=== PATIENT | male | born 1960 ===

== ENCOUNTER 2024-05-20 07:35 | Outpatient (AMB) | payer MEDICARE, OTHER, SELFPAY ==
--- OUTSIDE RECORDS SUMMARY | 2024-05-20 07:38 | XMS_ITS ---
Author Organization [facility] Address [address] [address] Care Team Providers Care Plane Tender Name Role Phone Félix Cooper Primary Care Provider Unav ailJulita Shah Unavailable [phone] ALLERGIES Allergen (clinical drug ingredient) Drug/Non Drug Allergy documented on EMR Reaction Allergy Type Onset Date Status liraglutide Victoza Unknown Drug Allergy Activ e canagliflozin Canagliflozin Unknown Drug Allergy Active lisinopril Lisinopril Unknown Drug Allergy Activ e REASON FOR VISIT Pcp- 11/08, Toe Irritation MEDICATIONS Medication SIG (Take, Route, Frequency, Duration) Notes Start Date End Date Status Tadalafil 20 MG 1 tablet Orally for 30 day(s) Not-Taking Extra Depth Orthopedic Shoes (1 Pair) with Customized Heat Molded Multidensity Innersoles (3 Pair) as directed Dx: NIDDM (E11.9), Hammertoe Foot Deformity (M20.41,M20.42), Preulcerative Skin Lesion(s) (L85.1) Not-Taking Vitamin D3 50 MCG (1999 UT) 1 capsule Orally Once a day for 30 day(s) Active amLODIPine Besylate 10 MG 1 tablet Orally Once a day Active buPROPion HCl ER (Smoking Det) 150 MG 1 tablet in the morning Orally Once a day for 30 day(s) Active Sildenafil Citrate 100 MG 1 tablet as needed Orally Once a day for 30 day(s) Active FLUoxetine HCl 40 MG 1 capsule Orally On ce a day for 30 day(s) Active Januvia 100 MG 1 tablet Orally Once a day for 30 day(s) Active metFORMIN HCl ER 500 MG 1 tablet with ev ening meal Orally Once a day for 30 day(s) Active Tamsulosin HCl 0.4 MG 1 capsule Orally O nce a day for 30 day(s) Active Nystatin-Triamcinolone 185374-7.1 UNIT/GM 1 application Externally Twice a day Active Pen Xenia 10/03 Ac tive Insulin Glargine 100 UNIT/ML as directed Subcutaneous Act randee Diclofenac Sodium 75 MG 1 tablet as need ed Orally Twice a day Not-Taking Insulin Aspart 100 UNIT/ML as directed Subcutaneous Not -Taking SITagliptin Phosphate 100 MG 1 tablet Orally Once a day for 30 day(s) Not-Taking SOCIAL HISTORY Tobacco Use: Social History Observation Description Date Details (start date - stop date) Never Smoker NA - NA Sex Assigned At : Social History Observation Description Sex Assigned At Unknown Tobacco Use/Smoking Question Answer Notes Are you a: nonsmoker Additional Findings: Tobacco Non-User Current no n-smoker Alcohol Screen Question Answer Notes Did you have a drink contain ing alcohol in the past year? Yes How often did you have a dri nk containing alcohol in the past year? 2 to 4 times a month (2 points) How many drinks did you have on a typical day when you were drinking in the past year? 5 or 6 drinks (2 points) Points 4 Interpretation Positive Tobacco use other than smoking: Question Answer Notes Are you an other tobacco user? No PROBLEMS Problem Type ICD Code Onset Dates Problem Status W/U Status Risk SNOMED Code Notes Problem Other hammer toe(s) (acquired), right foot (M20.41) Active confirmed Acquired hammer toe of right foot (1361749539602 105) Problem Other hammer toe(s) (acquired), left foot (M20.42) Active confirmed Acquired hammer toe of left foot (2172760267142 103) VITAL SIGNS Height 5 ft 10 in in 11/11/2023 Weight 200 lbs 11/11/2023 BMI 28.69 kg/m2 11/11/2023 Encounters Encounter Location Date Provider Diagnosis [facility] [address] [place] [address] 11/11/2023 Julita Marcial Other hammer toe(s) (acquired), right foot M20.41 ; Other hammer toe(s) (acquired), left foot M20.42 and Type 2 diabetes mellitus without complications E11.9 ASSESSMENTS Encounter Date Diagnosis Assessment Notes Treatment Notes Treatment Clinical Notes 11/11/2023 Other hammer toe(s) (acquired), right foot (ICD-10 - M20.41) Patient Educated with: DIABETIC FOOT CARE INSTRUCTIONS.pdf (DIABETIC FOOT CARE INSTRUCTIONS.pdf ) 11/11/2023 Other hammer toe(s) (acquired), left foot (ICD-10 - M20.42) 11/11/2023 Type 2 diabetes mellitus without complications (ICD-10 - E11.9) PLAN OF TREATMENT Treatment Notes Assessment Notes Other hammer toe(s) (acquired), right fo ot Patient Educated with: DIABETIC FOOT CARE INSTRUCTIONS.pdf (DIABETIC FOOT CARE INSTRUCTIONS.pdf) Next Appt Details Follow Up: 1 Year, Reason: Provider Name:Julita fajardo, 12/03/2024 09:00:00 AM, [address] [place] [address], [id number], Progress Notes * Examination Category Sub-Category Detail Notes Neurological SENSORY: Neurological exa m reveals intact sensorium, pain sensation normal, vibration sensation intact, pinprick sensation is normal in the lower extremities, Pt denies, anesthesia, burning, paresthesia, tingling, B/L DEEP TENDON REFLEXES: Achilles, 2/4, B/L Dermatologic SKIN FINDINGS: Skin exam reveal s normal texture, elasticity, and turgor. There are no masses. The interspaces are clear Orthopedic FOOTWEAR: worn, non-suppor tive, shoe gear properties exacerbate patient's foot/toe deformity DIGITAL DEFORMITIES: Digital contracture , PIPJ, 2-5 B/L, incompl-reducible to push-up test, no over, nor underlapping, with evidence of shoe producing skin irritation MUSCLE STRENGTH: 5/5 all groups in a symmetrical fashion , B/L General Examination GENERAL APPEARANCE: Reveals a pleasant, alert, well- nourished, well-developed, well hydrated individual, who demonstrates proper attention to hygiene/body habitus, and is in no acute distress, Pt serves as own historian for office visit today FOOT EXAM: Lower Extremity Neurological Exa m performed:: Yes ORIENTED: person, place, and t deven Footwear Evaluation Footwear Evaluation performe d:: Yes Ophthalmology Referral DIABETES EYE EXAM Diabetic Reti nopathy Screening:: Yes Findings of Diabetic Eye Exam:: no retin opathy Vascular DP PULSES(B): 3/4, B/L PT PULSES(B): 3/4, B/L CAPILLARY FILL TIME: immediate, all digi ts, B/L TEMPERTURE GRADIENT(C): warm to cool, pr oximal to distal, B/L TROPHIC CONDITION-TEXTURE/ELASTICITY/TURGOR/HAIR GROWTH(B): normal, B/L EDEMA(C): absent, B/L PIGMENTATION: normal, B/L History and Physical Notes * HPI (History of Present Illness) Category Sub-Category Detail Notes Toe pain Location: B/L feet Duration: several years Course: worse Aggravated by: shoes, any pressure Treatments: change in shoes
--- OUTSIDE RECORDS SUMMARY | 2024-05-20 07:38 | XMS_ITS | Patient Health Record ---
Author Organization [facility] Address [address] [place] [address] Care Team Providers Care Product Development Engineer Name Role Phone Félix Cooper Primary Care Provider Unav ailable Julita Marcial Unavailable [phone] ALLERGIES Allergen (clinical drug ingredient) Drug/Non Drug Allergy documented on EMR Reaction Allergy Type Onset Date Status liraglutide Victoza Unknown Drug Allergy Activ e canagliflozin Canagliflozin Unknown Drug Allergy Active lisinopril Lisinopril Unknown Drug Allergy Activ e REASON FOR REFERRAL No Information MEDICATIONS Medication SIG (Take, Route, Frequency, Duration) Notes Start Date End Date Status Nystatin-Triamcinolone 001334-0.1 UNIT/GM 1 application Externally Twice a day Active Tadalafil 20 MG 1 tablet Orally for 30 day(s) Not-Taking Pen Marion /16 Ac tive Extra Depth Orthopedic Shoes (1 Pair) with Customized Heat Molded Multidensity Innersoles (3 Pair) as directed Dx: NIDDM (E11.9), Hammertoe Foot Deformity (M20.41,M20.42), Preulcerative Skin Lesion(s) (L85.1) Not-Taking Sildenafil Citrate 100 MG 1 tablet as needed Orally Once a day for 30 day(s) Active Insulin Glargine 100 UNIT/ML as directed Subcutaneous Act randee SITagliptin Phosphate 100 MG 1 tablet Orally Once a day for 30 day(s) Not-Taking Vitamin D3 50 MCG (2000 UT) 1 capsule Orally Once a day for 30 day(s) Active FLUoxetine HCl 40 MG 1 capsule Orally On ce a day for 30 day(s) Active amLODIPine Besylate 10 MG 1 tablet Orally Once a day Active buPROPion HCl ER (Smoking Det) 150 MG 1 tablet in the morning Orally Once a day for 30 day(s) Active Januvia 100 MG 1 tablet Orally Once a day for 30 day(s) Active Diclofenac Sodium 75 MG 1 tablet as need ed Orally Twice a day Not-Taking Insulin Aspart 100 UNIT/ML as directed Subcutaneous Not -Taking metFORMIN HCl ER 500 MG 1 tablet with ev ening meal Orally Once a day for 30 day(s) Active Tamsulosin HCl 0.4 MG 1 capsule Orally O nce a day for 30 day(s) Active IMMUNIZATIONS Vaccine Route Administration Date Status Comme nts Influenza Unknown 06/20/2023 Administered SOCIAL HISTORY Tobacco Use: Social History Observation [...] confirmed Acquired hammer toe of right foot ([id number] 9105) Problem Other hammer toe(s) (acquired), left foot (M20.42) Active confirmed Acquired hammer toe of left foot (582483336365 9103) Problem Type 2 diabetes mellitus without complications (E11.9) Active confirmed [id number] Problem Hammer toe of left foot (M20.42) Active confirmed [id number] VITAL SIGNS Height 5 ft 10 in in 11/11/2023 Weight 200 lbs 11/11/2023 BMI 28.69 kg/m2 11/11/2023 Encounters Encounter Location Date Provider Diagnosis [facility] [address] [place] [address] 10/29/2023 Julita Marcial [facility] [address] [place] [address] 11/11/2023 Julita Aggie Other hammer toe(s) (acquired), right foot M20.41 [...] complications (ICD-10 - E11.9) PLAN OF TREATMENT Next Appt Details Provider Name:Julita Fajardo Evie fajardo, 12/03/2024 09:00:00 AM, [address] [place] [address], [phone], Insurance Providers Payer Name Payer Address Payer Phone Subscriber Number Group Number Insured Name Patient Relationship to Insured Coverage Start Date Coverage End Date Medicare National [employer] [address] [place] [address] [id number] Bharath Almeida Self - patient is the insured MEDICAL (GENERAL) HISTORY Medical History History ICD Code type II diabetes Herniated disc Hypertension Reflux ( GERD) Hepatitis C Arthritis Hepatitis B Alzheimers disease Anxiety Back,Hip,and Knee pain Broken bones Cataracts Depression Hepatitis High blood pressure Neuropathy Poor circulation Warts Sleep apnea Surgical History Surgery Date(Month/Year) back surgery cataract surgery rhinoplasty excision of mass
--- OUTSIDE RECORDS SUMMARY | 2024-05-20 07:38 | XMS_ITS ---
Author Organization [facility] [place] Address [address] [place] [address] Care Team Providers Care Strip Roller Name Role Phone Félix Cooper Primary Care Provider Unav ailable Julita Marcial Unavailable [phone] Galeano Encounters Encounter Location Date Provider Diagnosis [facility] [address] [place] [address] 10/29/2023 Julita Marcial PLAN OF TREATMENT Next Appt Details Provider Name:Julita fajardo, 12/03/2024 09:00:00 AM, [address] [facility] [place], [address],
--- NOTE | 2024-05-20 07:42 | MHC.OFFVIS ---
Vital Signs 05/20/24 07:50 Height 5 ft 10 in Weight 185 lb BMI 26.5 BP 138/74 Blood Pressure Location Lt brachial Position Sitting Pulse 85 Intake Visit Reasons: Follow up after /Ely pearl pt Intake Note: Patient follow up for alcohol abuse and US results. Ely current pt. Patient cc: Right middle quadrant pain with bloating on and off. Denies any other GI issues. Light Technician Required: No Accompanied by: Self / Same As Patient Allergies lisinopril Allergy (Severe, Verified 09/28/25 16:35) Angioedema canagliflozin (Invokana) Allergy (Unknown, Verified 09/28/25 16:35) polyuria liraglutide (Victoza) Adverse Reaction (Unknown, Verified 09/28/25 16:35) nausea, constipation HPI HPI Follow up after /Ely current pt: Details: GI clinic visit for this 63 YM with type 2 diabetes mellitus with neuropathy, obstructive sleep apnea, mediastinal lymphadenopathy here for follow-up of fatty liver and alcohol related liver disease. Patient is followed by JESUS Madrigal TODAY'S VISIT: Patient cc: Right middle quadrant pain with bloating on and off. Patient denies symptoms of heartburn, dysphagia, nausea, vomiting, Admits to a decrease in appetite due to Monjoro. Denies recent change in bowel habits, constipation, diarrhea, black stools or rectal bleeding. Patient has a hx of MARIAH and denies major cardiac or pulmonary problems. Denies problems with anesthesia in the past. Denies being on chronic anticoagulation. Takes Ibuprofen. Continues to drink 6-7 drinks of hard liquor (rum) on the weekends and sometimes during the week Did [employer] work - now retired and works on the side Patient denies known family history of colon polyps, colon cancer or other GI malignancies. LABS IN [employer] : Reviewed. Hepatitis-C antibody was positive with negative viral load. Hepatitis-B surface antibody in the galarza zone and hepatitis-B core antibody was positive IMAGING STUDIES: 02/2024 ABD US SHOWED: Right renal interpolar cystic foci measuring up to 1.0 cm, simple-appearing, not requiring follow-up. ENDOSCOPIC STUDIES: 01/2020 COLONOSCOPY SHOWED: Colonoscopy Findings: One diminutive polyp removed Moderate diverticulosis seen in the left colon Moderate hemorrhoids on retroflexed exam. Plan: Patient would like to discuss having an EGD due to UGI symptoms during his next appointment. Repeat Colonoscopy interval based on path results ? in 5 years if polyps are adenomatous and 10 years if polyps are hyperplastic. Above findings were reviewed with the patient and colon polyps and diverticulosis handouts were given in the discharge area BIOPSIES SHOWED: Colon, sigmoid, polypectomy: Tubular adenoma; no high grade dysplasia or carcinoma seen. PAST GI HISTORY BY REVIEW OF MEDICAL RECORDS: 10/17/2022 patient was last seen by JESUS Madrigal A 61 y/o male etoh use follows up -he says he slowed down alot-but unsure- by how much- 1 beer this week a couple last week. Diabetes not well controlled, he likes to eat- Knees and back hurts-from time to time that is been ongoing for years HX HCV- says he was treated many years ago-recently retested due to rash on his face that has not resolved results pending His appetite is very good, bowels are normal No nausea, vomiting, hematemesis, hematochezia, fever chill PFSH Medical History (Updated 09/28/25 @ 16:42 by Opal Mcclendon CNP) Depression Diabetes HTN (hypertension) NAFLD (nonalcoholic fatty liver disease) BPH (benign prostatic hyperplasia) Ascending aortic aneurysm Lung nodule MARIAH (obstructive sleep apnea) Schmidt's palsy Alcoholic dementia Periodic limb movement Diabetic neuropathy Hepatitis C Hepatitis B Arthritis Carpal tunnel syndrome Surgical History History of rhinoplasty History of colonoscopy History of lumbar surgery History of cataract surgery History of excision of mass Family History Father Myocardial infarct Colon cancer Mother Diabetes Social History Household Members: Spouse Household Members Other:: Housing: House Alcohol intake: current Alcohol intake frequency: a few times a month Alcohol type: beer and hard liquor Patient Tobacco Use Status: Never used Tobacco Tobacco use type: Cigarette e-Cigarette/Vaping Use: Never Used Second Hand Smoke Exposure: No Substance Use Type: Crack/Cocaine Advance Directives Date on File: 07/20/24 service: Yes Current occupational status: disabled Current occupational exposures/hazards: No Cognitive needs: No Hearing needs: No Vision needs: No Review of Systems Const All systems reviewed & are unremarkable except as noted in HPI and below Reports fatigue, Denies fever(s), Denies headache(s) and Reports weight loss Eyes Denies eye discharge and Denies irritation ENT Reports Normal hearing present, Denies dysphagia, Denies dizziness and Denies headache(s) Card Denies chest pain, Denies leg edema and Reports dyspnea on exertion Resp Reports cough, Reports dyspnea on exertion and Reports wheezing GI Reports abdominal pain, Denies change in bowel habits, Denies dysphagia, Denies heartburn and Reports other (Loss of appetite) Denies dysuria, Reports nocturia and Reports urinary frequency Musc Denies back pain and Denies arthralgias Skin/Breast Denies pruritus, Denies rash and Denies jaundice Neuro Reports Normal hearing present, Denies Abnormal speech present, Denies dizziness, Denies headache(s) and Denies seizure-like activity Psych Denies anxiety, Denies depression and Denies panic attacks Endo Denies cold intolerance, Reports fatigue, Denies flushing and Denies heat intolerance Demetrius/Lymph Denies easy bleeding and Denies easy bruising Aller/Immun Reports wheezing Physical Exam Vital Signs: Last Vital Signs Pulse 85 05/20/24 07:50 BP 138/74 05/20/24 07:50 BMI result Body Mass Index 26.5 Const General: healthy appearing and no acute distress Nutritional Appearance: overweight Orientation/consciousness: patient oriented x3 Limitations: no limitations HEENT Head: Yes normal to inspection Ears: hearing grossly normal bilaterally Mouth: Normal oral and palatal mucosa present Eyes Sclerae: sclerae normal Pupils: Equal, round and reactive pupils present Neck Neck: Yes normal visual inspection Chest Chest palpation & inspection: normal inspection of the chest Resp Effort & Inspection: normal respiratory effort Auscultation: clear to auscultation bilaterally Cardio Palpation: normal PMI Rate: regular rate Rhythm: regular rhythm Heart sounds: S1 normal heart sound present, S2 normal heart sound present and no murmurs GI Palpation (GI): Soft to palpation, nontender and No hepatosplenomegaly present Auscultation: normal bowel sounds Rectal Exam - Male: Yes deferred Skin General skin exam: no rashes or lesions noted Neuro General: patient oriented x3, gait normal and moves all extremities Cranial nerves: Yes Equal, round and reactive pupils present and Yes Normal hearing present Speech: No Abnormal speech present Psych Appearance: grossly normal Mental Status: mental status grossly normal Assessment & Plan Assessment & Plan (1) NAFLD (nonalcoholic fatty liver disease): Comment: Reviewed ultrasound, Repeat labs 6 months He has no GI symptoms-no abdominal pain Colonoscopy 01/2020 adenoma repeat 5 years 2024 Code(s): K76.0 - Fatty (change of) liver, not elsewhere classified Category: Medical (2) Tubular adenoma of colon: Onset Date: ~2019 Comment: (TA on 2019 scope - repeat 2024) Code(s): D12.6 - Benign neoplasm of colon, unspecified Category: Medical Plan 63 YM with type 2 diabetes mellitus with neuropathy, obstructive sleep apnea, mediastinal lymphadenopathy here for follow-up of fatty liver and alcohol related liver disease. 01/2020 Pt had a small tubular adenoma removed during colonoscopy and FU colonoscopy is due in January, Pt has a hx of past HCV - cleared with treatment Pt has normal LFTs Abd US showed The liver is normal in size. The liver contour is normal. Parenchymal echogenicity is normal. No focal hepatic lesion. There is no intrahepatic biliary duct dilatation seen. 05/20/24 Lost 18 lbs since he started taking Monjoro Complains of 5-6/10 pain in right groin - noted pain for more than a week. Increased when he lied down in bed and moved from side to side. Denies association with food intake. Urinates all the time - has to get up to use the bathroom 8 - 10 times at night. Patient denies symptoms of heartburn, dysphagia, nausea, vomiting, Admits to a decrease in appetite due to Monjoro. Pt advised to check a UA to rule out UTI FU in 4 months Orders: Orders UA CC w/rflx Micro + Cult 05/20/24 R35.0 - Frequency of micturition Coding Level of Care Code Est Pt Level 4 (80924) Diagnoses NAFLD (nonalcoholic fatty liver disease) K76.0 Tubular adenoma of colon D12.6 Time Spent (min) 21
[2024-05-20 07:50] VITALS: BP 138/74; PULSE 85; BMI 26.5
== END 2024-05-20 08:24 | disposition home or self-care (01) ==
LOC: HO.HGI 07:35
PROVIDERS: PCP Physician Assistant Medical; Visit Provider Internal Medicine Gastroenterology
DX: K76.0 Fatty (change of) liver, not elsewhere classified (principal); D12.6 Benign neoplasm of colon, unspecified
CPT/HCPCS: 99499

== ENCOUNTER → 2024-05-20 07:35 | Outpatient (BNVA) | payer MEDICARE, SELFPAY | PROVIDERS: PCP Physician Assistant Medical; Visit Provider Internal Medicine Gastroenterology ==

== ENCOUNTER 2024-07-29 15:02 | Outpatient (REF) | payer MEDICARE, SELFPAY ==
[2024-07-29 16:22] LABS: Vitamin D 25-OH Total 41.1 ng/mL (>30)
[2024-07-29 16:35] LABS: Folate 9.6 ng/mL (> or = 4.0); Vitamin B12 270 pg/mL (200-900)
== END 2024-07-29 15:03 | disposition home or self-care (01) ==
LOC: HO.LAB 15:02
PROVIDERS: PCP Internal Medicine; Visit Provider Psychiatry & Neurology Neurology
DX: F10.27 Alcohol dependence with alcohol-induced persisting dementia (principal)
CPT/HCPCS: 36415; 82306; 82607; 82746

== ENCOUNTER → 2024-09-28 08:22 | Outpatient (BNVA) | payer MEDICARE, SELFPAY | PROVIDERS: PCP Internal Medicine; Visit Provider Internal Medicine Gastroenterology | DX: F10.10 Alcohol abuse, uncomplicated (principal); K76.0 Fatty (change of) liver, not elsewhere classified; D12.6 Benign neoplasm of colon, unspecified | CPT/HCPCS: 99212 ==

== ENCOUNTER → 2024-10-07 09:26 | Outpatient (BNVA) | payer MEDICARE, OTHER, SELFPAY | PROVIDERS: PCP Physician Assistant Medical; Visit Provider Registered Nurse Diabetes Educator | DX: E11.40 Type 2 diabetes mellitus with diabetic neuropathy, unspecified (principal); Z79.4 Long term (current) use of insulin | CPT/HCPCS: 99211 ==

== ENCOUNTER 2024-10-21 09:32 | Outpatient (REF) | payer MEDICARE, SELFPAY ==
--- NOTE | ~2024-10-21 | XR_ITS ---
EXAMINATION: XR FINGERS RIGHT HISTORY: S69.91XA - Unspecified injury of right wrist, hand and finger(s), initial... COMPARISON: There are no prior studies available for comparison. FINDINGS: Three views of the right thumb are submitted. Osseous mineralization is normal. There is a soft tissue injury involving the distal tuft of the thumb. There is no acute fracture or dislocation. There is an old healed fracture of the 5th metacarpal. There is mild narrowing of the interphalangeal joint. There is vascular calcification. XR/XR finger RT min 2V IMPRESSION: Soft tissue injury of the distal tuft of the thumb. No evidence of fracture. Electronically signed by: Lee Avelar MD 10/21/2024 10:47 AM EDT
--- OUTSIDE RECORDS SUMMARY | 2024-10-21 11:16 | XMS_ITS | Clinical Summary ---
Author Organization [address] [place] [address] Address [address] [place] [address] Phone Care Team Providers Care Chainstitch Seat Joiner Name Role Phone Hector Epps MD Primary Care Provider Allergies Active Allergy Reactions Criticality Noted Date [...] Care Team Description 09/02/2024 Telephone Adult Medicine [facility] [address] [place] [address] Christiano Guerrero MD call back 08/25/2024 3:00 PM EST Ancillary Procedure [facility] - [address] [place] [address] Aneurysm of ascending aorta without [...] HISTORICAL CATARACT REMOVAL NASAL SEPTUM SURGERY PROCEDURE: [place] REPAIR NASAL SEPTAL PERFORATIONS COLONOSCOPY 01/2020 PROCEDURE: [...] 54 mL CV PACS Left Atrium Minor [place] 5.9 cm CV PACS Left Atrium Major [place] 5.6 cm CV PACS LA Area Sys [...] Proximal 1.9 cm CV PACS MV Deceleration Patrick 2.7 m/s2 CV PACS E Wave Deceleration [...] Albumin Creatinine Ratio (02/17/2024) Pathologist [facility] Urine Albumin Creatinine Ratio Abstracted Historical Provider HEALTH MAINTENANCE Final Result * Annual BMP Blood Test (02/17/2024) Pathologist [facility] Annual BMP Blood Test Abstracted Result [facility] Provider HEALTH MAINTENANCE Final Result * Falls Risk Assessment (02/17/2024) [facility] Falls Risk Assessment Abstracted Result [facility] Provider HEALTH MAINTENANCE Final Result * Depression Screening (02/17/2024) [facility] Depression Screening Abstracted Result [facility] HEALTH MAINTENANCE Final Result * (ABNORMAL) Hemoglobin A1c (02/17/2024) [facility] Hemoglobin A1C 7.4(A) <=6.5 % Blood Venous blood specimen / Unknown Result [facility] Provider LAB BLOOD ORDERABLES Zunilda l Result * Lipid panel (02/17/2024) [facility] LDL/HDL Ratio 3 0 - 4 Triglycerides 93 0 - 150 mg/dL Cholesterol 125 0 - 200 mg/dL HDL 48 >=40 mg/dL LDL Cholesterol 59 0 - 100 mg/dL Blood Venous blood specimen / Unknown Result [facility] Provider LAB BLOOD ORDERABLES Zunilda l Result * Diabetes Eye Exam (10/30/2023) [facility] Diabetes: Annual Retina Eye Exam Abstracted Result [facility] Provider HEALTH MAINTENANCE Final Result * Colonoscopy (01/28/2020) [facility] Colonoscopy No interpretation , Abstracted Anatomical Region Laterality Modality Other Result [facility] Provider HEALTH MAINTENANCE Final Result * Hepatitis C Screening (04/01/2016) [facility] Hepatitis C Screening Abstracted Result [facility] Provider HEALTH MAINTENANCE Final Result from Last 3 Months or Most Recently Relevant to Health Maintenance Insurance A[employer]NA MEDICARE ADVANTAGE MEDICARE [facility] MEDICAID - [place] Care Teams Chainstitch Seat Joiner Relationship Specialty Start Date End Date Hector Epps MD [address] [place] [address] [address] [place] PCP - General Internal Medicine 09/03/24
== END 2024-10-21 09:33 | disposition home or self-care (01) ==
LOC: HO.HMGCX 09:32
PROVIDERS: PCP Internal Medicine; Visit Provider Nurse Practitioner Family
DX: S61.011A Laceration without foreign body of right thumb without damage to nail, initial encounter (principal)
CPT/HCPCS: 73140; 99212

== ENCOUNTER 2024-10-21 09:32 | Outpatient (AMB) | payer MEDICARE, SELFPAY ==
--- NOTE | 2024-10-21 09:39 | AM.OFFWIN_ITS ---
Intake Vital Signs 3 10/21/24 09:41 Weight 172 lb BP 122/80 Blood Pressure Location Lt brachial Position Sitting Pulse 68 Pulse Source Pulse Oximeter Pulse Oximetry (%) 99 Oxygen Delivery Method Room Air Intake Visit Reasons: EP cut on RT thumb Intake Note: Patient here for cut on right thumb that happened about 2 weeks ago with a saw. Patient Tobacco Use Status: Never used Tobacco Allergies lisinopril Allergy (Severe, Verified 10/21/24 09:42) Angioedema canagliflozin [Invokana] Allergy (Unknown, Verified 10/21/24 09:42) polyuria liraglutide [Victoza] Adverse Reaction (Unknown, Verified 10/21/24 09:42) nausea, constipation Do you need a note to return to daycare/school/sports/work: No HPI HPI Comments 2 History of Present Illness0 Details 63 y/o male patient who presents to the walk in clinic with c/o Small cut right thumb. Reports that he cut his thumb with a saw x 2 weeks ago. He never came to be seen and never had stitches. Reports today to the clinic to make sure the area is not infected. Reports numbness/tingling and pain to the finger. He is Diabetic. [facility] Medical History (Updated 10/21/24 @ 10:21 by Melanie Alvarez NP) Injury of right thumb Lumbar degenerative disc disease Vitamin D deficiency Hypersomnia Snoring Cognitive disorder Tubular adenoma of colon (~2019) BPH loc w urin obs/LUTS Frequency of urination Erectile dysfunction NAFLD (nonalcoholic fatty liver disease) Hepatitis C Hepatitis B Arthritis Alcohol abuse Depression Carpal tunnel syndrome Type 2 diabetes mellitus with diabetic neuropathy, unspecified (~2003) Essential hypertension Overweight (BMI 25.0-29.9) Surgical History (Updated 10/13/24 @ 12:01 by Cynthia Ramirez) History of rhinoplasty History of colonoscopy History of lumbar surgery History of cataract surgery History of excision of mass Family History (System 10/13/24 @ 12:01 by Cynthia Ramirez) Father Myocardial infarct Colon cancer Mother Diabetes Social History (System 10/13/24 @ 12:01 by Cynthia Ramirez) Household Members: Spouse Household Members Other:: Housing: House Alcohol intake: current Alcohol intake frequency: a few times a month Alcohol type: beer and hard liquor Patient Tobacco Use Status: Never used Tobacco e-Cigarette/Vaping Use: Never Used Substance Use Type: Crack/Cocaine Advance Directives Date on File: 07/20/24 service: Yes Current occupational status: disabled Current occupational exposures/hazards: No Cognitive needs: No Hearing needs: No Vision needs: No Review of Systems Const All systems reviewed & are unremarkable except as noted in HPI and below Physical Exam Vital Signs: Last Vital Signs Pulse 68 10/21/24 09:41 BP 122/80 10/21/24 09:41 Pulse Ox 99 10/21/24 09:41 Oxygen Delivery Method Room Air 10/21/24 09:41 Const General: no acute distress Orientation/consciousness: patient oriented x3 Neuro General: patient oriented x3 Extrem Other: Right upper extremity: Extremity exam: right hand Details: normal capillary refill, tenderness Location: of the thumb (Tip of the Thumb finger missing), normal ROM of fingers and no swelling Assessment & Plan Assessment & Plan (1) Injury of right thumb: Code(s): S69.91XA - Unspecified injury of right wrist, hand and finger(s), initial encounter Qualifiers: Encounter type: initial encounter Qualified Code(s): S69.91XA - Unspecified injury of right wrist, hand and finger(s), initial encounter Plan: Ordered Xray of the thumb No signs of infection. Advised poss damage to the Nerves and muscle from the Cut. Orders: Orders 2 XR finger RT min 2V Today S69.91XA - Unspecified injury of right wrist, hand and finger(s), initial encounter Coding Level of Care Code Est Pt Level 4 (41861) Diagnoses Injury of right thumb, initial encounter S69.91XA Encounter type: initial encounter Time Spent (min) 20
[2024-10-21 09:41] VITALS: BP 122/80; PULSE 68; O2SAT 99
--- OUTSIDE RECORDS SUMMARY | 2024-10-21 09:58 | XMS_ITS ---
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 Name Role Phone Félix Cooper Primary Care Provider Unav ailJulita Shah Unavailable [phone] Allergies Allergen (clinical drug ingredient) Drug/Non Drug Allergy documented on EMR Reaction Allergy Type Onset Date Status liraglutide Victoza Unknown Drug Allergy Activ e canagliflozin Canagliflozin Unknown Drug Allergy Active lisinopril Lisinopril Unknown Drug Allergy Activ e REASON FOR VISIT Pcp- 11/08, Toe Irritation Medications Medication SIG (Take, Route, Frequency, Duration) Notes [...] a day for 30 day(s) Active Nystatin-Triamcinolone 924566-5.1 UNIT/GM 1 application Externally Twice a day Active Pen [place] 10/03 Ac tive Insulin Glargine 100 UNIT/ML as directed Subcutaneous Act randee Diclofenac Sodium 75 MG 1 tablet as need ed Orally Twice a day Not-Taking Insulin Aspart 100 UNIT/ML as directed Subcutaneous Not -Taking SITagliptin Phosphate 100 MG 1 tablet Orally Once a day for 30 day(s) Not-Taking Social History Tobacco Use: Social History Observation Description Date Details (start date - stop date) Never Smoker NA - NA Tobacco Use/Smoking Question Answer Notes Are you [...] Are you an other tobacco user? No Problems Problem Type SNOMED Code ICD Code Onset Dates Problem Status W/U Status Risk Notes Problem Acquired hammer toe of right foot (7784552888580 105) Other hammer toe(s) (acquired), right foot (M20.41) Active confirmed Problem Acquired hammer toe of left foot (6565011098554 103) Other hammer toe(s) (acquired), left foot (M20.42) Active confirmed Vital Signs Height 5 ft 10 in in 11/11/2023 Weight 200 lbs 11/11/2023 BMI 28.69 kg/m2 11/11/2023 Encounters Encounter Location Date Provider Diagnosis [facility] [place] [address] [place] [address] 11/11/2023 Julita Marcial Other hammer toe(s) (acquired), right foot M20.41 ; Other hammer toe(s) (acquired), left foot M20.42 and Type 2 diabetes mellitus without complications E11.9 Assessments Encounter Date Diagnosis (ICD Code) Assessment Notes Treatment Notes Treatment Clinical Notes Section Notes 11/11/2023 Other hammer toe(s) (acquired), right foot (ICD-10 - M20.41) Patient Educated with: DIABETIC FOOT CARE INSTRUCTIONS.p df (DIABETIC FOOT CARE INSTRUCTIONS.p df) 11/11/2023 Other hammer toe(s) (acquired), left foot (ICD-10 - M20.42) 11/11/2023 Type 2 diabetes mellitus without complications (ICD-10 - E11.9) Plan Of Treatment Treatment Notes Assessment Notes Other hammer toe(s) (acquired), right fo ot Patient Educated with: DIABETIC FOOT CARE INSTRUCTIONS.pdf (DIABETIC FOOT CARE INSTRUCTIONS.pdf) Next Appt Details Follow Up: 1 Year, Reason: Provider Name:Julita fajardo, 12/03/2024 09:00:00 AM, [address] [place] [address], [phone], Progress Notes * Kaila RHODESOB:[birth year] (63 yo M)Acc No.[id number]:11/11/2023 Progress Note Patient:?Thong Rhodes Provider:?Julita Marcial DPM :1960???Age:63 Y???Sex:Male Nahun e:11/11/2023 Address:[address] [place] [address] [id number] Pcp:JESUS Jerry Subjective: * Chief Complaints: * ???Pcp- 11/08 Toe Irritation * HPI: ???Toe pain:?Location:?B/L feet.?Duration:?several years.?Course:?worse.?Aggrevated by:?shoes, any pressure.?Treatments:?change in shoes.? * ROS:?General/Constitutional:?Nausea?denies.?Vomiting?denies.?Hunger Thirst?denies.?Loss appetite?denies.?Chills?denies.?Fatigue?denies.?Fever?denies.?Night Sweats?denies.?Unexplained weight loss?denies.?Unexplained weight gain?denies.?HEENTM:?Dentures?denies.?Dizziness?denies.?Glasses/contacts?denies.?Retinopathy?de nies.?Blurred/double vision?denies.?TMJ?denies.?Discharge/drainage?denies.?Implants?denies.?Sore throat?denies.?Dental implants?denies.?Hard of hearing ?denies.?Difficulty chewing/swallowing/speaking?denies.?Nose bleeds?denies.?Sore mouth?denies.?Respiratory:?On Oxygen?denies.?Pneumonia/pleurisy?denies.?Bronchitis?denies.?Emphysema?denies.?C oughing?denies.?Cough blood?denies.?Shortness of breath?denies.?Wheezing?denies.?Cardiovascular:?Pacemaker?denies.?MVP?denies.?WPW?denies.?CHF?denies.?Heart attack?denies.?Septal defect?denies.?Rapid beat?denies.?Chest pain ?denies.?Atrial Fib.?denies.?Murmur/Palpitations?denies.?Gastrointestinal:?Hemorrhoids?denies.?Stomach/Abdominal pain?denies.?Dark blood stool?denies.?Irritable bowel ?denies.?Constipation?denies.?Diarrhea?denies.?Hematology:?Swelling?denies.?Clots?denies.?Varicose Veins?denies.?Bruising?denies.?Bleeding problem?denies.?Genitourinary:?Blood urine?denies.?Frequent/Painfu/urination/bladder control?denies.?Kidney stones?denies.?Infection (UTI)?denies.?Nephropathy?denies.?sex trans dis (STD)?denies.?Prostate?denies.?Musculoskeletal:?Hammertoes?denies.?Bunions?denies.?Back Pain?admits.?Muscle Cramps/ Resting?denies.?Muscle cramps / walking?denies.?Generalized aches and pains?admits.?Weakness?denies.?Integ.:?Daniels?denies.?Scars?denies.?Corns/calluses?denies.?Ingrown nails?denies.?Painful nails?denies.?Open Sores?denies.?Rashes?denies.?Neurologic:?Difficulty sleeping?denies.?Brain disorder?denies.?Numbness?denies.?Balance trouble?denies.?Confusion?denies.?Fainting/blackouts?denies.?Tingling?denies.?Tr emors?denies.? * Medical History:? * Surgical History:?back surge ry cataract surgery rhinoplasty excision of mass * Hospitalization/Major Diagno stic Procedure:?Denies Past Hospitalization * Family History:?Mother: ren lee, diagnosed with Diabetic - NIDDM.?Father: , diagnosed with Other malignant neoplasm of unspecified site.? * Social History:?Tobacco Use:?Tobacco Use/Smoking?Are you a:?nonsmoker ?Additional Findings: Tobacco Non-User?Current non-smoker ?Tobacco use other than smoking?Are you an other tobacco user??No ???Drugs/Alcohol:?Drugs?Have you used drugs other than those for medical reasons in the past 12 months??No ?Alcohol Screen?Did you have a drink containing alcohol in the past year??Yes ?How often did you have a drink containing alcohol in the past year??2 to 4 times a month (2 points) ?How many drinks did you have on a typical day when you were drinking in the past year??5 or 6 drinks (2 points) ?Points?4 ?Interpretation?Positive ???Miscellaneous:?Caffeine: yes, frequency:, 1-2 cups per day. ?Children: yes, 3. ?Exercise: yes, gardening/yard work. ?Marital status: . ?Occupation: Disabled. * Medications:?TakingPen [place]l es 10/03 Nystatin-Triamcinolone 053931-0.1 UNIT/GM Cream 1 application Externally Twice a dayInsulin Glargine 100 UNIT/ML Solution as directed Subcutaneous Sildenafil Citrate 100 MG Tablet 1 tablet as needed Orally Once a dayJanuvia 100 MG Tablet 1 tablet Orally Once a dayTamsulosin HCl 0.4 MG Capsule 1 capsule Orally Once a daymetFORMIN HCl ER 500 MG Tablet Extended Release 24 Hour 1 tablet with evening meal Orally Once a dayFLUoxetine HCl 40 MG Capsule 1 capsule Orally Once a dayVitamin D3 50 MCG (2000 UT) Capsule 1 capsule Orally Once a daybuPROPion HCl ER (Smoking Det) 150 MG Tablet Extended Release 12 Hour 1 tablet in the morning Orally Once a dayamLODIPine Besylate 10 MG Tablet 1 tablet Orally Once a dayTaking Pen [place] 10/03 Taking Nystatin-Triamcinolone 512736-1.1 UNIT/GM Cream 1 application Externally Twice a dayTaking Insulin Glargine 100 UNIT/ML Solution as directed Subcutaneous Taking Sildenafil Citrate 100 MG Tablet 1 tablet as needed Orally Once a dayTaking Januvia 100 MG Tablet 1 tablet Orally Once a dayTaking Tamsulosin HCl 0.4 MG Capsule 1 capsule Orally Once a dayTaking metFORMIN HCl ER 500 MG Tablet Extended Release 24 Hour 1 tablet with evening meal Orally Once a dayTaking FLUoxetine HCl 40 MG Capsule 1 capsule Orally Once a dayTaking Vitamin D3 50 MCG (2000 UT) Capsule 1 capsule Orally Once a dayTaking buPROPion HCl ER (Smoking Det) 150 MG Tablet Extended Release 12 Hour 1 tablet in the morning Orally Once a dayTaking amLODIPine Besylate 10 MG Tablet 1 tablet Orally Once a dayNot-Taking/PRNExtra Depth Orthopedic Shoes (1 Pair) with Customized Heat Molded Multidensity Innersoles (3 Pair) as directed Dx: NIDDM (E11.9), Hammertoe Foot Deformity (M20.41,M20.42), Preulcerative Skin Lesion(s) (L85.1)Tadalafil 20 MG Tablet 1 tablet Orally SITagliptin Phosphate 100 MG Tablet 1 tablet Orally Once a dayInsulin Aspart 100 UNIT/ML Solution as directed Subcutaneous Diclofenac Sodium 75 MG Tablet Delayed Release 1 tablet as needed Orally Twice a dayMedication List reviewed and reconciled with the patientNot-Taking/PRN Extra Depth Orthopedic Shoes (1 Pair) with Customized Heat Molded Multidensity Innersoles (3 Pair) as directed Dx: NIDDM (E11.9), Hammertoe Foot Deformity (M20.41,M20.42), Preulcerative Skin Lesion(s) (L85.1)Not-Taking/PRN Tadalafil 20 MG Tablet 1 tablet Orally Not-Taking/PRN SITagliptin Phosphate 100 MG Tablet 1 tablet Orally Once a dayNot-Taking/PRN Insulin Aspart 100 UNIT/ML Solution as directed Subcutaneous Not-Taking/PRN Diclofenac Sodium 75 MG Tablet Delayed Release 1 tablet as needed Orally Twice a dayMedication List reviewed and reconciled with the patient * Allergies:?LisinoprilPeter King[Allergies Verified] Objective: * Vitals:?Ht: 5 ft 10 in, Wt:2 00, BMI:28.69, Shoe size:11, BS:249. * Examination: ???Ophthalmology Referral: ?DIABETES EYE EXAM?Diabetic Retinopathy Screening:?Yes ?Findings of Diabetic Eye Exam:?no retinopathy?General Examination: ?GENERAL APPEARANCE:?Reveals a pleasant, alert, well-nourished, well- developed, well hydrated individual, who demonstrates proper attention to hygiene/body habitus, and is in no acute distress, Pt serves as own?historian for office visit today.?ORIENTED:?person, place, and time.?FOOT EXAM:?Lower Extremity Neurological Exam performed:?Yes ?Footwear Evaluation?Footwear Evaluation performed:?Yes?Neurological: ?SENSORY:?Neurological exam reveals intact sensorium, pain sensation normal, vibration sensation intact, pinprick sensation is normal in the lower extremities, Pt denies, anesthesia, burning, paresthesia, tingling, B/L.?DEEP TENDON REFLEXES:?Achilles, 2/4, B/L.?Vascular: ?DP PULSES:?3/4, B/L.?PT PULSES:?3/4, B/L.?CAPILLARY FILL TIME:?immediate, all digits, B/L.?SKIN TEMPERTURE GRADIENT OF THE LOWER EXTERMITIES:?warm to cool, proximal to distal, B/L.?HAIR GROWTH/TEXTURE/ELASTICITY/TURGOR:?normal, B/L.?PIGMENTATION:?normal, B/L.?EDEMA:?absent, B/L.?Dermatologic: ?SKIN FINDINGS:?Skin exam reveals normal texture, elasticity, and turgor. There are no masses. The interspaces are clear.?Orthopedic: ?MUSCLE STRENGTH:?5/5 all groups in a symmetrical fashion , B/L.?DIGITAL DEFORMITIES:?Digital contracture, PIPJ, 2-5 B/L, incompl-reducible to push-up test, no over, nor underlapping, with evidence of shoe producing skin irritation.?FOOTWEAR:?worn, non-supportive, shoe gear properties exacerbate patient's foot/toe deformity.? Assessment: * Assessment: 1.?Other hammer toe(s) (acqu ired), right foot - M20.41 (Primary), Chronic problem, Worse (4),Rx Management (4)?2.?Other hammer toe(s) (acquired), left foot - M20.42, Chronic problem, Worse (4),Rx Management (4)?3.?Type 2 diabetes mellitus without complications - E11.9? Plan: * Treatment: * Procedure Codes:? * Preventive Medicine:? ??Counseling:?Discussion:?-13: Office or other outpatient visit for the evaluation and management of an established patient, which required a medically appropriate history and/or examination and LOW level of DECISION MAKING for: 1 STABLE ACUTE UNCOMPLICATED PROBLEM, 2 OR MORE MINOR PROBLEMS, OR 1 STABLE CHRONIC PROBLEM, THAT POSE(S) A LOW RISK FOR MORBIDITY/MORTALITY. The visit on the day of the encounter encompassed interpreting the data and educating the patient as to the nature of their condition, treatment options available according to their individual PMH, meds, allergies, and overall health/living conditions, as well as any potential risks or complications that may occur from a failure to adhere to, and participate in, the recommended course of therapy. The discussion included a complete verbal, and/or written explanation of the examination results, any x-rays taken, the proposed diagnosis, and outline of the treatment plan. A schedule for future care needs was also explained. The patient verbalized an understanding of the instructions at this time and agreed to be an active participant in their treatment. If the patient should think of any questions or concerns after the visit, I have encouraged the patient to call the office.?Digital Surgery:?Digital surgery was discussed with the patient, We elected to try conservative treatment at the present time, due to the patients medical history and increased asssociated post-operative risks.?Digital Treatment:?HT- I explained to the patient the possible etiologies of Hammertoes, including genetics/foot type/shoegear/activity level/exercise routine and the risks/benefits of all the different treatment options for their pain including: No treatment at all, Rest, Ice, New/supportive/wider/deeper Shoegear, Digital Padding/Strapping/Taping/Bracing/Gel protective sleeves, Foot/Ankle AFO Bracing, Stretching exercises, Deep Tissue Massage, Arch support/shoe inserts with splay metatarsal padding, and Custom orthoses. I insisted that any digital devices be removed daily and not worn overnight for safety. The patient is to carefully examine the toes daily for any skin irritation while using any splinting or padding device. The advantages and disadvantages of each option were discussed and the patients questions re: shoegear, padding, custom vs prefabricated inserts, activity level, and consistency in home treatment regimens for optimal success were answered to their verbally confirmed satisfaction.?Shoe Gear Counseling:?SHOE Rx - The patient was counseled in great detail on their muscoloskeletal foot and toe deformities which coincided with the dermatological presentations visualized on exam. We discussed how their deformities put the integrity of their feet at risk for potential pedal complications which makes the accomidative diabetic shoes and cutomizable inserts medically necessary. We discussed the different shoe and insert treatment types and options, as well as the important advantages for adhering to regularly wearing these accomidative devices daily. The patient was made aware of the fact that a failure to abide by these recommedations may be deleterious to their foot health as they are able to prevent many pedal complications such as skin irritation, skin ulceration, infection, and even loss of toe/foot/leg/or life. Time was also spent with the patient dispensing and discussing proper diabetic footcare techniques including daily skin moisturization, daily foot inspection for any interruption in skin integrity including open lesions, or sign of infection such as redness/malodor/drainage/swelling. Also discussed and recommended were procedures regarding daily shoe inspection for the presence of internal foreign bodies as well as any visualized irregular shoe or insert wear. Patient questions re: shoes, inserts, and self foot inspections were answered to their satisfaction as the patient verbally confirmed a full understanding of the above information. Patient defers recommended Rx for Extra Depth Orthopedic Shoes with 3 pair of custom heat- molded inserts.?Ulcer:?.? * Follow Up:?1 Year * Images: * Sign off status: Completed true * Provider:?Julita Marcial DPM Date:? Generated for Eyal orta/Teri/Alejandro on:?10/21/2024 09:58 AM EDT History and Physical Notes * HPI (History of Present Illness) Category Sub-Category Detail Notes Category Not es Toe pain Location: B/L feet Duration: several years Course: worse Aggravated by: shoes, any pressure Treatments: change in shoes Examination Category Sub-Category Detail Notes Category Not es Neurological SENSORY: Neurological exa m reveals intact sensorium, pain sensation normal, vibration sensation intact, pinprick sensation is normal in the lower extremities, Pt denies, anesthesia, burning, paresthesia, tingling, B/L DEEP TENDON REFLEXES: Achilles, 2/4, B/L Dermatologic SKIN FINDINGS: Skin exam reveal s normal texture, elasticity, and turgor. There are no masses. The interspaces are clear Orthopedic FOOTWEAR EVALUATION: worn, non-s upportive, shoe gear properties exacerbate patient's foot/toe deformity [...] Yes Ophthalmology Referral DIABETES EYE EXAM Diabetic Retinopa thy Screening:: Yes Findings of Diabetic Eye Exam:: no retin opathy Vascular DP PULSES (B): 3/4, B/L PT PULSES (B): 3/4, B/L CAPILLARY FILL TIME: immediate, all digi ts, B/L TEMPERTURE GRADIENT (C): warm to cool, p roximal to distal, B/L TROPHIC CONDITION-TEXTURE/ELASTICITY/TURGOR/HAIR GROWTH (B): normal, B/L EDEMA (C): absent, B/L PIGMENTATION: normal, B/L
--- OUTSIDE RECORDS SUMMARY | 2024-10-21 09:58 | XMS_ITS | Patient Health Record ---
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 Name Role Phone Félix Cooper Primary Care Provider Unav ailable Julita Marcial Unavailable [phone] Allergies Allergen (clinical drug ingredient) Drug/Non Drug Allergy documented on EMR Reaction Allergy Type Onset Date Status liraglutide Victoza Unknown Drug Allergy Activ e canagliflozin Canagliflozin Unknown Drug Allergy Active lisinopril Lisinopril Unknown Drug Allergy Activ e Reason For Referral No Information Medications Medication SIG (Take, Route, Frequency, Duration) Notes Start Date End Date Status Nystatin-Triamcinolone 448004-1.1 UNIT/GM 1 application Externally Twice a day Active Tadalafil 20 MG 1 tablet Orally for 30 day(s) Not-Taking Pen [place] 16 Ac tive Extra Depth Orthopedic Shoes (1 [...] nce a day for 30 day(s) Active Immunizations Vaccine Route Administration Date Status Comme nts Influenza Unknown 06/20/2023 Administered Social History Tobacco Use: Social History Observation [...] Problem Acquired hammer toe of right foot (9632114916178 105) Other hammer toe(s) (acquired), right foot (M20.41) Active confirmed Problem Acquired hammer toe of left foot (5593650811322 103) Other hammer toe(s) (acquired), left foot (M20.42) Active confirmed Problem [id number] Type 2 diabetes mellitus without complications (E11.9) Active confirmed Problem [id number] Hammer toe of left foot (M20.42) Active confirmed Vital Signs Height 5 ft 10 in in 11/11/2023 Weight 200 lbs 11/11/2023 BMI 28.69 kg/m2 11/11/2023 Encounters Encounter Location Date Provider Diagnosis [facility] [place] [address] [place] [address] 11/11/2023 Julita Marcial Other hammer toe(s) (acquired), [...] complications (ICD-10 - E11.9) Plan Of Treatment Next Appt Details Provider Name:Julita fajardo, 12/03/2024 09:00:00 AM, [address] [place] [address], [phone], Insurance Providers Payer Name Payer Address Payer Phone Subscriber Number Group Number Insured Name Patient Relationship to Insured Coverage Start Date Coverage End Date Medicare [employer] [address] [place] [address] [id number] Bharath Almeida Self - patient is the insured Medical (General) History Medical History History ICD Code type II diabetes Herniated disc Hypertension Reflux ( GERD) Hepatitis C Arthritis Hepatitis B Alzheimers disease Anxiety Back,Hip,and Knee pain Broken bones Cataracts Depression Hepatitis High blood pressure Neuropathy Poor circulation Warts Sleep apnea Surgical History Surgery Date(Month/Year) back surgery cataract surgery rhinoplasty excision of mass
--- OUTSIDE RECORDS SUMMARY | 2024-10-21 09:59 | XMS_ITS ---
Author Organization [facility] Address [address] [place] [address] Care Team Providers Care Hop Weigher Name Role Phone Félix Cooper Primary Care Provider Unav ailable Julita Marcial [phone] Galeano Encounters Encounter Location Date Provider Diagnosis [facility] [address] [place] [address] 10/29/2023 Julita Marcial Plan Of Treatment Next Appt Details Provider Name:Julita fajardo, 12/03/2024 09:00:00 AM, [address] [place], [address], Progress Notes * Kaila RHODESOB:[birth year] (63 yo M)Acc No.[id number]:10/29/2023 Progress Note Patient:?Thong RHODES Provider:?Julita Marcial DPM :1960???Age:62 Y???Sex:Male Nahun e:10/29/2023 Address[address] [id number] Pcp:JESUS Jerry Subjective: * Chief Complaints: * ???1. Dr Galeano. * Medical History:? Objective: * Vitals:? Assessment: Plan: * Treatment: * Images: * The named appointment provid er may or may not be the originator of this progress note, and it is not deemed complete until electronically signed by the appointment provider. Sign off status: Pending * Provider:?Julita Marcial DPM Date:?04/2024 Generated for Eyal orta/Teri/Alejandro on:?10/21/2024 09:58 AM EDT
--- OUTSIDE RECORDS SUMMARY | 2024-10-21 09:59 | XMS_ITS | Clinical Summary ---
Author Organization [address] [place] [address] Address [address] [place] [address] Phone Care Team Providers Care Transportation [employer] Internship Name Role Phone Hector Epps MD Primary Care Provider [phone] Allergies Active Allergy Reactions Criticality Noted Date Comments Lisinopril Swelling 11/22/2020 Medications lidocaine (LIDODERM) 5 % patch Place 1 Patch onto the skin every 24 hours for 28 days. Apply for no more than 12 hours in any 24 hour period. 4 Active buPROPion XL (WELLBUTRIN XL) 150 mg 24 hr tablet Take 1 Tablet by mouth every morning. 4 Active FLUoxetine (PROzac) 40 mg capsule TAKE 1 CAPSULE BY MOUTH ONCE DAILY 4 Active metoprolol succinate (TOPROL-XL) 25 mg 24 hr tablet Take 1 Tablet by mouth daily. 4 Active tamsulosin (FLOMAX) 0.4 mg 24 hr capsule Take 1 Capsule by mouth daily. Take 30 mins after same meal every day. 4 Active tirzepatide (Mounjaro) 2.5 mg/0.5 mL pen injector Inject 2.5 mg into the skin once a week. 4 Active diclofenac (VOLTAREN) 1 % topical gel Apply topically. Active hydrocortisone 2.5 % cream Apply 1 Film topically 2 times daily for 14 days. 3 Active sub-q insulin device, 20 unit (V-GO 20) device USE DAILY DIRECTED 2 Active clotrimazole-be tamethasone (LOTRISONE) 1-0.05 % cream Apply twice a day. 2 Active cholecalciferol (VITAMIN D-3) 50 mcg (2,000 unit) capsule Take 2,000 Units by mouth daily. 9 Active insulin glargine (LANTUS) 100 unit/mL injection Inject 30 Units into the skin at bedtime. Active pen needle, diabetic (Pen Needle) 31 gauge x 3/16 needle by Does not apply route. Active amLODIPine (NORVASC) 10 mg tablet TAKE 1 TABLET BY MOUTH EVERY DAY 90 tablet 5 Active Active Problems Problem Noted Date Diagnosed Date Cough 06/07/2022 Overview (04/15/2024): Last Assessment & Plan: He does have complaints of a dry cough as well as some midepigastric discomfort. We did discuss a trial of a PPI to see if that would help to improve his symptoms. He will try this and see if this helps. Ascending aortic aneurysm 05/06/2022 Overview (04/15/2024): 4.5cm Last Assessment & Plan: We did discuss his a sending aorta. On his most recent CAT scan this showed it to be 4.5 cm. He will be getting a repeat CAT scan for surveillance of his lung nodule. We will follow-up on this. We will also check an echocardiogram so that we can continue to monitor his thoracic arch dilation. We did discuss that we would not do anything about it at this point. We will continue to monitor and if he gets worse we will consider repair. We will continue with low blood pressure Aneurysmal dilatation 04/25/2022 Overview (04/15/2024): Ascending aorta, 4.5 cm Last Assessment & Plan: I also discussed the ascending aortic dilation up to 4.5 cm which is the measurement at which point cardiology and sometimes even cardiac surgery evaluation is warranted. We will refer him to cardiology for further management at this point. Mediastinal lymphadenopathy 04/25/2022 Overview (04/15/2024): Last Assessment & Plan: 61-year-old male who presented initially with chest pain and now has a cough who on CT scan has enlarged mediastinal lymph nodes. I had a long discussion with him about the CAT scan and all of its findings. We specifically discussed the mediastinal lymphadenopathy as a possible inflammatory or infectious reaction versus sarcoid versus lymphoma versus lung cancer. The latter 3 are much less likely at this point. We will plan on getting 3-month follow-up CT scan and visit with me after that. If they have not decreased in size by that time we will likely need to do a mediastinoscopy. All questions were answered and he understood. Nodule of right lung 04/25/2022 Overview (04/15/2024): Last Assessment & Plan: Also discussed calcified nodule in the right lower lobe which is a benign granuloma. No further management or work-up for this is required. Diabetic retinopathy 06/06/2021 Diabetes mellitus with kidney complication 12/21 Microalbuminuria 12/21/2020 Erectile dysfunction 10/12/2018 Essential hypertension 06/20/2016 Overview (04/15/2024): Last Assessment & Plan: Blood pressure is mildly elevated. Again would like to get this under better control with his dilated aorta. He does have a prescription to to start on Toprol which have encouraged him to do so. Bilateral low back pain without sciatica 016 ETOH abuse 03/06/2016 Cervical radiculopathy 11/05/2015 Overview (04/15/2024): recurrent Chronic hepatitis C 11/05/2015 Overview (04/15/2024): Genotype 1a Tx with antivirals, SVR achieved CTS (carpal tunnel syndrome) 11/05/2015 Overview (04/15/2024): Right, NCV 11/ Depression 11/05/2015 Diabetes mellitus type 2 with neurological manif estations 11/05/2015 DJD (degenerative joint disease) of knee 016 GERD (gastroesophageal reflux disease) 6 Overview (04/15/2024): Last Assessment & Plan: I also discussed the thickening of the esophagus with the patient and his and we will plan on referring him to gastroenterology for further work-up and evaluation. History of substance abuse 09/28/2015 Overview (04/15/2024): Cocaine, marijuana, some heroin Type 2 diabetes mellitus with cataract 6 Encounters Date Type Department Care Team Description 09/02/2024 Telephone Adult Medicine [facility] [address] [place] [address] Christiano Guerrero MD call back 08/25/2024 3:00 PM EST Ancillary Procedure [facility] [address] [place] [address] Aneurysm of ascending aorta without rupture (CMS/HCC) from Last 3 Months Immunizations Name Administration Dates Next Due Influenza Quadravalent, MDCK , 0.5ml, preservative free (Flucelvax) 6mo and older 05/09/2023,04/18/2022 Influenza trivalent, with pr eservative (Fluzone; Afluria) 6mo and older 06/20/2016 Influenza, Unspecified 06/11/2019 Pneumococcal conjugate 20 va lent (Prevnar 20, PCV 20) 2mo and older 11/21/2023 Pneumococcal polysaccharide 23 valent (Pneumovax 23) 2yo and older 12/11/2015 Tdap Tetanus diptheria acell ular pertussis (Boostrix; Adacel) 7yo and older 12/11/2015 Surgical History Surgery Date Site/Laterality Comments OTHER SURGICAL HISTORY 2006 PROCEDURE: HISTORY OTHER; COMMENT: Lumbar spine surgery L4-5 fusion x 2 OTHER SURGICAL HISTORY PROCEDURE: HISTORY OTHER; COMMENT: Right knee surgery CATARACT EXTRACTION Bilateral PROCEDURE: HISTORICAL CATARACT REMOVAL NASAL SEPTUM SURGERY PROCEDURE: PA REPAIR NASAL SEPTAL PERFORATIONS COLONOSCOPY 01/2020 PROCEDURE: HISTORICAL COLONOSCOPY; COMMENT: repeat 5 years polyp OTHER SURGICAL HISTORY 09/16/2022 PROCEDURE: UPPER GI ENDOSCOPY, REMOVE LESION; COMMENT: bowman -biopsies taken OTHER SURGICAL HISTORY PROCEDURE: PULMONOLOGY BRONCHOSCOPY; COMMENT: dr. kilgore -bronchoscopy and mediastinoscopy with mediastinal lymph node biopsies Medical History Medical History Date Comments History of substance abuse 09/28/2015 DX:Hi story of substance abuse (HCC); COMMENT: Cocaine, marijuana, some heroin Chronic hepatitis C (CMS/HCC) 11/05/2015 DX :Chronic hepatitis C (HCC); COMMENT: Genotype 1a Depression 11/05/2015 DX:Depression Cervical radiculopathy 11/05/2015 DX:Cervic al radiculopathy; COMMENT: recurrent CTS (carpal tunnel syndrome) 11/05/2015 DX: CTS (carpal tunnel syndrome); COMMENT: Right, NCV 06/03 Diabetes mellitus type 2 wit h neurological manifestations (CMS/HCC) 11/05/2015 DX:Diabetes camilo itus type 2 with neurological manifestations (HCC) GERD (gastroesophageal reflu x disease) 11/05/2015 DX:GERD (gastroesophageal re flux disease) DJD (degenerative joint dise ase) of knee 11/05/2015 DX:DJD (degenerative joint d isease) of knee Type 2 diabetes mellitus wit h cataract 09/28/2015 DX:Type 2 diabetes mellitus with cataract (HCC) Bilateral low back pain with out sciatica 03/06/2016 DX:Bilateral low back pain w ithout sciatica ETOH abuse 03/06/2016 DX:ETOH abuse Essential hypertension 06/20/2016 DX:Essent ial hypertension Erectile dysfunction 10/12/[address] DX:E[address]ile dysfunction Abnormal CT of the chest DX:Abno rmal CT of the chest Esophageal thickening DX:Esophag eal thickening Gastritis DX:Gastritis Epigastric pain DX:Epigastric pa in Family History Medical History Relation Name Comments Colon cancer Father Relation Name Status Comments Father Prostate cancer 64 Mother Alive No full sibling s Social History Tobacco Use Types Packs/Day Years Used Date Smoking Tobacco: Never Smokeless Tobacco: Never Alcohol Use Standard Drinks/Week Comments Yes 0 (1 standard drink = 0.6 oz pur e alcohol) Sex and Gender Information Value Date Recorded Sex Assigned at Not on file Legal Sex Male 1:54 PM EST Gender Identity Not on file Sexual Orientation Not on file Obstetrics History Last Filed Vital Signs Vital Sign Reading Time Taken Comments Blood Pressure 135/89 08/25/2024 2:52 PM EST Pulse 71 02/17/2024 9:49 AM EDT Temperature - - Respiratory Rate - - Oxygen Saturation - - Inhaled Oxygen Concentration - - Weight 81.2 kg (179 lb) 08/25/2024 2:52 PM EST Height 177.8 cm (5' 10 ) 08/25/2024 2:52 PM EST Body Mass Index 25.68 08/25/2024 2:52 PM EST Plan of Treatment Health Maintenance Due Date Last Done Comments Diabetes: Annual Foot Exam 1968 Hepatitis A Vaccines (1 of 2 - Risk 2-dose series) 1977 Zoster Vaccines (1 of 2) 2008 Hepatitis B Vaccines (1 of 3 - Risk 3-dose series) 2018 RSV Immunization Adult Patients (1 - Risk 60-74 years 1-dose series) 2018 Medicare Annual Wellness Visit 06/29/2022 Social Influencers of Health Screening 06/29/2022 COVID-19 Vaccine ( season) 2024 Diabetes: Blood Sugar Control Test (HGBA1C) 08/19/2024 02/17/2024, 02/17/2024 Diabetes: Annual Retina Eye Exam 10/29/2024 10/30/2023 Colorectal Cancer Screening: Colonoscopy 01/27/2025 01/28/2020 Depression Screening 02/16/2025 02/17/2024 Diabetes: Annual Urine Albumin-Creatinine Ratio (uACR) 02/16/2025 02/17/2024 Diabetes: Annual GFR (Glomerular Filtration Rate) 02/16/2025 02/17/2024, 02/17/2024 Falls Risk Assessment 02/16/2025 02/17/2024 Hypertension/CHF/CAD Annual BMP Blood Test 02/16/2025 02/17/2024, 02/17/2024 Influenza Vaccine (Season Ended) 2025 05/09/2023, 04/18/2022, 04/19/2020, Additional history exists DTaP,Tdap,and Td Vaccines (2 - Td or Tdap) 12/10/2025 12/11/2015 Cholesterol Screening (Lipid Panel) 02/16/2029 02/17/2024, 02/17/2024 Hepatitis C Screening Completed 04/01/2016 Pneumococcal Vaccine: 50+ Years Completed 11/21/2023, 12/11/2015 Pneumococcal Vaccine: Pediatrics (0 to 5 Years) and At-Risk Patients (6 to 64 Years) Completed 11/21/2023, 12/11/2015 HIB Vaccines Aged Out No longer eligi ble based on patient's age to complete this topic HPV Vaccines Aged Out No longer eligi ble based on patient's age to complete this topic IPV Vaccines Aged Out No longer eligi ble based on patient's age to complete this topic MMR Vaccines Aged Out No longer eligi ble based on patient's age to complete this topic Meningococcal ACWY Vaccine Aged Out N o longer eligible based on patient's age to complete this topic Meningococcal B Vacine Aged Out No lo nger eligible based on patient's age to complete this topic RSV Immunization Patients Under 20 months Aged Out No longer eligible based on patient's age to complete this topic Varicella Vaccines Aged Out No longer eligible based on patient's age to complete this topic Procedures Procedure Name Priority Date/Time Associated Diagnosis Comments TRANSTHORACIC ECHOCARDIOGRAM (TTE) COMPLETE Routine 08/25/2024 2:52 PM EST Aneurysm of ascending aorta without rupture (CMS/HCC) DEPRESSION SCREENING Routine 02/17/2024 FALLS RISK ASSESSMENT Routine 02/17/2024 URINE ALBUMIN CREATININE RATIO Routine 02/17/2024 ANNUAL BMP BLOOD TEST Routine 02/17/2024 HEMOGLOBIN A1C Routine 02/17/2024 LIPID PANEL Routine 02/17/2024 DIABETES EYE EXAM Routine 10/30/2023 COLONOSCOPY Routine 01/28/2020 HEPATITIS C SCREENING Routine 04/01/2016 from Last 3 Months or Most Recently Relevant to Health Maintenance Results * (ABNORMAL) TRANSTHORACIC ECHOCARDIOGRAM (TTE) COMPLETE (08/25/2024 2:52 PM EST) LV EDV (A2C) 59 mL CV PACS LV EDV (A4C) 79 mL CV PACS LV Diastolic Volume (BP) 70 62 - 150 mL CV PACS LV ESV (A2C) 32 mL CV PACS LV ESV (A4C) 43 mL CV PACS LV Systolic Volume (BP) 39 21 - 61 mL CV PACS IVSD 1.3(A) 0.6 - 1.0 cm CV PACS LVIDD 4.5 4.2 - 5.8 cm CV PACS LVIDS 3.6 2.5 - 4.0 cm CV PACS LVOT Diameter 2.1 cm CV PACS LVOT Mean Adalberto 0.5 m/s CV PACS LVOT Mean Grad 1 mmHg CV PACS LVOT Mean Grad 1 mmHg CV PACS LVOT Peak VTI 15.7 cm CV PACS LVOT Peak Adalberto 0.9 m/s CV PACS LVOT Peak Adalberto 0.9 m/s CV PACS LVOT Peak Gradient 3 mmHg CV PACS LVPWD 1.3(A) 0.6 - 1.0 cm CV PACS MV E' Tissue Velocity Lateral 5 cm/s CV PACS MV E' Tissue Velocity Septal 4 cm/s CV PACS Ejection Fraction (A2C) 45 % CV PACS Ejection Fraction (A4C) 46 % CV PACS Ejection Fraction (BP) 45 % CV PACS LVOT Area 3.5 cm2 CV PACS LVOT Stroke Volume 54 mL CV PACS Left Atrium Minor [place] 5.9 cm CV PACS Left Atrium Major [place] 5.6 cm CV PACS LA Area Sys (A2C) 22 cm2 CV PACS LA Area Sys (A4C) 19 cm2 CV PACS LA Volume (BP) 59 mL CV PACS LA Size 4.8 cm CV PACS RA Area 13.5 cm2 CV PACS RA 2D Volume 29 mL CV PACS AV Mean Gradient 5 mmHg CV PACS Ao VTI 27.0 cm CV PACS AV Peak Adalberto 1.6 m/s CV PACS AV Peak Gradient 10 mmHg CV PACS AV Area Continuity Equation 2.0 cm2 CV PACS AV Area Peak Velocity 1.9 cm2 CV PACS Aortic Arch 3.0 cm CV PACS Ascending Aorta 4.1 cm CV PACS Aortic Sinus Valsalva 4.1 cm CV PACS IVC Proximal 1.9 cm CV PACS MV Deceleration [place] 2.7 m/s2 CV PACS E Wave Deceleration Time 224 119 - 242 ms CV PACS MV PHT 66 ms CV PACS MV Peak A Adalberto 0.79 m/s CV PACS MV Peak E Adalberto 0.60 m/s CV PACS MV Mean Gradient 1 mmHg CV PACS MV Mean Gradient 1 mmHg CV PACS MV Mean Gradient 1 mmHg CV PACS MV Mean Gradient 1 mmHg CV PACS MV VTI 20.8 cm CV PACS Mitral Valve Max Velocity 0.9 m/s CV PACS Mitral Valve Max Velocity 0.9 m/s CV PACS MV Peak Gradient 3 mmHg CV PACS MV Area PHT 3.3 cm2 CV PACS MV Area Continuity Equation 2.6 cm2 CV PACS PV Acceleration Time 102 ms CV PACS PV Mean Gradient 1 mmHg CV PACS PV VTI 15.1 cm CV PACS PV Peak Velocity 0.8 m/s CV PACS PV Peak Gradient 2 mmHg CV PACS RV Diastolic Basal Dimension 2.8 2.5 - 4.1 cm CV PACS RV S' 12 cm/s CV PACS TAPSE 24 mm CV PACS E/E' Ratio Septal 15 CV PACS E/E' Ratio Averaged 14 CV PACS Relative Wall Thickness ratio 0.58 CV PACS LVOT:AV VTI Index 0.58 CV PACS FS 20 % CV PACS LV Mass 2D 223 g CV PACS MV VTI:LVOT VTI ratio 1.3 CV PACS LVOT flow 173 mL/s CV PACS E/A Ratio 0.8 CV PACS E/E' Ratio Lateral 12 CV PACS BSA 2 m2 CV PACS LV Diastolic Volume Index (BP) 35 34 - 74 mL/m2 CV PACS LV Systolic Volume Index (BP) 20 11 - 31 mL/m2 CV PACS LV EDV Index (A4C) 40 mL/m2 CV PACS LV ESV Index (A4C) 22 mL/m2 CV PACS LV EDV Index (A2C) 30 mL/m2 CV PACS LV ESV Index (A2C) 16 mL/m2 CV PACS LA Volume Index (BP) 30 mL/m2 CV PACS LVIDD Index 2.26 cm/m2 CV PACS LVIDS Index 1.81 cm/m2 CV PACS LV Mass Index 2D 112(A) 50 - 102 g/m2 CV PACS LVOT Stroke Index 27 mL/m2 CV PACS LA Dimension Index 2D 2.4 cm/m2 CV PACS RA 2D Volume Index 15(A) 18 - 32 mL/m2 CV PACS LIZZETTE Index (VTI) 1.01 cm2/m2 CV PACS LIZZETTE Index (Pk Adalberto) 0.95 cm2/m2 CV PACS Ascending Aorta Index 2.06 cm/m2 CV PACS Anatomical Region Laterality Modality Ultrasound Narrative 09/01/2024 5:57 PM EST Left ventricle cavity size is normal. There is mild concentric hypertrophy. Systolic function is mildly decreased with an ejection fraction of 40-45%. Mild global LV hypokinesis is present. No hemodynamically significant valvular dysfunction Dilatation of the Sinus of Valsalva (4.1 cm) and ascending aorta (4.1 cm). Compared to the prior study from 2021, the left ventricular systolic function previously reported as normal is now mildly reduced; aortic dimensions are similar Left Ventricle Left ventricle cavity size is normal. There is mild concentric hypertrophy. Systolic function is mildly decreased with an ejection fraction of 40-45%. Mild global LV hypokinesis is present. Right Ventricle Right ventricle cavity appears normal. Left Atrium Left atrium cavity size is normal. Right Atrium Right atrium cavity is normal. IVC/SVC Inferior vena cava structure is normal. RA pressures is estimated to be 3 mmHg (IVC diameter <21 mm and decreases >50% during inspiration). Mitral Valve The leaflets are mildly thickened. There is mild annular calcification. There is trace regurgitation. There is no evidence of mitral valve stenosis. Tricuspid Valve Tricuspid valve structure is normal. There is no significant regurgitation. Cannot assess RVSP. Aortic Valve The aortic valve is trileaflet. The leaflets are mildly thickened. There is no significant regurgitation. There is no evidence of aortic valve stenosis. Pulmonic Valve There is no pulmonic valve regurgitation. Ascending Aorta The Sinus of Valsalva is(4.1 cm). The ascending aorta is(4.1 cm). Pericardium Pericardium appears normal. There is no pericardial effusion. Study Details Overall the study quality was adequate. Christiano Guerrero MD CV ECHO PROCEDURES Fin al Result * Urine Albumin Creatinine Ratio (02/17/2024) Pathologist [facility] Urine Albumin Creatinine Ratio Abstracted Historical Provider HEALTH MAINTENANCE Final Result * Annual BMP Blood Test (02/17/2024) Pathologist [facility] Annual BMP Blood Test Abstracted Result [facility] Provider HEALTH MAINTENANCE Final Result * Falls Risk Assessment (02/17/2024) [facility] Falls Risk Assessment Abstracted Result [facility] Provider HEALTH MAINTENANCE Final Result * Depression Screening (02/17/2024) [facility] Depression Screening Abstracted Result [facility] HEALTH MAINTENANCE Final Result * (ABNORMAL) Hemoglobin A1c (02/17/2024) [facility] Hemoglobin A1C 7.4(A) <=6.5 % Blood Venous blood specimen / Unknown Result [facility] Provider LAB BLOOD ORDERABLES Zunilda l Result * Lipid panel (02/17/2024) [facility] LDL/HDL Ratio 3 0 - 4 Triglycerides 93 0 - 150 mg/dL Cholesterol 125 0 - 200 mg/dL HDL 48 >=40 mg/dL LDL Cholesterol 59 0 - 100 mg/dL Blood Venous blood specimen / Unknown Result [facility] Provider LAB BLOOD ORDERABLES Zunilda l Result * Diabetes Eye Exam (10/30/2023) [facility] Diabetes: Annual Retina Eye Exam Abstracted Result [facility] Provider HEALTH MAINTENANCE Final Result * Colonoscopy (01/28/2020) [facility] Colonoscopy No interpretation , Abstracted Anatomical Region Laterality Modality Other Result [facility] Provider HEALTH MAINTENANCE Final Result * Hepatitis C Screening (04/01/2016) [facility] Hepatitis C Screening Abstracted Result [facility] Provider HEALTH MAINTENANCE Final Result from Last 3 Months or Most Recently Relevant to Health Maintenance Insurance [employer] MEDICARE ADVANTAGE MEDICARE [facility] MEDICAID - [place] Care Teams Transportation Logistics Internship Relationship Specialty Start Date End Date Hector Epps MD [address] [place] [address] [address] [place] PCP - General Internal Medicine 09/03/24
== END 2024-10-21 10:44 | disposition home or self-care (01) ==
PROVIDERS: PCP Internal Medicine; Visit Provider Nurse Practitioner Family
DX: S69.91XA Unspecified injury of right wrist, hand and finger(s), initial encounter (principal)

== ENCOUNTER → 2024-10-21 10:24 | Outpatient (BNV) | payer MEDICARE, SELFPAY | PROVIDERS: PCP Internal Medicine; Visit Provider Radiology Diagnostic Radiology | DX: S60.931A Unspecified superficial injury of right thumb, initial encounter (principal) | CPT/HCPCS: 73140 ==

== ENCOUNTER 2024-10-26 09:12 | Outpatient (REF) | payer MEDICARE, SELFPAY ==
[2024-10-26 09:32] LABS: MANUAL DIFF FLAG NO
--- OUTSIDE RECORDS SUMMARY | 2024-10-26 10:12 | XMS_ITS | Encounter Summary ---
Author Organization [facility] Address [address] [place] [address] Care Team Providers Care Hearing Aid Technician Name Role Phone Vincenzo Green MD Primary Care Provider [phone] Félix Garvey PA-C Primary Care Provider + [phone] Rod Machuca MD Primary Care Provider [phone] Aron Son MD Unavailable Unavailable Félix Garvey PA-C Primary Care Provider [phone] Encounter Details Date Type Department Care Team Description 03/11/2016 Outer Diameter Technician Report Medical Records [address] [place] [address] Zack Powers Social History Tobacco Use Types Packs/Day Years Used Date Smoking Tobacco: Never Smokeless Tobacco: Never Alcohol Use Standard Drinks/Week Comments Yes 0 (1 standard drink = 0.6 oz pure alcohol) etoh abuse - 12 pack 3 days a week Sex Assigned at Date Recorded Not on file Job Start Date Occupation Industry Not on file Not on file Not on file documented as of this encounter Plan of Treatment Not on file documented as of this encounter Visit Diagnoses Not on filedocumented in this encounter Care Teams Hearing Aid Technician Relationship Specialty Start Date End Date Vincenzo Green MD [address] [place] [address] [id number] PCP - General Internal Medicine 08/03/15 09/26/20 Félix Garvey PA-C [address] [place] [address] [id number] PCP - General Internal Medicine 09/27/20 05/09/22 Rod Machuca MD [address] [place] [address] PCP - General Lung Cancer Assistant Manager Airside Operations 05/10/22 06/05/22 Félix Garvey PA-C [address] [place] [address] PCP - General Internal Medicine 06/06/22 Aron Son MD [address] [place] [address] Specialist Cardiovascular Disease 06/06/22 documented as of this encounter
--- OUTSIDE RECORDS SUMMARY | 2024-10-26 10:12 | XMS_ITS | Encounter Summary ---
Author Organization [facility] Address [address] [place] [address] Care Team Providers Care Justowriter Operator Name Role Phone Aron Son MD Unavailable Unavailable Félix Garvey PA-C Primary Care Provider [phone] Encounter Details Date Type Department Care Team Description 05/10/2023 Telephone Gastroenterology - [place] [address] [place] [id number] Mario Block PA-C [address] [address] Social History Tobacco Use Types Packs/Day Years Used Date Smoking Tobacco: Never Smokeless Tobacco: Never Alcohol Use Standard Drinks/Week Comments Yes 0 (1 standard drink = 0.6 oz pure alcohol) 10 drinks / week, previously heavy Sex Assigned at Date Recorded Not on file Job Start Date Occupation Industry Not on file Not on file Not on file COVID-19 Exposure Response Date Recorded In the last 10 days, have yo u been in contact with someone who was confirmed or suspected to have Coronavirus/COVID-19? No / Unsure 05/08/2023 1:07 PM EDT documented as of this encounter Miscellaneous Notes * Telephone Encounter - Jesenia Shaikh M.A. - 05/12/2023 11:45 AM EDT Spoke with patient and she understands her results and let now also she stated that hedose need the rx for the iron and vit c pills. * Telephone Encounter - Mario Block PA-C - 05/10/2023 4:17 PM EDT Patient is noted to have slightly low hand h. He nees to continue taking iron and vitamin c and if he needs rx, then let me know documented in this encounter Plan of Treatment Not on file documented as of this encounter Visit Diagnoses Not on filedocumented in this encounter Care Teams Justowriter Operator Relationship Specialty Start Date End Date Félix Garvey PA-C [address] [place] [address] PCP - General Internal Medicine 06/06/22 Aron Son MD Specialist Cardiovascular Disease 06/06/22 documented as of this encounter
--- OUTSIDE RECORDS SUMMARY | 2024-10-26 10:12 | XMS_ITS | Encounter Summary ---
Author Organization [facility] Address [address] [place] [address] Care Team Providers Care Line Maintenance Name Role Phone Aron Son MD Unavailable Unavailable Félix Garvey PA-C Primary Care Provider [phone] Encounter Details Date Type Department Care Team Description 04/09/2023 Hospital Medical Records [address] [place] [address] Rod Machuca MD [address] [place] [address] Social History Tobacco Use Types Packs/Day Years [...] was confirmed or suspected to have Coronavirus/COVID-19? Unable to assess 04/09/2023 9:02 AM EDT documented as of this encounter Plan of Treatment Not on file documented as of this encounter Visit Diagnoses Not on filedocumented in this encounter Care Teams Line Maintenance Relationship Specialty Start Date End Date Félix Garvey PA-C [address] [place] [address] PCP - General Internal Medicine 06/06/22 Aron Son MD Specialist Cardiovascular Disease 06/06/22 documented as of this encounter
--- OUTSIDE RECORDS SUMMARY | 2024-10-26 10:12 | XMS_ITS | Encounter Summary ---
Author Organization [facility] Address [address] [place] [address] Care Team Providers Care Wax Molder Name Role Phone Félix Garvye PA-C Primary Care Provider [phone] Rod Machuca MD Primary Care Provider [phone] Aron Son MD Unavailable Unavailable Félix Garvey PA-C Primary Care Provider +[phone] Encounter Details Date Type Department Care Team Description 10/03/2020 Old Medical Records Medical Records [address] [place] [address] Abstract, Provider Social History Tobacco Use Types Packs/Day Years [...] Exposure Response Date Recorded In the last month, have you been in contact with someone who was confirmed or suspected to have Coronavirus / COVID-19? No / Unsure 09/27/2020 12:45 PM EST documented as of this encounter Plan of Treatment Not on file documented as of this encounter Visit Diagnoses Not on filedocumented in this encounter Care Teams Wax Molder Relationship Specialty Start Date End Date Félix Garvey PA-C [address] [place] [address] [id number] PCP - General Internal Medicine 09/27/20 05/09/22 Rod Machuca MD [address] [place] [address] PCP - General Lung Cancer Uniform Designer 05/10/22 06/05/22 Félix Garvey PA-C [address] [place] [address] PCP - General Internal Medicine 06/06/22 Aron Son MD [address] [place] [address] Specialist Cardiovascular Disease 06/06/22 documented as of this encounter
--- OUTSIDE RECORDS SUMMARY | 2024-10-26 10:13 | XMS_ITS | Encounter Summary ---
Author Organization [facility] Address [address] [place] [address] Care Team Providers Care Cuff Runner Name Role Phone Félix Garvey PA-C Primary Care Provider [phone] Rod Machuca MD Primary Care Provider [phone] Aron Son MD Unavailable Unavailable Félix Garvey PA-C Primary Care Provider [phone] Encounter Details Date Type Department Care Team Description 04/12/2021 Floor Tiling Professional Report Medical Records [address] [place] [address] Ely Kirby Social History Tobacco Use Types Packs/Day Years [...] on filedocumented in this encounter Care Teams Cuff Runner Relationship Specialty Start Date End Date Félix Garvey PA-C [address] [place], [place] [phone] PCP - General Internal Medicine 09/27/20 05/09/22 Rod Machuca MD [address] [place], [place] [phone] PCP - General Lung Cancer Pv Design And Installation Technician 05/10/22 06/05/22 Félix Garvey PA-C [address] [place] [address] PCP - General Internal Medicine 06/06/22 Aron Son MD [address] [place] [address] Specialist Cardiovascular Disease 06/06/22 documented as of this encounter
--- OUTSIDE RECORDS SUMMARY | 2024-10-26 10:13 | XMS_ITS | Encounter Summary ---
Author Organization [facility] Address [address] [place] [address] Care Team Providers Care Upholstery Technician Name Role Phone Vincenzo Green MD Primary Care Provider [phone] Félix Garvey PA-C Primary Care Provider [phone] Rod Machuca MD Primary Care Provider [phone] Aron Son MD Unavailable Unavailable Félix Garvey PA-C Primary Care Provider [phone] Encounter Details Date Type Department Care Team Description 04/13/2019 Head Librarian Report Medical Records [address] [place] [address] Crystal Raines Social History Tobacco Use Types Packs/Day Years [...] on filedocumented in this encounter Care Teams Upholstery Technician Relationship Specialty Start Date End Date Vincenzo Green MD [address] [place] [address] [phone] PCP - General Internal Medicine 08/03/15 09/26/20 Félix Garvey PA-C [address] [place] [address] [id number] PCP - General Internal Medicine 09/27/20 05/09/22 Rod Machuca MD [address] [place] [address] PCP - General Lung Cancer Clinical Statistical Programmer 05/10/22 06/05/22 Félix Garvey PA-C [address] [place] [address] PCP - General Internal Medicine 06/06/22 Aron Son MD [address] [place] [address] Specialist Cardiovascular Disease 06/06/22 documented as of this encounter
--- OUTSIDE RECORDS SUMMARY | 2024-10-26 10:13 | XMS_ITS | Encounter Summary ---
Author Organization [facility] Address [address] [place] [address] Care Team Providers Care Oil Extractor Name Role Phone Aron Son MD Unavailable Unavailable Félix Garvey PA-C Primary Care Provider [phone] Encounter Details Date Type Department Care Team Description 09/29/2023 Well Blower Report Medical Records [address] [place] [address] Jacklyn Chow NP Social History Tobacco Use Types Packs/Day Years [...] on filedocumented in this encounter Care Teams Oil Extractor Relationship Specialty Start Date End Date Félix Garvey PA-C [address] [place] [address] [phone] PCP - General Internal Medicine 06/06/22 Aron Son MD Specialist Cardiovascular Disease 06/06/22 documented as of this encounter
--- OUTSIDE RECORDS SUMMARY | 2024-10-26 10:13 | XMS_ITS | Encounter Summary ---
Author Organization [facility] Address [address] [place] [address] Care Team Providers Care Respiratory Therapy Aide Name Role Phone Vincenzo Green MD Primary Care Provider [phone] Félix Garvey PA-C Primary Care Provider + [phone] Rod Machuca MD Primary Care Provider [phone] Aron Son MD Unavailable Unavailable Félxi Garvey PA-C Primary Care Provider + [phone] Encounter Details Date Type Department Care Team Description 09/14/2020 Farmworker Cranberry Report Medical Records [address] [place] [address] Ely Kirby Social History Tobacco Use Types [...] have Coronavirus / COVID-19? No / Unsure 09/13/2020 9:41 AM EST documented as of this encounter Plan of Treatment Not on file documented as of this encounter Visit Diagnoses Not on filedocumented in this encounter Care Teams Respiratory Therapy Aide Relationship Specialty Start Date End Date Vincenzo Green MD [address] [place] [address] [id number] PCP - General Internal Medicine 08/03/15 09/26/20 Félix Garvey PA-C [address] [place] [address] PCP - General Internal Medicine 09/27/20 05/09/22 Rod Machuca MD [address] [place] [address] PCP - General Lung Cancer Analysis Or Research Safety Inspector 05/10/22 06/05/22 Félix Garvey PA-C [address] [place] [address] PCP - General Internal Medicine 06/06/22 Aron Son MD [address] [place] [address] Specialist Cardiovascular Disease 06/06/22 documented as of this encounter
--- OUTSIDE RECORDS SUMMARY | 2024-10-26 10:13 | XMS_ITS | Encounter Summary ---
Author Organization [facility] Address [address] [place] [address] Care Team Providers Care Plastic And Reconstructive Surgeon Name Role Phone Aron Son MD Unavailable Unavailable Félix Garvey PA-C Primary Care Provider [phone] Encounter Details Date Type Department Care Team Description 09/16/2022 Hospital Medical Records [address] [place] [address] Juan Interaino MD [address] [place] [address] [address] [place] [address] Social History Tobacco Use Types Packs/Day Years [...] suspected to have Coronavirus/COVID-19? No / Unsure 09/09/2022 10:18 AM EST documented as of this encounter Plan of Treatment Not on file documented as of this encounter Visit Diagnoses Not on filedocumented in this encounter Care Teams Plastic And Reconstructive Surgeon Relationship Specialty Start Date End Date Félix Garvey PA-C [address] [place] [address] PCP - General Internal Medicine 06/06/22 Aron Son MD Specialist Cardiovascular Disease 06/06/22 documented as of this encounter
--- OUTSIDE RECORDS SUMMARY | 2024-10-26 10:13 | XMS_ITS | Encounter Summary ---
Author Organization [facility] Address [address] [place] [address] Care Team Providers Care Claims Support Specialist Name Role Phone Aron Son MD Unavailable Unavailable Félix Garvey PA-C Primary Care Provider [phone] Encounter Details Date Type Department Care Team Description 06/26/2023 Gameplay Engineer Report Medical Records [address] [place] [address] Nevin Avendano MD Social History Tobacco Use Types Packs/Day Years [...] on filedocumented in this encounter Care Teams Claims Support Specialist Relationship Specialty Start Date End Date Félix Garvey PA-C [address] [place] [address] [id number] PCP - General Internal Medicine 06/06/22 Aron Son MD Specialist Cardiovascular Disease 06/06/22 documented as of this encounter
--- OUTSIDE RECORDS SUMMARY | 2024-10-26 10:13 | XMS_ITS | Encounter Summary ---
Author Organization [facility] Address [address] [place] [address] Care Team Providers Care Laboratory Technical Specialist Name Role Phone Aron Son MD Unavailable Unavailable Félix Garvey PA-C Primary Care Provider [phone] Encounter Details Date Type Department Care Team Description 08/20/2023 Orthotist Or Prosthetist Report Medical Records [address] [place] [address] Lee Burgess Social History Tobacco Use Types Packs/Day Years [...] on filedocumented in this encounter Care Teams Laboratory Technical Specialist Relationship Specialty Start Date End Date Félix Garvey PA-C [address] [place] [address] [phone] PCP - General Internal Medicine 06/06/22 Aron Son MD Specialist Cardiovascular Disease 06/06/22 documented as of this encounter
--- OUTSIDE RECORDS SUMMARY | 2024-10-26 10:13 | XMS_ITS | Clinical Summary ---
Author Organization [address] [place] [address] Address [address] [place] [address] Phone Care Team Providers Care Client Service Coordinator Name Role Phone Hector Epps MD Primary [...] Care Team Description 09/02/2024 Telephone Adult Medicine [facility] [address] [place] [address] Christiano Guerrero MD call back 08/25/2024 3:00 PM EST Ancillary Procedure [facility] [address] [place] [address] Aneurysm of ascending aorta without [...] HISTORICAL CATARACT REMOVAL NASAL SEPTUM SURGERY PROCEDURE: GA REPAIR NASAL SEPTAL PERFORATIONS COLONOSCOPY 01/2020 PROCEDURE: [...] age to complete this topic Meningococcal B Vaccine Aged Out No l onger eligible based on patient's age to complete [...] 54 mL CV PACS Left [facility] Minor [place] 5.9 cm CV PACS Left At[facility] Major [place] 5.6 cm CV PACS [place] Area Sys [...] Proximal 1.9 cm CV PACS MV Deceleration [place] 2.7 m/s2 CV PACS E Wave Deceleration [...] * Urine Albumin Creatinine Ratio (02/17/2024) Pathologist [facility] Urine Albumin Creatinine Ratio Abstracted Historical Provider HEALTH MAINTENANCE Final Result * Annual BMP Blood Test (02/17/2024) Pathologist [facility] Annual BMP Blood Test Abstracted Result [facility] Provider HEALTH MAINTENANCE Final Result * Falls Risk Assessment (02/17/2024) [facility] Falls Risk Assessment Abstracted Result [facility] Provider HEALTH MAINTENANCE Final Result * Depression Screening (02/17/2024) [facility] Depression Screening Abstracted Result [facility] HEALTH MAINTENANCE Final Result * (ABNORMAL) Hemoglobin A1c (02/17/2024) [facility] Hemoglobin A1C 7.4(A) <=6.5 % Blood Venous blood specimen / Unknown Result [facility] Provider LAB BLOOD ORDERABLES Zunilda l Result * Lipid panel (02/17/2024) [facility] LDL/HDL Ratio 3 0 - 4 Triglycerides 93 0 - 150 mg/dL Cholesterol 125 0 - 200 mg/dL HDL 48 >=40 mg/dL LDL Cholesterol 59 0 - 100 mg/dL Blood Venous blood specimen / Unknown Result [facility] Provider LAB BLOOD ORDERABLES Zunilda l Result * Diabetes Eye Exam (10/30/2023) [facility] Diabetes: Annual Retina Eye Exam Abstracted Result [facility] Provider HEALTH MAINTENANCE Final Result * Colonoscopy (01/28/2020) [facility] Colonoscopy No interpretation , Abstracted Anatomical Region Laterality Modality Other Result [facility] Provider HEALTH MAINTENANCE Final Result * Hepatitis C Screening (04/01/2016) [facility] Hepatitis C Screening Abstracted Result [facility] Provider HEALTH MAINTENANCE Final Result from Last 3 Months or Most Recently Relevant to Health Maintenance Insurance [employer] MEDICARE ADVANTAGE MEDICARE [facility] MEDICAID - [place] Care Teams Client Service Coordinator Relationship Specialty Start Date End Date Hector Epps MD [address] [place] [address] Macey Odom [place] PCP - General Internal Medicine 09/03/24
--- OUTSIDE RECORDS SUMMARY | 2024-10-26 10:13 | XMS_ITS | Encounter Summary ---
Author Organization [facility] Address [address] [place] [address] Care Team Providers Care Town Justice Name Role Phone Vincenzo Green MD Primary Care Provider [phone] Félix Garvey PA-C Primary Care Provider + [phone] Rod Machuca MD Primary Care Provider [phone] Aron Son MD Unavailable Unavailable Félix Garvey PA-C Primary Care Provider [phone] Encounter Details Date Type Department Care Team Description 08/10/2020 Accounting Machine Mechanic Report Medical Records [address] [place] [address] Ely Kirby Social History Tobacco Use Types [...] on filedocumented in this encounter Care Teams Town Justice Relationship Specialty Start Date End Date Vincenoz Green MD [address] [place] [address] [id number] PCP - General Internal Medicine 08/03/15 09/26/20 Félix Garvey PA-C [address] [place] [address] [phone] PCP - General Internal Medicine 09/27/20 05/09/22 Rod Machuca MD [address] [place] [address] PCP - General Lung Cancer Product Marketing Coordinator 05/10/22 06/05/22 Félix Garvey PA-C [address] [place] [address] PCP - General Internal Medicine 06/06/22 Aron Son MD [address] [place] [address] Specialist Cardiovascular Disease 06/06/22 documented as of this encounter
--- OUTSIDE RECORDS SUMMARY | 2024-10-26 10:13 | XMS_ITS | Encounter Summary ---
Author Organization [facility] Address [address] [place] [address] Care Team Providers Care Radio Time Sales Supervisor Name Role Phone Aron Son MD Unavailable Unavailable Félix Garvey PA-C Primary Care Provider [phone] Encounter Details Date Type Department Care Team Description 12/30/2022 Director Of Enterprise Applications Report Medical Records [address] [place] [address] Tracy Banerjee [address] [place] [address] Social History Tobacco Use Types Packs/Day Years [...] suspected to have Coronavirus/COVID-19? No / Unsure 12/25/2022 12:24 PM EDT documented as of this encounter Plan of Treatment Not on file documented as of this encounter Visit Diagnoses Not on filedocumented in this encounter Care Teams Radio Time Sales Supervisor Relationship Specialty Start Date End Date Félix Garvey PA-C [address] [place] [address] PCP - General Internal Medicine 06/06/22 Aron Son MD Specialist Cardiovascular Disease 06/06/22 documented as of this encounter
--- OUTSIDE RECORDS SUMMARY | 2024-10-26 10:13 | XMS_ITS | Encounter Summary ---
Author Organization [facility] Address [address] [place] [address] Care Team Providers Care Hydraulic Assembler Name Role Phone Aron Son MD Unavailable Unavailable Félix Garvey PA-C Primary Care Provider [phone] Reason for Visit * Reason Onset Date Comments Faxed Order 12/27/2022 Apprise diagnost ic Encounter Details Date Type Department Care Team Description 12/27/2022 Telephone Adult Medicine [address] [phone] Félix Garvey PA-C [address] [place] [address] [phone] Faxed Order (Apprise diagnostic) Social History Tobacco Use Types Packs/Day Years [...] on filedocumented in this encounter Care Teams Hydraulic Assembler Relationship Specialty Start Date End Date Félix Garvey PA-C [address] [place] [address] [id number] PCP - General Internal Medicine 06/06/22 Aron Son MD Specialist Cardiovascular Disease 06/06/22 documented as of this encounter
--- OUTSIDE RECORDS SUMMARY | 2024-10-26 10:13 | XMS_ITS | Encounter Summary ---
Author Organization [facility] Address [address] [place] [address] Care Team Providers Care Diversified Crops Farmer Name Role Phone Vincenzo Green MD Primary Care Provider [phone] Félix Garvey PA-C Primary Care Provider [phone] Rod Machuca MD Primary Care Provider [phone] Aron Son MD Unavailable Unavailable Félix Garvey PA-C Primary Care Provider [phone] Encounter Details Date Type Department Care Team Description 06/08/2019 Printing Machine Operator Tape Rules Report Medical Records [address] [place] [address] [facility] Social History Tobacco Use Types Packs/Day Years [...] on filedocumented in this encounter Care Teams Diversified Crops Farmer Relationship Specialty Start Date End Date Vincenzo Green MD [address] [place] [address] [phone] PCP - General Internal Medicine 08/03/15 09/26/20 Félix Garvey PA-C [address] [place] [address] [phone] PCP - General Internal Medicine 09/27/20 05/09/22 Rod Machuca MD [address] [place] [address] PCP - General Lung Cancer Wilton Weaver 05/10/22 06/05/22 Félix Garvey PA-C [address] [place] [address] PCP - General Internal Medicine 06/06/22 Aron Son MD [address] [place] [address] Specialist Cardiovascular Disease 06/06/22 documented as of this encounter
--- OUTSIDE RECORDS SUMMARY | 2024-10-26 10:13 | XMS_ITS | Encounter Summary ---
Author Organization [facility] Address [address] [place] [address] Care Team Providers Care Solar Water Heater Installer Name Role Phone Vincenzo Green MD Primary Care Provider [phone] Félix Garvey PA-C Primary Care Provider [phone] Rod Machuca MD Primary Care Provider Aron Son MD Unavailable Unavailable Félix Garvey PA-C Primary Care Provider [phone] Encounter Details Date Type Department Care Team Description 03/08/2020 Smoked Meat Preparer Report Medical Records [address] [place] [address] Crystal Raines Social History Tobacco Use Types [...] on filedocumented in this encounter Care Teams Solar Water Heater Installer Relationship Specialty Start Date End Date Vincenzo Green MD [address] [place] [address] [phone] PCP - General Internal Medicine 08/03/15 09/26/20 Félix Garvey PA-C [address] [place] [address] [phone] PCP - General Internal Medicine 09/27/20 05/09/22 Rod Machuca MD [address] [place] [address] PCP - General Lung Cancer Secondary School Teacher Librarian 05/10/22 06/05/22 Félix Garvey PA-C [address] [place] [address] PCP - General Internal Medicine 06/06/22 Aron Son MD [address] [place] [address] Specialist Cardiovascular Disease 06/06/22 documented as of this encounter
--- OUTSIDE RECORDS SUMMARY | 2024-10-26 10:13 | XMS_ITS | Encounter Summary ---
Author Organization [facility] Address [address] [place] [address] Care Team Providers Care Java Golden Gate Developer Name Role Phone Aron Son MD Unavailable Unavailable Félix Garvey PA-C Primary Care Provider [phone] Encounter Details Date Type Department Care Team Description 10/08/2023 Controller Coal Or Ore Report Medical Records [address] [place] [address] Jake Prakash PA-C Social History Tobacco Use Types Packs/Day Years [...] on filedocumented in this encounter Care Teams Java Golden Gate Developer Relationship Specialty Start Date End Date Félix Garvey PA-C [address] [place] [address] [phone] PCP - General Internal Medicine 06/06/22 Aron Son MD Specialist Cardiovascular Disease 06/06/22 documented as of this encounter
--- OUTSIDE RECORDS SUMMARY | 2024-10-26 10:13 | XMS_ITS | Encounter Summary ---
Author Organization [facility] Address [address] [place] [address] Care Team Providers Care Court Of Appeals Judge Name Role Phone Aron Son MD Unavailable Unavailable Félix Garvey PA-C Primary Care Provider +[phone] -[phone] Encounter Details Date Type Department Care Team Description 07/10/2023 Editor Map Report Medical Records [address] [place] [address] Tracy Banerjee [address] [place] [address] Social History Tobacco Use Types Packs/Day Years [...] on filedocumented in this encounter Care Teams Court Of Appeals Judge Relationship Specialty Start Date End Date Félix Garvey PA-C [address] [place] [address] PCP - General Internal Medicine 06/06/22 Aron Son MD Specialist Cardiovascular Disease 06/06/22 documented as of this encounter
--- OUTSIDE RECORDS SUMMARY | 2024-10-26 10:13 | XMS_ITS | Encounter Summary ---
Author Organization [employer] [facility] Address [address] [place] [address] Care Team Providers Care Branding Machine Operator Name Role Phone Aron Son MD Unavailable Unavailable Félix Garvey PA-C Primary Care Provider +[phone] -[phone] Encounter Details Date Type Department Care Team Description 12/19/2022 Merchandising Team Lead Report Medical Records [address] [place] [address] Abstract, Provider Social History Tobacco Use Types [...] suspected to have Coronavirus/COVID-19? No / Unsure 12/20/2022 9:44 AM EDT documented as of this encounter Plan of Treatment Not on file documented as of this encounter Visit Diagnoses Not on filedocumented in this encounter Care Teams Branding Machine Operator Relationship Specialty Start Date End Date Félix Garvey PA-C [address] [place], [place] [phone] PCP - General Internal Medicine 06/06/22 Aron Son MD Specialist Cardiovascular Disease 06/06/22 documented as of this encounter
--- OUTSIDE RECORDS SUMMARY | 2024-10-26 10:13 | XMS_ITS | Encounter Summary ---
Author Organization [employer] [facility] Address [address] [place] [address] Care Team Providers Care Personal Injury Attorney Name Role Phone Aron Son MD Unavailable Unavailable Félix Garvey PA-C Primary Care Provider +[phone] Encounter Details Date Type Department Care Team Description 11/13/2023 Optical Goods Drilling Machine Operator Report Medical Records [address] [place], [place] [address] [place] [address] Social History Tobacco Use Types Packs/Day Years [...] on filedocumented in this encounter Care Teams Personal Injury Attorney Relationship Specialty Start Date End Date Félix Garvey PA-C [address] [place], [place] [phone] PCP - General Internal Medicine 06/06/22 Aron Son MD Specialist Cardiovascular Disease 06/06/22 documented as of this encounter
--- OUTSIDE RECORDS SUMMARY | 2024-10-26 10:13 | XMS_ITS | Encounter Summary ---
Author Organization [employer] [facility] Address [address] [place] [address] Care Team Providers Care Grinder Set Up Operator Surface Name Role Phone Aron Son MD Unavailable Unavailable Félix Garvey PA-C Primary Care Provider +[phone] -[phone] Encounter Details Date Type Department Care Team Description 05/14/2023 Transfer Records Medical Records [address] [place] [address] Catracho Wall Social History Tobacco Use Types Packs/Day Years [...] on filedocumented in this encounter Care Teams Grinder Set Up Operator Surface Relationship Specialty Start Date End Date Félix Garvey PA-C [address] [place], [place] [phone] PCP - General Internal Medicine 06/06/22 Aron Son MD Specialist Cardiovascular Disease 06/06/22 documented as of this encounter
--- OUTSIDE RECORDS SUMMARY | 2024-10-26 10:13 | XMS_ITS | Encounter Summary ---
Author Organization [employer] [facility] Address [address] [place] [address] Care Team Providers Care Thoroughbred Horse Farm Manager Name Role Phone Aron Son MD Unavailable Unavailable Félix Garvey PA-C Primary Care Provider +[phone] -[phone] Encounter Details Date Type Department Care Team Description 08/16/2022 Physics Professor Report Medical Records [address] [place] [address] Rod Machuac MD [address] [place] [address] Social History Tobacco Use Types Packs/Day Years [...] suspected to have Coronavirus/COVID-19? No / Unsure 08/05/2022 11:11 AM EST documented as of this encounter Plan of Treatment Not on file documented as of this encounter Visit Diagnoses Not on filedocumented in this encounter Care Teams Thoroughbred Horse Farm Manager Relationship Specialty Start Date End Date Félix Garvey PA-C [address] [place] [address] PCP - General Internal Medicine 06/06/22 Aron Son MD Specialist Cardiovascular Disease 06/06/22 documented as of this encounter
--- OUTSIDE RECORDS SUMMARY | 2024-10-26 10:13 | XMS_ITS | Encounter Summary ---
Author Organization [facility] Address [address] [place] [address] Care Team Providers Care Sports Marketing Internship Name Role Phone Aron Son MD Unavailable Unavailable Félix Garvey PA-C Primary Care Provider +[phone] Encounter Details Date Type Department Care Team Description 04/01/2023 Demographic Analyst Report [facility] Thoracic Surgery [place] [address] [facility] [address] [place] [id number] Rod Machuca MD [address] [address] Social History Tobacco Use Types Packs/Day Years [...] on filedocumented in this encounter Care Teams Sports Marketing Internship Relationship Specialty Start Date End Date Félix Garvey PA-C [address] [place] [address] PCP - General Internal Medicine 06/06/22 Aron Son MD Specialist Cardiovascular Disease 06/06/22 documented as of this encounter
--- OUTSIDE RECORDS SUMMARY | 2024-10-26 10:13 | XMS_ITS | Encounter Summary ---
Author Organization [facility] Address [address] [place] [address] Care Team Providers Care Lead Data Architect Name Role Phone Félix Garvey PA-C Primary Care Provider [phone] Rod Machuca MD Primary Care Provider [phone] Aron Son MD Unavailable Unavailable Félix Garvey PA-C Primary Care Provider [phone] Encounter Details Date Type Department Care Team Description 01/08/2021 Reports Analysis Manager Report Medical Records [address] [place] [address] Crystal Raines Social History Tobacco Use Types [...] have Coronavirus / COVID-19? No / Unsure 12/20/2020 8:16 AM EDT documented as of this encounter Plan of Treatment Not on file documented as of this encounter Visit Diagnoses Not on filedocumented in this encounter Care Teams Lead Data Architect Relationship Specialty Start Date End Date Félix Garvey PA-C [address] [place] [address] [phone] PCP - General Internal Medicine 09/27/20 05/09/22 Rod Machuca MD [address] [place] [address] PCP - General Lung Cancer Freight Checker 05/10/22 06/05/22 Félix Garvey PA-C 4 [place] [address] PCP - General Internal Medicine 06/06/22 Aron Son MD [address] [place] [address] Specialist Cardiovascular Disease 06/06/22 documented as of this encounter
--- OUTSIDE RECORDS SUMMARY | 2024-10-26 10:13 | XMS_ITS | Encounter Summary ---
Author Organization [facility] Address [address] [place] [address] Care Team Providers Care Certified Physical Therapist Assistant Name Role Phone Vincenzo Green MD Primary Care Provider [phone] Félix Garvey PA-C Primary Care Provider + [phone] Rod Machuca MD Primary Care Provider [phone] Aron Son MD Unavailable Unavailable Félix Garvey PA-C Primary Care Provider [phone] Encounter Details Date Type Department Care Team Description 07/11/2016 Apprentice Carpenter Report Medical Records [address] [place] [address] Zack Powers Social History Tobacco Use Types [...] on filedocumented in this encounter Care Teams Certified Physical Therapist Assistant Relationship Specialty Start Date End Date Vincenzo Green MD [address] [place] [address] [phone] PCP - General Internal Medicine 08/03/15 09/26/20 Félix Garvey PA-C [address] [place] [address] [phone] PCP - General Internal Medicine 09/27/20 05/09/22 Rod Machuca MD [address] [place] [address] PCP - General Lung Cancer Pattern Data Operator 05/10/22 06/05/22 Félix Garvey PA-C [address] [place] [address] PCP - General Internal Medicine 06/06/22 Aron Son MD [address] [place] [address] Specialist Cardiovascular Disease 06/06/22 documented as of this encounter
--- OUTSIDE RECORDS SUMMARY | 2024-10-26 10:13 | XMS_ITS | Encounter Summary ---
Author Organization [employer] [facility] Address [address] [place] [address] Care Team Providers Care Title I Assistant Name Role Phone Aron Son MD Unavailable Unavailable Félix Garvey PA-C Primary Care Provider [phone] Encounter Details Date Type Department Care Team Description 03/13/2023 Trading Manager Report Medical Records [address] [place] [address] Jake Prakash PA-C Social History Tobacco Use [...] on filedocumented in this encounter Care Teams Title I Assistant Relationship Specialty Start Date End Date Félix Garvey PA-C [address] [place] [address] [id number] PCP - General Internal Medicine 06/06/22 Aron Son MD Specialist Cardiovascular Disease 06/06/22 documented as of this encounter
--- OUTSIDE RECORDS SUMMARY | 2024-10-26 10:13 | XMS_ITS | Encounter Summary ---
Author Organization [facility] Address [address] [place] [address] Care Team Providers Care Access Liaison Name Role Phone Vincenzo Green MD Primary Care Provider [phone] Félix Garvey PA-C Primary Care Provider [phone] Rod Machuca MD Primary Care Provider [phone] Aron Son MD Unavailable Unavailable Félix Garvey PA-C Primary Care Provider [phone] Reason for Visit * Reason Comments E-prescribe Rx Request Encounter Details Date Type Department Care Team Description 12/13/2016 Refill Adult Medicine [address] [id number] Vincenzo Green MD [address] [place] [address] [phone] E-prescribe Rx Request Social History Tobacco Use Types Packs/Day Years [...] on file documented as of this encounter Miscellaneous Notes * Telephone Encounter - Adriana Marino M.A. - 12/13/2016 2:33 PM EDT Lab Results Component Value Date HGBA1C 8.7 09/17/2016 MALBUR 7.4 09/17/2016 MALBCR 2.4 09/17/2016 CHOL 151 09/17/2016 LDL 84 09/17/2016 HDL 52 09/17/2016 TRIG 75 09/17/2016 GLU 212 09/17/2016 CREAT 0.9 09/17/2016 * Telephone Encounter - Syed Kwanuirre - 12/13/2016 9:19 AM EDT Patient would like script to be: E-PRESCRIBED/FAXED TO PHARMACY WHEN WAS THE PATIENT'S LAST APPOINTMENT IN ADULT MEDICINE? 10/02/16 WHEN WAS THE LAST TIME THE PATIENT SAW THEIR PCP? 09/28/15 Does patient have an upcoming appointment? No-unable to reach left [facility] to call for appointment due to refill request. Appt due (THE MEDICATION REQUESTED IS ON THE MED LIST ABOVE) All of the medications requested were on the CURRENT MEDS list Did you check the Pharmacy information above?: YES Patient wants: 30 -day supply Is this a mail order prescription request ? NO Patients current insurance carrier is: [place] / [place] / Product Type: MEDICARE [id number] documented in this encounter Plan of Treatment Not on file documented as of this encounter Visit Diagnoses Not on filedocumented in this encounter Care Teams Access Liaison Relationship Specialty Start Date End Date Vincenzo Green MD [address] [place] [address] PCP - General Internal Medicine 08/03/15 09/26/20 Félix Garvey PA-C [address] [place] [address] PCP - General Internal Medicine 09/27/20 05/09/22 Rod Machuca MD [address] [place] [address] PCP - General Lung Cancer District Court Reporter 05/10/22 06/05/22 Félix Garvey PA-C [address] [place] [address] PCP - General Internal Medicine 06/06/22 Aron Son MD [address] [place] [address] Specialist Cardiovascular Disease 06/06/22 documented as of this encounter
--- OUTSIDE RECORDS SUMMARY | 2024-10-26 10:13 | XMS_ITS | Encounter Summary ---
Author Organization [facility] Address [address] [place] [address] Care Team Providers Care Manager Operational Name Role Phone Vincenzo Green MD Primary Care Provider [phone] Félix Garvey PA-C Primary Care Provider [phone] Rod Machuca MD Primary Care Provider [phone] Aron Son MD Unavailable Unavailable Félix Garvey PA-C Primary Care Provider [phone] Encounter Details Date Type Department Care Team Description 09/19/2020 Old Medical Records Medical Records [address] [place] [address] Abstract, Provider Social History Tobacco Use Types [...] on filedocumented in this encounter Care Teams Manager Operational Relationship Specialty Start Date End Date Vincenzo Green MD [address] [place] [address] [phone] PCP - General Internal Medicine 08/03/15 09/26/20 Félix Garvey PA-C [address] [place] [address] PCP - General Internal Medicine 09/27/20 05/09/22 Rod Machuca MD [address] [place] [address] PCP - General Lung Cancer Product Engineer 05/10/22 06/05/22 Félix Garvey PA-C [address] [place] [address] PCP - General Internal Medicine 06/06/22 Aron Son MD [address] [place] [address] Specialist Cardiovascular Disease 06/06/22 documented as of this encounter
--- OUTSIDE RECORDS SUMMARY | 2024-10-26 10:13 | XMS_ITS | Encounter Summary ---
Author Organization [employer] [facility] Address [address] [place] [address] Care Team Providers Care Plastic Shaper Name Role Phone Aron Son MD Unavailable Unavailable Félix Garvey PA-C Primary Care Provider [phone] Encounter Details Date Type Department Care Team Description 03/25/2023 Clinical Laboratory Director Report Medical Records [address] [place] [address] Mario Alberto Carter MD Social History Tobacco Use Types Packs/Day [...] filedocumented in this encounter Care Teams Plastic Shaper Relationship Specialty Start Date End Date Félix Garvey PA-C [address] [place] [address] [id number] PCP - General Internal Medicine 06/06/22 Aron Son MD Specialist Cardiovascular Disease 06/06/22 documented as of this encounter
--- OUTSIDE RECORDS SUMMARY | 2024-10-26 10:13 | XMS_ITS | Encounter Summary ---
Author Organization [facility] Address [address] [place] [address] Care Team Providers Care Director Immunology Name Role Phone Aron Son MD Unavailable Unavailable Félix Garvey PA-C Primary Care Provider [phone] Reason for Visit * Reason Onset Date Comments REFERRAL 12/09/2022 Encounter Details Date Type Department Care Team Description 12/09/2022 Telephone Adult Medicine [facility] [address] [place], [place] [phone] Félix Garvey PA-C [address] [place], [place] [phone] REFERRAL Social History Tobacco Use Types Packs/Day Years [...] encounter Miscellaneous Notes * Telephone Encounter - Cynthia Alicea - 01/07/2023 3:14 PM EDT Patient must change his PCP with his insurance- still listed with Dr Green * Telephone Encounter - Clemente Heard - 12/09/2022 10:01 AM EDT See Referral request from 06/06/22 for Nuerology at [facility]. Never received referral request please resend to fx [phone] documented in this encounter Plan of Treatment Not on file documented as of this encounter Visit Diagnoses Not on filedocumented in this encounter Care Teams Director Immunology Relationship Specialty Start Date End Date Félix Garvey PA-C [address] [place] [address] PCP - General Internal Medicine 06/06/22 Aron Son MD Specialist Cardiovascular Disease 06/06/22 documented as of this encounter
--- OUTSIDE RECORDS SUMMARY | 2024-10-26 10:13 | XMS_ITS | Encounter Summary ---
Author Organization [facility] Address [address] [place] [address] Care Team Providers Care Corn Husker Name Role Phone Félix Garvey PA-C Primary Care Provider [phone] Rod Machuca MD Primary Care Provider [phone] Aron Son MD Unavailable Unavailable Félix Garvey PA-C Primary Care Provider +[phone] Encounter Details Date Type Department Care Team Description 04/11/2021 Hand Cigar Making Supervisor Report Medical Records [address] [place] [address] Abstract, Provider Social History Tobacco Use Types [...] on filedocumented in this encounter Care Teams Corn Husker Relationship Specialty Start Date End Date Félix Garvey PA-C [address] [place] [address] PCP - General Internal Medicine 09/27/20 05/09/22 Rod Machuca MD [address] [place] [address] [phone] PCP - General Lung Cancer Concrete Finishing Machine Operator 05/10/22 06/05/22 Félix Garvey PA-C [address] [place] [address] PCP - General Internal Medicine 06/06/22 Aron Son MD [address] [place] [address] Specialist Cardiovascular Disease 06/06/22 documented as of this encounter
--- OUTSIDE RECORDS SUMMARY | 2024-10-26 10:13 | XMS_ITS | Encounter Summary ---
Author Organization [employer] [facility] Address [address] [place] [address] Care Team Providers Care Caregivers Homecare Name Role Phone Aron Son MD Unavailable Unavailable Félix Garvey PA-C Primary Care Provider +[phone] Encounter Details Date Type Department Care Team Description 11/20/2023 [facility] Report Medical Records [address] [place] [address] Jake Prakash PA-C Social History Tobacco Use [...] on filedocumented in this encounter Care Teams Caregivers Homecare Relationship Specialty Start Date End Date Félix Garvey PA-C [address] [place] [address] [phone] PCP - General Internal Medicine 06/06/22 Aron Son MD Specialist Cardiovascular Disease 06/06/22 documented as of this encounter
--- OUTSIDE RECORDS SUMMARY | 2024-10-26 10:13 | XMS_ITS | Encounter Summary ---
Author Organization [employer] [facility] Address [address] [place] [address] Care Team Providers Care Apparel Trimmings Sales Representative Name Role Phone Aron Son MD Unavailable Unavailable Félix Garvey PA-C Primary Care Provider +[phone] Encounter Details Date Type Department Care Team Description 03/20/2023 Director Of Content Marketing Report Medical Records [address] [place], [place] [phone] [place] [address] Social History Tobacco Use Types Packs/Day Years [...] on filedocumented in this encounter Care Teams Apparel Trimmings Sales Representative Relationship Specialty Start Date End Date Félix Garvey PA-C [address] [place], [place] [phone] PCP - General Internal Medicine 06/06/22 Aron Son MD Specialist Cardiovascular Disease 06/06/22 documented as of this encounter
--- OUTSIDE RECORDS SUMMARY | 2024-10-26 10:14 | XMS_ITS | Encounter Summary ---
Author Organization [facility] Address [address] [place] [address] Care Team Providers Care Value Stream Leader Name Role Phone Vincenzo Green MD Primary Care Provider [phone] Félix Garvey PA-C Primary Care Provider [phone] Rod Machuca MD Primary Care Provider [phone] Aron Son MD Unavailable Unavailable Félix Garvey PA-C Primary Care Provider [phone] Encounter Details Date Type Department Care Team Description 09/03/2019 Wind Turbine Blade Repair Technician Report Medical Records [address] [place] [address] Erick Diane Social History Tobacco Use Types Packs/Day Years [...] on filedocumented in this encounter Care Teams Value Stream Leader Relationship Specialty Start Date End Date Vincenzo Green MD [address] [place] [address] [phone] PCP - General Internal Medicine 08/03/15 09/26/20 Félix Garvey PA-C [address] [place] [address] [phone] PCP - General Internal Medicine 09/27/20 05/09/22 Rod Machuca MD [address] [place] [address] PCP - General Lung Cancer Drier Transfer Car Operator 05/10/22 06/05/22 Félix Garvey PA-C [address] [place] [address] PCP - General Internal Medicine 06/06/22 Aron Son MD [address] [place] [address] Specialist Cardiovascular Disease 06/06/22 documented as of this encounter
--- OUTSIDE RECORDS SUMMARY | 2024-10-26 10:14 | XMS_ITS | Encounter Summary ---
Author Organization [facility] Address [address] [place] [address] Care Team Providers Care Reinsurance Clerk Name Role Phone Vincenzo Green MD Primary Care Provider [phone] Félix Garvey PA-C Primary Care Provider [phone] Rod Machuca MD Primary Care Provider [phone] Aron Son MD Unavailable Unavailable Félix Garvey PA-C Primary Care Provider [phone] Encounter Details Date Type Department Care Team Description 10/02/2015 Release of Information Medical Records [address] [place] [address] Abstract, Provider Social History Tobacco Use Types Packs/Day Years Used Date Smoking Tobacco: Never Alcohol Use Standard Drinks/Week Comments Not Asked 0 (1 standard drink = 0.6 oz pur e alcohol) Sex Assigned at Date Recorded Not on file Job Start Date Occupation Industry Not on file Not on file Not on file documented as of this encounter Plan of Treatment Not on file documented as of this encounter Visit Diagnoses Not on filedocumented in this encounter Care Teams Reinsurance Clerk Relationship Specialty Start Date End Date Vincenzo Green MD [address] [place] [address] [phone] PCP - General Internal Medicine 08/03/15 09/26/20 Félix Garvey PA-C [address] [place] [address] [phone] PCP - General Internal Medicine 09/27/20 05/09/22 Rod Machuca MD [address] [place] [address] PCP - General Lung Cancer Healthcare Facility Administrator 05/10/22 06/05/22 Félix Garvey PA-C [address] [place] [address] PCP - General Internal Medicine 06/06/22 Aron Son MD [address] [place] [address] Specialist Cardiovascular Disease 06/06/22 documented as of this encounter
--- OUTSIDE RECORDS SUMMARY | 2024-10-26 10:14 | XMS_ITS ---
Author Organization [facility] Address [address] [place] [address] Care Team Providers Care Composing Room Supervisor Name Role Phone Félix Cooper Primary Care Provider Unav ailable Julita Marcial [phone] Galeano Encounters Encounter Location Date Provider Diagnosis [facility] [address] [place] [address] 10/29/2023 Julita Marcial Plan Of Treatment Next Appt Details Provider Name:Julita fajardo, 12/03/2024 09:00:00 AM, [address] [place], [address], Progress Notes * Kaila RHODESOB:[birth year] (63 yo M)Acc No.[id number]:10/29/2023 Progress Note Patient:?Thong RHODES Provider:?Julita Marcial DPM :1960???Age:62 Y???Sex:Male Nahun e:10/29/2023 Address:[address] [id number] Pcp:JESUS Jerry Subjective: * Chief Complaints: * [...] Marcial DPM Date:?04/2024 Generated for Eyal orta/Teri/Alejandro on:?10/26/2024 10:14 AM EDT
--- OUTSIDE RECORDS SUMMARY | 2024-10-26 10:14 | XMS_ITS | Encounter Summary ---
Author Organization [employer] [facility] Address [address] [place] [address] Care Team Providers Care Slip Box Changer Name Role Phone Aron Son MD Unavailable Unavailable Félix Garvey PA-C Primary Care Provider +1 [phone] Encounter Details Date Type Department Care Team Description 06/07/2022 Release of Information Medical Records [address] [place], [place] [phone] [place] [address] Social History Tobacco Use Types Packs/Day Years [...] suspected to have Coronavirus/COVID-19? No / Unsure 06/06/2022 3:24 PM EST documented as of this encounter Plan of Treatment Not on file documented as of this encounter Visit Diagnoses Not on filedocumented in this encounter Care Teams Slip Box Changer Relationship Specialty Start Date End Date Félix Garvey PA-C [address] [place], [place] [phone] PCP - General Internal Medicine 06/06/22 Aron Son MD Specialist Cardiovascular Disease 06/06/22 documented as of this encounter
--- OUTSIDE RECORDS SUMMARY | 2024-10-26 10:14 | XMS_ITS | Encounter Summary ---
Author Organization [facility] Address [address] [place] [address] Care Team Providers Care Crushing Machine Operator Name Role Phone Vincenzo Green MD Primary Care Provider [phone] Félix Garvey PA-C Primary Care Provider +[phone] Rod Machuca MD Primary Care Provider [phone] Aron Son MD Unavailable Unavailable Félix Garvey PA-C Primary Care Provider +[phone] Encounter Details Date Type Department Care Team Description 07/05/2019 Old Medical Records Medical Records [address] [place] [address] Abstract, Provider Social History Tobacco Use Types [...] on filedocumented in this encounter Care Teams Crushing Machine Operator Relationship Specialty Start Date End Date Vincenzo Green MD [address] [place] [address] [phone] PCP - General Internal Medicine 08/03/15 09/26/20 Félix Garvey PA-C [address] [place] [address] [phone] PCP - General Internal Medicine 09/27/20 05/09/22 Rod Machuca MD [address] [place] [address] PCP - General Lung Cancer Contracts Manager 05/10/22 06/05/22 Félix Garvey PA-C [address] [place] [address] PCP - General Internal Medicine 06/06/22 Aron Son MD [address] [place] [address] Specialist Cardiovascular Disease 06/06/22 documented as of this encounter
--- OUTSIDE RECORDS SUMMARY | 2024-10-26 10:14 | XMS_ITS | Encounter Summary ---
Author Organization [facility] Address [address] [place] [address] Care Team Providers Care Special Education Kindergarten Teacher Name Role Phone Félix Garvey PA-C Primary Care Provider +[phone] Rod Machuca MD Primary Care Provider [phone] Aron Son MD Unavailable Unavailable Félix Garvey PA-C Primary Care Provider +[phone] Encounter Details Date Type Department Care Team Description 09/20/2021 Dissolver Operator Report Medical Records [address] [place] [address] Milton Barrera MD Social History Tobacco Use Types Packs/Day [...] on filedocumented in this encounter Care Teams Special Education Kindergarten Teacher Relationship Specialty Start Date End Date Félix Garvey PA-C [address] [place], [place] [phone] PCP - General Internal Medicine 09/27/20 05/09/22 Rod Machuca MD [address] [place], [place] [phone] PCP - General Lung Cancer Missile Tracking Technician 05/10/22 06/05/22 Félix Garvey PA-C [address] [place] [address] PCP - General Internal Medicine 06/06/22 Aron Son MD [address] [place] [address] Specialist Cardiovascular Disease 06/06/22 documented as of this encounter
--- OUTSIDE RECORDS SUMMARY | 2024-10-26 10:14 | XMS_ITS | Encounter Summary ---
Author Organization [facility] Address [address] [place] [address] Care Team Providers Care Livestock Buyer Name Role Phone Vincenzo Green MD Primary Care Provider + [phone] Félix Garvey PA-C Primary Care Provider + [phone] Rod Machuca MD Primary Care Provider [phone] Aron Son MD Unavailable Unavailable Félix Garvey PA-C Primary Care Provider +[phone] Reason for Visit * Reason Comments E-prescribe Rx Request Encounter Details Date Type Department Care Team Description 12/01/2017 Refill Physiatry - [address] [address] Ed Holley DO E-prescribe Rx Request Social History Tobacco Use [...] encounter Miscellaneous Notes * Telephone Encounter - Roxana Moore L.P.N. 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) Type II or unspecified type diabetes mellitus with neurological manifestations, not stated as uncontrolled Cervical radiculopathy Brachial neuritis or radiculitis nos documented in this encounter Care Teams Livestock Buyer Relationship Specialty Start Date End Date Vincenzo Green MD [address] [place] [address] PCP - General Internal Medicine 08/03/15 09/26/20 Félix Garvey PA-C [address] [place] [address] PCP - General Internal Medicine 09/27/20 05/09/22 Rod Machuca MD [address] [place] [address] PCP - General Lung Cancer Applications Engineer 05/10/22 06/05/22 Félix Garvey PA-C [address] [place] [address] PCP - General Internal Medicine 06/06/22 Aron Son MD [address] [place] [address] Specialist Cardiovascular Disease 06/06/22 documented as of this encounter
--- OUTSIDE RECORDS SUMMARY | 2024-10-26 10:14 | XMS_ITS | Encounter Summary ---
Author Organization [facility] Address [address] [place] [address] Care Team Providers Care Printing Equipment Mechanic Name Role Phone Aron Son MD Unavailable Unavailable Félix Garvey PA-C Primary Care Provider +[phone] Encounter Details Date Type Department Care Team Description 07/10/2024 Special Education Supervisor Report Medical Records [address] [place] [address] Tracy Banerjee [address] [place] [address] Social History Tobacco Use Types Packs/Day Years [...] on filedocumented in this encounter Care Teams Printing Equipment Mechanic Relationship Specialty Start Date End Date Félix Garvey PA-C [address] [place] [address] PCP - General Internal Medicine 06/06/22 Aron Son MD Specialist Cardiovascular Disease 06/06/22 documented as of this encounter
--- OUTSIDE RECORDS SUMMARY | 2024-10-26 10:14 | XMS_ITS | Encounter Summary ---
Author Organization [facility] Address [address] [place] [address] Care Team Providers Care Automatic Packer Operator Name Role Phone Vincenzo Green MD Primary Care Provider [phone] Félix Garvey PA-C Primary Care Provider +[phone] Rod Machuca MD Primary Care Provider [phone] Aron Son MD Unavailable Unavailable Félix Garvey PA-C Primary Care Provider [phone] Encounter Details Date Type Department Care Team Description 10/13/2018 Artistic Associate Report Medical Records [address] [place] [address] Abstract, Provider Social History Tobacco Use Types [...] on filedocumented in this encounter Care Teams Automatic Packer Operator Relationship Specialty Start Date End Date Vincenzo Green MD [address] [place] [address] [phone] PCP - General Internal Medicine 08/03/15 09/26/20 Félix Garvey PA-C [address] [place] [address] [phone] PCP - General Internal Medicine 09/27/20 05/09/22 Rod Machuca MD [address] [place] [address] PCP - General Lung Cancer Shrink Pit Operator 05/10/22 06/05/22 Félix Garvey PA-C [address] [place] [address] PCP - General Internal Medicine 06/06/22 Aron Son MD [address] [place] [address] Specialist Cardiovascular Disease 06/06/22 documented as of this encounter
--- OUTSIDE RECORDS SUMMARY | 2024-10-26 10:14 | XMS_ITS | Encounter Summary ---
Author Organization [facility] Address [address] [place] [address] Care Team Providers Care Facilities Supervisor Name Role Phone Vincenzo Green MD Primary Care Provider + [phone] Félix Garvey PA-C Primary Care Provider [phone] Rod Machuca MD Primary Care Provider [phone] Aron Son MD Unavailable Unavailable Félix Garvey PA-C Primary Care Provider [phone] Reason for Visit * Reason Onset Date Comments injection 09/29/2017 Encounter Details Date Type Department Care Team Description 09/29/2017 Telephone Physiatry - [address] [phone] Ed Holley DO injection Social History Tobacco Use Types Packs/Day Years [...] encounter Miscellaneous Notes * Telephone Encounter - Kerrie Acevedo M.A. - 09/29/2017 10:33 AM EDT Patient had question regarding his medication he is taking, and making sure that he takes it today before his injection. Gabapentin and melatonin. Patient is aware that it is okay to take. * Telephone Encounter - Polly Taylor 09/29/2017 9:05 AM EDT Patient is returning Kerrie's phone call. documented in this encounter Plan of Treatment Not on file documented as of this encounter Visit Diagnoses Not on filedocumented in this encounter Care Teams Facilities Supervisor Relationship Specialty Start Date End Date Vincenzo Green MD [address] [place] [address] PCP - General Internal Medicine 08/03/15 09/26/20 Félix Garvey PA-C [address] [place] [address] PCP - General Internal Medicine 09/27/20 05/09/22 Rod Machuca MD [address] [place] [address] PCP - General Lung Cancer Service Car Driver 05/10/22 06/05/22 Félix Garvey PA-C [address] [place] [address] PCP - General Internal Medicine 06/06/22 Aron Son MD [address] [place] [address] Specialist Cardiovascular Disease 06/06/22 documented as of this encounter
--- OUTSIDE RECORDS SUMMARY | 2024-10-26 10:14 | XMS_ITS ---
Author Organization [facility] Address [address] [facility] [place] [address] Care Team Providers Care Vp Of Digital Marketing Name Role Phone Félix Cooper Primary Care Provider Unav ailJulita Shah Unavailable [phone] Allergies Allergen (clinical drug ingredient) Drug/Non Drug [...] a day for 30 day(s) Active Nystatin-Triamcinolone 828846-9.1 UNIT/GM 1 application Externally Twice a day Active Pen Manteca 10/03 Ac tive Insulin Glargine 100 UNIT/ML [...] Problem Acquired hammer toe of right foot (7601984712903 105) Other hammer toe(s) (acquired), right foot (M20.41) Active confirmed Problem Acquired hammer toe of left foot (9004255911690 103) Other hammer toe(s) (acquired), left foot (M20.42) Active confirmed Vital Signs Height 5 ft 10 in in 11/11/2023 Weight 200 lbs 11/11/2023 BMI 28.69 kg/m2 11/11/2023 Encounters Encounter Location Date Provider Diagnosis [facility] [place] [address] [place] [address] 11/11/2023 Julita Marcial Other hammer toe(s) (acquired), [...] Reason: Provider Name:Julita fajardo, 12/03/2024 09:00:00 AM, [address] [place] [address], [phone], Progress Notes * Kaila RHODESOB:[birth year] (63 yo M)Acc No.[id number]:11/11/2023 Progress Note Patient:?Thong Rhodes Provider:?Julita Marcial DPM :1960???Age:63 Y???Sex:Male Nahun e:11/11/2023 Address:[address] [place] [address] [facility] Pcp:JESUS Jerry Subjective: * Chief Complaints: * [...] Disabled. * Medications:?TakingPen Needl es 10/03 Nystatin-Triamcinolone 724650-1.1 UNIT/GM Cream 1 application Externally Twice a [...] 1 tablet Orally Once a dayTaking Pen Manteca 10/03 Taking Nystatin-Triamcinolone 687075-0.1 UNIT/GM Cream 1 application Externally Twice a [...] Marcial DPM Date:? Generated for Eyal orta/Teri/Alejandro on:?10/26/2024 10:13 AM EDT History and Physical Notes * [...]
--- OUTSIDE RECORDS SUMMARY | 2024-10-26 10:14 | XMS_ITS | Encounter Summary ---
Author Organization [facility] Address [address] [place] [address] Care Team Providers Care Solid Die Cutter Name Role Phone Félix Garvey PA-C Primary Care Provider [phone] Rod Machuca MD Primary Care Provider Aron Son MD Unavailable Unavailable Félix Garvey PA-C Primary Care Provider [phone] Encounter Details Date Type Department Care Team Description 04/11/2022 [place] Report Medical Records [address] [place] [address] Ely Kirby Social History Tobacco Use Types [...] on filedocumented in this encounter Care Teams Solid Die Cutter Relationship Specialty Start Date End Date Félix Garvey PA-C [address] [place], [place] [phone] PCP - General Internal Medicine 09/27/20 05/09/22 Rod Machuca MD [address] [place], [place] [phone] PCP - General Lung Cancer Modeling Instructor 05/10/22 06/05/22 Félix Garvey PA-C [address] [place] [address] PCP - General Internal Medicine 06/06/22 Aron Son MD [address] [place] [address] Specialist Cardiovascular Disease 06/06/22 documented as of this encounter
--- OUTSIDE RECORDS SUMMARY | 2024-10-26 10:14 | XMS_ITS | Encounter Summary ---
Author Organization [facility] Address [address] [place] [address] Care Team Providers Care Teacher Cclc Name Role Phone Vincenzo Green MD Primary Care Provider [phone] Félix Garvey PA-C Primary Care Provider [phone] Rod Machuca MD Primary Care Provider [phone] Aron Son MD Unavailable Unavailable Félix Garvey PA-C Primary Care Provider [phone] Encounter Details Date Type Department Care Team Description 09/19/2017 Systems Architecture Analyst Report Medical Records [address] [place] [address] Crystal Raines Social History Tobacco Use Types [...] on filedocumented in this encounter Care Teams Teacher Cclc Relationship Specialty Start Date End Date Vincenzo Green MD [address] [place] [address] [phone] PCP - General Internal Medicine 08/03/15 09/26/20 Félix Garvey PA-C [address] [place] [address] [phone] PCP - General Internal Medicine 09/27/20 05/09/22 Rod Machuca MD [address] [place] [address] PCP - General Lung Cancer Geophysics Scientist 05/10/22 06/05/22 Félix Garvey PA-C [address] [place] [address] PCP - General Internal Medicine 06/06/22 Aron Son MD [address] [place] [address] Specialist Cardiovascular Disease 06/06/22 documented as of this encounter
--- OUTSIDE RECORDS SUMMARY | 2024-10-26 10:14 | XMS_ITS | Encounter Summary ---
Author Organization [facility] Address [address] [place] [address] Care Team Providers Care Family Practice Md Name Role Phone Aron Son MD Unavailable Unavailable Félix Garvey PA-C Primary Care Provider +[phone] Encounter Details Date Type Department Care Team Description 05/05/2024 Orthopaedic Doctor Report Medical Records [address] [place] [address] Sybil Corona MD Social History Tobacco Use Types Packs/Day [...] on filedocumented in this encounter Care Teams Family Practice Md Relationship Specialty Start Date End Date Félix Garvey PA-C [address] [place] [address] [phone] PCP - General Internal Medicine 06/06/22 Aron Son MD Specialist Cardiovascular Disease 06/06/22 documented as of this encounter
--- OUTSIDE RECORDS SUMMARY | 2024-10-26 10:14 | XMS_ITS | Encounter Summary ---
Author Organization [facility] Address [address] [place] [address] Care Team Providers Care Senior Counsel Name Role Phone Vincenzo Green MD Primary Care Provider [phone] Félix Garvey PA-C Primary Care Provider + [phone] Rod Machuca MD Primary Care Provider [phone] Aron Son MD Unavailable Unavailable Félix Garvey PA-C Primary Care Provider +[phone] Encounter Details Date Type Department Care Team Description 10/14/2017 [facility] Medical Records [address] [place] [address] Abstract, Provider Social History Tobacco Use Types [...] on filedocumented in this encounter Care Teams Senior Counsel Relationship Specialty Start Date End Date Vincenzo Green MD [address] [place] [address] [phone] PCP - General Internal Medicine 08/03/15 09/26/20 Félix Garvey PA-C [address] [place] [address] [phone] PCP - General Internal Medicine 09/27/20 05/09/22 Rod Machuca MD [address] [place] [address] PCP - General Lung Cancer Vp Ad Products And Planning 05/10/22 06/05/22 Félix Garvey PA-C [address] [place] [address] PCP - General Internal Medicine 06/06/22 Aron Son MD [address] [place] [address] Specialist Cardiovascular Disease 06/06/22 documented as of this encounter
--- OUTSIDE RECORDS SUMMARY | 2024-10-26 10:14 | XMS_ITS | Encounter Summary ---
Author Organization [facility] Address [address] [place] [address] Care Team Providers Care Social Sciences Chair Name Role Phone Vincenzo Green MD Primary Care Provider [phone] Félix Garvey PA-C Primary Care Provider +[phone] Rod Machuca MD Primary Care Provider [phone] Aron Son MD Unavailable Unavailable Félix Garvey PA-C Primary Care Provider +[phone] Reason for Visit * Reason Onset Date Comments refill request 09/17/2017 Encounter Details Date Type Department Care Team Description 09/17/2017 Refill Adult Medicine [address] [phone] Vincenzo Green MD [address] [place] [address] [phone] refill request Social History Tobacco Use Types Packs/Day Years [...] encounter Miscellaneous Notes * Telephone Encounter - Nia Awan M.A. - 09/17/2017 2:26 PM EST Lab Results Component Value Date HGBA1C 8.9 06/16/2017 MALBUR 3.9 06/16/2017 MALBCR 2.2 06/16/2017 CHOL 143 06/16/2017 LDL 66 06/16/2017 HDL 47 06/16/2017 TRIG 153 06/16/2017 GLU 252 06/16/2017 CREAT 1.1 06/16/2017 * Telephone Encounter - Claudia GiordanooClaudiaMartell - 09/17/2017 2:08 PM EST Patient would like script to be: E-PRESCRIBED/FAXED TO PHARMACY WHEN WAS THE PATIENT'S LAST APPOINTMENT IN ADULT MEDICINE? 2.16.18 WHEN WAS THE LAST TIME THE PATIENT SAW THEIR PCP? Same as above Does patient have an upcoming appointment? Yes 3.8.18 (THE MEDICATION REQUESTED IS ON THE MED LIST ABOVE) All of the medications requested were on the CURRENT MEDS list Did you check the Pharmacy information above?: YES Patient wants: 30 -day supply Is this a mail order prescription request ? NO Patients current insurance carrier is: [place] / [place] / Product Type: MED[place]ARE [id number] documented in this encounter Plan of Treatment Not on file documented as of this encounter Visit Diagnoses Not on filedocumented in this encounter Care Teams Social Sciences Chair Relationship Specialty Start Date End Date Vincenzo Green MD [address] [place] [address] [phone] PCP - General Internal Medicine 08/03/15 09/26/20 Félix Garvey PA-C [address] [place] [address] PCP - General Internal Medicine 09/27/20 05/09/22 Rod Machuca MD [address] [place] [address] PCP - General Lung Cancer Pediatric Cns 05/10/22 06/05/22 Félix Garvey PA-C [address] [place] [address] PCP - General Internal Medicine 06/06/22 Aron Son MD [address] [place] [address] Specialist Cardiovascular Disease 06/06/22 documented as of this encounter
--- OUTSIDE RECORDS SUMMARY | 2024-10-26 10:14 | XMS_ITS | Encounter Summary ---
Author Organization [facility] Address [address] [place] [address] Care Team Providers Care Phthalic Acid Purifier Name Role Phone Vincenzo Green MD Primary Care Provider +[phone] Félix Garvey PA-C Primary Care Provider + [phone] Rod Machuca MD Primary Care Provider [phone] Aron Son MD Unavailable Unavailable Félix Garvey PA-C Primary Care Provider + [phone] Encounter Details Date Type Department Care Team Description 11/25/2017 Hospital Medical Records [address] [place] [address] Lee Arroyo MD Social History Tobacco Use Types Packs/Day [...] on filedocumented in this encounter Care Teams Phthalic Acid Purifier Relationship Specialty Start Date End Date Vincenzo Green MD [address] [place] [address] [phone] PCP - General Internal Medicine 08/03/15 09/26/20 Félix Garvey PA-C [address] [place] [address] [phone] PCP - General Internal Medicine 09/27/20 05/09/22 Rod Machuca MD [address] [place] [address] PCP - General Lung Cancer Expressive Therapist 05/10/22 06/05/22 Félix Garvey PA-C [address] [place] [address] PCP - General Internal Medicine 06/06/22 Aron Son MD [address] [place] [address] Specialist Cardiovascular Disease 06/06/22 documented as of this encounter
--- OUTSIDE RECORDS SUMMARY | 2024-10-26 10:14 | XMS_ITS | Clinical Summary ---
Author Organization [employer] Address [address] [facility] [address] [place] [address] Care Team Providers Care Light Bulb Replacer Name Role Phone Unavailable Primary Care Provider Unavailabl e Allergies Active Allergy Reactions Criticality Noted Date Comments Canagliflozin Unknown 08/17/2024 Liraglutide Unknown 08/17/2024 Lisinopril Swelling 11/22/2020 Other Reaction(s): Unknown Medications lisinopril 10 MG tablet Take 1 tablet by mouth at bed time. Active acetaminophen (Tylenol) 500 MG tablet take 1 tablet (500MG) by oral route every 6 hours as needed 2 Active amoxicillin (Amoxil) 500 MG capsule take 1 capsule (500MG) by oral route every 8 hours 2 Active ibuprofen 800 MG tablet Take 1 tablet by mouth every 8 (eight) hours. 2 Active Insulin Aspart, w/Niacinamide, (Fiasp) 100 UNIT/ML solution Inject under the skin. Active metFORMIN (Glucophage) 500 MG tablet Take 1 tablet by mouth every 12 (twelve) hours. Active tadalafil (Cialis) 20 MG tablet Take 1 tablet by mouth at bed time. Active buPROPion XL (Wellbutrin XL) 150 MG 24 hr tablet Take 150 mg by mouth in the morning. 4 Active cholecalciferol VITAMIN D (Vitamin D-3) 50 MCG (1999 UT) capsule Take by mouth Once per day. Active diclofenac (Voltaren) 75 MG EC tablet 1 tablet 2 times daily. Active FLUoxetine (PROzac) 40 MG capsule Take 1 capsule by mouth Once per day. 4 Active Insulin Aspart 100 UNIT/ML solution as directed Subcutaneous Active metoprolol succinate XL (Toprol-XL) 25 MG 24 hr tablet Take 25 mg by mouth Once per day. 4 Active tamsulosin (Flomax) 0.4 MG 24 hr capsule Take 0.4 mg by mouth Once per day. 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 We did discuss a trial of a PPI to see if that would help to improve his symptoms. He will try this and see if this helps. Ascending aortic aneurysm 05/06/2022 Overview (08/05/2024): 4.5cm Last Assessment & Plan: We did [...] low blood pressure Aneurysmal dilatation 04/25/2022 Overview (08/05/2024): Ascending aorta, 4.5 cm Last Assessment & Plan: I also discussed the ascending aortic dilation up to 4.5 cm which is the measurement at which point cardiology and sometimes even cardiac surgery evaluation is warranted. We will refer him to cardiology for further management at this point. Mediastinal lymphadenopathy 04/25/2022 Overview (08/05/2024): Last Assessment & Plan: 61-year-old male who [...] understood. Nodule of right lung 04/25/2022 Overview (08/05/2024): Last Assessment & Plan: Also discussed calcified nodule in the right lower lobe which is a benign granuloma. No further management or work-up for this is required. Diabetic retinopathy 06/06/2021 Diabetes mellitus with kidney complication 12/21 Microalbuminuria 12/21/2020 Erectile dysfunction 10/12/2018 Essential hypertension 06/20/2016 Overview (06/22/2024): Last Assessment & Plan: Blood pressure is mildly elevated. Again would like to get this under better control with his dilated aorta. He does have a prescription to to start on Toprol which have encouraged him to do so. Bilateral low back pain without sciatica 016 ETOH abuse 03/06/2016 Diabetes mellitus type 2 with neurological manif estations 11/05/2015 Cervical radiculopathy 11/05/2015 Overview (08/05/2024): recurrent CTS (carpal tunnel syndrome) 11/05/2015 Overview (08/05/2024): Right, NCV 06/03 Depression 11/05/2015 DJD (degenerative joint disease) of knee 016 GERD (gastroesophageal reflux disease) 6 Overview (08/05/2024): Last Assessment & Plan: I also discussed the thickening of the esophagus with the patient and his and we will plan on referring him to gastroenterology for further work-up and evaluation. Chronic hepatitis C 11/05/2015 Overview (08/05/2024): Genotype 1a Tx with antivirals, SVR achieved History of substance abuse 09/28/2015 Overview (08/05/2024): Cocaine, marijuana, some heroin Type 2 diabetes mellitus with cataract 6 Arthritis 09/14/2013 Diabetes mellitus 09/14/2013 Hepatitis C 09/14/2013 Encounters Date Type Department Care Team Description 10/19/2024 11:00 AM EDT Office Visit [facility] [address] [facility] [place] [address] John Paul Raoa, DDS 10/05/2024 11:00 AM EDT Office Visit [facility] [address] [facility] [place] [address] MairaJohn Paula, DDS 09/10/2024 11:30 AM EST Office Visit [facility] [address] [facility] [place] [address] Spencer Rao, NABIL 09/03/2024 Telephone [facility] [address] [facility] [place] [address] Spencer Rao DDS 08/17/2024 11:00 AM EST Office Visit [facility] [address] [facility] [place] [address] Spencer Rao, DDS 08/05/2024 10:45 AM EST Office Visit [facility] [address] [facility] [place] [address] Manuel Restrepo DDS Edentulous maxilla (Primary Dx); Dental abscess 07/30/2024 Telephone [facility] [address] [facility] [place] [address] Spencer Rao DDS from Last 3 Months Social History Tobacco Use Types Packs/Day Years Used Date Smoking Tobacco: Never Passive Smoke Exposure: Never Smokeless Tobacco: Never Tobacco Cessation:Counseling Given: Not Answered Alcohol Use Standard Drinks/Week Comments Not Currently 0 (1 standard drink = 0.6 oz pur e alcohol) Sex and Gender Information Value Date Recorded Sex Assigned at Male 05/20/2022 10:15 AM EDT Legal Sex Male 10:15 AM EDT Gender Identity Male 05/20/2022 10:15 AM EDT Sexual Orientation Straight 05/20/2022 10 :15 AM EDT Last Filed Vital Signs Vital Sign Reading Time Taken Comments Blood Pressure 120/80 10/19/2024 11:16 AM EDT Pulse 65 01/01/2024 10:09 AM EDT Temperature - - Respiratory Rate - - Oxygen Saturation - - Inhaled Oxygen Concentration - - Weight - - Height - - Body Mass Index - - Plan of Treatment Upcoming Encounters Date Type Department Care Team (Late st Contact Info) Description 10/29/2024 2:30 PM EDT Office Visit [facility] [address] [place], [place] [phone] Spencer Rao DDS [address] [place] [address] 03/16/2025 3:00 PM EDT Office Visit [facility] [address] [place], [place] [phone] Amalia Urrutia Health Maintenance Due Date Last Done Comments CT Colonography 1958 Colonoscopy 1958 Colorectal Cancer Screening 1958 Depression Screening 1958 Diabetes: Hemoglobin A1C 1958 FIT DNA/Cologuard 1958 FIT 1958 FOBT 1958 Lipid Panel 1958 SDOH Screening 1958 Sigmoidoscopy 1958 Diabetes: Foot Exam 1968 Eye Exam 1968 Alcohol/Substance Use Screening 1970 Hepatitis A Vaccines (1 of 2 - Risk 2-dose series) 1977 Zoster Vaccines (1 of 2) 2008 Hepatitis B Vaccines (1 of 3 - Risk 3-dose series) 2018 RSV Patients and Patients Aged 60 years or older (1 - Risk 60-74 years 1-dose series) 2018 COVID-19 Vaccine ( season) 2024 Influenza Vaccine (#1) 2024 3, 04/18/2022, 06/11/2019, Additional history exists Dental Oral Exam 07/03/2024 01/01/2024, , 09/27/2014, Additional history exists Dental Prophylaxis 07/03/2024 01/01/2024, 01/04/2014 Dental X-Ray: Bitewings 01/01/2025 01/01/20 24, 03/14/2020, 09/03/2019, Additional history exists Tobacco Screening 10/05/2025 10/05/2024 DTaP/Tdap/Td Vaccines (2 - Td or Tdap) 12/10/2025 12/11/2015 Dental X-Ray: Full Mouth 01/01/2027 024, 09/03/2019, 09/14/2013 Pneumococcal Vaccine: 50+ Years Completed 11/21/2023, 12/11/2015 HIB Vaccines Aged Out No longer eligi ble based on patient's age to complete this topic HPV Vaccines Aged Out No longer eligi ble based on patient's age to complete this topic IPV Vaccines Aged Out No longer eligi ble based on patient's age to complete this topic Meningococcal Vaccine Aged Out No imelda mayank eligible based on patient's age to complete this topic RSV under 20 months Aged Out No longe r eligible based on patient's age to complete this topic Rotavirus Vaccines Aged Out No longer eligible based on patient's age to complete this topic Procedures Procedure Name Priority Date/Time Associated Diagnosis Comments WAX TRY IN Routine 10/19/2024 11:00 AM EDT WAX TRY IN Routine 10/05/2024 11:00 AM EDT WAX TRY IN Routine 09/10/2024 11:30 AM EST BITE REGISTRATION Routine 08/17/2024 11: 00 AM EST DENTURE IMPRESSION Routine 08/17/2024 11 :00 AM EST DENTURE IMPRESSION Routine 08/05/2024 10 :45 AM EST LIMITED ORAL EVALUATION - PROBLEM FOCUSED Routine 08/05/2024 10:45 AM EST PROPHYLAXIS - ADULT Routine 01/01/2024 1 0:00 AM EDT INTRAORAL - COMPLETE SERIES OF RADIOGRAPHIC IMAGES Routine 01/01/2024 10:00 AM EDT PERIODIC ORAL EVALUATION - ESTABLISHED PATIENT Routine 01/01/2024 10:00 AM EDT from Last 3 Months or Most Recently Relevant to Health Maintenance Insurance [employer] MEDICARE REPLACEMENT [facility] ST[facility] ADULT DENTAL - AET[employer] DENTAL PPO
--- OUTSIDE RECORDS SUMMARY | 2024-10-26 10:14 | XMS_ITS | Encounter Summary ---
Author Organization [employer] Address [address] [facility] 7[address] [place] [address] Care Team Providers Care Foundry Melt Supervisor Name Role Phone Unavailable Primary Care Provider Unavailabl e Reason for Visit * Reason Onset Date Comments Appointment 03/13/2023 Encounter Details Date Type Department Care Team ([facility] st Contact Info) Description 03/13/2023 Telephone C ADULT DENTAL [address] [place], [place] [phone] Dinah Mckinley DDS [address], [place] [phone] Appointment Social History Tobacco Use Types Packs/Day Years Used Date Smoking Tobacco: Never Assessed Sex and Gender Information Value Date Recorded Sex Assigned at Male 05/20/2022 10:15 AM EDT Legal Sex Male 10:15 AM EDT Gender Identity Male 05/20/2022 10:15 AM EDT Sexual Orientation Straight 05/20/2022 10 :15 AM EDT documented as of this encounter Miscellaneous Notes * Telephone Encounter - Jazmín Rawls - 03/13/2023 10:17 AM EDT Patient called in questioning why he is waiting for an appt if the DrAddie Said they wanted to see him.I did explain that the appts are wait listed and the office knows he needs to come but there are noimmediate visits available and that he will get a call when it is his tuurn. I did offer the patient an appt in [place] with the understanding that he would become a [place] patient but he is unwilling to go to [facility]. He wants to know why hes being told that he needs to come in and then listed. Tried my best to explain. Would like his appt or phone call. documented in this encounter Plan of Treatment Upcoming Encounters Date Type Department Care Team (Late st Contact Info) Description 10/29/2024 2:30 PM EDT Office Visit [facility] [address] [place] [address] Spencer Rao DDS [address], [place] [phone] 03/16/2025 3:00 PM EDT Office Visit [facility] [address] [place] [address] Amalia Urrutia documented as of this encounter Visit Diagnoses Not on filedocumented in this encounter
--- OUTSIDE RECORDS SUMMARY | 2024-10-26 10:14 | XMS_ITS | Encounter Summary ---
Author Organization [facility] Address [address] [place] [address] Care Team Providers Care Instructional Technology Instructor Name Role Phone Vincenzo Green MD Primary Care Provider [phone] Félix Garvey PA-C Primary Care Provider [phone] Rod Machuca MD Primary Care Provider [phone] Aron Son MD Unavailable Unavailable Félix Garvey PA-C Primary Care Provider [phone] Encounter Details Date Type Department Care Team Description 07/29/2019 Video Tape Duplicator Report Medical Records [address] [place] [id number] Erick Diane Social History Tobacco Use Types [...] on filedocumented in this encounter Care Teams Instructional Technology Instructor Relationship Specialty Start Date End Date Vincenzo Green MD [address] [place] [address] [phone] PCP - General Internal Medicine 08/03/15 09/26/20 Félix Garvey PA-C [address] [place] [address] [phone] PCP - General Internal Medicine 09/27/20 05/09/22 Rod Machuca MD [address] [place] [address] PCP - General Lung Cancer Optical Dispenser 05/10/22 06/05/22 Félix Garvey PA-C [address] [place] [address] PCP - General Internal Medicine 06/06/22 Aron Son MD [address] [place] [address] Specialist Cardiovascular Disease 06/06/22 documented as of this encounter
--- OUTSIDE RECORDS SUMMARY | 2024-10-26 10:14 | XMS_ITS | Encounter Summary ---
Author Organization [facility] Address [address] [place] [address] Care Team Providers Care Esl Teacher Name Role Phone Vincenzo Green MD Primary Care Provider [phone] Félix Garvey PA-C Primary Care Provider [phone] Rod Machuca MD Primary Care Provider [phone] Aron Son MD Unavailable Unavailable Félix Garvey PA-C Primary Care Provider [phone] Encounter Details Date Type Department Care Team Description 06/15/2018 Respiratory Care Program Director Report Medical Records [address] [place] [id number] Crystal Raines Social History Tobacco Use Types [...] on filedocumented in this encounter Care Teams Esl Teacher Relationship Specialty Start Date End Date Vincenzo Green MD [address] [place] [address] [phone] PCP - General Internal Medicine 08/03/15 09/26/20 Félix Garvey PA-C [address] [place] [address] [phone] PCP - General Internal Medicine 09/27/20 05/09/22 Rod Machuca MD [address] [place] [address] PCP - General Lung Cancer Pcu Rn 05/10/22 06/05/22 Félix Garvey PA-C [address] [place] [address] PCP - General Internal Medicine 06/06/22 Aron Son MD [address] [place] [address] Specialist Cardiovascular Disease 06/06/22 documented as of this encounter
--- OUTSIDE RECORDS SUMMARY | 2024-10-26 10:14 | XMS_ITS | Clinical Summary ---
Author Organization [facility] Address [address] [place] [address] Care Team Providers Care Coding Compliance Specialist Name Role Phone Aron Son MD Unavailable Unavailable Félix Garvey PA-C Primary Care Provider [phone] Allergies Active Allergy Reactions Severity Noted Date Comments Lisinopril Swelling/Edema 11/22/2020 Medications Medication Sig Dispensed Refills Start Date End Date Status Insulin Pen Needle (PEN NEEDLES 10/03 ) 31G X 5 MM Misc by Does not apply route. 0 Active insulin glargine (LANTUS) 100 UNIT/ML injection Inject 30 Units into the skin at bedtime. 0 Active D3 SUPER STRENGTH 2000 units Cap Take 2,000 Units by mouth daily. 11 03/23/2019 Active clotrimazole-betame thasone (Lotrisone) cream Apply twice a day. 30 g 0 02/05/2022 Active Insulin Disposable Pump (V-Go 20) Kit USE DAILY DIRECTED 0 03/20/2022 Active Diclofenac Sodium 1 % Gel Apply topically. 0 Active hydrocortisone 2.5 % cream Apply 1 Film topically 2 times daily for 14 days. 30 g 0 09/09/2022 Active lidocaine (LIDODERM) 5 % Place 1 Patch onto the skin every 24 hours. Apply for no more than 12 hours in any 24 hour period. 30 Patch 3 02/17/2024 Active buPROPion (WELLBUTRIN XL) 150 MG 24 hr tablet Take 1 Tablet by mouth every morning. 90 Tablet 1 02/17/2024 Active fluoxetine (PROZAC) 40 MG capsule TAKE 1 CAPSULE BY MOUTH ONCE DAILY 90 Capsule 1 02/17/2024 Active metoprolol (TOPROL-XL) 25 MG 24 hr tablet Take 1 Tablet by mouth daily. 90 Tablet 1 02/17/2024 Active tamsulosin (FLOMAX) 0.4 MG 24 hr capsule Take 1 Capsule by mouth daily. Take 30 mins after same meal every day. 90 Capsule 1 02/17/2024 Active Tirzepatide (Mounjaro) 2.5 MG/0.5ML Solution Pen-injector Inject 2.5 mg into the skin once a week. 3 mL 0 02/17/2024 Active Active Problems Patient Care Coordination No te Formatting of this note is d ifferent from the original. Checking Your Blood Sugars Please check your blood sugars every day. Please check your sugars at the following times of day: before breakfast Your Blood Sugar Goals Pre Meal: 90-130 2 hours after meals: 110-160 Bedtime: 110-150 Use the Results ?? Bring your glucometer to every appointment ?? Write your fingerstick blood sugars down on a log sheet or record book. Bring them to your appointment ?? Look for patterns in the numbers. The results help you and your provider make decisions about your diabetes treatment plan. Your Results and your Goals Your Result / Date of Completion Your Goal / How Often to Assess No results found for this basename: hgba1c Less than 7% --- 2-4 times per year BP Readings from Last 1 Encounters: 12/11/15 130/80 Less than 140/90 --- once per year No results found for this basename: MALBCR Less than 30 --- once per year No results found for this basename: LDL Less than 100 --- once per year Wt Readings from Last 1 Encounters: 12/11/15 200 lb (90.719 kg) Your goal weight by next visit: 195 --- reassess 2-4 times a year Health Maintenance Due Topic Date Due ? ? Dtap/tdap/td (#1 - Tdap) 1969 ? ? Depression Screen 1970 ? ? Diabetes: Annual Foot Exam 1976 ? ? Diabetes: Annual Care Plan 1976 ? ? Pneumovax For High Risk Patients (1) 1976 ? ? Baseline Health Exam 40-64 1998 ? ? Colon Cancer Screening 2008 ? ? Diabetes: Annual Urine Protein Test (Microalbumin) 10/18/2015 ? ? Diabetes: Blood Sugar Control Test (Hgba1c) 11/06/2015 Your Action Plan Check blood glucose as directed and write down all results. Contact me if you experience any barriers to care such as inability to purchase your medication, difficulty getting to your appointments or difficulty understanding your care plan When to Call your Healthcare Provider If your blood sugar falls below 70 and you do not know why or you become unconscious If you are sick and unable to take liquids because or nausea or vomiting If you have a fever over 101 If your blood sugar is 300 or higher on greater than 3 separate occasions during the same week If you are just unsure what to do Educational Resources [place] Diabetes Association (www.diabetes.org) Centers for Disease Control and Prevention (www.cdc.gov/diabetes) This care plan was created in collaboration with Bharath HOLT on 12/11/2015 Problem Noted Date Cough 06/07/2022 Last Assessment & Plan: He does have complaints of a dry cough as well as some midepigastric discomfort. We did discuss a trial of a PPI to see if that would help to improve his symptoms. He will try this and see if this helps. Ascending aortic aneurysm 05/06/2022 Overview: 4.5cm Last Assessment & Plan: We did [...] We will continue with low blood pressure Nodule of right lung 04/25/2022 Last Assessment & Plan: Also discussed calcified nodule in the right lower lobe which is a benign granuloma. No further management or work-up for this is required. Mediastinal lymphadenopathy 04/25/2022 Last Assessment & Plan: 61-year-old male who [...] All questions were answered and he understood. Aneurysmal dilatation 04/25/2022 Overview: Ascending aorta, 4.5 cm Last Assessment & Plan: I also discussed the ascending aortic dilation up to 4.5 cm which is the measurement at which point cardiology and sometimes even cardiac surgery evaluation is warranted. We will refer him to cardiology for further management at this point. Diabetic retinopathy 06/06/2021 Microalbuminuria 12/21/2020 Diabetes mellitus with kidney complicati on 12/21/2020 History of angioedema 11/22/2020 Erectile dysfunction 10/12/2018 Essential hypertension 06/20/2016 Last Assessment & Plan: Blood pressure is mildly elevated. Again would like to get this under better control with his dilated aorta. He does have a prescription to to start on Toprol which have encouraged him to do so. Bilateral low back pain without sciatica 03/06/2016 ETOH abuse 03/06/2016 Chronic hepatitis C 11/05/2015 Overview: Genotype 1a Tx with antivirals, SVR achieved Depression 11/05/2015 Cervical radiculopathy 11/05/2015 Overview: recurrent CTS (carpal tunnel syndrome) 11/05/2015 Overview: Right, NCV 06/03 Diabetes mellitus type 2 with neurologic al manifestations 11/05/2015 GERD (gastroesophageal reflux disease) 0 11/05/2015 Last Assessment & Plan: I also discussed the thickening of the esophagus with the patient and his and we will plan on referring him to gastroenterology for further work-up and evaluation. DJD (degenerative joint disease) of knee 11/05/2015 History of substance abuse 09/28/2015 Overview: Cocaine, marijuana, some heroin Type 2 diabetes mellitus with cataract 0 09/28/2015 Immunizations Name Administration Dates Next Due Influenza (> 6 Months) 06/20/2016 Influenza Flu (PT Reported) 06/11/2019 Influenza Vaccine-preservati ve Free-quadrivalent 4 Years 05/09/2023,04/18/2022 PREVNAR 20 11/21/2023 Pneumoccoccal(Adult) Polysaccharide PPSV23 12/10 Tdap 12/11/2015 Family History Medical History Relation Name Comments CA Colon Father Relation Name Status Comments Father Prostate cancer 64 Mother Alive No full sibling s Social History Tobacco Use Types Packs/Day Years Used Date Smoking Tobacco: Never Smokeless Tobacco: Never Tobacco Cessation:Counseling Given: Not Answered Alcohol Use Standard Drinks/Week Comments Yes 0 (1 standard drink = 0.6 oz pure alcohol) 10 drinks / week, previously heavy Sex Assigned at Date Recorded Not on file Job Start Date Occupation Industry Not on file Not on file Not on file Last Filed Vital Signs Vital Sign Reading Time Taken Comments Blood Pressure 130/60 11/21/2023 3:18 PM EDT Pulse 72 11/21/2023 3:18 PM EDT Temperature 36.8 ??C (98.3 ??F) 11/21/2023 3:18 PM ED T Respiratory Rate 15 11/21/2023 3:18 PM EDT Oxygen Saturation 97% 08/05/2022 11:17 AM EST Inhaled Oxygen Concentration - - Weight 90.8 kg (200 lb 3.2 oz) 11/21/2023 3:18 P M EDT Height 177.8 cm (5' 10 ) 11/21/2023 3:18 PM EDT Body Mass Index 28.73 11/21/2023 3:18 PM EDT Plan of Treatment Health Maintenance Due Date Last Done Comments Covid-19 Vaccine (#1) 05/09/1961 SHINGLES VACCINE (1 of 2) 2008 DIABETES: ANNUAL FOOT EXAM 12/21/202312/20, 10/24/2021, 08/28/2020 (External Completion), Additional history exists DIABETES: BLOOD SUGAR CONTRO L TEST (HGBA1C) 05/19/2024 02/17/2024, 02/17/2024, 05/08/2023, Additional history exists BMI CHECK/ADVISE 07/21/2024 11/21/2023, 09/2023 (Completed), 05/08/2023, Additional history exists DIABETES: ANNUAL EYE EXAM 10/29/20242023, 10/30/2023 (External Completion), 11/26/2021 (External Completion), Additional history exists COLON CANCER SCREENING 01/27/2025 (Completed), 07/21/2008 (Completed) DEPRESSION SCREEN 02/16/2025 02/17/2024, (Completed) DIABETES/HEART DISEASE: FERNANDO AL CHOLESTEROL (LDL) 02/16/2025 02/17/2024, 12/25/2022, 01/09/2022, Additional history exists DIABETES: ANNUAL URINE PROTE IN TEST (MICROALBUMIN) 02/16/2025 02/17/2024, 02/17/2024, 12/25/2022, Additional history exists FALL RISK ASSESSMENT 02/16/2025 02/17/2024 INFLUENZA (Season Ended) 2025 023, 04/18/2022, 06/11/2019, Additional history exists DTAP/TDAP/TD (2 - Td or Tdap) 12/10/2025 12/11/2015 HEPATITIS C SCREENING Completed 02/28/2016 , 03/24/2015 (External Completion) PNEUMOCOCCAL VACCINE Completed 11/21/2023, 12/11/19 16 Care Teams Coding Compliance Specialist Relationship Specialty Start Date End Date Félix Garvey PA-C [address] [place] [address] PCP - General Internal Medicine 06/06/22 Aron Son MD Specialist Cardiovascular Disease 06/06/22
--- OUTSIDE RECORDS SUMMARY | 2024-10-26 10:14 | XMS_ITS | Encounter Summary ---
Author Organization [facility] Address [address] [place] [address] Care Team Providers Care Hand Icer Name Role Phone Vincenzo Green MD Primary Care Provider [phone] Félix Garvey PA-C Primary Care Provider [phone] Rod Machuca MD Primary Care Provider [phone] Aron Son MD Unavailable Unavailable Félix Garvey PA-C Primary Care Provider [phone] Encounter Details Date Type Department Care Team Description 11/05/2017 Orders Only Adult Medicine [address] [id number] Vincenzo Green MD [address] [place] [address] [phone] Preoperative examination; Screening for deficiency anemia; 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 effective 01/19/2016. 11/17/2017 2:06 PM EDT 11/17/2017 2:07 PM EDT Vincenzo Green MD LAB Performing Organization Address [facility] de Phone Number [address] * PROTHROMBIN TIME (11/17/2017 2:06 PM EDT) PT 13.1 11.6 - 15.6 SEC 11/17/2017 3:18 PM EDT [facility] Comment: Please note adjusted PT(sec)normal reference range ?? effective 03/21/15. INR 0.98 11/17/2017 3:18 PM EDT [facility] 11/17/2017 2:06 PM EDT 11/17/2017 2:07 PM EDT Vincenzo Green MD LAB Performing Organization Address [facility] Phone Number [address] * (ABNORMAL) CBC (AUTO DIFF PLATELET) (11/17/2017 2:06 PM EDT) WBC 6.0 4.8 - 10.8 x10-3 11/17/2017 2:45 PM EDT [facility] RBC 4.2(L) 4.5 - 5.5 x10-6 11/17/2017 2:45 PM EDT [facility] HGB 13.3(L) 13.5 - 17.5 g/dl 11/17/2017 2:45 PM EDT [facility] HCT 38.0(L) 42 - 54 % 11/17/2017 2:45 PM EDT [facility] MCV 89.6 79 - 98 fl 11/17/2017 2:45 PM EDT [facility] MCH 31.4 27 - 32 pg 11/17/2017 2:45 PM EDT [facility] MCHC 35.0 32 - 37 g/dl 11/17/2017 2:45 PM EDT [facility] RDW 12.3 11 - 15 % 11/17/2017 2:45 PM EDT [facility] PLT COUNT 193 130 - 400 x10-3 11/17/2017 2:45 PM EDT [facility] MEAN PLATELET VOLUME 10.3 7 - 11 fl 11/17/2017 2:45 PM EDT [facility] NEUT % 76.9 41 - 85 % 11/17/2017 2:45 PM EDT [facility] LYMPH % 16.4 15 - 48 % 11/17/2017 2:45 PM EDT [facility] MONO % 6.3 0 - 12 % 11/17/2017 2:45 PM EDT [facility] EOS % 0.2 0 - 5 % 11/17/2017 2:45 PM EDT [facility] BASO % 0.2 0 - 2 % 11/17/2017 2:45 PM EDT [facility] 11/17/2017 2:06 PM EDT 11/17/2017 2:07 PM EDT Vincenzo Grene MD LAB Performing Organization Address City/State/[facility] Co de Phone Number [facility] [address] documented in this encounter Visit Diagnoses Diagnosis Preoperative examination Preoperative examination, unspecified Screening for deficiency anemia Screening for other and unspecified deficiency anemia 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 documented in this encounter Care Teams Hand Icer Relationship Specialty Start Date End Date Vincenzo Green MD [address] [place] [id number] PCP - General Internal Medicine 08/03/15 09/26/20 Félix Garvey PA-C [address] [place] [address] PCP - General Internal Medicine 09/27/20 05/09/22 Rod Machuca MD [address] [place] [address] 99[address] PCP - General Lung Cancer Carding Machine Operator 05/10/22 06/05/22 Félix Garvey PA-C [address] [place] [address] PCP - General Internal Medicine 06/06/22 Aron Son MD [address] [place] [address] Specialist Cardiovascular Disease 06/06/22 documented as of this encounter
--- OUTSIDE RECORDS SUMMARY | 2024-10-26 10:14 | XMS_ITS | Encounter Summary ---
Author Organization [facility] Address [address] [facility] [address] [place] [address] Care Team Providers Care Project Structural Engineer Name Role Phone Unavailable Primary Care Provider Unavailabl e Encounter Details Date Type Department Care Team (Late st Contact Info) Description 07/30/2024 Telephone [facility] [address] [place] [address] Spencer Rao DDS [address] [place] [address] Social History Tobacco Use Types Packs/Day Years Used Date Smoking Tobacco: Never Passive Smoke Exposure: Never Smokeless Tobacco: Never Sex and Gender Information Value Date Recorded Sex Assigned at Male 05/20/2022 10:15 AM EDT Legal Sex Male 10:15 AM EDT Gender Identity Male 05/20/2022 10:15 AM EDT Sexual Orientation Straight 05/20/2022 10 :15 AM EDT documented as of this encounter Plan of Treatment Upcoming Encounters Date Type Department Care Team (Late st Contact Info) Description 10/29/2024 2:30 PM EDT Office Visit [facility] [address] [place] [address] Spencer Rao DDS [address] [place] [address] 03/16/2025 3:00 PM EDT Office Visit [facility] [address] [place] [address] Amalia Urrutia documented as of this encounter Visit Diagnoses Not on filedocumented in this encounter
--- OUTSIDE RECORDS SUMMARY | 2024-10-26 10:14 | XMS_ITS | Encounter Summary ---
Author Organization [facility] Address [address] [place] [address] Care Team Providers Care Smocking Machine Operator Name Role Phone Vincenzo Green MD Primary Care Provider [phone] Félix Garvey PA-C Primary Care Provider [phone] Rod Machuca MD Primary Care Provider [phone] Aron Son MD Unavailable Unavailable Félix Garvey PA-C Primary Care Provider [phone] Encounter Details Date Type Department Care Team Description 12/13/2015 Business Doc Medical Records [address] [place] [id number] Abstract, Provider Social History Tobacco Use Types Packs/Day Years Used Date Smoking Tobacco: Never Smokeless Tobacco: Never Alcohol Use Standard Drinks/Week Comments Yes 0 (1 standard drink = 0.6 oz pur e alcohol) etoh abuse Sex Assigned at Date Recorded Not on file Job Start Date Occupation Industry Not on file Not on file Not on file documented as of this encounter Plan of Treatment Not on file documented as of this encounter Visit Diagnoses Not on filedocumented in this encounter Care Teams Smocking Machine Operator Relationship Specialty Start Date End Date Vincenzo Green MD [address] [place] [address] [phone] PCP - General Internal Medicine 08/03/15 09/26/20 Félix Garvey PA-C [address] [place] [address] [phone] PCP - General Internal Medicine 09/27/20 05/09/22 Rod Machuca MD [address] [place] [address] PCP - General Lung Cancer Chucking Machine Operator 05/10/22 06/05/22 Félix Garvey PA-C [address] [place] [address] PCP - General Internal Medicine 06/06/22 Aron Son MD [address] [place] [address] Specialist Cardiovascular Disease 06/06/22 documented as of this encounter
--- OUTSIDE RECORDS SUMMARY | 2024-10-26 10:14 | XMS_ITS | Encounter Summary ---
Author Organization [employer] Address [address] [facility] 7[address] [place] [address] Care Team Providers Care Hvac Sheet Metal Installer Helper Name Role Phone Unavailable Primary Care Provider Unavailabl e Reason for Visit * Reason Onset Date Comments insurance appt 12/25/2023 Encounter Details Date Type Department Care Team (Late st Contact Info) Description 12/25/2023 Telephone [facility] ADULT D[facility]AL [address] [place], [place] [phone] David Grayson insurance appt Social History Tobacco Use Types Packs/Day Years Used Date Smoking Tobacco: Never Assessed Sex and Gender Information Value Date Recorded Sex Assigned at Male 05/20/2022 10:15 AM EDT Legal Sex Male 10:15 AM EDT Gender Identity Male 05/20/2022 10:15 AM EDT Sexual Orientation Straight 05/20/2022 10 :15 AM EDT documented as of this encounter Miscellaneous Notes * Telephone Encounter - Jazmín Rawls - 12/25/2023 2:56 PM EDT [facility]. He says he has [employer] inurance. Patient was asked who is the insurance company that carries the insurance and he said [employer]. Asked again which is the insurance company that carries the insurance and patient hung up. Unsure of insurance coverage DR Bill credit front office developer aware documented in this encounter Plan of Treatment Upcoming Encounters Date Type Department Care Team (Late st Contact Info) Description 10/29/2024 2:30 PM EDT Office Visit [facility] [address] [place], [place] [phone] Spencer Rao DDS [address] [place], [place] [phone] 03/16/2025 3:00 PM EDT Office Visit [facility] [address] [place] [address] Amalia Urrutia documented as of this encounter Visit Diagnoses Not on filedocumented in this encounter
--- OUTSIDE RECORDS SUMMARY | 2024-10-26 10:14 | XMS_ITS | Encounter Summary ---
Author Organization [employer] [facility] Address [address] [place] [address] Care Team Providers Care Editorial Manager Name Role Phone Aron Son MD Unavailable Unavailable Félix Garvey PA-C Primary Care Provider [phone] Encounter Details Date Type Department Care Team Description 07/05/2022 Telephone [facility] [address] [place] [address] [address] [place] [address] Aron Son MD Social History Tobacco Use Types Packs/Day [...] suspected to have Coronavirus/COVID-19? No / Unsure 07/05/2022 12:03 PM EST documented as of this encounter Plan of Treatment Not on file documented as of this encounter Visit Diagnoses Not on filedocumented in this encounter Care Teams Editorial Manager Relationship Specialty Start Date End Date Félix Garvey PA-C [address] [place] [address] [phone] PCP - General Internal Medicine 06/06/22 Aron Son MD Specialist Cardiovascular Disease 06/06/22 documented as of this encounter
[2024-10-26 10:35] LABS: Basophils Percent Auto 0.6 % (0-2); Eosinophils Absolute Auto 0.1 X10*3/uL (0.0-0.4); Eosinophils Percent Auto 1.5 % (0-4); Hemoglobin 12.3 g/dl (14.0-18.0); Imm Gran Abs Auto 0.01 X10*3/uL (0.00-0.03); Imm Gran Pct Auto 0.3 % (0.0-0.4); Lymphocytes Absolute Auto 1.1 X10*3/uL (1.2-4.9); Lymphocytes Percent Auto 31.5 % (20-40); Mean Corpuscular HGB Conc 35.1 g/dl (31.0-36.0); Mean Corpuscular Hemoglobin 31.1 pg (27.0-33.0); Mean Corpuscular Volume 88.4 fL (80.0-98.0); Mean Platelet Volume 9.3 fL (9.4-12.4); Monocytes Absolute Auto 0.3 X10*3/uL (0.1-1.2); Monocytes Percent Auto 9.9 % (2-11); Neutrophils Absolute Auto 1.9 x10*3/uL (2.0-8.3); Neutrophils Percent Auto 56.2 % (45-73); Platelet Count 196 X10*3/uL (160-400); Red Blood Count 3.96 X10*6/uL (4.60-5.80); White Blood Count 3.4 X10*3/uL (4.8-10.8)
[2024-10-26 10:50] LABS: Estimated Average Glucose 143 mg/dL; Hemoglobin A1C 159.2718 umol/L; Hemoglobin A1c % 6.6 % (<6.0)
[2024-10-26 11:23] LABS: Alanine Aminotransferase 12 U/L (0-40); Albumin Level 4.3 g/dL (3.5-5.0); Alkaline Phosphatase 81 U/L (39-117); Anion Gap 9 (12-20); Aspartate Amino Transferase 26 U/L (5-37); Bilirubin Total 0.5 mg/dL (0.0-1.0); Blood Urea Nitrogen 14 mg/dL (9-16); Calcium 9.6 mg/dL (8.4-10.2); Carbon Dioxide 28 mmol/L (22-29); Chloride 107 mmol/L (96-108); Cholesterol 144 mg/dL (<200); Estimated Glomerular Filt Rate > 60; Glucose Fasting 82 mg/dL (60-99); HDL Cholesterol 51 mg/dL (>40); LDL Cholesterol Calculated 86 mg/dL (<100); Potassium 4.4 mmol/L (3.3-5.1); Sodium 140 mmol/L (135-145); Triglycerides 39 mg/dL (<150)
[2024-10-26 11:26] LABS: HBS Num1 30.06 mIU/mL (0-7.99); ~Hepatitis B Surface Antibody REACTIVE (Nonreactive)
[2024-10-26 11:39] LABS: Appearance Urine Clear; Color Urine Dark Yellow; Glucose Urine UA Negative (Negative); Leukocyte Esterase Urine Negative (Negative); Nitrite Urine Negative (Negative); Specific Gravity - Urine 1.025 (1.005-1.025); Urine Blood Negative (Negative); Urine Ketones Trace mg/dL (Negative); Urine Protein Trace mg/dL (Neg-Trace)
[2024-10-26 11:41] LABS: TSH reflex Free T4 1.05 uIU/mL (0.32-4.0); Vitamin D 25-OH Total 43.1 ng/mL (>30)
[2024-10-26 12:10] LABS: Creatinine Urine 289.52 mg/dL; Microalbum/Creatinine Ratio Ur 7.5 ug/mg cr (<30)
[2024-10-27 04:39] LABS: Hepatitis A Antibody IgG REACTIVE (Nonreactive); ~Hepatitis A Antibody IgG 18.89 S/CO (0.00-0.99)
[2024-11-01 16:38] LABS: FIB-ALT 9 U/L (9-46); FIB-Alpha-2-Macroglobulin 324 mg/dL (106-279); FIB-Apolipoprotein A1 132 mg/dL (94-176); FIB-GGT 10 U/L (3-70); FIB-Haptoglobin 167 mg/dL (43-212); FIB-Total Bilirubin 0.5 mg/dL (0.2-1.2); Liver Fibrosis Score 0.42; Liver Fibrosis Stage F1-F2; Nec Inflam Act Grade A0; Nec Inflam Act Score 0.03; Reference ID 5433934
== END 2024-10-26 09:13 | disposition home or self-care (01) ==
LOC: HO.LAB 09:12
PROVIDERS: Absent Provider Internal Medicine Gastroenterology; PCP Internal Medicine; Visit Provider Internal Medicine
DX: D64.9 Anemia, unspecified (principal); E78.00 Pure hypercholesterolemia, unspecified; E55.9 Vitamin D deficiency, unspecified; E11.9 Type 2 diabetes mellitus without complications; K76.0 Fatty (change of) liver, not elsewhere classified; R30.0 Dysuria
CPT/HCPCS: 36415; 80053; 80061; 81003; 81596; 82043; 82306; 82570; 83036; 84443; 85025; 86706; 86708

== ENCOUNTER 2024-10-27 08:29 | Outpatient (AMB) | payer MEDICARE, SELFPAY ==
--- NOTE | 2024-10-27 08:30 | A.OFFVIS_ITS ---
Vital Signs 10/27/24 08:31 Height 5 ft 10 in Weight 174 lb 2.643 oz BMI 25.0 BP 116/70 Blood Pressure Location Rt brachial Position Sitting Pulse 64 Pulse Source Pulse Oximeter Pulse Oximetry (%) 96 Oxygen Delivery Method Room Air Intake Visit Reasons: DM Intake Note: Patient presents today for a follow-up on Type 2 Diabetes Mellitus: Last Diabetic eye exam was on: 04/2024 Last Podiatry exam was on: Does not see a Sample Maker Most recent HbA1c: 6.6%, 10/26/2024 Random Glucose- 160 mg/dL, Today Bobbin Dumper Required: No Accompanied by: Self / Same As Patient Allergies lisinopril Allergy (Severe, Verified 10/27/24 08:32) Angioedema canagliflozin [Invokana] Allergy (Unknown, Verified 10/27/24 08:32) polyuria liraglutide [Victoza] Adverse Reaction (Unknown, Verified 10/27/24 08:32) nausea, constipation Medication List - Last Reconciled 10/27/24 by Sybil Cabrera MD amlodipine 10 mg PO DAILY bisacodyl (Dulcolax (bisacodyl)) 20 mg (4 x 5 mg) PO ONCE 1 day blood sugar diagnostic (Accu-Chek Guide test strips) As directed tests 4 X/day blood-glucose meter (Accu-Chek Guide Glucose Meter) As directed tests 4 X/day blood-glucose sensor (Dexcom G7 Sensor device) As directed change every 10 days blood-glucose,airborne operations,cont (Dexcom G7 Herbicide Sprayer) As directed bupropion HCl XL 150 mg PO QAM cholecalciferol (vitamin D3) (Vitamin D3) 50 mcg PO DAILY clotrimazole-betamethasone 1-0.05 % 1 appl topical DAILY cyclobenzaprine 10 mg PO TID PRN diclofenac sodium 75 mg PO BID fluoxetine 60 mg PO DAILY insulin aspart (niacinamide) 100 unit/mL 2 clicks subcutaneous with meals. Up to 76 units via V Go subcut daily; 30 days lancets 4x daily lancets (Accu-Chek Softclix Lancets) As directed-tests 4X/day lancets (Accu-Chek Fastclix Lancet Drum) TEST FOUR TIMES A DAY DIRECTED lidocaine 5% 1 patch topical DAILY metformin ER 500 mg PO BEDTIME metoprolol succinate ER 25 mg PO DAILY mirtazapine 7.5 mg PO BEDTIME nystatin-triamcinolone 100,000-0.1 unit/g-% 1 appl topical DAILY polyethylene glycol 3350 (Miralax) 17 grams PO DAILY 1 day quetiapine 25 mg PO BEDTIME sub-q insulin device, 20 unit (V-GO 20 device) ONE DAILY tadalafil 20 mg PO DAILY PRN tamsulosin 0.4 mg PO DAILY 90 days thiamine mononitrate (vit B1) 100 mg PO DAILY tirzepatide 2.5 mg (0.5 mL) subcut QWEEK NS valacyclovir 1,000 mg PO Q8H 7 days HPI Comments Details: Patient is a 63 year old male with DM type 2 diagnosed in 2003 , who presents for management of diabetes. Past medical history: DM2, HTN, GERD, NAFLD, hepatitis C, lower back pain due to herniated disc L5 Micro and macrovascular complications: + proliferative retinopathy, +, neuropathy Diabetes medications: Fiasp via V-GO 20 with 2 clicks with small meals, 3 clicks with larger meals. Only 1 click for correction blood glucose over 300. Taking mounjaro 5 units weekly decreased from 7.5-appetite is still poor. stopped metformin-intolerant CGM-dexcom 7 reviewed. GMI 6.7%. A1C yesterday 6.6%. Reports infrequent lows in high 60s. Symptoms reported: denies numbness, tingling, cramping in lower extremities Hypoglycemia: none Exercise: walking over 30 minutes Sash Installer - CDE education: Sample Maker: denies Ophthalmology evaluation: UTD ROS CONSTITUTIONAL: Denies weight loss, fever and chills. HEENT: Denies changes in vision and hearing. RESPIRATORY: Denies SOB and cough. CV: Denies palpitations and CP GI: Denies abdominal pain, nausea, vomiting and diarrhea. : Denies dysuria and urinary frequency. MSK: Denies new myalgia and joint pain. SKIN: Denies rash and pruritus. NEUROLOGICAL: Denies headache PSYCHIATRIC: see HPI PHYSICAL EXAM: GENERAL: Alert and oriented x 3. NAD EYES: EOMI. Anicteric. HENT: Moist mucous membranes. No scleral icterus. No cervical lymphadenopathy. LUNGS: Clear to auscultation bilaterally. CARDIOVASCULAR: Regular rate and rhythm. soft systolic murmur. No JVD. ABDOMEN: Soft, non-tender +bs EXTREMITIES: No edema. Non-tender. SKIN: No rashes or lesions. Warm. NEUROLOGIC: No focal neurological deficits. CN II-XII grossly intact PSYCHIATRIC: Cooperative. Appropriate mood and affect [facility] Medical History Injury of right thumb Lumbar degenerative disc disease Vitamin D deficiency Hypersomnia Snoring Cognitive disorder Tubular adenoma of colon (~2019) BPH loc w urin obs/LUTS Frequency of urination Erectile dysfunction NAFLD (nonalcoholic fatty liver disease) Hepatitis C Hepatitis B Arthritis Alcohol abuse Depression Carpal tunnel syndrome Type 2 diabetes mellitus with diabetic neuropathy, unspecified (~2003) Essential hypertension Overweight (BMI 25.0-29.9) Surgical History History of rhinoplasty History of colonoscopy History of lumbar surgery History of cataract surgery History of excision of mass Family History Father Myocardial infarct Colon cancer Mother Diabetes Social History Household Members: Spouse Household Members Other:: Housing: House Alcohol intake: current Alcohol intake frequency: a few times a month Alcohol type: beer and hard liquor Patient Tobacco Use Status: Never used Tobacco e-Cigarette/Vaping Use: Never Used Substance Use Type: Crack/Cocaine Advance Directives Date on File: 07/20/24 service: Yes Current occupational status: disabled Current occupational exposures/hazards: No Cognitive needs: No Hearing needs: No Vision needs: No Physical Exam Vital Signs: Last Vital Signs Pulse 64 10/27/24 08:31 BP 116/70 10/27/24 08:31 Pulse Ox 96 10/27/24 08:31 Oxygen Delivery Method Room Air 10/27/24 08:31 BMI result Body Mass Index 25.0 Results Reviewed Results Reviewed: Laboratory Last Values Glucose (Clinic) 160 mg/dL (60-115) H 10/27/24 08:43 Assessment & Plan Assessment & Plan (1) Type 2 diabetes mellitus with diabetic neuropathy, unspecified: Onset Date: ~2003 Comment: MD/PROVIDER: RECOMMEND monitoring thiamine related to hx of neuropathy/ alcohol abuse and c/o memory loss Code(s): E11.40 - Type 2 diabetes mellitus with diabetic neuropathy, unspecified Category: Medical Qualifiers: Diabetes mellitus watermelon inspector insulin use: with intermediate use Qualified Code(s): E11.40 - Type 2 diabetes mellitus with diabetic neuropathy, unspecified; Z79.4 - residential (current) use of insulin Plan: Diabetes is well controlled Given poor appetite decrease mounjaro to 2.5 mg weekly, otherise continue current medications Neuropathy is likely multifactorial. b1, b12 and folate ordered Treat any hypoglycemia by rule of 15s Orders: Orders Hemoglobin A1c 3 Months E11.40 - Type 2 diabetes mellitus with diabetic neuropathy, unspecified, Z79.4 - residential (current) use of insulin Vitamin B1 Today E11.40 - Type 2 diabetes mellitus with diabetic neuropathy, unspecified, Z79.4 - residential (current) use of insulin Vitamin B12 and Folate Today E11.40 - Type 2 diabetes mellitus with diabetic neuropathy, unspecified, Z79.4 - long term care pharmacist (current) use of insulin Medications: New tirzepatide 2.5 mg (0.5 mL) subcut QWEEK 6 mL 3RF NS E11.40 - Type 2 diabetes mellitus with diabetic neuropathy, unspecified, Z79.4 - residential (current) use of insulin Discontinued tirzepatide (Mounjaro) Discontinued Reason: Doctor's Order 5 mg (0.5 mL) subcut QWEEK 2 mL 3RF Coding Level of Care Code Est Pt Level 4 (51251) Complex EM visit Add On G2211 Diagnoses Type 2 diabetes mellitus with diabetic neuropathy, with long-term current use of insulin E11.40; Z79.4 Diabetes mellitus watermelon inspector insulin use: with intermediate use
[2024-10-27 08:31] VITALS: BP 116/70; PULSE 64; O2SAT 96; BMI 25.0
--- OUTSIDE RECORDS SUMMARY | 2024-10-27 08:41 | XMS_ITS | Encounter Summary ---
Author Organization [facility] [employer] [facility] Address [address] [place] [address] Care Team Providers Care Showroom Sales Consultant Name Role Phone Aron Son MD Unavailable Unavailable Félix Garvey PA-C Primary Care Provider [phone] Encounter Details Date Type Department Care Team Description 04/09/2023 Hospital Medical Records [address] [place] [address] Rod Machuca MD [address] [place] [address] Social History Tobacco Use Types Packs/Day Years [...] on filedocumented in this encounter Care Teams Showroom Sales Consultant Relationship Specialty Start Date End Date Félix Garvey PA-C [address] [place] [address] PCP - General Internal Medicine 06/06/22 Aron Son MD Specialist Cardiovascular Disease 06/06/22 documented as of this encounter
--- OUTSIDE RECORDS SUMMARY | 2024-10-27 08:41 | XMS_ITS | Encounter Summary ---
Author Organization [facility] Address [address] [place] [address] Care Team Providers Care Processing Engineer Name Role Phone Vincenzo Green MD Primary Care Provider [phone] Félix Garvey PA-C Primary Care Provider [phone] Rod Machuca MD Primary Care Provider [phone] Aron Son MD Unavailable Unavailable Félix Garvey PA-C Primary Care Provider [phone] Encounter Details Date Type Department Care Team Description 10/13/2018 Weekend Caregiver Report Medical Records [address] [place] [id number] Abstract, Provider Social History Tobacco Use Types [...] on filedocumented in this encounter Care Teams Processing Engineer Relationship Specialty Start Date End Date Vincenzo Green MD [address] [place] [address] [phone] PCP - General Internal Medicine 08/03/15 09/26/20 Félix Garvey PA-C [address] [place] [address] [phone] PCP - General Internal Medicine 09/27/20 05/09/22 Rod Machuca MD [address] [place] [address] PCP - General Lung Cancer Internal Sales 05/10/22 06/05/22 Félix Garvey PA-C [address] [place] [address] PCP - General Internal Medicine 06/06/22 Aron Son MD [address] [place] [address] Specialist Cardiovascular Disease 06/06/22 documented as of this encounter
--- OUTSIDE RECORDS SUMMARY | 2024-10-27 08:41 | XMS_ITS | Encounter Summary ---
Author Organization [facility] Address [address] [place] [address] Care Team Providers Care Appliance Mechanic Name Role Phone Vincenzo Green MD Primary Care Provider [phone] Félix Garvey PA-C Primary Care Provider [phone] Rod Machuca MD Primary Care Provider [phone] Arno Son MD Unavailable Unavailable Félix Garvey PA-C Primary Care Provider [phone] Reason for Visit * Reason Comments E-prescribe Rx Request Encounter Details Date Type Department Care Team Description 07/04/2016 Refill Adult Medicine [address] [phone] Vincenzo Green MD [address] [place] [address] [phone] E-prescribe Rx Request Social History Tobacco Use [...] encounter Miscellaneous Notes * Telephone Encounter - Toyin Pina - 07/04/2016 8:41 AM EST Patient would like script to be: E-PRESCRIBED/FAXED TO PHARMACY WHEN WAS THE PATIENT'S LAST APPOINTMENT IN ADULT MEDICINE? 06/20/16 WHEN WAS THE LAST TIME THE PATIENT SAW THEIR PCP? 09/28/15 Does patient have an upcoming appointment? No-unable to [facility] due to refill [...] / Plan: [place] / Product Type: MEDICARE [id number] documented in this encounter Plan of Treatment Not on file documented as of this encounter Visit Diagnoses Not on filedocumented in this encounter Care Teams Appliance Mechanic Relationship Specialty Start Date End Date Vincenzo Green MD [address] [place] [address] PCP - General Internal Medicine 08/03/15 09/26/20 Félix Garvey PA-C [address] [place] [address] PCP - General Internal Medicine 09/27/20 05/09/22 Rod Machuca MD [address] [place] [address] PCP - General Lung Cancer Classified Ad Taker 05/10/22 06/05/22 Félix Garvey PA-C [address] [place] [address] PCP - General Internal Medicine 06/06/22 Aron Son MD [address] [place] [address] Specialist Cardiovascular Disease 06/06/22 documented as of this encounter
--- OUTSIDE RECORDS SUMMARY | 2024-10-27 08:41 | XMS_ITS | Encounter Summary ---
Author Organization [facility] [employer] [facility] Address [address] [place] [address] Care Team Providers Care Pst Manager Name Role Phone Aron Son MD Unavailable Unavailable Félix Garvey PA-C Primary Care Provider [phone] Encounter Details Date Type Department Care Team Description 08/16/2022 Completion Supervisor Report Medical Records [address] [place] [address] Rod Machuca MD [address] [place] [address] Social History Tobacco Use Types Packs/Day Years [...] on filedocumented in this encounter Care Teams Pst Manager Relationship Specialty Start Date End Date Félix Garvey PA-C [address] [place] [address] PCP - General Internal Medicine 06/06/22 Aron Son MD Specialist Cardiovascular Disease 06/06/22 documented as of this encounter
--- OUTSIDE RECORDS SUMMARY | 2024-10-27 08:41 | XMS_ITS | Encounter Summary ---
Author Organization [facility] [employer] [facility] Address [address] [place] [address] Care Team Providers Care Jackerman Name Role Phone Aron Son MD Unavailable Unavailable Félix Garvey PA-C Primary Care Provider [phone] Encounter Details Date Type Department Care Team Description 03/13/2023 Sales Service Assistant Report Medical Records [address] [place] [address] Jake Prakash PA-C Social History Tobacco Use [...] on filedocumented in this encounter Care Teams Jackerman Relationship Specialty Start Date End Date Félix Garvey PA-C [address] [place] [address] [phone] PCP - General Internal Medicine 06/06/22 Aron Son MD Specialist Cardiovascular Disease 06/06/22 documented as of this encounter
--- OUTSIDE RECORDS SUMMARY | 2024-10-27 08:41 | XMS_ITS | Encounter Summary ---
Author Organization [facility] Address [address] [place] [address] Care Team Providers Care Cutter Barrel Drum Name Role Phone Aron Son MD Unavailable Unavailable Félix Garvey PA-C Primary Care Provider +1 -[phone] Encounter Details Date Type Department Care Team Description 05/10/2023 Telephone Gastroenterology - [place] 175 [facility] [address] [place] [id number] Mario Block PA-C [address] [address] Social History Tobacco Use Types Packs/Day Years [...] on filedocumented in this encounter Care Teams Cutter Barrel Drum Relationship Specialty Start Date End Date Félix Garvey PA-C [address] [place] [address] PCP - General Internal Medicine 06/06/22 Aron Son MD Specialist Cardiovascular Disease 06/06/22 documented as of this encounter
--- OUTSIDE RECORDS SUMMARY | 2024-10-27 08:41 | XMS_ITS | Encounter Summary ---
Author Organization [facility] Address [address] [place] [address] Care Team Providers Care Boilermaker Mechanic Name Role Phone Aron Son MD Unavailable Unavailable Félix Garvey PA-C Primary Care Provider +1 -[phone] Encounter Details Date Type Department Care Team Description 01/09/2023 Adviser Sales Report Medical Records [address] [place] [address] Jake Prakash PA-C Social History Tobacco Use [...] on filedocumented in this encounter Care Teams Boilermaker Mechanic Relationship Specialty Start Date End Date Félix Garvey PA-C [address] [place], [place] [phone] PCP - General Internal Medicine 06/06/22 Aron Son MD Specialist Cardiovascular Disease 06/06/22 documented as of this encounter
--- OUTSIDE RECORDS SUMMARY | 2024-10-27 08:41 | XMS_ITS | Encounter Summary ---
Author Organization [facility] Address [address] [place] [address] Care Team Providers Care Coating Operator Name Role Phone Aron Son MD Unavailable Unavailable Félix Garvey PA-C Primary Care Provider +[phone] -[phone] Reason for Visit * Reason Onset Date Comments REFERRAL 12/09/2022 Encounter Details Date Type Department Care Team Description 12/09/2022 Telephone Adult Medicine [facility] [address] [place], [place] [phone] Félix Garvey PA-C [address] [place], [place] [phone] REFERRAL Social History Tobacco Use Types Packs/Day [...] Telephone Encounter - Cynthia Alicea - 01/07/2023 3:17 PM EDT Patient must update his PCP with insurance-still listed with Dr Green * Telephone Encounter - Clemente Heard - 12/09/2022 9:53 AM EDT What insurance does the patient have today? Payor: [employer] / Plan: [place] FAMILY POS $22/$33 [place] [id number] / Product Type: POS [id number] Effective 04/20/09: [employer] will not retro referral requests over 90 days. If request is for this please instruct patient to call the 800# on their insurance card to appeal. Do not submit a request. Referrals cannot be processed if the insurance is not accurate. If the insurance listed above in red is NO BILLING INFORMATION FOUND FOR THIS ENCOUTNER The patients correct insurance must be obtained and registered in [facility] or their referral can not be processed. Is this a retro request? YES. If yes for what date of service do you need the retro referral? 12/05/22 Who is calling to request this referral? Patient If the caller is not the patient, what is their name? N/A Ask the patient WHO referred them to this specialty: Not an initial visit; it is for follow up/continuation of care. Patients PCP is Félix Garvey FIRST and LAST NAME of SPECIALIST PATIENT is seeing: Dr. Kim Osman What specialty is this? Dermotology DIAGNOSIS Patient is being seen for (Not a body part or a procedure): Rash Have you seen this SPECIALIST for this PROBLEM/DX before?YES If YES, when:12/05/22 Have you checked REVIEW or the APPT DESK to see if this referral has already been done or has visits left? YES Is this visit:Follow Up Address of Specialist:[address] [place] [address], [address] Phone # of Specialist: Fax #: (if applicable):[phone] Does patient have an appointment scheduled?: NO Date of appointment- (including a retro-request): 12/05/22 Is this appointment related to: Not MVA, WC or Surgery related documented in this encounter Plan of Treatment Not on file documented as of this encounter Visit Diagnoses Not on filedocumented in this encounter Care Teams Coating Operator Relationship Specialty Start Date End Date Félix Garvey PA-C [address] [place] [address] PCP - General Internal Medicine 06/06/22 Aron Son MD Specialist Cardiovascular Disease 06/06/22 documented as of this encounter
--- OUTSIDE RECORDS SUMMARY | 2024-10-27 08:41 | XMS_ITS | Encounter Summary ---
Author Organization [facility] Address [address] [place] [address] Care Team Providers Care Aquatic Habitat Biologist Name Role Phone Aron Son MD Unavailable Unavailable Félix Garvey PA-C Primary Care Provider +1 [phone] Encounter Details Date Type Department Care Team Description 09/09/2023 Chief Controller Tower Report Medical Records [address] [place] [address] Abstract, Provider Social History Tobacco Use Types [...] on filedocumented in this encounter Care Teams Aquatic Habitat Biologist Relationship Specialty Start Date End Date Félix Garvey PA-C [address] [place] [address] [phone] PCP - General Internal Medicine 06/06/22 Aron Son MD Specialist Cardiovascular Disease 06/06/22 documented as of this encounter
--- OUTSIDE RECORDS SUMMARY | 2024-10-27 08:41 | XMS_ITS | Encounter Summary ---
Author Organization [facility] [employer] [facility] Address [address] [place] [address] Care Team Providers Care Loom Repairer Name Role Phone Aron Son MD Unavailable Unavailable Félix Garvey PA-C Primary Care Provider +1 [phone] Encounter Details Date Type Department Care Team Description 08/20/2023 Splunk Dashboard Developer Report Medical Records [address] [place] [address] Lee Burgess Social History Tobacco Use Types [...] on filedocumented in this encounter Care Teams Loom Repairer Relationship Specialty Start Date End Date Félix Garvey PA-C [address] [place] [phone] PCP - General Internal Medicine 06/06/22 Aron Son MD Specialist Cardiovascular Disease 06/06/22 documented as of this encounter
--- OUTSIDE RECORDS SUMMARY | 2024-10-27 08:41 | XMS_ITS | Patient Health Record ---
Author Organization [facility] Address [address] [facility] [place] [address] Care Team Providers Care Medical Office Administrator Name Role Phone Félix Cooper Primary Care Provider Unav ailable Julita Marcial Unavailable [phone] Allergies Allergen (clinical drug ingredient) Drug/Non Drug Allergy documented on EMR Reaction Allergy Type Onset Date Status liraglutide Victoza Unknown Drug Allergy Activ e canagliflozin Canagliflozin Unknown Drug Allergy Active lisinopril Lisinopril Unknown Drug Allergy Activ e Reason For Referral No Information Medications Medication SIG (Take, Route, Frequency, Duration) Notes Start Date End Date Status Nystatin-Triamcinolone 045521-6.1 UNIT/GM 1 application Externally Twice a day Active Tadalafil 20 MG 1 tablet Orally for 30 day(s) Not-Taking Pen [place] /16 Ac tive Extra Depth Orthopedic Shoes [...] Problem Acquired hammer toe of right foot (7458402356214 105) Other hammer toe(s) (acquired), right foot (M20.41) Active confirmed Problem Acquired hammer toe of left foot (0698522787963 103) Other hammer toe(s) (acquired), left foot (M20.42) Active confirmed Problem 576781664 Type 2 diabetes mellitus without complications (E11.9) Active confirmed Problem 801999586 Hammer toe of left foot (M20.42) Active confirmed Vital Signs Height 5 ft 10 in in 11/11/2023 Weight 200 lbs 11/11/2023 BMI 28.69 kg/m2 11/11/2023 Encounters Encounter Location Date Provider Diagnosis [facility] [address] [place] [address] 11/11/2023 Julita Marcial Other hammer toe(s) (acquired), [...] Details Provider Name:Julita fajardo, 12/03/2024 09:00:00 AM, [address] [place] [address], [phone], Insurance Providers Payer Name Payer Address Payer Phone Subscriber Number Group Number Insured Name Patient Relationship to Insured Coverage Start Date Coverage End Date Medicare National [employer] [address] [place] [address] [id number] Bharath Almeida Self - patient is the [...]
--- OUTSIDE RECORDS SUMMARY | 2024-10-27 08:41 | XMS_ITS | Encounter Summary ---
Author Organization [facility] Address [address] [place] [address] Care Team Providers Care Granite Cutter Name Role Phone Aron Son MD Unavailable Unavailable Félix Garvey PA-C Primary Care Provider [phone] [phone] Encounter Details Date Type Department Care Team Description 04/01/2023 Structural Fitter Report [facility] Thoracic Surgery [place] 299 [facility] [address] [place] [phone] Rod Machuca MD [address] [address] Social History Tobacco Use Types Packs/Day Years [...] on filedocumented in this encounter Care Teams Granite Cutter Relationship Specialty Start Date End Date Félix Garvey PA-C [address] [place] [address] PCP - General Internal Medicine 06/06/22 Aron Son MD Specialist Cardiovascular Disease 06/06/22 documented as of this encounter
--- OUTSIDE RECORDS SUMMARY | 2024-10-27 08:41 | XMS_ITS | Encounter Summary ---
Author Organization [facility] Address [address] [place] [address] Care Team Providers Care Music Theory Teacher Name Role Phone Vincenzo Green MD Primary Care Provider [phone] Félix Garvey PA-C Primary Care Provider [phone] Rod Machuca MD Primary Care Provider [phone] Aron Son MD Unavailable Unavailable Félix Garvey PA-C Primary Care Provider [phone] Encounter Details Date Type Department Care Team Description 03/17/2019 Assembly Machine Offbearer Report Medical Records [address] [place] [id number] [place] [address] Social History Tobacco Use Types Packs/Day Years [...] on filedocumented in this encounter Care Teams Music Theory Teacher Relationship Specialty Start Date End Date Vincenzo Green MD [address] [place] [phone] PCP - General Internal Medicine 08/03/15 09/26/20 Félix Garvey PA-C [address] [place] [address] [phone] PCP - General Internal Medicine 09/27/20 05/09/22 Rod Macuhca MD [address] [place] [address] PCP - General Lung Cancer Outcomes Manager 05/10/22 06/05/22 Félix Garvey PA-C [address] [place] [address] PCP - General Internal Medicine 06/06/22 Aron Son MD [address] [place] [address] Specialist Cardiovascular Disease 06/06/22 documented as of this encounter
--- OUTSIDE RECORDS SUMMARY | 2024-10-27 08:41 | XMS_ITS | Encounter Summary ---
Author Organization [facility] [employer] [facility] Address [address] [place] [address] Care Team Providers Care Technical Sales Representatives Name Role Phone Aron Son MD Unavailable Unavailable Félix Garvey PA-C Primary Care Provider [phone] [phone] Encounter Details Date Type Department Care Team Description 03/12/2023 Supervisor Mending Report Medical Records [address] [place], [place] [phone] [place] [address] Social History Tobacco Use Types Packs/Day Years [...] on filedocumented in this encounter Care Teams Technical Sales Representatives Relationship Specialty Start Date End Date Félix Garvey PA-C [address] [place], [place] [phone] PCP - General Internal Medicine 06/06/22 Aron Son MD Specialist Cardiovascular Disease 06/06/22 documented as of this encounter
--- OUTSIDE RECORDS SUMMARY | 2024-10-27 08:41 | XMS_ITS | Encounter Summary ---
Author Organization [facility] [employer] [facility] Address [address] [place] [address] Care Team Providers Care Industrial Hygienist Name Role Phone rAon Son MD Unavailable Unavailable Félix Garvey PA-C Primary Care Provider [phone] [phone] Encounter Details Date Type Department Care Team Description 10/17/2022 Telegraph Editor Report Medical Records [address] [place] [address] Ely Kirby Social History Tobacco Use Types [...] suspected to have Coronavirus/COVID-19? Unable to assess 10/16/2022 7:44 AM EDT documented as of this encounter Plan of Treatment Not on file documented as of this encounter Visit Diagnoses Not on filedocumented in this encounter Care Teams Industrial Hygienist Relationship Specialty Start Date End Date Félix Garvey PA-C [address] [place], [place] [phone] PCP - General Internal Medicine 06/06/22 Aron Son MD Specialist Cardiovascular Disease 06/06/22 documented as of this encounter
--- OUTSIDE RECORDS SUMMARY | 2024-10-27 08:41 | XMS_ITS | Encounter Summary ---
Author Organization [facility] Address [address] [place] [address] Care Team Providers Care Insurance Claim Representative Name Role Phone Vincenzo Green MD Primary Care Provider [phone] Félix Garvey PA-C Primary Care Provider [phone] Rod Machuca MD Primary Care Provider [phone] Aron Son MD Unavailable Unavailable Félix Garvey PA-C Primary Care Provider [phone] Encounter Details Date Type Department Care Team Description 03/11/2016 Painter Helper Report Medical Records [address] [place] [address] Zack Powers Social History Tobacco Use Types [...] on filedocumented in this encounter Care Teams Insurance Claim Representative Relationship Specialty Start Date End Date Vincenzo Green MD [address] [place] [phone] PCP - General Internal Medicine 08/03/15 09/26/20 Félix Garvey PA-C [address] [place] [address] [phone] PCP - General Internal Medicine 09/27/20 05/09/22 Rod Machuca MD [address] [place] [address] PCP - General Lung Cancer Shuttle Buggy Operator 05/10/22 06/05/22 Félix Garvey PA-C [address] [place] [address] PCP - General Internal Medicine 06/06/22 Aron Son MD [address] [place] [address] Specialist Cardiovascular Disease 06/06/22 documented as of this encounter
--- OUTSIDE RECORDS SUMMARY | 2024-10-27 08:41 | XMS_ITS | Encounter Summary ---
Author Organization [facility] Address [address] [place] [address] Care Team Providers Care Executive Director Of Marketing Name Role Phone Aron Son MD Unavailable Unavailable Félix Garvey PA-C Primary Care Provider [phone] Encounter Details Date Type Department Care Team Description 11/04/2023 Recreational Assistant Report Medical Records [address] [place] [address] Abstract, Provider Social History Tobacco Use Types [...] on filedocumented in this encounter Care Teams Executive Director Of Marketing Relationship Specialty Start Date End Date Félix Garvey PA-C [address] [place] [address] [phone] PCP - General Internal Medicine 06/06/22 Aron Son MD Specialist Cardiovascular Disease 06/06/22 documented as of this encounter
--- OUTSIDE RECORDS SUMMARY | 2024-10-27 08:41 | XMS_ITS | Encounter Summary ---
Author Organization [facility] [employer] [facility] Address [address] [place] [address] Care Team Providers Care Packaging Sales Consultant Name Role Phone Aron Son MD Unavailable Unavailable Félix Garvey PA-C Primary Care Provider [phone] Encounter Details Date Type Department Care Team Description 11/13/2023 Outpatient Admitting Clerk Report Medical Records [address] [place], [place] [phone] [place] [address] Social History Tobacco Use Types Packs/Day Years [...] on filedocumented in this encounter Care Teams Packaging Sales Consultant Relationship Specialty Start Date End Date Félix Garvey PA-C [address] [place], [place] [phone] PCP - General Internal Medicine 06/06/22 Aron Son MD Specialist Cardiovascular Disease 06/06/22 documented as of this encounter
--- OUTSIDE RECORDS SUMMARY | 2024-10-27 08:41 | XMS_ITS | Encounter Summary ---
Author Organization [facility] Address [address] [place] [address] Care Team Providers Care Release Specialist Name Role Phone Félix Garvey PA-C Primary Care Provider [phone] Rod Machuca MD Primary Care Provider [phone] Aron Son MD Unavailable Unavailable Félix Garvey PA-C Primary Care Provider +[phone] Encounter Details Date Type Department Care Team Description 04/11/2021 Solid State Tester Report Medical Records [address] [place] [address] Abstract, Provider Social History Tobacco Use Types [...] on filedocumented in this encounter Care Teams Release Specialist Relationship Specialty Start Date End Date Félix Garvey PA-C [address] [place] [address] PCP - General Internal Medicine 09/27/20 05/09/22 Rod Machuca MD [address] [place] [address] [phone] PCP - General Lung Cancer Cytogeneticist 05/10/22 06/05/22 Félix Garvey PA-C [address] [place] [address] PCP - General Internal Medicine 06/06/22 Aron Son MD [address] [place] [address] Specialist Cardiovascular Disease 06/06/22 documented as of this encounter
--- OUTSIDE RECORDS SUMMARY | 2024-10-27 08:41 | XMS_ITS | Encounter Summary ---
Author Organization [facility] [employer] [facility] Address [address] [place] [address] Care Team Providers Care Forest Economics Professor Name Role Phone Aron Son MD Unavailable Unavailable Félix Garvey PA-C Primary Care Provider +1 [phone] Encounter Details Date Type Department Care Team Description 06/26/2023 Special Education Preschool Teacher Report Medical Records [address] [place] [address] Nevin Avendano MD Social History Tobacco Use [...] on filedocumented in this encounter Care Teams Forest Economics Professor Relationship Specialty Start Date End Date Félix Garvey PA-C [address] [place] [address] [phone] PCP - General Internal Medicine 06/06/22 Aron Son MD Specialist Cardiovascular Disease 06/06/22 documented as of this encounter
--- OUTSIDE RECORDS SUMMARY | 2024-10-27 08:41 | XMS_ITS | Encounter Summary ---
Author Organization [facility] [employer] [facility] Address [address] [place] [address] Care Team Providers Care Ice Scraper Name Role Phone Aron Son MD Unavailable Unavailable Félix Garvey PA-C Primary Care Provider +1 -[phone] Encounter Details Date Type Department Care Team Description 03/20/2023 Route Sales Person Report Medical Records [address] [place], [place] [address] [place] [address] Social History Tobacco Use Types Packs/Day Years [...] on filedocumented in this encounter Care Teams Ice Scraper Relationship Specialty Start Date End Date Félix Garvey PA-C [address] [place], [place] [phone] PCP - General Internal Medicine 06/06/22 Aron Son MD Specialist Cardiovascular Disease 06/06/22 documented as of this encounter
--- OUTSIDE RECORDS SUMMARY | 2024-10-27 08:41 | XMS_ITS | Encounter Summary ---
Author Organization [facility] [employer] [facility] Address [address] [place] [address] Care Team Providers Care Data Collection Technician Name Role Phone Aron Son MD Unavailable Unavailable Félix Garvey PA-C Primary Care Provider [phone] Encounter Details Date Type Department Care Team Description 08/16/2022 Shactor Report Medical Records [address] [place] [address] Rod Machuca MD [address] [place] [address] Social History Tobacco Use Types Packs/Day Years [...] on filedocumented in this encounter Care Teams Data Collection Technician Relationship Specialty Start Date End Date Félix Garvey PA-C [address] [place] [address] PCP - General Internal Medicine 06/06/22 Aron Son MD Specialist Cardiovascular Disease 06/06/22 documented as of this encounter
--- OUTSIDE RECORDS SUMMARY | 2024-10-27 08:41 | XMS_ITS | Encounter Summary ---
Author Organization [facility] Address [address] [place] [address] Care Team Providers Care Brush Loader And Handle Attacher Name Role Phone Aron Son MD Unavailable Unavailable Félix Garvey PA-C Primary Care Provider [phone] Reason for Visit * Reason Onset Date Comments REFERRAL 12/09/2022 Encounter Details Date Type Department Care Team Description 12/09/2022 Telephone Adult Medicine [facility] [address] [place], [place] [phone] Félix Garvey PA-C [address] [place], [place] [phone] REFERRAL Social History Tobacco Use Types Packs/Day [...] Referral request from 06/06/22 for Nuerology at [facility]. Never received referral request please resend to fx [phone] documented in this encounter Plan of Treatment Not on file documented as of this encounter Visit Diagnoses Not on filedocumented in this encounter Care Teams Brush Loader And Handle Attacher Relationship Specialty Start Date End Date Félix Garvey PA-C [address] [place] [address] PCP - General Internal Medicine 06/06/22 Aron Son MD Specialist Cardiovascular Disease 06/06/22 documented as of this encounter
--- OUTSIDE RECORDS SUMMARY | 2024-10-27 08:41 | XMS_ITS | Encounter Summary ---
Author Organization [facility] [employer] [facility] Address [address] [place] [address] Care Team Providers Care Gluer Name Role Phone Aron Son MD Unavailable Unavailable Félix Garvey PA-C Primary Care Provider [phone] Encounter Details Date Type Department Care Team Description 12/29/2023 Porcelain Enamel Installer Report Medical Records [address] [place] [address] Lee Burgess Social History Tobacco Use Types [...] on filedocumented in this encounter Care Teams Gluer Relationship Specialty Start Date End Date Félix Garvey PA-C [address] [place] [address] [phone] PCP - General Internal Medicine 06/06/22 Aron Son MD Specialist Cardiovascular Disease 06/06/22 documented as of this encounter
--- OUTSIDE RECORDS SUMMARY | 2024-10-27 08:41 | XMS_ITS | Clinical Summary ---
Author Organization [address] [place] [address] Address [address] [place] [address] Phone Care Team Providers Care Sheeter Helper Name Role Phone Hector Epps MD Primary [...] Care Team Description 09/02/[address] [facility] [address] [place] [address] Christiano Guerrero MD call back 08/25/2024 3:00 PM EST Ancillary Procedure [facility] [address] [place] [address] Aneurysm of ascending aorta without [...] HISTORICAL CATARACT REMOVAL NASAL SEPTUM SURGERY PROCEDURE: VT REPAIR NASAL SEPTAL PERFORATIONS COLONOSCOPY 01/2020 PROCEDURE: [...] 54 mL CV PACS Left Atrium Minor [place] 5.9 cm CV PACS Left Atrium Major [place] 5.6 cm CV PACS [place] Area Sys [...] Proximal 1.9 cm CV PACS MV Deceleration [place] 2.7 m/s2 CV PACS E Wave Deceleration [...] * Urine Albumin Creatinine Ratio (02/17/2024) Pathologist [facility] Urine Albumin Creatinine Ratio Abstracted Historical Provider HEALTH MAINTENANCE Final Result * Annual BMP Blood Test (02/17/2024) Pathologist [facility] Annual BMP Blood Test Abstracted Result [facility] Provider HEALTH MAINTENANCE Final Result * Falls Risk Assessment (02/17/2024) [facility] Falls Risk Assessment Abstracted Result [facility] Provider HEALTH MAINTENANCE Final Result * Depression Screening (02/17/2024) [facility] Depression Screening Abstracted Result [facility] HEALTH MAINTENANCE Final Result * (ABNORMAL) Hemoglobin A1c (02/17/2024) [facility] Hemoglobin A1C 7.4(A) <=6.5 % Blood Venous blood specimen / Unknown Result [facility] Provider LAB BLOOD ORDERABLES Zunilda l Result * Lipid panel (02/17/2024) [facility] LDL/HDL Ratio 3 0 - 4 Triglycerides 93 0 - 150 mg/dL Cholesterol 125 0 - 200 mg/dL HDL 48 >=40 mg/dL LDL Cholesterol 59 0 - 100 mg/dL Blood Venous blood specimen / Unknown Result [facility] Provider LAB BLOOD ORDERABLES Zunilda l Result * Diabetes Eye Exam (10/30/2023) [facility] Diabetes: Annual Retina Eye Exam Abstracted Result [facility] Provider HEALTH MAINTENANCE Final Result * Colonoscopy (01/28/2020) [facility] Colonoscopy No interpretation , Abstracted Anatomical Region Laterality Modality Other Result [facility] Provider HEALTH MAINTENANCE Final Result * Hepatitis C Screening (04/01/2016) [facility] Hepatitis C Screening Abstracted Result [facility] Provider HEALTH MAINTENANCE Final Result from Last 3 Months or Most Recently Relevant to Health Maintenance Insurance AETNA MEDICARE ADVANTAGE MEDICARE [facility] HEALTH PLAN MEDICAID - [place] Care Teams Sheeter Helper Relationship Specialty Start Date End Date Hector Epps MD [address] [place] [address] Macey Odom [place] PCP - General Internal Medicine 09/03/24
--- OUTSIDE RECORDS SUMMARY | 2024-10-27 08:41 | XMS_ITS | Encounter Summary ---
Author Organization [facility] Address [address] [place] [address] Care Team Providers Care Setup Operator Name Role Phone Vincenzo Green MD Primary Care Provider [phone] Félix Garvey PA-C Primary Care Provider + [phone] Rod Machuca MD Primary Care Provider [phone] Aron Son MD Unavailable Unavailable Fléix Garvey PA-C Primary Care Provider [phone] Encounter Details Date Type Department Care Team Description 08/10/2020 Desktop Support Manager Report Medical Records [address] [place] [address] Ely Kirby Social History Tobacco Use Types [...] on filedocumented in this encounter Care Teams Setup Operator Relationship Specialty Start Date End Date Vincenzo Green MD [address] [place] [address] [phone] PCP - General Internal Medicine 08/03/15 09/26/20 Félix Garvey PA-C [address] [place] [address] [phone] PCP - General Internal Medicine 09/27/20 05/09/22 Rod Machuca MD [address] [place] [address] PCP - General Lung Cancer Drop Wirer 05/10/22 06/05/22 Félix Garvey PA-C [address] [place] [address] PCP - General Internal Medicine 06/06/22 Aron Son MD [address] [place] [address] Specialist Cardiovascular Disease 06/06/22 documented as of this encounter
--- OUTSIDE RECORDS SUMMARY | 2024-10-27 08:41 | XMS_ITS | Encounter Summary ---
Author Organization [facility] Address [address] [place] [address] Care Team Providers Care Photographer News Name Role Phone Vincenzo Green MD Primary Care Provider [phone] Félix Garvey PA-C Primary Care Provider + [phone] Rod Machuca MD Primary Care Provider [phone] Aron Son MD Unavailable Unavailable Félix Garvey PA-C Primary Care Provider [phone] Encounter Details Date Type Department Care Team Description 07/11/2016 Cardiothoracic Anesthesia Technician Report Medical Records [address] [place] [address] Zack Powers Social History Tobacco Use Types [...] on filedocumented in this encounter Care Teams Photographer News Relationship Specialty Start Date End Date Vincenzo Green MD [address] [place] [address] [phone] PCP - General Internal Medicine 08/03/15 09/26/20 Félix Garvey PA-C [address] [place] [address] [phone] PCP - General Internal Medicine 09/27/20 05/09/22 Rod Machuca MD [address] [place] [address] PCP - General Lung Cancer Diffuser Operator 05/10/22 06/05/22 Félix Garvey PA-C [address] [place] [address] PCP - General Internal Medicine 06/06/22 Aron Son MD [address] [place] [address] Specialist Cardiovascular Disease 06/06/22 documented as of this encounter
--- OUTSIDE RECORDS SUMMARY | 2024-10-27 08:41 | XMS_ITS | Encounter Summary ---
Author Organization [facility] Address [address] [place] [address] Care Team Providers Care City Editor Name Role Phone Vincenzo Green MD Primary Care Provider [phone] Félix Garvey PA-C Primary Care Provider [phone] Rod Machuca MD Primary Care Provider [phone] Aron Son MD Unavailable Unavailable Félix Garvey PA-C Primary Care Provider [phone] Encounter Details Date Type Department Care Team Description 03/08/2020 Cosmetics Counter Manager Report Medical Records [address] [place] [address] Crystal Raines Social History Tobacco Use Types [...] on filedocumented in this encounter Care Teams City Editor Relationship Specialty Start Date End Date Vincenzo Green MD [address] [place] [address] [phone] PCP - General Internal Medicine 08/03/15 09/26/20 Félix Garvey PA-C [address] [place] [address] [phone] PCP - General Internal Medicine 09/27/20 05/09/22 Rod Machuca MD [address] [place] [address] PCP - General Lung Cancer Cafeteria Or Lunchroom Checker 05/10/22 06/05/22 Félix Garvey PA-C [address] [place] [address] PCP - General Internal Medicine 06/06/22 Aron Son MD [address] [place] [address] Specialist Cardiovascular Disease 06/06/22 documented as of this encounter
--- OUTSIDE RECORDS SUMMARY | 2024-10-27 08:41 | XMS_ITS | Encounter Summary ---
Author Organization [facility] Address [address] [place] [address] Care Team Providers Care Obstetrics And Gynecology Professor Name Role Phone Vincenzo Green MD Primary Care Provider [phone] Félix Garvey PA-C Primary Care Provider [phone] Rod Machuca MD Primary Care Provider [phone] Aron Son MD Unavailable Unavailable Félix Garvey PA-C Primary Care Provider [phone] Encounter Details Date Type Department Care Team Description 06/08/2019 Director Organizational Report Medical Records [address] [place] [address] [facility] Social History Tobacco Use Types Packs/Day Years [...] on filedocumented in this encounter Care Teams Obstetrics And Gynecology Professor Relationship Specialty Start Date End Date Vincenzo Green MD [address] [place] [address] [phone] PCP - General Internal Medicine 08/03/15 09/26/20 Félix Garvey PA-C [address] [place] [address] [phone] PCP - General Internal Medicine 09/27/20 05/09/22 Rod Machuca MD [address] [place] [address] PCP - General Lung Cancer Electroless Plater 05/10/22 06/05/22 Félix Garvey PA-C [address] [place] [address] PCP - General Internal Medicine 06/06/22 Aron Son MD [address] [place] [address] Specialist Cardiovascular Disease 06/06/22 documented as of this encounter
--- OUTSIDE RECORDS SUMMARY | 2024-10-27 08:41 | XMS_ITS | Encounter Summary ---
Author Organization [facility] Address [address] [place] [address] Care Team Providers Care Chief Marketing Officer Name Role Phone Vincenzo Green MD Primary Care Provider [phone] Félix Garvey PA-C Primary Care Provider [phone] Rod Machuca MD Primary Care Provider [phone] Aron Son MD Unavailable Unavailable Félix Garvey PA-C Primary Care Provider [phone] Encounter Details Date Type Department Care Team Description 09/21/2018 Dye Room Helper Report Medical Records [address] [place] [address] Crystal Raines Social History Tobacco Use Types [...] on filedocumented in this encounter Care Teams Chief Marketing Officer Relationship Specialty Start Date End Date Vincenzo Green MD [address] [place] [address] [phone] PCP - General Internal Medicine 08/03/15 09/26/20 Félix Garvey PA-C [address] [place] [address] [phone] PCP - General Internal Medicine 09/27/20 05/09/22 Rod Machuca MD [address] [place] [address] PCP - General Lung Cancer Coater Smoking Pipe 05/10/22 06/05/22 Félix Garvey PA-C [address] [place] [address] PCP - General Internal Medicine 06/06/22 Aron Son MD [address] [place] [address] Specialist Cardiovascular Disease 06/06/22 documented as of this encounter
--- OUTSIDE RECORDS SUMMARY | 2024-10-27 08:41 | XMS_ITS | Encounter Summary ---
Author Organization [facility] Address [address] [place] [address] Care Team Providers Care Bi Tester Name Role Phone Vincenzo Green MD Primary Care Provider [phone] Félix Garvey PA-C Primary Care Provider +[phone] Rod Machuca MD Primary Care Provider Aron Son MD Unavailable Unavailable Félix Garvey PA-C Primary Care Provider [phone] Reason for Visit * Reason Comments E-prescribe Rx Request Encounter Details Date Type Department Care Team Description 12/13/2016 Refill Adult Medicine [address] [phone] Vincenzo Green MD [address] [place] [address] [phone] E-prescribe Rx Request Social History Tobacco Use [...] an upcoming appointment? No-unable to reach left [facility] to call for appointment due to [...] / Plan: [place] / Product Type: MEDICARE [id number] documented in this encounter Plan of Treatment Not on file documented as of this encounter Visit Diagnoses Not on filedocumented in this encounter Care Teams Bi Tester Relationship Specialty Start Date End Date Vincenzo Green MD [address] [place] [address] PCP - General Internal Medicine 08/03/15 09/26/20 Félix Garvey PA-C [address] [place] [address] PCP - General Internal Medicine 09/27/20 05/09/22 Rod Machuca MD [address] [place] [address] PCP - General Lung Cancer Pulp Mill Team Leader 05/10/22 06/05/22 Félix Garvey PA-C [address] [place] [address] PCP - General Internal Medicine 06/06/22 Aron Son MD [address] [place] [address] Specialist Cardiovascular Disease 06/06/22 documented as of this encounter
--- OUTSIDE RECORDS SUMMARY | 2024-10-27 08:41 | XMS_ITS | Encounter Summary ---
Author Organization [facility] Address [address] [place] [address] Care Team Providers Care Clinical Services Consultant Name Role Phone Aron Son MD Unavailable Unavailable Félix Garvey PA-C Primary Care Provider [phone] Encounter Details Date Type Department Care Team Description 09/16/2022 Hospital Medical Records [address] [place] [address] Juan Interiano MD [address] [place] [address] [address] [place] [address] Social History Tobacco Use Types Packs/Day Years [...] on filedocumented in this encounter Care Teams Clinical Services Consultant Relationship Specialty Start Date End Date Félix Garvey PA-C [address] [place] [address] PCP - General Internal Medicine 06/06/22 Aron Son MD Specialist Cardiovascular Disease 06/06/22 documented as of this encounter
--- OUTSIDE RECORDS SUMMARY | 2024-10-27 08:41 | XMS_ITS | Encounter Summary ---
Author Organization [facility] Address [address] [place] [address] Care Team Providers Care Tool Rental Technician Name Role Phone Vincenzo Green MD Primary Care Provider [phone] Félix Garvey PA-C Primary Care Provider [phone] Rod Machuca MD Primary Care Provider [phone] Aron Son MD Unavailable Unavailable Félix Garvey PA-C Primary Care Provider [phone] Encounter Details Date Type Department Care Team Description 06/16/2019 Access Services Librarian Report Medical Records [address] [place] [address] Erick Diane Social History Tobacco Use Types [...] on filedocumented in this encounter Care Teams Tool Rental Technician Relationship Specialty Start Date End Date Vincenzo Green MD [address] [place] [address] [phone] PCP - General Internal Medicine 08/03/15 09/26/20 Félix Garvey PA-C [address] [place] [address] [phone] PCP - General Internal Medicine 09/27/20 05/09/22 Rod Machuca MD [address] [place] [address] PCP - General Lung Cancer Hand Upper And Bottom Lacer 05/10/22 06/05/22 Félix Garvey PA-C [address] [place] [address] PCP - General Internal Medicine 06/06/22 Aron Son MD [address] [place] [address] Specialist Cardiovascular Disease 06/06/22 documented as of this encounter
--- OUTSIDE RECORDS SUMMARY | 2024-10-27 08:41 | XMS_ITS | Encounter Summary ---
Author Organization [facility] Address [address] [place] [address] Care Team Providers Care Commercial Director Name Role Phone Aron Son MD Unavailable Unavailable Félix Garvey PA-C Primary Care Provider [phone] Reason for Visit * Reason Onset Date Comments Faxed Order 12/27/2022 Apprise diagnost ic Encounter Details Date Type Department Care Team Description 12/27/2022 Telephone Adult Medicine [address] [phone] Félix Garvey PA-C [address] [place] [address] [phone] Faxed Order (Apprise diagnostic) Social History Tobacco [...] on filedocumented in this encounter Care Teams Commercial Director Relationship Specialty Start Date End Date Félix Garvey PA-C [address] [place] [address] [phone] PCP - General Internal Medicine 06/06/22 Aron Son MD Specialist Cardiovascular Disease 06/06/22 documented as of this encounter
--- OUTSIDE RECORDS SUMMARY | 2024-10-27 08:41 | XMS_ITS | Encounter Summary ---
Author Organization [facility] Address [address] [place] [address] Care Team Providers Care Airline Radio Operator Name Role Phone Vincenzo Green MD Primary Care Provider [phone] Félix Garvey PA-C Primary Care Provider [phone] Rod Machuca MD Primary Care Provider [phone] Aron Son MD Unavailable Unavailable Félix Garvey PA-C Primary Care Provider [phone] Encounter Details Date Type Department Care Team Description 08/30/2019 Customer Engagement Analyst Report Medical Records [address] [place] [address] Lloyd Hung Social History Tobacco Use Types Packs/Day Years [...] on filedocumented in this encounter Care Teams Airline Radio Operator Relationship Specialty Start Date End Date Vincenzo Green MD [address] [place] [address] [phone] PCP - General Internal Medicine 08/03/15 09/26/20 Félix Garvey PA-C [address] [place] [address] [phone] PCP - General Internal Medicine 09/27/20 05/09/22 Rod Machuca MD [address] [place] [address] PCP - General Lung Cancer Reporting Process Consultant 05/10/22 06/05/22 Félix Garvey PA-C [address] [place] [address] PCP - General Internal Medicine 06/06/22 Aron Son MD [address] [place] [address] Specialist Cardiovascular Disease 06/06/22 documented as of this encounter
--- OUTSIDE RECORDS SUMMARY | 2024-10-27 08:41 | XMS_ITS | Encounter Summary ---
Author Organization [facility] Address [address] [place] [address] Care Team Providers Care Surface Plate Inspector Name Role Phone Félix Garvey PA-C Primary Care Provider [phone] Rod Machuca MD Primary Care Provider [phone] Aron Son MD Unavailable Unavailable Félix Garvey PA-C Primary Care Provider [phone] Reason for Visit * Reason Comments E-prescribe Rx Request Encounter Details Date Type Department Care Team Description 01/06/2021 Refill Adult Medicine [address] [phone] Félix Garvey PA-C [address] [place] [address] [phone] E-prescribe Rx Request Social History Tobacco Use [...] encounter Miscellaneous Notes * Telephone Encounter - Josephine Gerardo - 01/08/2021 9:03 AM EDT Patient would like script to be: E-PRESCRIBED/FAXED TO PHARMACY WHEN WAS THE PATIENT'S LAST APPOINTMENT IN ADULT MEDICINE? 12/20/20 WHEN WAS THE LAST TIME THE PATIENT SAW THEIR PCP? 09/27/20 Does patient have an upcoming appointment? No-patient refused appointment, will call back to book appointment (THE MEDICATION REQUESTED IS ON THE MED LIST ABOVE) All of the medications requested were on the CURRENT MEDS list Did you check the Pharmacy information above?: YES Patient wants: 90 -day supply Is this a mail order prescription request ? NO If the refill is from a FAXED refill request what is the RX # listed on the fax? N/A Patients current insurance carrier is: Payor: MEDICARE-ReadyPulse / Plan: [place] / Product Type: MEDICARE [id number] documented in this encounter Plan of Treatment Not on file documented as of this encounter Visit Diagnoses Not on filedocumented in this encounter Care Teams Surface Plate Inspector Relationship Specialty Start Date End Date Félix Garvey PA-C [address] [place] [address] PCP - General Internal Medicine 09/27/20 05/09/22 Rod Machuca MD [address] [place] [address] PCP - General Lung Cancer Cotton Grader 05/10/22 06/05/22 Félix Garvey PA-C [address] [place] [address] PCP - General Internal Medicine 06/06/22 Aron Son MD [address] [place] [address] Specialist Cardiovascular Disease 06/06/22 documented as of this encounter
--- OUTSIDE RECORDS SUMMARY | 2024-10-27 08:41 | XMS_ITS | Encounter Summary ---
Author Organization [facility] Address [address] [place] [address] Care Team Providers Care Slot Manager Name Role Phone Félix Garvey PA-C Primary Care Provider [phone] Rod Machuca MD Primary Care Provider [phone] Aron Son MD Unavailable Unavailable Félix Garvey PA-C Primary Care Provider +[phone] Encounter Details Date Type Department Care Team Description 01/08/2021 Extract Operator Report Medical Records [address] [place] [address] Crystal Raines Social History Tobacco Use Types [...] on filedocumented in this encounter Care Teams Slot Manager Relationship Specialty Start Date End Date Félix Garvey PA-C [address] [place] [address] [phone] PCP - General Internal Medicine 09/27/20 05/09/22 Rod Machuca MD [address] [place] [address] PCP - General Lung Cancer Financial Sales Professional 05/10/22 06/05/22 Félix Garvey PA-C [address] [place] [address] PCP - General Internal Medicine 06/06/22 Aron Son MD [address] [place] [address] Specialist Cardiovascular Disease 06/06/22 documented as of this encounter
--- OUTSIDE RECORDS SUMMARY | 2024-10-27 08:41 | XMS_ITS | Encounter Summary ---
Author Organization [facility] Address [address] [place] [address] Care Team Providers Care Activity Therapy Specialist Name Role Phone Vincenzo Green MD Primary Care Provider [phone] Félix Garvey PA-C Primary Care Provider [phone] Rod Machuca MD Primary Care Provider [phone] Aron Son MD Unavailable Unavailable Fléix Garvey PA-C Primary Care Provider [phone] Encounter Details Date Type Department Care Team Description 07/08/2019 Old Medical Records Medical Records [address] [place] [address] Abstract, Provider Social History Tobacco Use Types [...] on filedocumented in this encounter Care Teams Activity Therapy Specialist Relationship Specialty Start Date End Date Vincenzo Green MD [address] [place] [address] [phone] PCP - General Internal Medicine 08/03/15 09/26/20 Félix Garvey PA-C [address] [place] [address] [phone] PCP - General Internal Medicine 09/27/20 05/09/22 Rod Machuca MD [address] [place] [address] PCP - General Lung Cancer General Milling Superintendent 05/10/22 06/05/22 Félix Garvey PA-C [address] [place] [address] PCP - General Internal Medicine 06/06/22 Aron Son MD [address] [place] [address] Specialist Cardiovascular Disease 06/06/22 documented as of this encounter
--- OUTSIDE RECORDS SUMMARY | 2024-10-27 08:42 | XMS_ITS | Encounter Summary ---
Author Organization [facility] Address [address] [place] [address] Care Team Providers Care Setter Machine Name Role Phone Aron Son MD Unavailable Unavailable Félix Garvey PA-C Primary Care Provider [phone] Encounter Details Date Type Department Care Team Description 07/10/2024 Geography Department Chair Report Medical Records [address] [place] [address] Tracy Banerjee [address] [place] [address] Social History Tobacco Use Types Packs/Day Years [...] on filedocumented in this encounter Care Teams Setter Machine Relationship Specialty Start Date End Date Félix Garvey PA-C [address] [place] [address] PCP - General Internal Medicine 06/06/22 Aron Son MD Specialist Cardiovascular Disease 06/06/22 documented as of this encounter
--- OUTSIDE RECORDS SUMMARY | 2024-10-27 08:42 | XMS_ITS | Encounter Summary ---
Author Organization [facility] Address [address] [place] [address] Care Team Providers Care Inside Solar Sales Consultant Name Role Phone Vincenzo Green MD Primary Care Provider [phone] Félix Garvey PA-C Primary Care Provider [phone] Rod Machuca MD Primary Care Provider [phone] Aron Son MD Unavailable Unavailable Félix Garvey PA-C Primary Care Provider +[phone] Reason for Visit * Reason Onset Date Comments injection 09/29/2017 Encounter Details Date Type Department Care Team Description 09/29/2017 Telephone Physiatry - [address] [phone] Ed Holley DO injection Social History Tobacco [...] on filedocumented in this encounter Care Teams Inside Solar Sales Consultant Relationship Specialty Start Date End Date Vincenzo Green MD [address] [place] [address] PCP - General Internal Medicine 08/03/15 09/26/20 Félix Garvey PA-C [address] [place] [address] PCP - General Internal Medicine 09/27/20 05/09/22 Rod Machuca MD [address] [place] [address] PCP - General Lung Cancer Production Expediter 05/10/22 06/05/22 Félix Garvey PA-C [address] [place] [address] PCP - General Internal Medicine 06/06/22 Aron Son MD [address] [place] [address] Specialist Cardiovascular Disease 06/06/22 documented as of this encounter
--- OUTSIDE RECORDS SUMMARY | 2024-10-27 08:42 | XMS_ITS | Encounter Summary ---
Author Organization [facility] Address [address] [place] [address] Care Team Providers Care Sole Stapler Welt Name Role Phone Vincenzo Green MD Primary Care Provider [phone] Félix Garvey PA-C Primary Care Provider +[phone] Rod Machuca MD Primary Care Provider [phone] Aron Son MD Unavailable Unavailable Félix Garvey PA-C Primary Care Provider +[phone] Encounter Details Date Type Department Care Team Description 11/05/2017 Orders Only Adult Medicine [address] [phone] Vincenzo Green MD [address] [place] [address] [phone] Preoperative examination; Screening for deficiency anemia; long term care phlebotomist current use of anticoagulant therapy Social History [...] - 33.6 SEC 11/17/2017 3:33 PM EDT [facility] Comment: Please note adjusted APTT (sec) reference range ?? effective 01/19/2016. 11/17/2017 2:06 PM EDT 11/17/2017 2:07 PM EDT Vincenzo Green MD LAB Performing Organization Address [facility] de Phone Number [address] * PROTHROMBIN TIME (11/17/2017 2:06 PM EDT) PT 13.1 11.6 - 15.6 SEC 11/17/2017 3:18 PM EDT [facility] Comment: Please note adjusted PT(sec)normal reference range ?? effective 03/21/15. INR 0.98 11/17/2017 3:18 PM EDT [facility] 11/17/2017 2:06 PM EDT 11/17/2017 2:07 PM EDT Vincenzo Green MD LAB Performing Organization Address [facility] Phone Number [address] * (ABNORMAL) CBC (AUTO DIFF PLATELET) (11/17/2017 2:06 PM EDT) WBC 6.0 4.8 - 10.8 x10-3 11/17/2017 2:45 PM EDT [facility] RBC 4.2(L) 4.5 - 5.5 x10-6 11/17/2017 2:45 PM EDT [facility] HGB 13.3(L) 13.5 - 17.5 g/dl 11/17/2017 2:45 PM EDT [facility] HCT 38.0(L) 42 - 54 % 11/17/2017 2:45 PM EDT [facility] MCV 89.6 79 - 98 fl 11/17/2017 2:45 PM EDT [facility] MCH 31.4 27 - 32 pg 11/17/2017 2:45 PM EDT [facility] MCHC 35.0 32 - 37 g/dl 11/17/2017 2:45 PM EDT [facility] RDW 12.3 11 - 15 % 11/17/2017 2:45 PM EDT [facility] PLT COUNT 193 130 - 400 x10-3 11/17/2017 2:45 PM EDT [facility] MEAN PLATELET VOLUME 10.3 7 - 11 fl 11/17/2017 2:45 PM EDT [facility] NEUT % 76.9 41 - 85 % 11/17/2017 2:45 PM EDT [facility] LYMPH % 16.4 15 - 48 % 11/17/2017 2:45 PM EDT [facility] MONO % 6.3 0 - 12 % 11/17/2017 2:45 PM EDT [facility] EOS % 0.2 0 - 5 % 11/17/2017 2:45 PM EDT [facility] BASO % 0.2 0 - 2 % 11/17/2017 2:45 PM EDT [facility] 11/17/2017 2:06 PM EDT 11/17/2017 2:07 PM EDT Vincenzo Green MD LAB Performing Organization Address City/State/[facility] Co de Phone Number [facility] [address] documented in this encounter Visit Diagnoses Diagnosis Preoperative examination Preoperative examination, unspecified Screening for deficiency anemia Screening for other and unspecified deficiency anemia long term care phlebotomist current use of anticoagulant therapy documented in this encounter Care Teams Sole Stapler Welt Relationship Specialty Start Date End Date Vincenzo Green MD [address] [place] [address] PCP - General Internal Medicine 08/03/15 09/26/20 Félix Garvey PA-C [address] [place] [address] PCP - General Internal Medicine 09/27/20 05/09/22 Rod Machuca MD [address] [place] [address] 98[address] PCP - General Lung Cancer Operations Program Manager 05/10/22 06/05/22 Félix Garvey PA-C [address] [place] [address] PCP - General Internal Medicine 06/06/22 Aron Son MD [address] [place] [address] Specialist Cardiovascular Disease 06/06/22 documented as of this encounter
--- OUTSIDE RECORDS SUMMARY | 2024-10-27 08:42 | XMS_ITS | Encounter Summary ---
Author Organization [facility] Address [address] [place] [address] Care Team Providers Care Incident Engineer Name Role Phone Vincenzo Green MD Primary Care Provider [phone] Félix Garvey PA-C Primary Care Provider [phone] Rod Machuca MD Primary Care Provider [phone] Aron Son MD Unavailable Unavailable Félix Garvey PA-C Primary Care Provider [phone] Reason for Visit * Reason Onset Date Comments refill request 09/17/2017 Encounter Details Date Type Department Care Team Description 09/17/2017 Refill Adult Medicine [address] [phone] Vincenzo Green MD [address] [place] [address] [phone] refill request Social History Tobacco Use Types [...] / Plan[place] / Product Type: MEDICARE [id number] documented in this encounter Plan of Treatment Not on file documented as of this encounter Visit Diagnoses Not on filedocumented in this encounter Care Teams Incident Engineer Relationship Specialty Start Date End Date Vincenzo Green MD [address] [place] [address] [phone] PCP - General Internal Medicine 08/03/15 09/26/20 Félix Garvey PA-C [address] [place] [address] PCP - General Internal Medicine 09/27/20 05/09/22 Rod Machuca MD [address] [place] [address] PCP - General Lung Cancer Merchandiser Retail Representative 05/10/22 06/05/22 Félix Garvey PA-C [address] [place] [address] PCP - General Internal Medicine 06/06/22 Aron Son MD [address] [place] [address] Specialist Cardiovascular Disease 06/06/22 documented as of this encounter
--- OUTSIDE RECORDS SUMMARY | 2024-10-27 08:42 | XMS_ITS | Encounter Summary ---
Author Organization [facility] Address [address] [place] [address] Care Team Providers Care Cage Operator Name Role Phone Vincenzo Green MD Primary Care Provider [phone] Félix Garvey PA-C Primary Care Provider [phone] Rod Machuca MD Primary Care Provider [phone] Aron Son MD Unavailable Unavailable Félix Gavrey PA-C Primary Care Provider [phone] Encounter Details Date Type Department Care Team Description 09/19/2017 Financial Reporting Specialist Report Medical Records [address] [place] [address] Crystal Raines Social History Tobacco Use Types [...] on filedocumented in this encounter Care Teams Cage Operator Relationship Specialty Start Date End Date Vincenzo Green MD [address] [place] [address] [phone] PCP - General Internal Medicine 08/03/15 09/26/20 Félix Garvey PA-C [address] [place] [address] [phone] PCP - General Internal Medicine 09/27/20 05/09/22 Rod Machuca MD [address] [place] [address] PCP - General Lung Cancer Landscape Specialist 05/10/22 06/05/22 Félix Garvey PA-C [address] [place] [address] PCP - General Internal Medicine 06/06/22 Aron Son MD [address] [place] [address] Specialist Cardiovascular Disease 06/06/22 documented as of this encounter
--- OUTSIDE RECORDS SUMMARY | 2024-10-27 08:42 | XMS_ITS | Encounter Summary ---
Author Organization [email or web address] Address [address] [facility] 7t [place] [address] Care Team Providers Care Compression Molding Machine Tender Name Role Phone Unavailable Primary Care Provider Unavailabl e Reason for Visit * Reason Onset Date Comments Appointment 03/13/2023 Encounter Details Date Type Department Care Team ([facility] st Contact Info) Description 03/13/2023 Telephone C ADULT DENTAL [address] [place], [place] [phone] Dinah Mckinley DDS [address] [place], [place] [phone] Appointment Social History Tobacco Use Types Packs/Day [...] did offer the patient an appt in [place] with the understanding that he would become a [place] patient but he is unwilling to go to [facility]. He wants to know why hes being told that he needs to come in and then listed. Tried my best to explain. Would like his appt or phone call. documented in this encounter Plan of Treatment Upcoming Encounters Date Type Department Care Team (Late st Contact Info) Description 10/29/2024 2:30 PM EDT Office Visit [facility] ADULT DENTAL [address] [place] [address] Spencer Rao DDS [address] [place], [place] [phone] 03/16/2025 3:00 PM EDT Office Visit [facility] ADULT DENTAL [address] [place] [address] Amalia Urrutia documented as of this encounter Visit Diagnoses Not on filedocumented in this encounter
--- OUTSIDE RECORDS SUMMARY | 2024-10-27 08:42 | XMS_ITS | Encounter Summary ---
Author Organization [facility] Address [address] [place] [address] Care Team Providers Care Financial Center Manager Name Role Phone Vincenzo Green MD Primary Care Provider [phone] Félix Garvey PA-C Primary Care Provider + [phone] Rod Machuca MD Primary Care Provider [phone] Aron Son MD Unavailable Unavailable Félix Garvey PA-C Primary Care Provider [phone] Encounter Details Date Type Department Care Team Description 10/14/2017 [facility] Medical Records [address] [place] [address] Abstract, Provider Social History Tobacco Use Types [...] on filedocumented in this encounter Care Teams Financial Center Manager Relationship Specialty Start Date End Date Vincenzo Green MD [address] [place] [address] [phone] PCP - General Internal Medicine 08/03/15 09/26/20 Félix Garvey PA-C [address] [place] [address] [phone] PCP - General Internal Medicine 09/27/20 05/09/22 Rod Machuca MD [address] [place] [address] PCP - General Lung Cancer Hose Stripper 05/10/22 06/05/22 Félix Garvey PA-C [address] [place] [address] PCP - General Internal Medicine 06/06/22 Aron Son MD [address] [place] [address] Specialist Cardiovascular Disease 06/06/22 documented as of this encounter
--- OUTSIDE RECORDS SUMMARY | 2024-10-27 08:42 | XMS_ITS | Encounter Summary ---
Author Organization [facility] Address [address] [place] [address] Care Team Providers Care Centrifugal Casting Machine Operator Name Role Phone Vincenzo Green MD Primary Care Provider + [phone] Félix Garvey PA-C Primary Care Provider [phone] Rod Machuca MD Primary Care Provider [phone] Aron Son MD Unavailable Unavailable Félix Garvey PA-C Primary Care Provider [phone] Encounter Details Date Type Department Care Team Description 09/12/2017 Orders Only Adult Medicine [address] [address] Félix Garvey PA-C [address] [place] [address] [phone] Right lumbar radiculopathy Social History Tobacco Use Types Packs/Day Years [...] on file documented as of this encounter Procedures Procedure Name Priority Date/Time Associated Diagnosis Comments MRI OF LUMBAR SPINE NO CONTRAST Routine 09/04/2017 Right lumbar radiculopathy documented in this encounter Results * MRI OF LUMBAR SPINE NO CONTRAST (09/04/2017) Félix Garvey PA-C MRI documented in this encounter Visit Diagnoses Diagnosis Right lumbar radiculopathy Thoracic or lumbosacral neuritis or radiculitis, unspecified documented in this encounter Care Teams Centrifugal Casting Machine Operator Relationship Specialty Start Date End Date Vincenzo Green MD [address] [place] [address] PCP - General Internal Medicine 08/03/15 09/26/20 Félix Garvey PA-C [address] [place] [address] PCP - General Internal Medicine 09/27/20 05/09/22 Rod Machuca MD [address] [place] [address] PCP - General Lung Cancer Apartment Rental Clerk 05/10/22 06/05/22 Félix Garvey PA-C [address] [place] [address] PCP - General Internal Medicine 06/06/22 Aron Son MD [address] [place] [address] Specialist Cardiovascular Disease 06/06/22 documented as of this encounter
--- OUTSIDE RECORDS SUMMARY | 2024-10-27 08:42 | XMS_ITS | Encounter Summary ---
Author Organization [facility] Address [address] [place] [address] Care Team Providers Care Jacquard Card Cutter Name Role Phone Vincenzo Green MD Primary Care Provider [phone] Félix Garvey PA-C Primary Care Provider [phone] Rod Machuca MD Primary Care Provider [phone] Aron Son MD Unavailable Unavailable Félix Garvey PA-C Primary Care Provider [phone] Encounter Details Date Type Department Care Team Description 01/11/2019 Cloth Printer Report Medical Records [address] [place] [address] Crystal Raines Social History Tobacco Use Types [...] on filedocumented in this encounter Care Teams Jacquard Card Cutter Relationship Specialty Start Date End Date Vincenzo Green MD [address] [place] [address] [phone] PCP - General Internal Medicine 08/03/15 09/26/20 Félix Garvey PA-C [address] [place] [address] [phone] PCP - General Internal Medicine 09/27/20 05/09/22 Rod Machuca MD [address] [place] [address] PCP - General Lung Cancer [employer] Dean 05/10/22 06/05/22 Félix Garvey PA-C [address] [place] [address] PCP - General Internal Medicine 06/06/22 Aron Son MD [address] [place] [address] Specialist Cardiovascular Disease 06/06/22 documented as of this encounter
--- OUTSIDE RECORDS SUMMARY | 2024-10-27 08:42 | XMS_ITS | Encounter Summary ---
Author Organization [employer] [facility] Address [address] [facility] 7t [place] [address] Care Team Providers Care Decorating Supervisor Name Role Phone Unavailable Primary Care Provider Unavailabl e Encounter Details Date Type Department Care Team (Late st Contact Info) Description 07/30/2024 Telephone [facility] ADULT DENTAL [address] [place] [address] Spencer Rao DDS [address] [place] [address] Social History Tobacco Use Types Packs/Day Years [...] Description 10/29/2024 2:30 PM EDT Office Visit [facility] ADULT DENTAL [address] [place] [address] Spencer Rao DDS [address] [place] [address] 03/16/2025 3:00 PM EDT Office Visit [facility] ADULT DENTAL [address] [place] [address] Amalia Urrutia documented as of this encounter Visit Diagnoses Not on filedocumented in this encounter
--- OUTSIDE RECORDS SUMMARY | 2024-10-27 08:42 | XMS_ITS | Clinical Summary ---
Author Organization [employer] Address [address] [facility] 7t [place] [address] Care Team Providers Care Loading Inspector Name Role Phone Unavailable Primary Care Provider [...] Description 10/19/2024 11:00 AM EDT Office [facility] [place] [address] John Paul Raoa, DDS 10/05/2024 11:00 AM EDT Office Visit [facility] ADULT DENTAL [address] [place] [address] MairaJohn Paula, DDS 09/10/2024 11:30 AM EST Office Visit [facility] ADULT DENTAL [address] [place] [address] Spencer Rao, NABIL 09/03/[address] [facility] ADULT DENTAL [address] [place] [address] Spencer Rao DDS 08/17/2024 11:00 AM EST Office Visit [facility] ADULT DENTAL [address] [place] [address] Spencer Rao, DDS 08/05/2024 10:45 AM EST Office Visit [facility] ADULT DENTAL [address] [place] [address] Manuel Restrepo DDS Edentulous maxilla (Primary Dx); Dental abscess 07/30/[address] [facility] ADULT DENTAL [address] [place] [address] Spencer Rao DDS from Last 3 Months [...] Description 10/29/2024 2:30 PM EDT Office Visit [facility] ADULT DENTAL [address] [place], [place] [phone] Spencer Rao DDS [address] [place] [address] 03/16/2025 3:00 PM EDT Office Visit [facility] ADULT DENTAL [address] [place], [place] [phone] Amalia Urrutia Health Maintenance Due Date Last [...] to Health Maintenance Insurance [employer] MEDICARE REPLACEMENT DENTAL-[facility] MEDICAID STAND ADULT DENTAL - AETNA DENTAL PPO
--- OUTSIDE RECORDS SUMMARY | 2024-10-27 08:42 | XMS_ITS | Encounter Summary ---
Author Organization [facility] Address [address] [place] [address] Care Team Providers Care Stitchdowns Toe Former Name Role Phone Vincenzo Green MD Primary Care Provider [phone] Félix Garvey PA-C Primary Care Provider +[phone] Rod Machuca MD Primary Care Provider [phone] Aron Son MD Unavailable Unavailable Félix Garvey PA-C Primary Care Provider + [phone] Encounter Details Date Type Department Care Team Description 11/25/2017 Hospital Medical Records [address] [place] [address] Lee Arroyo MD Social History Tobacco Use [...] on filedocumented in this encounter Care Teams Stitchdowns Toe Former Relationship Specialty Start Date End Date Vincenzo Green MD [address] [place] [address] [phone] PCP - General Internal Medicine 08/03/15 09/26/20 Félix Garvey PA-C [address] [place] [address] [phone] PCP - General Internal Medicine 09/27/20 05/09/22 Rod Machuca MD [address] [place] [address] PCP - General Lung Cancer Office Manager Executive Assistant 05/10/22 06/05/22 Félix Garvey PA-C [address] [place] [address] PCP - General Internal Medicine 06/06/22 Aron Son MD [address] [place] [address] Specialist Cardiovascular Disease 06/06/22 documented as of this encounter
--- OUTSIDE RECORDS SUMMARY | 2024-10-27 08:42 | XMS_ITS | Encounter Summary ---
Author Organization [facility] Address [address] [place] [address] Care Team Providers Care Sr. Manager Corporate Communications Name Role Phone Vincenzo Green MD Primary Care Provider [phone] Félix Garvey PA-C Primary Care Provider +[phone] Rod Machuca MD Primary Care Provider [phone] Aron Son MD Unavailable Unavailable Félix Garvey PA-C Primary Care Provider +[phone] Encounter Details Date Type Department Care Team Description 09/03/2019 Director Of Exhibits Report Medical Records [address] [place] [address] Erick Diane Social History Tobacco Use Types [...] on filedocumented in this encounter Care Teams Sr. Manager Corporate Communications Relationship Specialty Start Date End Date Vincenzo Green MD [address] [place] [address] [phone] PCP - General Internal Medicine 08/03/15 09/26/20 Félix Garvey PA-C [address] [place] [address] [phone] PCP - General Internal Medicine 09/27/20 05/09/22 Rod Machuca MD [address] [place] [address] PCP - General Lung Cancer Leather Finisher 05/10/22 06/05/22 Félix Garvey PA-C [address] [place] [address] PCP - General Internal Medicine 06/06/22 Aron Son MD [address] [place] [address] Specialist Cardiovascular Disease 06/06/22 documented as of this encounter
--- OUTSIDE RECORDS SUMMARY | 2024-10-27 08:42 | XMS_ITS | Encounter Summary ---
Author Organization [employer] Address [address] [facility] 7t [place] [address] Care Team Providers Care Pharmacovigilance Scientist Name Role Phone Unavailable Primary Care Provider Unavailabl e Reason for Visit * Reason Onset Date Comments insurance appt 12/25/2023 Encounter Details Date Type Department Care Team (Late st Contact Info) Description 12/25/2023 Telephone [facility] ADULT DENTAL [address] [place], [place] [phone] David Grayson insurance appt Social History Tobacco [...] Rawls - 12/25/2023 2:56 PM EDT [facility]. He says he has [employer] inurance. Patient was asked who is the insurance company that carries the insurance and he said [employer]. Asked again which is the insurance company that carries the insurance and patient hung up. Unsure of insurance coverage DR Bill manager front office aware documented in this encounter Plan of Treatment Upcoming Encounters Date Type Department Care Team (Late st Contact Info) Description 10/29/2024 2:30 PM EDT Office Visit [facility] ADULT DENTAL [address] [place], [place] [phone] Spencer Rao DDS [address] [place], [place] [phone] 03/16/2025 3:00 PM EDT Office Visit [facility] ADULT DENTAL [address] [place] [address] Amalia Urrutia documented as of this encounter Visit Diagnoses Not on filedocumented in this encounter
--- OUTSIDE RECORDS SUMMARY | 2024-10-27 08:42 | XMS_ITS | Encounter Summary ---
Author Organization [facility] Address [address] [place] [address] Care Team Providers Care Shuttle Driver Name Role Phone Vincenzo Green MD Primary Care Provider [phone] Félix Garvey PA-C Primary Care Provider [phone] Rod Machuca MD Primary Care Provider [phone] Aron Son MD Unavailable Unavailable Félix Garvey PA-C Primary Care Provider +[phone] Encounter Details Date Type Department Care Team Description 10/02/2015 Release of Information Medical Records [address] [place] [address] Abstract, Provider Social History Tobacco Use Types [...] on filedocumented in this encounter Care Teams Shuttle Driver Relationship Specialty Start Date End Date Vincenzo Green MD [address] [place] [address] [phone] PCP - General Internal Medicine 08/03/15 09/26/20 Félix Garvey PA-C [address] [place] [address] [phone] PCP - General Internal Medicine 09/27/20 05/09/22 Rod Machuca MD [address] [place] [address] PCP - General Lung Cancer Cloth Finishing Range Operator 05/10/22 06/05/22 Félix Garvey PA-C [address] [place] [address] PCP - General Internal Medicine 06/06/22 Aron Son MD [address] [place] [address] Specialist Cardiovascular Disease 06/06/22 documented as of this encounter
--- OUTSIDE RECORDS SUMMARY | 2024-10-27 08:42 | XMS_ITS ---
Author Organization [facility] Address [address] [place] [address] Care Team Providers Care Prop Cutter Name Role Phone Félix Cooper Primary Care Provider Unav ailable Julita Marcial [phone] Galeano Encounters Encounter Location Date Provider Diagnosis [facility] [address] [place] [address] 10/29/2023 Julita Marcial Plan Of Treatment Next Appt Details Provider Name:Julita fajardo, 12/03/2024 09:00:00 AM, [address] [place], [address], Progress Notes * Kaila RHODESOB:[birth year] (63 yo M)Acc No.[id number]:10/29/2023 Progress Note Patient:?Thong RHODES Provider:?Julita Marcial DPM :1960???Age:62 Y???Sex:Male Nahun e:10/29/2023 Address:[address] [id number] Pcp:JESUS Jerry Subjective: * Chief Complaints: * [...] Marcial DPM Date:?04/2024 Generated for Eyal orta/Teri/Alejandro on:?10/27/2024 08:42 AM EDT
--- OUTSIDE RECORDS SUMMARY | 2024-10-27 08:42 | XMS_ITS | Encounter Summary ---
Author Organization [facility] Address [address] [place] [address] Care Team Providers Care Trim Operator Name Role Phone Aron Son MD Unavailable Unavailable Félix Garvey PA-C Primary Care Provider +[phone] Encounter Details Date Type Department Care Team Description 06/07/2022 SCAN Medical Records [address] [place] [address] [facility] Social History Tobacco Use Types Packs/Day Years [...] on filedocumented in this encounter Care Teams Trim Operator Relationship Specialty Start Date End Date Félix Garvey PA-C [address] [place], [place] [phone] PCP - General Internal Medicine 06/06/22 Aron Son MD Specialist Cardiovascular Disease 06/06/22 documented as of this encounter
--- OUTSIDE RECORDS SUMMARY | 2024-10-27 08:42 | XMS_ITS | Encounter Summary ---
Author Organization [facility] Address [address] [place] [address] Care Team Providers Care Household Coordinator Name Role Phone Félix Garvey PA-C Primary Care Provider [phone] Rod Machuca MD Primary Care Provider Aron Son MD Unavailable Unavailable Félix Garvey PA-C Primary Care Provider +[phone] Encounter Details Date Type Department Care Team Description 09/20/2021 Die Sinker Apprentice Report Medical Records [address] [place] [address] Milton Barrera MD Social History Tobacco Use [...] on filedocumented in this encounter Care Teams Household Coordinator Relationship Specialty Start Date End Date Félix aGrvey PA-C [address] [place], [place] [phone] PCP - General Internal Medicine 09/27/20 05/09/22 Rod Machuca MD [address] [place], [place] [phone] PCP - General Lung Cancer Automation Control Technician 05/10/22 06/05/22 Félix Garvey PA-C [address] [place] [address] PCP - General Internal Medicine 06/06/22 Aron Son MD [address] [place] [address] Specialist Cardiovascular Disease 06/06/22 documented as of this encounter
--- OUTSIDE RECORDS SUMMARY | 2024-10-27 08:42 | XMS_ITS ---
Author Organization [facility] Address [address] [facility] [place] [address] Care Team Providers Care Conveyor Loader Name Role Phone Félix Cooper Primary Care Provider Unav ailJulita Shah Unavailable [phone] Allergies Allergen (clinical drug ingredient) Drug/Non Drug [...] a day for 30 day(s) Active Nystatin-Triamcinolone 440609-6.1 UNIT/GM 1 application Externally Twice a day Active Pen [place] 10/03 Ac tive Insulin Glargine 100 UNIT/ML [...] Problem Acquired hammer toe of right foot (1670746681453 105) Other hammer toe(s) (acquired), right foot (M20.41) Active confirmed Problem Acquired hammer toe of left foot (2310050204526 103) Other hammer toe(s) (acquired), left foot (M20.42) Active confirmed Vital Signs Height 5 ft 10 in in 11/11/2023 Weight 200 lbs 11/11/2023 BMI 28.69 kg/m2 11/11/2023 Encounters Encounter Location Date Provider Diagnosis [facility] [place] [address] [place] [address] 11/11/2023 Julita Marcial Other hammer toe(s) (acquired), [...] Reason: Provider Name:Julita fajardo, 12/03/2024 09:00:00 AM, [address] [place] [address], [phone], Progress Notes * Kaila RHODESOB:[birth year] (63 yo M)Acc No.[id number]:11/11/2023 Progress Note Patient:?Thong Rhodes Provider:?Julita Marcial DPM :1960???Age:63 Y???Sex:Male Nahun e:11/11/2023 Address:[address] [place] [address] [facility] Pcp:JESUS Jerry Subjective: * Chief Complaints: * [...] Disabled. * Medications:?TakingPen Needl es 10/03 Nystatin-Triamcinolone 240510-2.1 UNIT/GM Cream 1 application Externally Twice a [...] 1 tablet Orally Once a dayTaking Pen [place] 10/03 Taking Nystatin-Triamcinolone 920001-2.1 UNIT/GM Cream 1 application Externally Twice a [...] Marcial DPM Date:? Generated for Eyal orta/Teri/Alejandro on:?10/27/2024 08:41 AM EDT History and Physical Notes * [...]
[2024-10-27 08:49] LABS: Glucose, Whole Blood 160 mg/dL (60-115)
== END 2024-10-27 08:59 | disposition home or self-care (01) ==
LOC: HO.ENCR 08:29
PROVIDERS: PCP Physician Assistant; Visit Provider Internal Medicine
DX: E11.40 Type 2 diabetes mellitus with diabetic neuropathy, unspecified (principal); Z79.4 Long term (current) use of insulin

== ENCOUNTER → 2024-10-27 08:29 | Outpatient (BNVA) | payer MEDICARE, SELFPAY | PROVIDERS: PCP Physician Assistant; Visit Provider Internal Medicine | DX: E11.319 Type 2 diabetes mellitus with unspecified diabetic retinopathy without macular edema (principal); E11.40 Type 2 diabetes mellitus with diabetic neuropathy, unspecified; Z79.4 Long term (current) use of insulin | CPT/HCPCS: 82947; 99212 ==

== ENCOUNTER 2024-10-28 10:19 | Outpatient (AMB) | payer MEDICARE, SELFPAY ==
[2024-10-28 10:35] VITALS: BMI 24.8
--- NOTE | 2024-10-28 10:35 | MHC.OFFVIS ---
Vital Signs 10/28/24 10:35 Height 5 ft 10 in Weight 173 lb BMI 24.8 Intake Visit Reasons: 4 mo f/u Intake Note: Patient presents for follow up MARIAH non compliant Allergies lisinopril Allergy (Severe, Verified 10/28/24 10:37) Angioedema canagliflozin [Invokana] Allergy (Unknown, Verified 10/28/24 10:37) polyuria liraglutide [Victoza] Adverse Reaction (Unknown, Verified 10/28/24 10:37) nausea, constipation Medication List - Last Reconciled 10/28/24 by DAVID David amlodipine 10 mg PO DAILY bisacodyl (Dulcolax (bisacodyl)) 20 mg (4 x 5 mg) PO ONCE 1 day blood sugar diagnostic (Accu-Chek Guide test strips) As directed tests 4 X/day blood-glucose meter (Accu-Chek Guide Glucose Meter) As directed tests 4 X/day blood-glucose sensor (Dexcom G7 Sensor device) As directed change every 10 days blood-glucose,solution specialist,cont (Dexcom G7 Indirect Fire Infantryman) As directed bupropion HCl XL 150 mg PO QAM cholecalciferol (vitamin D3) (Vitamin D3) 50 mcg PO DAILY clotrimazole-betamethasone 1-0.05 % 1 appl topical DAILY cyclobenzaprine 10 mg PO TID PRN diclofenac sodium 75 mg PO BID fluoxetine 60 mg PO DAILY insulin aspart (niacinamide) 100 unit/mL 2 clicks subcutaneous with meals. Up to 76 units via V Go subcut daily; 30 days lancets 4x daily lancets (Accu-Chek Softclix Lancets) As directed-tests 4X/day lancets (Accu-Chek Fastclix Lancet Drum) TEST FOUR TIMES A DAY DIRECTED lidocaine 5% 1 patch topical DAILY metformin ER 500 mg PO BEDTIME metoprolol succinate ER 25 mg PO DAILY mirtazapine 7.5 mg PO BEDTIME nystatin-triamcinolone 100,000-0.1 unit/g-% 1 appl topical DAILY polyethylene glycol 3350 (Miralax) 17 grams PO DAILY 1 day quetiapine 25 mg PO BEDTIME sub-q insulin device, 20 unit (V-GO 20 device) ONE DAILY tadalafil 20 mg PO DAILY PRN tamsulosin 0.4 mg PO DAILY 90 days thiamine mononitrate (vit B1) 100 mg PO DAILY tirzepatide 2.5 mg (0.5 mL) subcut QWEEK NS HPI Comments Details: 63-y/o male patient presents for follow up of obstructive sleep apnea. He is accompanied by his . 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 He was evaluated in the ER- head imaging did not reveal any acute or subacute intracranial changes. He states the weakness and speech issues are better, however at times still occur. 07/20/2024, CT/CT angio head neck IMPRESSION:: Unremarkable noncontrast CT head exam. Mild chronic inflammatory process of the sinuses. Unremarkable CTA brain and neck exam. 08/12/2023 home sleep study result was significant for a moderate degree of sleep apnea. The AHI was 18/hr and oxygen franck was 76%, The duration of O2 sat below 88% for 21 min. Pt continues to endorse difficulty initiating sleep and staying sleep, wakes up several times at night, daytime sleepiness. Patient also reports he is prone to forgetfulness. He goes to bed between 18:00 and 21:00. He usually wakes up around 06:00. He uses melatonin right before he goes to bed. He takes 1 cup of coffee daily in the morning, however thereafter his primary drink of choice is diet Pepsi. May occasionally drink a Gatorade. He does not like water or Fraser. He has not been very physically active in the colder weather, but notes he will be more active as the weather warms up. [facility] Medical History Injury of right thumb Lumbar degenerative disc disease Vitamin D deficiency Hypersomnia Snoring Cognitive disorder Tubular adenoma of colon (~2019) BPH loc w urin obs/LUTS Frequency of urination Erectile dysfunction NAFLD (nonalcoholic fatty liver disease) Hepatitis C Hepatitis B Arthritis Alcohol abuse Depression Carpal tunnel syndrome Type 2 diabetes mellitus with diabetic neuropathy, unspecified (~2003) Essential hypertension Overweight (BMI 25.0-29.9) Surgical History History of rhinoplasty History of colonoscopy History of lumbar surgery History of cataract surgery History of excision of mass Family History Father Myocardial infarct Colon cancer Mother Diabetes Social History Household Members: Spouse Household Members Other:: Housing: House Alcohol intake: current Alcohol intake frequency: a few times a month Alcohol type: beer and hard liquor Patient Tobacco Use Status: Never used Tobacco e-Cigarette/Vaping Use: Never Used Substance Use Type: Crack/Cocaine Advance Directives Date on File: 07/20/24 service: Yes Current occupational status: disabled Current occupational exposures/hazards: No Cognitive needs: No Hearing needs: No Vision needs: No Physical Exam Vital Signs: BMI result Body Mass Index 24.8 Const General: no acute distress Orientation/consciousness: patient oriented x3 Resp Effort & Inspection: normal respiratory effort and able to speak in complete sentences Neuro Other: Right eye brow rests higher than left Right lower facial weakness General: patient oriented x3 Psych Mental Status: mental status grossly normal Speech and movement: Clear speech present Attitude: cooperative Assessment & Plan Assessment & Plan (1) MARIAH (obstructive sleep apnea): Comment: A moderate degree of sleep apnea. The AHI was 18/hr and oxygen franck was 76%. Code(s): G47.33 - Obstructive sleep apnea (adult) (pediatric) Category: Medical Plan For MARIAH and sleep difficulties: Discussed that untreated obstructive sleep apnea is often associated with daytime sleepiness, sleep maintenance difficulties, and cognitive difficulties. Patient has not tolerated PAP therapy. We will request ENT consult to assess if patient is a candidate for alternate MARIAH treatment modalities. Advise to take melatonin Q evening around 18:00-to optimize effectiveness. Discussed strategies to optimize sleep hygiene, including avoiding all caffeine 6-8 hours prior to bedtime, not going to bed until approximately 22:00 as he traditionally wakes up around 06:00, and increasing physical activity to 30-45 minutes daily. For right-sided Schmidt's palsy: Patient encouraged to do facial exercises to optimize facial weakness recovery. Reviewed red flag stroke symptoms, which would warrant immediate medical attention. Will follow-up upon review of above and patient to follow-up in clinic in 6 months or sooner prn. Orders: Referrals Ear/Nose/Throat Referral G47.33 - Obstructive sleep apnea (adult) (pediatric) Medications: Discontinued valacyclovir Discontinued Reason: Patient Completed Course 1,000 mg PO Q8H 7 days 21 tabs 0RF B02.9 - Zoster without complications Coding Level of Care Code Est Pt Level 4 (53618) Diagnoses MARIAH (obstructive sleep apnea) G47.33
--- OUTSIDE RECORDS SUMMARY | 2024-10-28 12:11 | XMS_ITS | Encounter Summary ---
Author Organization [facility] Address [address] [place] [address] Care Team Providers Care Creative Lead Name Role Phone Aron Son MD Unavailable Unavailable Félix Garvey PA-C Primary Care Provider [phone] Encounter Details Date Type Department Care Team Description 05/10/2023 Telephone Gastroenterology - [place] [address] [facility] [address] [place] [address] Mario Block PA-C [address] [address] Social History Tobacco Use Types Packs/Day Years [...] on filedocumented in this encounter Care Teams Creative Lead Relationship Specialty Start Date End Date Félix Garvey PA-C [address] [place] [address] PCP - General Internal Medicine 06/06/22 Aron Son MD Specialist Cardiovascular Disease 06/06/22 documented as of this encounter
--- OUTSIDE RECORDS SUMMARY | 2024-10-28 12:11 | XMS_ITS | Encounter Summary ---
Author Organization [facility] Address [address] [place] [address] Care Team Providers Care Utility Person Name Role Phone Vincenzo Green MD Primary Care Provider [phone] Félix Garvey PA-C Primary Care Provider [phone] Rod Machuca MD Primary Care Provider Aron Son MD Unavailable Unavailable Félix Garvey PA-C Primary Care Provider [phone] Encounter Details Date Type Department Care Team Description 09/19/2020 Old Medical Records Medical Records [address] [place] [address] Abstract, Provider Social History Tobacco Use Types [...] on filedocumented in this encounter Care Teams Utility Person Relationship Specialty Start Date End Date Vincenzo Green MD [address] [place] [id number] PCP - General Internal Medicine 08/03/15 09/26/20 Félix Garvey PA-C [address] [place] [address] PCP - General Internal Medicine 09/27/20 05/09/22 Rod Machuca MD [address] [place] [address] PCP - General Lung Cancer Craft Demonstrator 05/10/22 06/05/22 Félix Garvey PA-C [address] [place] [address] PCP - General Internal Medicine 06/06/22 Aron Son MD [address] [place] [address] Specialist Cardiovascular Disease 06/06/22 documented as of this encounter
--- OUTSIDE RECORDS SUMMARY | 2024-10-28 12:11 | XMS_ITS | Clinical Summary ---
Author Organization [address] [place] [address] Address [address] [place] [address] Phone Care Team Providers Care Potato Picker Name Role Phone Hector Epps MD Primary [...] see if this helps. Ascending aortic aneurysm ([facility] V24) 05/06/20 Overview (04/15/2024): 4.5cm Last Assessment & Plan: [...] continue with low blood pressure Aneurysmal dilatation (CMS/HCC V24) 04/25/2022 Overview (04/15/2024): Ascending aorta, 4.5 cm [...] work-up for this is required. Diabetic retinopathy (CMS/HCC V24, [facility]/HCC V28) 06/06/2021 Diabetes mellitus with kidne y complication (CMS/HCC V24, [facility]/HCC V28) 12/21/2020 Microalbuminuria 12/21/2020 Erectile dysfunction 10/12/2018 Essential hypertension [...] 11/05/2015 Overview (04/15/2024): recurrent Chronic hepatitis C (CMS/HCC V24, CMS/HCC V28) 0 11/05/2015 Overview (04/15/2024): Genotype 1a Tx with antivirals, SVR achieved CTS (carpal tunnel syndrome) 11/05/2015 Overview (04/15/2024): Right, NCV 06/03 Depression 11/05/2015 Diabetes mellitus type 2 wit h neurological manifestations (CMS/HCC V24, CMS/HCC V28) 11/05/2015 DJD (degenerative joint disease) of knee 016 GERD (gastroesophageal reflux disease) 6 Overview (04/15/2024): Last Assessment & Plan: I also discussed the thickening of the esophagus with the patient and his and we will plan on referring him to gastroenterology for further work-up and evaluation. History of substance abuse ([facility] V24, [facility] V28) 09/28/2015 Overview (04/15/2024): Cocaine, marijuana, some heroin Type 2 diabetes mellitus wit h cataract ([facility] V24, [facility] V28) 09/28/2015 Encounters Date Type Department Care Team Description 09/02/2024 Telephone Adult Medicine [address] [address] Christiano Guerrero MD call back 08/25/2024 3:00 PM EST Ancillary Procedure [facility] [address] [place] [address] Aneurysm of ascending aorta without rupture ([facility] V24) from Last 3 Months Immunizations Name Administration [...] HISTORICAL CATARACT REMOVAL NASAL SEPTUM SURGERY PROCEDURE: VA REPAIR NASAL SEPTAL PERFORATIONS COLONOSCOPY 01/2020 PROCEDURE: HISTORICAL COLONOSCOPY; COMMENT: repeat 5 years polyp OTHER SURGICAL HISTORY 09/16/2022 PROCEDURE: UPPER GI ENDOSCOPY, REMOVE LESION; COMMENT: bowman -biopsies taken OTHER SURGICAL HISTORY PROCEDURE: PULMONOLOGY BRONCHOSCOPY; COMMENT: dr. kilgore -bronchoscopy and mediastinoscopy with mediastinal lymph node biopsies Medical History Medical History Date Comments History of substance abuse ( [facility] V24, [facility] V28) 09/28/2015 DX:History of substance abus e (HCC); COMMENT: Cocaine, marijuana, some heroin Chronic hepatitis C ([facility] V24, [facility] V28) 11/05/2015 DX:Chronic hepatitis C (HCC) ; COMMENT: Genotype 1a Depression 11/05/2015 DX:Depression Cervical radiculopathy 11/05/2015 DX:Cervic al radiculopathy; COMMENT: recurrent CTS (carpal tunnel syndrome) 11/05/2015 DX: CTS (carpal tunnel syndrome); COMMENT: Right, NCV 06/03 Diabetes mellitus type 2 wit h neurological manifestations ([facility] V24, [facility] V28) 11/05/2015 DX:Diabetes mellitus type 2 with neurological manifestations ([facility]) GERD (gastroesophageal reflu x disease) 11/05/2015 DX:GERD (gastroesophageal re flux disease) DJD (degenerative joint dise ase) of knee 11/05/2015 DX:DJD (degenerative joint d isease) of knee Type 2 diabetes mellitus wit h cataract ([facility] V[facility], [facility] V28) 09/28/2015 DX:Type 2 diabetes mellitus with cataract ([facility]) Bilateral low back pain with out sciatica [...] EST Aneurysm of ascending aorta without rupture ([facility] V24) DEPRESSION SCREENING Routine 02/17/2024 FALLS RISK ASSESSMENT [...] 54 mL CV PACS Left [facility] [place] 5.9 cm CV PACS Left [facility] Major [place] 5.6 cm CV PACS LA Area Sys [...] Proximal 1.9 cm CV PACS MV Deceleration [place] 2.7 m/s2 CV PACS E Wave Deceleration [...] Details Overall the study quality was adequate. Result [facility] Christiano Guerrero MD CV ECHO PROCEDURES Fin al Result * Urine Albumin Creatinine Ratio (02/17/2024) [facility] Urine Albumin Creatinine Ratio Abstracted Result [facility] HEALTH MAINTENANCE Final Result * Annual BMP Blood Test (02/17/2024) [facility] Annual BMP Blood Test Abstracted Result [facility] HEALTH MAINTENANCE Final Result * Falls Risk Assessment (02/17/2024) [facility] Falls Risk Assessment Abstracted Result [facility] HEALTH MAINTENANCE Final Result * Depression Screening (02/17/2024) [facility] Depression Screening Abstracted Result [facility] HEALTH MAINTENANCE Final Result * (ABNORMAL) Hemoglobin A1c (02/17/2024) [facility] Hemoglobin A1C 7.4(A) <=6.5 % Blood Venous blood specimen / Unknown Result [facility] LAB BLOOD ORDERABLES Zunilda l Result * Lipid panel (02/17/2024) [facility] LDL/HDL Ratio 3 0 - 4 Triglycerides 93 0 - 150 mg/dL Cholesterol 125 0 - 200 mg/dL HDL 48 >=40 mg/dL LDL Cholesterol 59 0 - 100 mg/dL Blood Venous blood specimen / Unknown Result [facility] LAB BLOOD ORDERABLES Zunilda l Result * Diabetes Eye Exam (10/30/2023) [facility] Diabetes: Annual Retina Eye Exam Abstracted Result [facility] HEALTH MAINTENANCE Final Result * Colonoscopy (01/28/2020) [facility] Colonoscopy No interpretation , Abstracted Anatomical Region Laterality Modality Other Historical Provider HEALTH MAINTENANCE Final Result * Hepatitis C Screening (04/01/2016) Pathologist [facility] Hepatitis C Screening Abstracted Historical Provider HEALTH MAINTENANCE Final Result from Last 3 Months or Most Recently Relevant to Health Maintenance Insurance [employer] MEDICARE ADVANTAGE MEDICARE FAMILY HEALTH PLAN MEDICAID - [place] Care Teams Potato Picker Relationship Specialty Start Date End Date Hector Epps MD [address] [place] [address] [address] [place], [place] PCP - General Internal Medicine 09/03/24
--- OUTSIDE RECORDS SUMMARY | 2024-10-28 12:11 | XMS_ITS | Encounter Summary ---
Author Organization [facility] Address [address] [place] [address] Care Team Providers Care Chief Safety Officer Name Role Phone Félix Garvey PA-C Primary Care Provider [phone] Rod Machuca MD Primary Care Provider [phone] Aron Son MD Unavailable Unavailable Félix Garvey PA-C Primary Care Provider [phone] Encounter Details Date Type Department Care Team Description 10/03/2020 Old Medical Records Medical Records [address] [place] [address] Abstract, Provider Social History Tobacco Use Types [...] filedocumented in this encounter Care Teams Chief Safety Officer Relationship Specialty Start Date End Date Félix Garvey PA-C [address] [place] [address] [id number] PCP - General Internal Medicine 09/27/20 05/09/22 Rod Machuca MD [address] [place] [address] PCP - General Lung Cancer Business Analyst Consultant 05/10/22 06/05/22 Félix Garvey PA-C [address] [place] [address] PCP - General Internal Medicine 06/06/22 Aron Son MD [address] [place] [address] Specialist Cardiovascular Disease 06/06/22 documented as of this encounter
--- OUTSIDE RECORDS SUMMARY | 2024-10-28 12:11 | XMS_ITS | Encounter Summary ---
Author Organization [facility] Address [address] [place] [address] Care Team Providers Care Communications Marketing Intern Name Role Phone Aron Son MD Unavailable Unavailable Félix Garvey PA-C Primary Care Provider [phone] Encounter Details Date Type Department Care Team Description 07/10/2023 Acoustical Installer Report Medical Records [address] [place] [address] Tracy Banerjee [address] [place] [address] Social History Tobacco Use Types Packs/Day Years [...] on filedocumented in this encounter Care Teams Communications Marketing Intern Relationship Specialty Start Date End Date Félix Garvey PA-C [address] [place] [address] PCP - General Internal Medicine 06/06/22 Aron Son MD Specialist Cardiovascular Disease 06/06/22 documented as of this encounter
--- OUTSIDE RECORDS SUMMARY | 2024-10-28 12:11 | XMS_ITS | Encounter Summary ---
Author Organization [facility] Address [address] [place] [address] Care Team Providers Care Hat Finishing Materials Preparer Name Role Phone Félix Garvey PA-C Primary Care Provider [phone] Rod Machuca MD Primary Care Provider [phone] Aron Son MD Unavailable Unavailable Félix Garvey PA-C Primary Care Provider [phone] Encounter Details Date Type Department Care Team Description 04/11/2021 Treer Report Medical Records [address] [place] [address] Abstract, Provider Social History Tobacco Use Types [...] on filedocumented in this encounter Care Teams Hat Finishing Materials Preparer Relationship Specialty Start Date End Date Félix Garvey PA-C [address] [place] [address] PCP - General Internal Medicine 09/27/20 05/09/22 Rod Machuca MD [address] [place] [address] [phone] PCP - General Lung Cancer Technical Spec 05/10/22 06/05/22 Félix Garvey PA-C [address] [place] [address] PCP - General Internal Medicine 06/06/22 Aron Son MD [address] [place] [address] Specialist Cardiovascular Disease 06/06/22 documented as of this encounter
--- OUTSIDE RECORDS SUMMARY | 2024-10-28 12:11 | XMS_ITS | Encounter Summary ---
Author Organization [facility] Address [address] [place] [address] Care Team Providers Care Wrapper Counter Name Role Phone Vincenzo Green MD Primary Care Provider [phone] Félix Garvey PA-C Primary Care Provider [phone] Rod Machuca MD Primary Care Provider [phone] Aron Son MD Unavailable Unavailable Félix Garvey PA-C Primary Care Provider [phone] Encounter Details Date Type Department Care Team Description 10/15/2016 Installment Agent Report Medical Records [address] [place] [address] Zack Powers Social History Tobacco Use Types [...] on filedocumented in this encounter Care Teams Wrapper Counter Relationship Specialty Start Date End Date Vincenzo Green MD [address] [place] [address] [phone] PCP - General Internal Medicine 08/03/15 09/26/20 Félix Garvey PA-C [address] [place] [address] [phone] PCP - General Internal Medicine 09/27/20 05/09/22 Rod Machuca MD [address] [place] [address] PCP - General Lung Cancer Program Manager Slp 05/10/22 06/05/22 Félix Garvey PA-C [address] [place] [address] PCP - General Internal Medicine 06/06/22 Aron Son MD [address] [place] [address] Specialist Cardiovascular Disease 06/06/22 documented as of this encounter
--- OUTSIDE RECORDS SUMMARY | 2024-10-28 12:11 | XMS_ITS | Encounter Summary ---
Author Organization [facility] Address [address] [place] [address] Care Team Providers Care School Administrator Name Role Phone Félix Garvey PA-C Primary Care Provider [phone] Rod Machuca MD Primary Care Provider [phone] Aron Son MD Unavailable Unavailable Félix Garvey PA-C Primary Care Provider [phone] Encounter Details Date Type Department Care Team Description 04/12/2021 Homeland Security Program Specialist Report Medical Records [address] [place] [address] Ely Kirby Social History Tobacco Use Types [...] on filedocumented in this encounter Care Teams School Administrator Relationship Specialty Start Date End Date Félix Garvey PA-C [address] [place], [place] [phone] PCP - General Internal Medicine 09/27/20 05/09/22 Rod Machuca MD [address] [place], [place] [phone] PCP - General Lung Cancer Pluck Separator 05/10/22 06/05/22 Félix Garvey PA-C [address] [place] [address] PCP - General Internal Medicine 06/06/22 Aron Son MD [address] [place] [address] Specialist Cardiovascular Disease 06/06/22 documented as of this encounter
--- OUTSIDE RECORDS SUMMARY | 2024-10-28 12:11 | XMS_ITS | Encounter Summary ---
Author Organization [facility] [employer] [facility] Address [address] [place] [address] Care Team Providers Care Director Erp Name Role Phone Aron Son MD Unavailable Unavailable Félix Garvey PA-C Primary Care Provider [phone] Encounter Details Date Type Department Care Team Description 03/20/2023 Oracle Erp Developer Report Medical Records [address] [place], [place] [id number] [place] [address] Social History Tobacco Use Types Packs/Day Years [...] filedocumented in this encounter Care Teams Director Erp Relationship Specialty Start Date End Date Félix Garvey PA-C [address] [place], [place] [phone] PCP - General Internal Medicine 06/06/22 Aron Son MD Specialist Cardiovascular Disease 06/06/22 documented as of this encounter
--- OUTSIDE RECORDS SUMMARY | 2024-10-28 12:11 | XMS_ITS | Encounter Summary ---
Author Organization [facility] Address [address] [place] [address] Care Team Providers Care Junior Programmer Name Role Phone Aron Son MD Unavailable Unavailable Félix Garvey PA-C Primary Care Provider [phone] Reason for Visit * Reason Onset Date Comments Provider Call Back 02/03/2023 Encounter Details Date Type Department Care Team Description 02/03/2023 Telephone Gastroenterology - [place] [address] [phone] Mario Block PA-C [address] [address] Provider Call Back Social History Tobacco Use Types Packs/Day Years [...] encounter Miscellaneous Notes * Telephone Encounter - Kavitha Patton - 02/11/2023 4:09 PM EDT Left a vm for the patient to call our office back. * Telephone Encounter - Mario Block PA-C - 02/07/2023 2:39 PM EDT Patient is having bright red blood with stooling and we we will order labs. Patient should also be scheduled for colonoscopy and asked him if he is okay with having that done. * Telephone Encounter - Kavitha Patton - 02/07/2023 10:00 AM EDT Patient states he went to the lab but no labs were there. Please order, thanks. * Telephone Encounter - Mario Block PA-C - 02/04/2023 5:17 PM EDT Patient is calling the office reporting issues of bright red blood with stools. It does not appear that he has had a colonoscopy. We need to do labs to see how his anemia is and he should also shouldbe scheduled for a colonoscopy as well * Telephone Encounter - Peg Amezquita - 02/03/2023 4:39 PM EDT Patient calling, having bright red blood with stools, requesting call back. Please advise. documented in this encounter Plan of Treatment Not on file documented as of this encounter Results * IRON/TIBC (05/08/2023 2:16 PM EDT) IRON (FE) 95 50 - 160 ug/dL 05/08/2023 4:54 PM EDT [facility] [employer] TOTAL IRON BINDING CAPACITY 273 250 - 450 ug/dL 05/08/2023 5:01 PM EDT [facility] [employer] % FE SATURATION 35 20 - 50 % 5:01 PM EDT [facility] [employer] 05/08/2023 2:16 PM EDT 05/08/2023 2:16 PM EDT Narrative [facility] - 05/08/2023 5:01 PM EDT Release to patient->Immediate Mario Davidgerard LEE-C LAB [facility] * CHG ASSAY OF FERRITIN (05/08/2023 2:16 PM EDT) FERRITIN 197 26 - 388 ng/mL 05/08/2023 5:01 PM EDT [facility] 05/08/2023 2:16 PM EDT 05/08/2023 2:16 PM EDT Narrative [facility] - 05/08/2023 5:01 PM EDT Release to patient->Immediate Mario Davidgerard LEE-C LAB Performing Organization Address [facility]/ZIP Co de Phone Number [facility] * (ABNORMAL) CHG COMPREHENSIVE METABOLIC PANEL (05/08/2023 2:16 PM EDT) GLUCOSE 69(L) 70 - 100 mg/dL 05/08/2023 4:54 PM EDT [facility] Comment:Reference range appl icable to fasting specimens only Blood Urea Nitrogen 24 5 - 25 mg/dL 05/08/2023 4:54 PM EDT [facility] [employer] CREAT 1.07 0.7 - 1.3 mg/dL 05/08/2023 4:54 PM EDT [facility] GLOMERULAR FILTRATION RATE 77 >60 05/08/2023 4:54 PM EDT [facility] [employer] Comment: This eGFR result was calculated using the CKD-EPI 2020 Creatinine Equation NA 141 135 - 145 mEq/L 05/08/2023 4:54 PM EDT [facility] K 4.3 3.5 - 5.5 mmol/L 05/08/2023 4:54 PM EDT [facility] CL 108 96 - 110 mmol/L 05/08/2023 4:54 PM EDT [facility] CARBON DIOXIDE (CO2) 28 21 - 32 mmol/L 05/08/2023 4:54 PM EDT [facility] ANION GAP 5 3 - 11 05/08/2023 4:54 PM EDT [facility] CALCIUM 9.6 8.5 - 10.5 mg/dL 05/08/2023 4:54 PM EDT [facility] TOTAL PROTEIN (TP) 7.3 6.0 - 8.0 G/dL 05/08/2023 4:54 PM EDT [facility] Albumin 4.2 3.2 - 5.0 G/dL 05/08/2023 4:54 PM EDT [facility] SGOT 29 10 - 42 U/L 05/08/2023 4:54 PM EDT [facility] SGPT 23 10 - 60 U/L 05/08/2023 4:54 PM EDT [facility] BILIRUBIN TOTAL 0.6 0.0 - 1.4 mg/dL 05/08/2023 5:01 PM EDT [facility] ALK PHOS 74 42 - 121 U/L 05/08/2023 5:01 PM EDT [facility] 05/08/2023 2:1 6 PM EDT 05/08/2023 2:16 PM EDT Narrative [facility] - 05/08/2023 5:01 PM EDT Release to patient->Immediate Mario Block PA-C LAB [facility] * (ABNORMAL) CHG BLOOD COUNT COMPLETE AUTO&AUTO DIFRNTL WBC (05/08/2023 2:16 PM EDT) WHITE BLOOD COUNT 7.8 4.8 - 10.8 x10-3/uL 05/08/2023 4:40 PM EDT [facility] RED BLOOD COUNT 4.2(L) 4.5 - 5.5 x10-6/uL 05/08/2023 4:40 PM EDT [facility] Hemoglobin 13.0(L) 13.5 - 17.5 g/dL 05/08/2023 4:40 PM EDT [facility] Hematocrit 38.4(L) 42 - 54 % 05/08/2023 4:40 PM EDT [facility] MEAN CORPUSCULAR VOLUME 91.2 79 - 98 fL 05/08/2023 4:40 PM EDT [facility] [employer]PUS[employer]ULAR HEMOGLOBIN 30.9 27 - 32 pg 05/08/2023 4:40 PM EDT [facility] MEAN CORPUSCULAR HGB CONC 33.9 32 - 37 g/dL 05/08/2023 4:40 PM EDT [facility] RED CELL DISTRIBUTION WIDTH 13.0 11 - 15 % 05/08/2023 4:40 PM EDT [facility] [employer] PLT COUNT 182 130 - 400 x10-3/uL 05/08/2023 4:40 PM EDT [facility] MEAN PLATELET VOLUME 9.9 7 - 11 fL 05/08/2023 4:40 PM EDT [facility] NRBC % AUTO 0.0 <1 % 05/08/2023 4:40 PM EDT [facility] NEUTROPHILS % 79.9 % 05/08/2023 4:40 PM EDT [facility] LYMPH % 12.6 % 05/08/2023 4:40 PM EDT [facility] MONO % 6.3 % 05/08/2023 4:40 PM EDT [facility] EOS % 0.8 % 05/08/2023 4:40 PM EDT [facility] [employer] BASO % 0.1 % 05/08/2023 4:40 PM EDT [facility] IMMATURE GRANULOCYTES % 0.3 % 05/08/2023 4:40 PM EDT [facility] NRBC # AUTO 0.00 <0.1 x10-3/uL 05/08/2023 4:40 PM EDT [facility] NEUT # 6.19 1.5 - 7.0 x10-3/uL 05/08/2023 4:40 PM EDT [facility] LYMPH # 0.98(L) 1 - 5.0 x10-3/uL 05/08/2023 4:40 PM EDT [facility] [employer] MONO # 0.49 0.2 - 1.0 x10-3/uL 05/08/2023 4:40 PM EDT [facility] [employer] EOS # 0.06 0 - 0.5 x10-3/uL 05/08/2023 4:40 PM EDT [facility] BASO # 0.01 0 - 0.2 x10-3/uL 05/08/2023 4:40 PM EDT [facility] IMMATURE GRANULOCYTES # 0.02 0 - 0.03 x10-3/uL 05/08/2023 4:40 PM EDT [facility] 05/08/2023 2:16 PM EDT 05/08/2023 2:16 PM EDT Narrative [facility] - 05/08/2023 4:40 PM EDT Release to patient->Immediate Mario Block PA-C LAB [facility] documented in this encounter Visit Diagnoses Diagnosis Rectal bleeding- Primary Hemorrhage of rectum and anus Rectal bleeding Hemorrhage of rectum and anus Diabetes mellitus type 2 with neurological manifestations (HCC) Type II or unspecified type diabetes mellitus with neurological manifestations, not stated as uncontrolled documented in this encounter Care Teams Junior Programmer Relationship Specialty Start Date End Date Félix Garvey PA-C [address] [place] [address] PCP - General Internal Medicine 06/06/22 Aron Son MD Specialist Cardiovascular Disease 06/06/22 documented as of this encounter
--- OUTSIDE RECORDS SUMMARY | 2024-10-28 12:11 | XMS_ITS | Encounter Summary ---
Author Organization [facility] Address [address] [place] [address] Care Team Providers Care Scrap Wheeler Name Role Phone Aron Son MD Unavailable Unavailable Félix Garvey PA-C Primary Care Provider [phone] Encounter Details Date Type Department Care Team Description 04/01/2023 Construction Rep Report [facility] Thoracic Surgery [place] [address] [facility] [address] [place] [phone] Rod Machuca MD [address] [address] Social History Tobacco Use Types Packs/Day Years [...] on filedocumented in this encounter Care Teams Scrap Wheeler Relationship Specialty Start Date End Date Félix Garvey PA-C [address] [place] [address] PCP - General Internal Medicine 06/06/22 Aron Son MD Specialist Cardiovascular Disease 06/06/22 documented as of this encounter
--- OUTSIDE RECORDS SUMMARY | 2024-10-28 12:11 | XMS_ITS | Encounter Summary ---
Author Organization [facility] [employer] [facility] Address [address] [place] [address] Care Team Providers Care Ore Tester Name Role Phone Aron Son MD Unavailable Unavailable Félix Garvey PA-C Primary Care Provider [phone] Encounter Details Date Type Department Care Team Description 03/12/2023 Educational Psychology Teacher Report Medical Records [address] [place], [place] [phone] [place] [address] Social History Tobacco Use Types Packs/Day Years [...] on filedocumented in this encounter Care Teams Ore Tester Relationship Specialty Start Date End Date Félix Garvey PA-C [address] [place], [place] [phone] PCP - General Internal Medicine 06/06/22 Aron Son MD Specialist Cardiovascular Disease 06/06/22 documented as of this encounter
--- OUTSIDE RECORDS SUMMARY | 2024-10-28 12:11 | XMS_ITS | Encounter Summary ---
Author Organization [facility] [employer] [facility] Address [address] [place] [address] Care Team Providers Care Package Dyeing Machine Operator Name Role Phone Aron Son MD Unavailable Unavailable Félix Garvey PA-C Primary Care Provider [phone] Encounter Details Date Type Department Care Team Description 05/14/2023 Transfer Records Medical Records [address] [place] [address] [place] Social History Tobacco Use Types [...] on filedocumented in this encounter Care Teams Package Dyeing Machine Operator Relationship Specialty Start Date End Date Félix Garvey PA-C [address] [place], [place] [phone] PCP - General Internal Medicine 06/06/22 Aron Son MD Specialist Cardiovascular Disease 06/06/22 documented as of this encounter
--- OUTSIDE RECORDS SUMMARY | 2024-10-28 12:11 | XMS_ITS | Encounter Summary ---
Author Organization [facility] Address [address] [place] [address] Care Team Providers Care Gum Scoring Machine Operator Name Role Phone Vincenzo Green MD Primary Care Provider [phone] Félix Garvey PA-C Primary Care Provider + [phone] Rod Machuca MD Primary Care Provider [phone] Aron Son MD Unavailable Unavailable Félix Garvey PA-C Primary Care Provider [phone] Encounter Details Date Type Department Care Team Description 08/10/2020 Land Leasing Examiner Report Medical Records [address] [place] [address] Ely Kirby Social History Tobacco Use Types [...] on filedocumented in this encounter Care Teams Gum Scoring Machine Operator Relationship Specialty Start Date End Date Vincenzo Green MD [address] [place] [address] [phone] PCP - General Internal Medicine 08/03/15 09/26/20 Félix Garvey PA-C [address] [place] [address] [phone] PCP - General Internal Medicine 09/27/20 05/09/22 Rod Machuca MD [address] [place] [address] PCP - General Lung Cancer Tear Down Matcher 05/10/22 06/05/22 Félix Garvey PA-C [address] [place] [address] PCP - General Internal Medicine 06/06/22 Aron Son MD [address] [place] [address] Specialist Cardiovascular Disease 06/06/22 documented as of this encounter
--- OUTSIDE RECORDS SUMMARY | 2024-10-28 12:11 | XMS_ITS | Encounter Summary ---
Author Organization [facility] Address [address] [place] [address] Care Team Providers Care Coil Spring Assembler Name Role Phone Vincenzo Green MD Primary Care Provider [phone] Félix Garvey PA-C Primary Care Provider + [phone] Rod Machuca MD Primary Care Provider [phone] Aron Son MD Unavailable Unavailable Félix Garvey PA-C Primary Care Provider + [phone] Reason for Visit * Reason Comments E-prescribe Rx Request Encounter Details Date Type Department Care Team Description 07/04/2016 Refill Adult Medicine [address] [phone] Vincenzo Green MD [address] [place] [address] [phone] E-prescribe Rx Request Social History Tobacco Use [...] an upcoming appointment? No-unable to reach left [facility] to call for appointment due to [...] / Plan: [place] / Product Type: MEDICARE [id number] documented in this encounter Plan of Treatment Not on file documented as of this encounter Visit Diagnoses Not on filedocumented in this encounter Care Teams Coil Spring Assembler Relationship Specialty Start Date End Date Vincenzo Green MD [address] [place] [address] PCP - General Internal Medicine 08/03/15 09/26/20 Félix Garvey PA-C [address] [place] [address] PCP - General Internal Medicine 09/27/20 05/09/22 Rod Machuca MD [address] [place] [address] PCP - General Lung Cancer College Intern 05/10/22 06/05/22 Félix Garvey PA-C [address] [place] [address] PCP - General Internal Medicine 06/06/22 Aron Son MD [address] [place] [address] Specialist Cardiovascular Disease 06/06/22 documented as of this encounter
--- OUTSIDE RECORDS SUMMARY | 2024-10-28 12:11 | XMS_ITS | Encounter Summary ---
Author Organization [facility] [employer] [facility] Address [address] [place] [address] Care Team Providers Care Music Internship Name Role Phone Aron Son MD Unavailable Unavailable Félix Garvey PA-C Primary Care Provider [phone] Encounter Details Date Type Department Care Team Description 03/25/2023 General Agent Report Medical Records [address] [place] [address] Mario Alberto Carter MD Social History Tobacco [...] filedocumented in this encounter Care Teams Music Internship Relationship Specialty Start Date End Date Félix Garvey PA-C [address] [place] [address] [phone] PCP - General Internal Medicine 06/06/22 Aron Son MD Specialist Cardiovascular Disease 06/06/22 documented as of this encounter
--- OUTSIDE RECORDS SUMMARY | 2024-10-28 12:11 | XMS_ITS | Encounter Summary ---
Author Organization [facility] Address [address] [place] [address] Care Team Providers Care Dental Technician Metal Name Role Phone Aron Son MD Unavailable Unavailable Félix Garvey PA-C Primary Care Provider [phone] Encounter Details Date Type Department Care Team Description 01/09/2023 Director Of Emergency Nursing Report Medical Records [address] [place] [address] Jake Prakash PA-C Social History Tobacco Use [...] on filedocumented in this encounter Care Teams Dental Technician Metal Relationship Specialty Start Date End Date Félix Garvey PA-C [address] [place], [place] [phone] PCP - General Internal Medicine 06/06/22 Aron Son MD Specialist Cardiovascular Disease 06/06/22 documented as of this encounter
--- OUTSIDE RECORDS SUMMARY | 2024-10-28 12:12 | XMS_ITS | Encounter Summary ---
Author Organization [facility] [employer] [facility] Address [address] [place] [address] Care Team Providers Care Quality Assurance Monitor Final Name Role Phone Aron Son MD Unavailable Unavailable Félix Garvey PA-C Primary Care Provider [phone] Encounter Details Date Type Department Care Team Description 09/16/2022 Hospital Medical Records [address] [place] [address] Juan Interiano MD [address] [place] [address] [address] [place] [address] Social History Tobacco Use Types Packs/Day Years [...] on filedocumented in this encounter Care Teams Quality Assurance Monitor Final Relationship Specialty Start Date End Date Félix Garvey PA-C [address] [place] [address] PCP - General Internal Medicine 06/06/22 Aron Son MD Specialist Cardiovascular Disease 06/06/22 documented as of this encounter
--- OUTSIDE RECORDS SUMMARY | 2024-10-28 12:12 | XMS_ITS | Encounter Summary ---
Author Organization [facility] Address [address] [place] [address] Care Team Providers Care Pharmacy Technician Program Director Name Role Phone Vincenzo Green MD Primary Care Provider [phone] Félix Garvey PA-C Primary Care Provider [phone] Rod Machuca MD Primary Care Provider [phone] Aron Son MD Unavailable Unavailable Félix Garvey PA-C Primary Care Provider [phone] Encounter Details Date Type Department Care Team Description 06/16/2019 Fishing Rod Mechanic Report Medical Records [address] [place] [address] Erick Diane Social History Tobacco Use Types [...] on filedocumented in this encounter Care Teams Pharmacy Technician Program Director Relationship Specialty Start Date End Date Vincenzo Green MD [address] [place] [address] [phone] PCP - General Internal Medicine 08/03/15 09/26/20 Félix Garvey PA-C [address] [place] [address] [phone] PCP - General Internal Medicine 09/27/20 05/09/22 Rod Machuca MD [address] [place] [address] PCP - General Lung Cancer Maternal Child Nurse 05/10/22 06/05/22 Félix Garvey PA-C [address] [place] [address] PCP - General Internal Medicine 06/06/22 Aron Son MD [address] [place] [address] Specialist Cardiovascular Disease 06/06/22 documented as of this encounter
--- OUTSIDE RECORDS SUMMARY | 2024-10-28 12:12 | XMS_ITS | Encounter Summary ---
Author Organization [employer] Address [address] [facility] 7t [place] [address] Care Team Providers Care Fire Control Officer Name Role Phone Unavailable Primary Care Provider Unavailabl e Reason for Visit * Reason Onset Date Comments Appointment 03/13/2023 Encounter Details Date Type Department Care Team ([facility] st Contact Info) Description 03/13/2023 Telephone C ADULT DENTAL [address] [place], [place] [phone] Dinah Mckinley DDS [address] [place], [place] [phone] Appointment Social History Tobacco Use Types Packs/Day [...] did offer the patient an appt in [place] with the understanding that he would become a [place] patient but he is unwilling to go to [facility]. He wants to know why hes being told that he needs to come in and then listed. Tried my best to explain. Would like his appt or phone call. documented in this encounter Plan of Treatment Upcoming Encounters Date Type Department Care Team (Late st Contact Info) Description 10/29/2024 2:30 PM EDT Office Visit [facility] ADULT DENTAL [address] [place] [address] Spencer Rao DDS [address] [place], [place] [phone] 03/16/2025 3:00 PM EDT Office Visit [facility] ADULT DENTAL [address] [place] [address] Amalia Urrutia documented as of this encounter Visit Diagnoses Not on filedocumented in this encounter
--- OUTSIDE RECORDS SUMMARY | 2024-10-28 12:12 | XMS_ITS | Encounter Summary ---
Author Organization [employer] [facility] Address [address] [facility] 7t [place] [address] Care Team Providers Care Histology Technician Name Role Phone Unavailable Primary Care Provider Unavailabl e Encounter Details Date Type Department Care Team (Late st Contact Info) Description 07/30/2024 Telephone [facility] ADULT DENTAL [address] [place] [address] Spencer Rao DDS [address] [place] [address] Social History Tobacco Use Types Packs/Day Years [...] Description 10/29/2024 2:30 PM EDT Office Visit [facility] ADULT DENTAL [address] [place] [address] Spencer Rao DDS [address] [place] [address] 03/16/2025 3:00 PM EDT Office Visit [facility] ADULT DENTAL [address] [place] [address] Amalia Urrutia documented as of this encounter Visit Diagnoses Not on filedocumented in this encounter
--- OUTSIDE RECORDS SUMMARY | 2024-10-28 12:12 | XMS_ITS | Clinical Summary ---
Author Organization [facility] Address [address] [place] [address] Care Team Providers Care Outdoor Recreation Specialist Name Role Phone Aron Son MD Unavailable Unavailable Félix Garvey PA-C Primary Care Provider [phone] Allergies Active Allergy Reactions Severity Noted Date [...] just unsure what to do Educational Resources [employer] (www.diabetes.org) Centers for Disease Control [...] VACCINE Completed 11/21/2023, 12/11/19 16 Care Teams Outdoor Recreation Specialist Relationship Specialty Start Date End Date Félix Garvey PA-C [address] [place] [address] PCP - General Internal Medicine 06/06/22 Aron Son MD Specialist Cardiovascular Disease 06/06/22
--- OUTSIDE RECORDS SUMMARY | 2024-10-28 12:12 | XMS_ITS | Encounter Summary ---
Author Organization [facility] Address [address] [place] [address] Care Team Providers Care Alumni Secretary Name Role Phone Vincenzo Green MD Primary Care Provider [phone] Félix Garvey PA-C Primary Care Provider [phone] Rod Machuca MD Primary Care Provider [phone] Aron Son MD Unavailable Unavailable Félix Garvey PA-C Primary Care Provider [phone] Encounter Details Date Type Department Care Team Description 07/08/2019 Old Medical Records Medical Records [address] [place] [address] Abstract, Provider Social History Tobacco Use Types [...] on filedocumented in this encounter Care Teams Alumni Secretary Relationship Specialty Start Date End Date Vincenzo Green MD [address] [place] [address] [phone] PCP - General Internal Medicine 08/03/15 09/26/20 Félix Garvey PA-C [address] [place] [address] [phone] PCP - General Internal Medicine 09/27/20 05/09/22 Rod Machuca MD [address] [place] [address] PCP - General Lung Cancer Supervisor Lace Tearing 05/10/22 06/05/22 Félix Garvey PA-C [address] [place] [address] PCP - General Internal Medicine 06/06/22 Aron Son MD [address] [place] [address] Specialist Cardiovascular Disease 06/06/22 documented as of this encounter
--- OUTSIDE RECORDS SUMMARY | 2024-10-28 12:12 | XMS_ITS | Encounter Summary ---
Author Organization [facility] Address [address] [place] [address] Care Team Providers Care Refrigeration Mechanic Helper Name Role Phone Vincenzo Green MD Primary Care Provider [phone] Félix Garvey PA-C Primary Care Provider [phone] Rod Machuca MD Primary Care Provider [phone] Aron Son MD Unavailable Unavailable Félix Garvey PA-C Primary Care Provider +[phone] Encounter Details Date Type Department Care Team Description 06/08/2019 Side Laster Report Medical Records [address] [place] [address] [facility] Social History Tobacco Use Types Packs/Day [...] on filedocumented in this encounter Care Teams Refrigeration Mechanic Helper Relationship Specialty Start Date End Date Vincenzo Green MD [address] [place] [address] [phone] PCP - General Internal Medicine 08/03/15 09/26/20 Félix Garvey PA-C [address] [place] [address] [phone] PCP - General Internal Medicine 09/27/20 05/09/22 Rod Machuca MD [address] [place] [address] PCP - General Lung Cancer Community Health Specialist 05/10/22 06/05/22 Félix Garvey PA-C [address] [place] [address] PCP - General Internal Medicine 06/06/22 Aron Son MD [address] [place] [address] Specialist Cardiovascular Disease 06/06/22 documented as of this encounter
--- OUTSIDE RECORDS SUMMARY | 2024-10-28 12:12 | XMS_ITS | Encounter Summary ---
Author Organization [facility] [employer] [facility] Address [address] [place] [address] Care Team Providers Care Registration Specialist Name Role Phone Aron Son MD Unavailable Unavailable Félix Garvey PA-C Primary Care Provider +[phone] Encounter Details Date Type Department Care Team Description 12/19/2022 Magazine Supervisor Report Medical Records [address] [place] [address] Abstract, Provider Social History Tobacco Use Types [...] on filedocumented in this encounter Care Teams Registration Specialist Relationship Specialty Start Date End Date Félix Garvey PA-C [address] [place], [place] [phone] PCP - General Internal Medicine 06/06/22 Aron Son MD Specialist Cardiovascular Disease 06/06/22 documented as of this encounter
--- OUTSIDE RECORDS SUMMARY | 2024-10-28 12:12 | XMS_ITS | Encounter Summary ---
Author Organization [facility] Address [address] [place] [address] Care Team Providers Care Pc Installation Engineer Name Role Phone Félix Garvey PA-C Primary Care Provider [phone] Rod Machuca MD Primary Care Provider [phone] Aron Son MD Unavailable Unavailable Félix Garvey PA-C Primary Care Provider +[phone] Encounter Details Date Type Department Care Team Description 10/24/2021 Cable Installation Technician Report Medical Records [address] [place] [address] Julita Marcial DPM Social History Tobacco Use Types Packs/Day Years [...] on filedocumented in this encounter Care Teams Pc Installation Engineer Relationship Specialty Start Date End Date Félix Garvey PA-C [address] [place], [place] [phone] PCP - General Internal Medicine 09/27/20 05/09/22 Rod Machuca MD [address] [place], [place] [phone] PCP - General Lung Cancer Armature Winder Helper Repair 05/10/22 06/05/22 Félix Garvey PA-C [address] [place] [address] PCP - General Internal Medicine 06/06/22 Aron Son MD [address] [place] [address] Specialist Cardiovascular Disease 06/06/22 documented as of this encounter
--- OUTSIDE RECORDS SUMMARY | 2024-10-28 12:12 | XMS_ITS | Encounter Summary ---
Author Organization [facility] Address [address] [place] [address] Care Team Providers Care Truant Officer Name Role Phone Vincenzo Green MD Primary Care Provider [phone] Félix Garvey PA-C Primary Care Provider [phone] Rod Machuca MD Primary Care Provider [phone] Aron Son MD Unavailable Unavailable Félix Garvey PA-C Primary Care Provider [phone] Encounter Details Date Type Department Care Team Description 09/19/2017 Counterintelligence Agent Report Medical Records [address] [place] [address] Crystal Raines Social History Tobacco Use Types [...] on filedocumented in this encounter Care Teams Truant Officer Relationship Specialty Start Date End Date Vincenzo Green MD [address] [place] [address] [phone] PCP - General Internal Medicine 08/03/15 09/26/20 Félix Garvey PA-C [address] [place] [address] [phone] PCP - General Internal Medicine 09/27/20 05/09/22 Rod Machuca MD [address] [place] [address] PCP - General Lung Cancer Semiconductor Packages Platemaker 05/10/22 06/05/22 Félix Garvey PA-C [address] [place] [address] PCP - General Internal Medicine 06/06/22 Aron Son MD [address] [place] [address] Specialist Cardiovascular Disease 06/06/22 documented as of this encounter
--- OUTSIDE RECORDS SUMMARY | 2024-10-28 12:12 | XMS_ITS | Encounter Summary ---
Author Organization [facility] Address [address] [place] [address] Care Team Providers Care Fieldwork Coordinator Name Role Phone Félix Garvey PA-C Primary Care Provider [phone] Rod Machuca MD Primary Care Provider Aron Son MD Unavailable Unavailable Félix Garvey PA-C Primary Care Provider +[phone] Encounter Details Date Type Department Care Team Description 01/08/2021 Industrial Specialist Report Medical Records [address] [place] [address] Crystal Raines Social History Tobacco Use Types [...] on filedocumented in this encounter Care Teams Fieldwork Coordinator Relationship Specialty Start Date End Date Félix Garvey PA-C [address] [place] [address] [phone] PCP - General Internal Medicine 09/27/20 05/09/22 Rod Machuca MD [address] [place] [address] PCP - General Lung Cancer Manager Drilling 05/10/22 06/05/22 Félix Garvey PA-C [address] [place] [address] PCP - General Internal Medicine 06/06/22 Aron Son MD [address] [place] [address] Specialist Cardiovascular Disease 06/06/22 documented as of this encounter
--- OUTSIDE RECORDS SUMMARY | 2024-10-28 12:12 | XMS_ITS | Encounter Summary ---
Author Organization [facility] [employer] [facility] Address [address] [place] [address] Care Team Providers Care Pump And Still Operator Name Role Phone Aron Son MD Unavailable Unavailable Félix Garvey PA-C Primary Care Provider +[phone] Encounter Details Date Type Department Care Team Description 09/29/2023 Water Treatment Plant Mechanic Report Medical Records [address] [place] [address] Jacklyn Chow NP Social History Tobacco Use [...] on filedocumented in this encounter Care Teams Pump And Still Operator Relationship Specialty Start Date End Date Félix Garvey PA-C [address] [place] [address] [phone] PCP - General Internal Medicine 06/06/22 Aron Son MD Specialist Cardiovascular Disease 06/06/22 documented as of this encounter
--- OUTSIDE RECORDS SUMMARY | 2024-10-28 12:12 | XMS_ITS | Encounter Summary ---
Author Organization [facility] Address [address] [place] [address] Care Team Providers Care Gas Worker Name Role Phone Vincenzo Green MD Primary Care Provider [phone] Félix Garvey PA-C Primary Care Provider + [phone] Rod Machuca MD Primary Care Provider [phone] Aron Son MD Unavailable Unavailable Félix Garvey PA-C Primary Care Provider [phone] Encounter Details Date Type Department Care Team Description 10/26/2017 Canary Raiser Report Medical Records [address] [place] [address] Abstract, Provider Social History Tobacco Use Types [...] on filedocumented in this encounter Care Teams Gas Worker Relationship Specialty Start Date End Date Vincenzo Green MD [address] [place] [address] [phone] PCP - General Internal Medicine 08/03/15 09/26/20 Félix Garvey PA-C [address] [place] [address] [phone] PCP - General Internal Medicine 09/27/20 05/09/22 Rod Machuca MD [address] [place] [address] PCP - General Lung Cancer Owner Consulting Engineer 05/10/22 06/05/22 Félix Garvey PA-C [address] [place] [address] PCP - General Internal Medicine 06/06/22 Aron Son MD [address] [place] [address] Specialist Cardiovascular Disease 06/06/22 documented as of this encounter
--- OUTSIDE RECORDS SUMMARY | 2024-10-28 12:12 | XMS_ITS | Encounter Summary ---
Author Organization [facility] Address [address] [place] [address] Care Team Providers Care Motor Scooter Repairer Name Role Phone Vincenzo Green MD Primary Care Provider [phone] Félix Garvey PA-C Primary Care Provider [phone] Rod Machuca MD Primary Care Provider [phone] Aron Son MD Unavailable Unavailable Félix Garvey PA-C Primary Care Provider [phone] Encounter Details Date Type Department Care Team Description 12/13/2015 Business Doc Medical Records [address] [place] [address] Abstract, Provider Social History Tobacco Use Types [...] on filedocumented in this encounter Care Teams Motor Scooter Repairer Relationship Specialty Start Date End Date Vincenzo Green MD [address] [place] [address] [phone] PCP - General Internal Medicine 08/03/15 09/26/20 Félix Garvey PA-C [address] [place] [address] [phone] PCP - General Internal Medicine 09/27/20 05/09/22 Rod Machuca MD [address] [place] [address] PCP - General Lung Cancer Fur Matcher 05/10/22 06/05/22 Félix Garvey PA-C [address] [place] [address] PCP - General Internal Medicine 06/06/22 Aron Son MD [address] [place] [address] Specialist Cardiovascular Disease 06/06/22 documented as of this encounter
--- OUTSIDE RECORDS SUMMARY | 2024-10-28 12:12 | XMS_ITS | Encounter Summary ---
Author Organization [employer] [facility] Address [address] [place] [address] Care Team Providers Care Chief Quality Officer Name Role Phone Aron Son MD Unavailable Unavailable Félix Garvey PA-C Primary Care Provider +[phone] Encounter Details Date Type Department Care Team Description 10/03/2022 Care Team Assistant Report Medical Records [address] [place] [address] Mario Alberto Carter MD Social History Tobacco [...] filedocumented in this encounter Care Teams Chief Quality Officer Relationship Specialty Start Date End Date Félix Garvey PA-C [address] [place], [place] [phone] PCP - General Internal Medicine 06/06/22 Aron Son MD Specialist Cardiovascular Disease 06/06/22 documented as of this encounter
--- OUTSIDE RECORDS SUMMARY | 2024-10-28 12:12 | XMS_ITS | Encounter Summary ---
Author Organization [facility] Address [address] [place] [address] Care Team Providers Care Administration Internship Name Role Phone Vincenzo Green MD Primary Care Provider [phone] Félix Garvey PA-C Primary Care Provider +[phone] Rod Machuca MD Primary Care Provider [phone] Aron Son MD Unavailable Unavailable Félix Garvey PA-C Primary Care Provider [phone] Encounter Details Date Type Department Care Team Description 11/06/2015 Release of Information Medical Records [address] [place] [address] Abstract, Provider Social History Tobacco Use Types [...] on filedocumented in this encounter Care Teams Administration Internship Relationship Specialty Start Date End Date Vincenzo Green MD [address] [place] [address] [phone] PCP - General Internal Medicine 08/03/15 09/26/20 Félix Garvey PA-C [address] [place] [address] [phone] PCP - General Internal Medicine 09/27/20 05/09/22 Rod Machuca MD [address] [place] [address] PCP - General Lung Cancer Forming Roll Operator 05/10/22 06/05/22 Félix Garvey PA-C [address] [place] [address] PCP - General Internal Medicine 06/06/22 Aron Son MD [address] [place] [address] Specialist Cardiovascular Disease 06/06/22 documented as of this encounter
--- OUTSIDE RECORDS SUMMARY | 2024-10-28 12:12 | XMS_ITS | Encounter Summary ---
Author Organization [facility] Address [address] [place] [address] Care Team Providers Care Coach Name Role Phone Vincenzo Green MD Primary Care Provider [phone] Félix Garvey PA-C Primary Care Provider [phone] Rod Machuca MD Primary Care Provider [phone] Aron Son MD Unavailable Unavailable Félix Garvey PA-C Primary Care Provider [phone] Encounter Details Date Type Department Care Team Description 01/11/2019 Rural Service Engineer Report Medical Records [address] [place] [address] Crystal Raines Social History Tobacco Use Types [...] on filedocumented in this encounter Care Teams Coach Relationship Specialty Start Date End Date Vincenzo Green MD [address] [place] [address] [phone] PCP - General Internal Medicine 08/03/15 09/26/20 Félix Garvey PA-C [address] [place] [address] [phone] PCP - General Internal Medicine 09/27/20 05/09/22 Rod Machuca MD [address] [place] [address] PCP - General Lung Cancer Zone Supervisor Firearms 05/10/22 06/05/22 Félix Garvey PA-C [address] [place] [address] PCP - General Internal Medicine 06/06/22 Aron Son MD [address] [place] [address] Specialist Cardiovascular Disease 06/06/22 documented as of this encounter
--- OUTSIDE RECORDS SUMMARY | 2024-10-28 12:12 | XMS_ITS | Encounter Summary ---
Author Organization [facility] [employer] [facility] Address [address] [place] [address] Care Team Providers Care Foundation Stage Teacher Name Role Phone Aron Son MD Unavailable Unavailable Félix Garvey PA-C Primary Care Provider +[phone] Encounter Details Date Type Department Care Team Description 11/13/2023 Scheduling Representative Report Medical Records [address] [place], [place] [id number] [place] [address] Social History Tobacco Use Types Packs/Day Years [...] on filedocumented in this encounter Care Teams Foundation Stage Teacher Relationship Specialty Start Date End Date Félix Garvey PA-C [address] [place], [place] [phone] PCP - General Internal Medicine 06/06/22 Aron Son MD Specialist Cardiovascular Disease 06/06/22 documented as of this encounter
--- OUTSIDE RECORDS SUMMARY | 2024-10-28 12:12 | XMS_ITS | Encounter Summary ---
Author Organization [facility] [employer] [facility] Address [address] [place] [address] Care Team Providers Care Medical Claims Assistant Name Role Phone Aron Son MD Unavailable Unavailable Félix Garvey PA-C Primary Care Provider +[phone] Encounter Details Date Type Department Care Team Description 08/16/2022 Hand Twister Report Medical Records [address] [place] [address] Rod Machuca MD [address] [place] [address] Social History Tobacco Use Types Packs/Day Years [...] on filedocumented in this encounter Care Teams Medical Claims Assistant Relationship Specialty Start Date End Date Félix Garvey PA-C [address] [place] [address] PCP - General Internal Medicine 06/06/22 Aron Son MD Specialist Cardiovascular Disease 06/06/22 documented as of this encounter
--- OUTSIDE RECORDS SUMMARY | 2024-10-28 12:12 | XMS_ITS | Encounter Summary ---
Author Organization [employer] Address [address] [facility] 7t [place] [address] Care Team Providers Care Calender Inspector Name Role Phone Unavailable Primary Care Provider Unavailabl e Reason for Visit * Reason Onset Date Comments insurance appt 12/25/2023 Encounter Details Date Type Department Care Team (Late st Contact Info) Description 12/25/2023 Telephone [facility] ADULT [facility] [address] [place], [place] [phone] David Grayson insurance appt Social History Tobacco [...] Rawls - 12/25/2023 2:56 PM EDT [facility]. He says he has Retention Education inurance. Patient was asked who is the insurance company that carries the insurance and he said [employer]. Asked again which is the insurance company that carries the insurance and patient hung up. Unsure of insurance coverage DR Bill front end web designer aware documented in this encounter Plan of Treatment Upcoming Encounters Date Type Department Care Team (Late st Contact Info) Description 10/29/2024 2:30 PM EDT Office [facility] ADULT [facility] [address] [place], [place] [phone] Spencer Rao DDS [address] [place], [place] [phone] 03/16/2025 3:00 PM EDT Office Visit [facility] [address] [place] [address] Amalia Urrutia documented as of this encounter Visit Diagnoses Not on filedocumented in this encounter
--- OUTSIDE RECORDS SUMMARY | 2024-10-28 12:12 | XMS_ITS | Encounter Summary ---
Author Organization [facility] Address [address] [place] [address] Care Team Providers Care Heat Treatment Technician Name Role Phone Vincenzo Green MD Primary Care Provider [phone] Félix Garvey PA-C Primary Care Provider [phone] Rod Machuca MD Primary Care Provider [phone] Aron Son MD Unavailable Unavailable Félix Garvey PA-C Primary Care Provider [phone] Encounter Details Date Type Department Care Team Description 09/03/2019 University Librarian Report Medical Records [address] [place] [address] Erick Diane Social History Tobacco Use Types [...] on filedocumented in this encounter Care Teams Heat Treatment Technician Relationship Specialty Start Date End Date Vincenzo Green MD [address] [place] [address] [phone] PCP - General Internal Medicine 08/03/15 09/26/20 Félix Garvey PA-C [address] [place] [address] [phone] PCP - General Internal Medicine 09/27/20 05/09/22 Rod Machuca MD [address] [place] [address] PCP - General Lung Cancer Finish Carpenter 05/10/22 06/05/22 Félix Garvey PA-C [address] [place] [address] PCP - General Internal Medicine 06/06/22 Aron Son MD [address] [place] [address] Specialist Cardiovascular Disease 06/06/22 documented as of this encounter
--- OUTSIDE RECORDS SUMMARY | 2024-10-28 12:12 | XMS_ITS | Clinical Summary ---
Author Organization [employer] Address [address] [facility] 7t [place] [address] Care Team Providers Care Tray Service Worker Name Role Phone Unavailable Primary Care Provider [...] Description 10/19/2024 11:00 AM EDT Office Visit [facility] [address] [facility] [place] [address] John Paul Raoa, DDS 10/05/2024 11:00 AM EDT Office Visit [facility] [address] [place] [address] MairaJohn Paula, DDS 09/10/2024 11:30 AM EST Office Visit [facility] [address] [place] [address] Spencer Rao, NABIL 09/03/2024 Telephone [facility] [address] [place] [address] Spencer Rao DDS 08/17/2024 11:00 AM EST Office Visit [facility] [address] [place] [address] Spencer Rao, DDS 08/05/2024 10:45 AM EST Office Visit [facility] [address] [place] [address] Manuel Restrepo DDS Edentulous maxilla (Primary Dx); Dental abscess 07/30/2024 Telephone [facility] [address] [place] [address] Spencer Rao DDS from Last 3 Months [...] Description 10/29/2024 2:30 PM EDT Office Visit [facility] [address] [place], [place] [phone] Spencer Rao DDS [address] [place] [address] 03/16/2025 3:00 PM EDT Office Visit [facility] [address] [place], [place] [phone] Amalia Urrutia Health Maintenance Due Date Last [...] to Health Maintenance Insurance [employer] MEDICARE [facility] ST[facility] ADULT DENTAL - [employer]ET[employer] DENTAL PPO
--- OUTSIDE RECORDS SUMMARY | 2024-10-28 12:12 | XMS_ITS | Encounter Summary ---
Author Organization [facility] [employer] [facility] Address [address] [place] [address] Care Team Providers Care Program Counselor Name Role Phone Vincenzo Green MD Primary Care Provider [phone] Félix Garvey PA-C Primary Care Provider [phone] Rod Machuca MD Primary Care Provider [phone] Aron Son MD Unavailable Unavailable Félix Garvey PA-C Primary Care Provider [phone] Encounter Details Date Type Department Care Team Description 09/12/2017 Orders Only Adult Medicine [address] [address] Félix Garvey PA-C [address] [place] [address] [phone] Right lumbar radiculopathy Social History Tobacco Use [...] unspecified documented in this encounter Care Teams Program Counselor Relationship Specialty Start Date End Date Vincenzo Green MD [address] [place] [address] PCP - General Internal Medicine 08/03/15 09/26/20 Félix Garvey PA-C [address] [place] [address] PCP - General Internal Medicine 09/27/20 05/09/22 Rod Machuca MD [address] [place] [address] PCP - General Lung Cancer Security System Analyst 05/10/22 06/05/22 Félix Garvey PA-C [address] [place] [address] PCP - General Internal Medicine 06/06/22 Aron Son MD [address] [place] [address] Specialist Cardiovascular Disease 06/06/22 documented as of this encounter
--- OUTSIDE RECORDS SUMMARY | 2024-10-28 12:12 | XMS_ITS | Encounter Summary ---
Author Organization [facility] Address [address] [place] [address] Care Team Providers Care Cloth Inspector Name Role Phone Vincenzo Green MD Primary Care Provider [phone] Félix Garvey PA-C Primary Care Provider +[phone] Rod Machuca MD Primary Care Provider [phone] Aorn Son MD Unavailable Unavailable Félix Garvey PA-C Primary Care Provider +[phone] Encounter Details Date Type Department Care Team Description 09/21/2018 Field Artillery Operations Man Report Medical Records [address] [place] [address] Crystal Raines Social History Tobacco Use Types [...] on filedocumented in this encounter Care Teams Cloth Inspector Relationship Specialty Start Date End Date Vincenzo Green MD [address] [place] [address] [phone] PCP - General Internal Medicine 08/03/15 09/26/20 Félix Garvey PA-C [address] [place] [address] [phone] PCP - General Internal Medicine 09/27/20 05/09/22 Rod Machuca MD [address] [place] [address] PCP - General Lung Cancer Telegraph Office Route Aide 05/10/22 06/05/22 Félix Garvey PA-C [address] [place] [address] PCP - General Internal Medicine 06/06/22 Aron Son MD [address] [place] [address] Specialist Cardiovascular Disease 06/06/22 documented as of this encounter
--- OUTSIDE RECORDS SUMMARY | 2024-10-28 12:12 | XMS_ITS | Encounter Summary ---
Author Organization [facility] Address [address] [place] [address] Care Team Providers Care Knuckle Bender Name Role Phone Aron Son MD Unavailable Unavailable Félix Garvey PA-C Primary Care Provider +[phone] Reason for Visit * Reason Onset Date Comments Faxed Order 12/27/2022 Apprise diagnost ic Encounter Details Date Type Department Care Team Description 12/27/2022 Telephone Adult Medicine [address] [phone] Félix Garvey PA-C [address] [place] [address] [phone] Faxed Order (Apprise diagnostic) Social History Tobacco [...] on filedocumented in this encounter Care Teams Knuckle Bender Relationship Specialty Start Date End Date Félix Garvey PA-C [address] [place] [address] [phone] PCP - General Internal Medicine 06/06/22 Aron Son MD Specialist Cardiovascular Disease 06/06/22 documented as of this encounter
--- OUTSIDE RECORDS SUMMARY | 2024-10-28 12:12 | XMS_ITS | Encounter Summary ---
Author Organization [facility] Address [address] [place] [address] Care Team Providers Care Salt Lifter Name Role Phone Félix Garvey PA-C Primary Care Provider +[phone] Rod Machuca MD Primary Care Provider [phone] Aron Son MD Unavailable Unavailable Félix Garvey PA-C Primary Care Provider +[phone] Encounter Details Date Type Department Care Team Description 09/20/2021 Cashier Wrapper Report Medical Records [address] [place] [address] Milton Barrera MD Social History Tobacco Use [...] on filedocumented in this encounter Care Teams Salt Lifter Relationship Specialty Start Date End Date Félix Garvey PA-C [address] [place], [place] [phone] PCP - General Internal Medicine 09/27/20 05/09/22 Rod Machuca MD [address] [place], [place] [phone] PCP - General Lung Cancer Top Cutter 05/10/22 06/05/22 Félix Garvey PA-C [address] [place] [address] PCP - General Internal Medicine 06/06/22 Aron Son MD [address] [place] [address] Specialist Cardiovascular Disease 06/06/22 documented as of this encounter
--- OUTSIDE RECORDS SUMMARY | 2024-10-28 12:12 | XMS_ITS | Encounter Summary ---
Author Organization [facility] [facility] Address [address] [place] [address] Care Team Providers Care Client Success Specialist Name Role Phone Aron Son MD Unavailable Unavailable Félix Garvey PA-C Primary Care Provider [phone] Encounter Details Date Type Department Care Team Description 11/06/2023 Orders Only Medical Records [address] [place] [address] [place] [address] Social History Tobacco Use Types [...] Procedure Name Priority Date/Time Associated Diagnosis Comments OUTSIDE EYE EXAM Routine 10/30/2023 documented in this encounter Results * OUTSIDE EYE EXAM (10/30/2023) [place] Wall PROCEDURES documented in this encounter Visit Diagnoses Not on filedocumented in this encounter Care Teams Client Success Specialist Relationship Specialty Start Date End Date Félix Garvey PA-C [address] [place], [place] [phone] PCP - General Internal Medicine 06/06/22 Aron Son MD Specialist Cardiovascular Disease 06/06/22 documented as of this encounter
--- OUTSIDE RECORDS SUMMARY | 2024-10-28 12:12 | XMS_ITS | Encounter Summary ---
Author Organization [facility] Address [address] [place] [address] Care Team Providers Care Ambulatory Care Coordinator Name Role Phone Vincenzo Green MD Primary Care Provider [phone] Félix Garvey PA-C Primary Care Provider [phone] Rod Machuca MD Primary Care Provider [phone] Aron Son MD Unavailable Unavailable Félix Garvey PA-C Primary Care Provider [phone] Reason for Visit * Reason Comments E-prescribe Rx Request Encounter Details Date Type Department Care Team Description 12/01/2017 Refill Physiatry - [address] [address] Ed Holley DO E-prescribe Rx Request Social [...] nos documented in this encounter Care Teams Ambulatory Care Coordinator Relationship Specialty Start Date End Date Vincenzo Green MD [address] [place] [address] PCP - General Internal Medicine 08/03/15 09/26/20 Félix Garvey PA-C [address] [place] [address] PCP - General Internal Medicine 09/27/20 05/09/22 Rod Machuca MD [address] [place] [address] PCP - General Lung Cancer Binder Operator 05/10/22 06/05/22 Félix Garvey PA-C [address] [place] [address] PCP - General Internal Medicine 06/06/22 Aron Son MD [address] [place] [address] Specialist Cardiovascular Disease 06/06/22 documented as of this encounter
--- OUTSIDE RECORDS SUMMARY | 2024-10-28 12:12 | XMS_ITS | Encounter Summary ---
Author Organization [facility] Address [address] [place] [address] Care Team Providers Care Retail Sales Associate Name Role Phone Vincenzo Green MD Primary Care Provider [phone] Félix Garvey PA-C Primary Care Provider + [phone] Rod Machuca MD Primary Care Provider [phone] Aron Son MD Unavailable Unavailable Félix Garvey PA-C Primary Care Provider [phone] Encounter Details Date Type Department Care Team Description 08/30/2019 Master Cook Report Medical Records [address] [place] [address] Lloyd Hung Social History Tobacco Use Types [...] on filedocumented in this encounter Care Teams Retail Sales Associate Relationship Specialty Start Date End Date Vincenzo Green MD [address] [place] [address] [phone] PCP - General Internal Medicine 08/03/15 09/26/20 Félix Garvey PA-C [address] [place] [address] [phone] PCP - General Internal Medicine 09/27/20 05/09/22 Rod Machuca MD [address] [place] [address] PCP - General Lung Cancer Underwater Trapper 05/10/22 06/05/22 Félix Garvey PA-C [address] [place] [address] PCP - General Internal Medicine 06/06/22 Aron Son MD [address] [place] [address] Specialist Cardiovascular Disease 06/06/22 documented as of this encounter
--- OUTSIDE RECORDS SUMMARY | 2024-10-28 12:12 | XMS_ITS | Encounter Summary ---
Author Organization [facility] Address [address] [place] [address] Care Team Providers Care Straightening Press Operator Name Role Phone Aron Son MD Unavailable Unavailable Félix Garvey PA-C Primary Care Provider [phone] Reason for Visit * Reason Onset Date Comments Error 09/16/2022 Encounter Details Date Type Department Care Team Description 09/16/[address] [facility] [address] [place] [address] [phone] Félix Garvey PA-C [address] [place] [address] [phone] Error Social History Tobacco Use Types Packs/Day Years [...] AM EST documented as of this encounter Miscellaneous Notes * Telephone Encounter - Jacinto Newman - 09/16/2022 2:38 PM EST Error documented in this encounter Plan of Treatment Not on file documented as of this encounter Visit Diagnoses Not on filedocumented in this encounter Care Teams Straightening Press Operator Relationship Specialty Start Date End Date Félix Garvey PA-C [address] [place] [address] PCP - General Internal Medicine 06/06/22 Aron Son MD Specialist Cardiovascular Disease 06/06/22 documented as of this encounter
--- OUTSIDE RECORDS SUMMARY | 2024-10-28 12:12 | XMS_ITS | Encounter Summary ---
Author Organization [facility] Address [address] [place] [address] Care Team Providers Care Process Improvement Specialist Name Role Phone Félix Garvey PA-C Primary Care Provider [phone] Rod Machuca MD Primary Care Provider [phone] Aron Son MD Unavailable Unavailable Félix Garvey PA-C Primary Care Provider [phone] Encounter Details Date Type Department Care Team Description 04/11/2022 Internet Marketing Intern Report Medical Records [address] [place] [address] Ely Kirby Social History Tobacco Use Types [...] on filedocumented in this encounter Care Teams Process Improvement Specialist Relationship Specialty Start Date End Date Félix Garvey PA-C [address] [place], [place] [phone] PCP - General Internal Medicine 09/27/20 05/09/22 Rod Machuca MD [address] [place], [place] [phone] PCP - General Lung Cancer Gis Physical Scientist 05/10/22 06/05/22 Félix Garvey PA-C [address] [place] [address] PCP - General Internal Medicine 06/06/22 Aron Son MD [address] [place] [address] Specialist Cardiovascular Disease 06/06/22 documented as of this encounter
--- OUTSIDE RECORDS SUMMARY | 2024-10-28 12:12 | XMS_ITS | Encounter Summary ---
Author Organization [facility] [employer] [facility] Address [address] [place] [address] Care Team Providers Care Sap Business Objects Consultant Name Role Phone Aron Son MD Unavailable Unavailable Félix Garvey PA-C Primary Care Provider [phone] Encounter Details Date Type Department Care Team Description 05/05/2024 Signs Sales Representative Report Medical Records [address] [place] [address] Sybil Corona MD Social History Tobacco Use [...] on filedocumented in this encounter Care Teams Sap Business Objects Consultant Relationship Specialty Start Date End Date éFlix Garvey PA-C [address] [place] [address] [phone] PCP - General Internal Medicine 06/06/22 Aron Son MD Specialist Cardiovascular Disease 06/06/22 documented as of this encounter
--- OUTSIDE RECORDS SUMMARY | 2024-10-28 12:12 | XMS_ITS | Encounter Summary ---
Author Organization [facility] Address [address] [place] [address] Care Team Providers Care Picture Frame Maker Name Role Phone Aron Son MD Unavailable Unavailable Félix Garvey PA-C Primary Care Provider [phone] Encounter Details Date Type Department Care Team Description 09/09/2023 Director Business Integration Report Medical Records [address] [place] [address] Abstract, Provider Social History Tobacco Use Types [...] on filedocumented in this encounter Care Teams Picture Frame Maker Relationship Specialty Start Date End Date Félix Garvey PA-C [address] [place] [address] [phone] PCP - General Internal Medicine 06/06/22 Aron Son MD Specialist Cardiovascular Disease 06/06/22 documented as of this encounter
--- OUTSIDE RECORDS SUMMARY | 2024-10-28 12:12 | XMS_ITS | Encounter Summary ---
Author Organization [facility] Address [address] [place] [address] Care Team Providers Care Veterinary Surgery Technologist Name Role Phone Vincenzo Green MD Primary Care Provider [phone] Félix Garvey PA-C Primary Care Provider [phone] Rod Machuca MD Primary Care Provider [phone] Aron Son MD Unavailable Unavailable Félix Garvey PA-C Primary Care Provider [phone] Encounter Details Date Type Department Care Team Description 10/13/2018 Protective Signal Operations Supervisor Report Medical Records [address] [place] [address] Abstract, Provider Social History Tobacco Use Types [...] on filedocumented in this encounter Care Teams Veterinary Surgery Technologist Relationship Specialty Start Date End Date Vincenzo Green MD [address] [place] [address] [phone] PCP - General Internal Medicine 08/03/15 09/26/20 Félix Garvey PA-C [address] [place] [address] [phone] PCP - General Internal Medicine 09/27/20 05/09/22 Rod Machuca MD [address] [place] [address] PCP - General Lung Cancer Dairy Farmworker 05/10/22 06/05/22 Félix Garvey PA-C [address] [place] [address] PCP - General Internal Medicine 06/06/22 Aron Son MD [address] [place] [address] Specialist Cardiovascular Disease 06/06/22 documented as of this encounter
--- OUTSIDE RECORDS SUMMARY | 2024-10-28 12:12 | XMS_ITS | Encounter Summary ---
Author Organization [facility] Address [address] [place] [address] Care Team Providers Care Impact Hammer Operator Name Role Phone Aron Son MD Unavailable Unavailable Félix Garvey PA-C Primary Care Provider [phone] Encounter Details Date Type Department Care Team Description 08/20/2023 Metal Drawer Report Medical Records [address] [place] [address] Lee Burgess Social History Tobacco Use Types [...] on filedocumented in this encounter Care Teams Impact Hammer Operator Relationship Specialty Start Date End Date Félix Garvey PA-C [address] [place] [address] [phone] PCP - General Internal Medicine 06/06/22 Aron Son MD Specialist Cardiovascular Disease 06/06/22 documented as of this encounter
== END 2024-10-28 11:14 | disposition home or self-care (01) ==
LOC: HO.HSMS 10:20
PROVIDERS: PCP Physician Assistant Medical; Visit Provider Nurse Practitioner Family
DX: G47.33 Obstructive sleep apnea (adult) (pediatric) (principal)
CPT/HCPCS: 99214

== ENCOUNTER → 2024-10-28 10:19 | Outpatient (BNVA) | payer MEDICARE, SELFPAY | PROVIDERS: PCP Physician Assistant Medical; Visit Provider Nurse Practitioner Family | DX: G47.33 Obstructive sleep apnea (adult) (pediatric) (principal); B02.9 Zoster without complications; Z91.199 Patient's noncompliance with other medical treatment and regimen due to unspecified reason | CPT/HCPCS: 99212 ==

== ENCOUNTER 2024-11-01 11:04 | Outpatient (AMB) | payer MEDICARE, SELFPAY ==
--- NOTE | 2024-11-01 11:17 | AM.OFFWIN_ITS ---
Intake Vital Signs 3 11/01/24 11:20 Weight 174 lb BP 120/90 H Blood Pressure Location Rt brachial Position Sitting Pulse 89 Pulse Source Pulse Oximeter Pulse Oximetry (%) 99 Oxygen Delivery Method Room Air Intake Visit Reasons: EP neck pain, hard to move Intake Note: Patient her efor neck pain that has been present for a couple of days. Patient Tobacco Use Status: Never used Tobacco Allergies lisinopril Allergy (Severe, Verified 11/01/24 11:21) Angioedema canagliflozin [Invokana] Allergy (Unknown, Verified 11/01/24 11:21) polyuria liraglutide [Victoza] Adverse Reaction (Unknown, Verified 11/01/24 11:21) nausea, constipation Do you need a note to return to daycare/school/sports/work: No HPI HPI Comments 2 History of Present Illness0 Details 63 y/o Male patient who presents to the walk in clinic with c/o Neck pain for 2 days now. Denies injury or trauma. He believes he might have slept wrong and usually he turns and toss when sleeping. [facility] Medical History (Updated 11/01/24 @ 11:38 by Melanie Alvarez NP) Cervicalgia Injury of right thumb Lumbar degenerative disc disease Vitamin D deficiency Hypersomnia Snoring Cognitive disorder Tubular adenoma of colon (~2019) BPH loc w urin obs/LUTS Frequency of urination Erectile dysfunction NAFLD (nonalcoholic fatty liver disease) Hepatitis C Hepatitis B Arthritis Alcohol abuse Depression Carpal tunnel syndrome Type 2 diabetes mellitus with diabetic neuropathy, unspecified (~2003) Essential hypertension Overweight (BMI 25.0-29.9) Surgical History History of rhinoplasty History of colonoscopy History of lumbar surgery History of cataract surgery History of excision of mass Family History Father Myocardial infarct Colon cancer Mother Diabetes Social History Household Members: Spouse Household Members Other:: Housing: House Alcohol intake: current Alcohol intake frequency: a few times a month Alcohol type: beer and hard liquor Patient Tobacco Use Status: Never used Tobacco e-Cigarette/Vaping Use: Never Used Substance Use Type: Crack/Cocaine Advance Directives Date on File: 07/20/24 service: Yes Current occupational status: disabled Current occupational exposures/hazards: No Cognitive needs: No Hearing needs: No Vision needs: No Review of Systems Const All systems reviewed & are unremarkable except as noted in HPI and below Physical Exam Vital Signs: Last Vital Signs Pulse 89 11/01/24 11:20 BP 120/90 H 11/01/24 11:20 Pulse Ox 99 11/01/24 11:20 Oxygen Delivery Method Room Air 11/01/24 11:20 Const General: no acute distress; No comfortable Orientation/consciousness: patient oriented x3 Neck Neck: Yes no lymphadenopathy, Yes trachea midline and Yes no JVD Neck images: 2 1. TTP, Limited ROM due to pain Skin General skin exam: no rashes or lesions noted Neuro General: patient oriented x3, gait normal and moves all extremities Psych Speech and movement: Normal speech and movement present Assessment & Plan Assessment & Plan (1) Cervicalgia: Code(s): M54.2 - Cervicalgia Plan: NSAIDs or Acetaminophen. Ice/Hot Ordered Muscle relaxants Medications: New 2 ibuprofen 800 mg PO Q8H 30 tabs 0RF M54.2 - Cervicalgia Changed 2 From cyclobenzaprine 10 mg PO TID PRN 10 tabs 0RF muscle spasm M54.2 - Cervicalgia To cyclobenzaprine 10 mg PO BEDTIME PRN 20 tabs 0RF muscle spasm M54.2 - Cervicalgia Refilled 2 lidocaine 5% leave on most painful area for up to 12 hrs 1 patch topical DAILY 30 ea 0RF M54.2 - Cervicalgia Coding Level of Care Code Est Pt Level 4 (98163) Diagnoses Cervicalgia M54.2 Time Spent (min) 20
[2024-11-01 11:20] VITALS: BP 120/90; PULSE 89; O2SAT 99
--- OUTSIDE RECORDS SUMMARY | 2024-11-01 13:07 | XMS_ITS | Encounter Summary ---
Author Organization [employer] [facility] Address [address] [facility] 7t [place] [address] Care Team Providers Care Payroll Secretary Name Role Phone Unavailable Primary Care Provider Unavailabl e Encounter Details Date Type Department Care Team (Late st Contact Info) Description 10/29/2024 Telephone [facility] ADULT DENTAL [address] [place] [address] Spencer Rao DDS [address] [place] [address] Social History Tobacco Use Types Packs/Day Years Used Date Smoking Tobacco: Never Passive Smoke Exposure: Never Smokeless Tobacco: Never Alcohol Use Standard Drinks/Week Comments Not Currently [...] encounter Miscellaneous Notes * Telephone Encounter - Morgan Gaona - 10/29/2024 8:25 AM EDT Provider not in office, lvm to rs appt. documented in this encounter Plan of Treatment Upcoming Encounters Date Type Department Care Team (Late st Contact Info) Description 11/30/2024 10:00 AM EDT Office Visit [facility] ADULT D[facility] [address] [place] [address] Spencer Rao DDS [address] [place] [address] 03/16/2025 3:00 PM EDT Office Visit [facility] ADULT D[facility] [address] [place] [address] Amalia Urrutia documented as of this encounter Visit Diagnoses Not on filedocumented in this encounter
--- OUTSIDE RECORDS SUMMARY | 2024-11-01 13:07 | XMS_ITS | Clinical Summary ---
Author Organization [address] [place] [address] Address [address] [place] [address] Phone Care Team Providers Care Queen Producer Name Role Phone Hector Epps MD Primary [...] see if this helps. Ascending aortic aneurysm ([facility] V24) 05/06/20 Overview (04/15/2024): 4.5cm Last Assessment [...] this is required. Diabetic retinopathy (CMS/HCC V24, [facility]/HCC V28) 06/06/2021 Diabetes mellitus with kidne y complication (CMS/HCC V24, [facility]/HCC V28) 12/21/2020 Microalbuminuria 12/21/2020 Erectile dysfunction 10/12/2018 [...] work-up and evaluation. History of substance abuse ([facility] V24, [facility] V28) 09/28/2015 Overview (04/15/2024): Cocaine, marijuana, some heroin Type 2 diabetes mellitus wit h cataract ([facility] V24, [facility] V28) 09/28/2015 Encounters Date Type Department Care Team Description 09/02/2024 Telephone Adult Medicine [address] [address] Christiano Guerrero MD call back 08/25/2024 3:00 PM EST Ancillary Procedure [facility] [address] [place] [address] Aneurysm of ascending aorta without rupture ([facility] V24) from Last 3 Months Immunizations Name [...] HISTORICAL CATARACT REMOVAL NASAL SEPTUM SURGERY PROCEDURE: [place] REPAIR NASAL SEPTAL PERFORATIONS COLONOSCOPY 01/2020 PROCEDURE: HISTORICAL COLONOSCOPY; COMMENT: repeat 5 years polyp OTHER SURGICAL HISTORY 09/16/2022 PROCEDURE: UPPER GI ENDOSCOPY, REMOVE LESION; COMMENT: bowman -biopsies taken OTHER SURGICAL HISTORY PROCEDURE: PULMONOLOGY BRONCHOSCOPY; COMMENT: dr. kilgore -bronchoscopy and mediastinoscopy with mediastinal lymph node biopsies Medical History Medical History Date Comments History of substance abuse ( [facility] V24, [facility] V28) 09/28/2015 DX:History of substance abus e (HCC); COMMENT: Cocaine, marijuana, some heroin Chronic hepatitis C ([facility] V24, [facility] V28) 11/05/2015 DX:Chronic hepatitis C (HCC) ; COMMENT: Genotype 1a Depression 11/05/2015 DX:Depression Cervical radiculopathy 11/05/2015 DX:Cervic al radiculopathy; COMMENT: recurrent CTS (carpal tunnel syndrome) 11/05/2015 DX: CTS (carpal tunnel syndrome); COMMENT: Right, NCV 06/03 Diabetes mellitus type 2 wit h neurological manifestations ([facility] V24, [facility] V28) 11/05/2015 DX:Diabetes mellitus type 2 with neurological manifestations ([facility]) GERD (gastroesophageal reflu x disease) 11/05/2015 DX:GERD (gastroesophageal re flux disease) DJD (degenerative joint dise ase) of knee 11/05/2015 DX:DJD (degenerative joint d isease) of knee Type 2 diabetes mellitus wit h cataract ([facility] V24, [facility] V28) 09/28/2015 DX:Type 2 diabetes mellitus with cataract ([facility]) Bilateral low back pain with out sciatica [...] EST Aneurysm of ascending aorta without rupture ([facility] V24) DEPRESSION SCREENING Routine 02/17/2024 FALLS RISK [...] 54 mL CV PACS Left [facility] [place] 5.9 cm CV PACS Left [facility] Major [place] 5.6 cm CV PACS LA Area Sys [...] Proximal 1.9 cm CV PACS MV Deceleration [place] 2.7 m/s2 CV PACS E Wave Deceleration [...] Overall the study quality was adequate. Result [facility] Christiano Guerrero MD CV ECHO PROCEDURES Fin al Result * Urine Albumin Creatinine Ratio (02/17/2024) [facility] Urine Albumin Creatinine Ratio Abstracted Result [facility] HEALTH MAINTENANCE Final Result * Annual BMP Blood Test (02/17/2024) [facility] Annual BMP Blood Test Abstracted Result [facility] HEALTH MAINTENANCE Final Result * Falls Risk Assessment (02/17/2024) [facility] Falls Risk Assessment Abstracted Result [facility] HEALTH MAINTENANCE Final Result * Depression Screening (02/17/2024) [facility] Depression Screening Abstracted Result [facility] HEALTH MAINTENANCE Final Result * (ABNORMAL) Hemoglobin A1c (02/17/2024) [facility] Hemoglobin A1C 7.4(A) <=6.5 % Blood Venous blood specimen / Unknown Result [facility] LAB BLOOD ORDERABLES Zunilda l Result * Lipid panel (02/17/2024) [facility] LDL/HDL Ratio 3 0 - 4 Triglycerides 93 0 - 150 mg/dL Cholesterol 125 0 - 200 mg/dL HDL 48 >=40 mg/dL LDL Cholesterol 59 0 - 100 mg/dL Blood Venous blood specimen / Unknown Result [facility] LAB BLOOD ORDERABLES Zunilda l Result * Diabetes Eye Exam (10/30/2023) [facility] Diabetes: Annual Retina Eye Exam Abstracted Result [facility] HEALTH MAINTENANCE Final Result * Colonoscopy (01/28/2020) [facility] Colonoscopy No interpretation , Abstracted Anatomical Region Laterality Modality Other Historical Provider HEALTH MAINTENANCE Final Result * Hepatitis C Screening (04/01/2016) Pathologist [facility] Hepatitis C Screening Abstracted Historical Provider HEALTH MAINTENANCE Final Result from Last 3 Months or Most Recently Relevant to Health Maintenance Insurance [employer] MEDICARE ADVANTAGE MEDICARE FAMILY HEALTH PLAN MEDICAID - [place] Care Teams Queen Producer Relationship Specialty Start Date End Date Hector Epps MD [address] [place] [address] [address] [place], [place] PCP - General Internal Medicine 09/03/24
--- OUTSIDE RECORDS SUMMARY | 2024-11-01 13:07 | XMS_ITS | Encounter Summary ---
Author Organization [employer] [facility] Address [address] [facility] [address] [place] [address] Care Team Providers Care Automatic Cigar Wrapper Tender Name Role Phone Unavailable Primary Care Provider Unavailabl e Encounter Details Date Type Department Care Team (Late st Contact Info) Description 07/30/2024 Telephone [facility] ADULT DENTAL [address] [place] [address] Spencer Rao DDS [address] [place] [address] Social History Tobacco Use Types Packs/Day Years [...] Description 11/30/2024 10:00 AM EDT Office Visit [facility] ADULT DENTAL [address] [place] [address] Spencer Rao DDS [address] [place] [address] 03/16/2025 3:00 PM EDT Office Visit [facility] ADULT D[facility] [address] [place] [address] Amalia Urrutia documented as of this encounter Visit Diagnoses Not on filedocumented in this encounter
--- OUTSIDE RECORDS SUMMARY | 2024-11-01 13:07 | XMS_ITS | Clinical Summary ---
Author Organization [employer] Address [address] [facility] 7t [place] [address] Care Team Providers Care Sheet Rock Finisher Name Role Phone Unavailable Primary Care Provider [...] Encounters Date Type Department Care Team Description 10/29/2024 Telephone [facility] [address] [facility] [place] [address] Spencer Rao, DDS 10/19/2024 11:00 AM EDT Office Visit [facility]ULT [facility] [address] [facility] [place] [address] Spencer Rao, DDS 10/05/2024 11:00 AM EDT Office Visit [facility]ULT [facility] [address] [facility] [place] [address] Spencer Rao, DDS 09/10/2024 11:30 AM EST Office Visit [facility]ULT [facility] [address] [facility] [place] [address] Spencer Rao, DDS 09/03/2024 Telephone [facility] [address] [facility] [place] [address] Spencer Rao, DDS 08/17/2024 11:00 AM EST Office Visit [facility] [address] [facility] [place] [address] Spencer Rao, DDS 08/05/2024 10:45 AM EST Office Visit [facility] [address] [facility] [place] [address] Manuel Restrepo, DDS Edentulous maxilla (Primary Dx); Dental abscess from Last 3 Months Social History Tobacco [...] Description 11/30/2024 10:00 AM EDT Office Visit [facility] ADULT D[facility]AL [address] [place], [place] [phone] Spencer Rao DDS [address] [place] [address] 03/16/2025 3:00 PM EDT Office Visit [facility] ADULT DENTAL [address] [place], [place] [phone] Amalia Urrutia Health Maintenance Due Date Last [...] to Health Maintenance Insurance [employer] MEDICARE REPLACEMENT [facility] ST[facility] AD[facility] DENTAL - [employer] DENTAL PPO
--- OUTSIDE RECORDS SUMMARY | 2024-11-01 13:07 | XMS_ITS | Encounter Summary ---
Author Organization [employer] Address [address] [place] [address] Care Team Providers Care Locks Tender Name Role Phone Unavailable Primary Care Provider Unavailabl e Reason for Visit * Reason Onset Date Comments insurance appt 12/25/2023 Encounter Details Date Type Department Care Team (Late st Contact Info) Description 12/25/2023 Telephone [facility] ADULT DENTAL [address] [place], [place] [phone] David Grayson insurance appt Social History Tobacco [...] Rawls - 12/25/2023 2:56 PM EDT [facility]. He says he has [employer] inurance. Patient was asked who is the insurance company that carries the insurance and he said [employer]. Asked again which is the insurance company that carries the insurance and patient hung up. Unsure of insurance coverage DR Bill helpdesk technician aware documented in this encounter Plan of Treatment Upcoming Encounters Date Type Department Care Team (Late st Contact Info) Description 11/30/2024 10:00 AM EDT Office Visit [facility] ADULT DENTAL [address] [place], [place] [phone] Spencer Rao DDS [address], [place] [phone] 03/16/2025 3:00 PM EDT Office Visit [facility] ADULT DENTAL [address] [place] [address] Amalia Urrutia documented as of this encounter Visit Diagnoses Not on filedocumented in this encounter
--- OUTSIDE RECORDS SUMMARY | 2024-11-01 13:07 | XMS_ITS | Encounter Summary ---
Author Organization [employer] Address [address] [facility] [address] [place] [address] Care Team Providers Care Living Manager Name Role Phone Unavailable Primary Care Provider Unavailabl e Reason for Visit * Reason Onset Date Comments Appointment 03/13/2023 Encounter Details Date Type Department Care Team ([facility] st Contact Info) Description 03/13/2023 Telephone C ADULT DENTAL [address] [place] [place], [place] [phone] Dinah Mckinley DDS [address] [place] [place], [place] [phone] Appointment Social History Tobacco Use Types Packs/Day [...] did offer the patient an appt in [place] with the understanding that he would become a [place] patient but he is unwilling to go to [facility]. He wants to know why hes being told that he needs to come in and then listed. Tried my best to explain. Would like his appt or phone call. documented in this encounter Plan of Treatment Upcoming Encounters Date Type Department Care Team (Late st Contact Info) Description 11/30/2024 10:00 AM EDT Office Visit [facility] ADULT DENTAL [address] [place] [address] Spencer Rao DDS [address] [place] [address] 03/16/2025 3:00 PM EDT Office Visit [facility] ADULT DENTAL [address] [place] [address] Amalia Urrutia documented as of this encounter Visit Diagnoses Not on filedocumented in this encounter
== END 2024-11-01 11:54 | disposition home or self-care (01) ==
LOC: HO.HMCWIC 11:04
PROVIDERS: PCP Physician Assistant Medical; Visit Provider Nurse Practitioner Family
DX: M54.2 Cervicalgia (principal)

== ENCOUNTER → 2024-11-01 11:04 | Outpatient (BNVA) | payer MEDICARE, SELFPAY | PROVIDERS: PCP Physician Assistant Medical; Visit Provider Nurse Practitioner Family | DX: M54.2 Cervicalgia (principal) | CPT/HCPCS: 99212 ==

== ENCOUNTER 2024-11-05 10:06 | Outpatient (AMB) | payer MEDICARE, SELFPAY ==
[2024-11-05 10:12] VITALS: BP 120/80; PULSE 89; O2SAT 98; BMI 24.8
--- NOTE | 2024-11-05 10:12 | A.OFFPC_ITS ---
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 Required: No Accompanied by: Self / Same As Patient Allergies lisinopril Allergy (Severe, Verified 11/05/24 10:58) Angioedema canagliflozin [Invokana] Allergy (Unknown, Verified 11/05/24 10:58) polyuria quetiapine Adverse Reaction (Intermediate, Verified 11/05/24 12:06) sedation, fatigue liraglutide [Victoza] Adverse Reaction (Unknown, Verified 11/05/24 10:58) nausea, constipation Medication List - Last Reconciled 11/05/24 by Hector Epps MD amlodipine 10 mg PO DAILY bisacodyl (Dulcolax (bisacodyl)) 20 mg (4 x 5 mg) PO ONCE 1 day blood sugar diagnostic (Accu-Chek Guide test strips) As directed tests 4 X/day blood-glucose meter (Accu-Chek Guide Glucose Meter) As directed tests 4 X/day blood-glucose sensor (Dexcom G7 Sensor device) As directed change every 10 days blood-glucose,content publisher,cont (Dexcom G7 Back Tender Fourdrinier) As directed bupropion HCl XL 150 mg PO QAM cholecalciferol (vitamin D3) (Vitamin D3) 50 mcg PO DAILY clotrimazole-betamethasone 1-0.05 % 1 appl topical DAILY cyclobenzaprine 10 mg PO BEDTIME PRN fluoxetine 60 mg PO DAILY ibuprofen 800 mg PO Q8H insulin aspart (niacinamide) 100 unit/mL 2 clicks subcutaneous with meals. Up to 76 units via V Go subcut daily; 30 days lancets 4x daily lancets (Accu-Chek Softclix Lancets) As directed-tests 4X/day lancets (Accu-Chek Fastclix Lancet Drum) TEST FOUR TIMES A DAY DIRECTED lidocaine 5% 1 patch topical DAILY metformin ER 500 mg PO BEDTIME metoprolol succinate ER 25 mg PO DAILY mirtazapine 7.5 mg PO BEDTIME nystatin-triamcinolone 100,000-0.1 unit/g-% 1 appl topical DAILY polyethylene glycol 3350 (Miralax) 17 grams PO DAILY 1 day sub-q insulin device, 20 unit (V-GO 20 device) ONE DAILY tadalafil 20 mg PO DAILY PRN tamsulosin 0.4 mg PO DAILY 90 days thiamine mononitrate (vit B1) 100 mg PO DAILY tirzepatide 2.5 mg (0.5 mL) subcut QWEEK NS Tobacco use date assessed: 11/05/24 Fall risk assessment: No Falls in past year Last assessed Fall Risk: 11/05/24 Dental Screening Dental Screen Date: 11/05/24 Did you have a dental visit in the last 12 months?: Yes Did you have a dental problem in the last 6 months where you did not have access to dental care?: No Was dental information given to patient?: Patient has dentist HPI 3mth f/u HPI Details Patient comes in today for his follow up visit States that he feels okay He denies any headaches or dizziness Denies any chest pains, no increased SOB No nausea/vomiting, no abdominal pain No change in bowel habits noted He continues to experience recurrent bilateral shoulder pain, especially at night and would like to get a refill on his Ibuprofen He had his follow up labs done last week - to discuss his results [facility] Medical History Cervicalgia Injury of right thumb Lumbar degenerative disc disease Vitamin D deficiency Hypersomnia Snoring Cognitive disorder Tubular adenoma of colon (~2019) BPH loc w urin obs/LUTS Frequency of urination Erectile dysfunction NAFLD (nonalcoholic fatty liver disease) Hepatitis C Hepatitis B Arthritis Alcohol abuse Depression Carpal tunnel syndrome Type 2 diabetes mellitus with diabetic neuropathy, unspecified (~2003) Essential hypertension Overweight (BMI 25.0-29.9) Surgical History History of rhinoplasty History of colonoscopy History of lumbar surgery History of cataract surgery History of excision of mass Family History Father Myocardial infarct Colon cancer Mother Diabetes Social History Household Members: Spouse Household Members Other:: Housing: House Alcohol intake: current Alcohol intake frequency: a few times a month Alcohol type: beer and hard liquor Patient Tobacco Use Status: Never used Tobacco e-Cigarette/Vaping Use: Never Used Substance Use Type: Crack/Cocaine Advance Directives Date on File: 07/20/24 service: Yes Current occupational status: disabled Current occupational exposures/hazards: No Cognitive needs: No Hearing needs: No Vision needs: No Questionnaire PHQ-9 Over the last 2 weeks, how often have you been bothered by any of the following problems? 1. Little interest or pleasure in doing things: nearly every day 2. Feeling down, depressed, or hopeless: nearly every day 3. Trouble falling or staying asleep, or sleeping too much: nearly every day 4. Feeling tired or having little energy: nearly every day 5. Poor appetite or overeating: nearly every day 6. Feeling bad about yourself - or that you are a failure or have let yourself or your family down: nearly every day 7. Trouble concentrating on things, such as reading the newspaper or watching television: nearly every day 8. Moving or speaking so slowly that other people could have noticed. Or the op posite - being so fidgety or restless that you have been moving around a lot more than usual: nearly every day 9. Thoughts that you would be better off or of hurting yourself in some way: nearly every day Total score: 27 Depression Screening Interpretation: Positive Depression Screening Follow-up: Existing condition and In treatment Depression Screening Done: Yes Source: Developed by Drs. Lee Gould, Shaina Amato, Darryn Landaverde and colleagues, with an educational lashawn from [employer]. Thrive Questionnaire Date Thrive assessed: 11/05/24 I am a: Patient What is your living situation today?: I have a steady place to live Within the past 12 months, did the food you bought not last and you didn't have the money to get more?: Never true Within the past 12 months, did you worry whether your food would run out before you got money to buy more?: Sometimes True Do you have trouble paying for medicines?: No Do you have trouble getting transportation to medical appointments?: Yes Do you have trouble paying your heating and electricity bill?: No Do you have trouble taking care of your child, family member or friend?: No Do you have trouble with day-to-day activities such as bathing, preparing meals, shopping, managing finances, etc.?: Yes Are you currently unemployed and looking for a job?: No Are you interested in more education?: No Please select the resources that you would like help with: Transportation, Care for elder or disabled and Daily support Currently or been in a relationship where the following occur: No concerns reported THRIVE Score: 2 AUDIT C Alcohol Use Questionnaire (AUDIT-C) 1. How often do you have a drink containing alcohol?: 2-3 times a week 2. How many drinks containing alcohol do you have on a typical day when you are drinking?: 3 or 4 3. How often do you have six or more drinks on one occasion?: Less than monthly Total Score: 5 Score Reviewed/Action Taken: Yes ANGEL LUIS-7 AMB Questionnaire ANGEL LUIS-7 Date ANGEL LUIS - 7 assessed: 11/05/24 Feeling nervous, anxious, or on edge: 3 = Nearly every day Not being able to stop or control worryin = Nearly every day Worrying too much about different things: 3 = Nearly every day Trouble relaxin = Nearly every day Being so restless that it is hard to sit still: 3 = Nearly every day Becoming easily annoyed or irritable: 3 = Nearly every day Feeling afraid as if something awful might happen: 3 = Nearly every day Total ANGEL LUIS-7 score (0-4 normal; 5-9 mild; 10-14 moderate; 15-21 severe): 21 Source: Developed by Drs. Lee Gould, Shaina Amato, Darryn Landaverde and colleagues, with an educational lashawn from [employer]. Review of Systems Const Denies chills, Denies fatigue, Denies fever(s) and Denies headache(s) ENT Denies dysphagia, Denies dizziness, Denies otalgia, Denies headache(s), Denies neck pain, Denies odynophagia and Denies sore throat Card Denies chest pain, Denies palpitations and Denies dyspnea Resp Denies chest congestion, Denies cough and Denies dyspnea GI Denies abdominal pain, Denies constipation, Denies dysphagia, Denies heartburn, Denies diarrhea, Denies nausea, Denies odynophagia and Denies vomiting Denies difficulty urinating, Denies dysuria, Denies nocturia and Denies urinary frequency Musc Details: (+) recurrent bilateral shoulder pain/soreness, especially at night Denies back pain and Denies neck pain Skin/Breast Denies rash Neuro Denies dizziness and Denies headache(s) Endo Denies fatigue and Denies palpitations Physical exam (Primary Care) Vital Signs: Last Vital Signs Pulse 89 11/05/24 10:12 BP 120/80 11/05/24 10:12 Pulse Ox 98 11/05/24 10:12 Oxygen Delivery Method Room Air 11/05/24 10:12 BMI result Body Mass Index 24.8 Tobacco/Smoking Status: Tobacco use Status Tobacco use date assessed 11/05/24 11/05/24 10:14 Patient Tobacco Use Status Never used Tobacco 11/05/24 10:14 e-Cigarette/Vaping Use Never Used 11/05/24 10:14 PHQ-9: PHQ-9 Score PHQ-9: Total score 27 11/05/24 10:14 Depression Screening Interpretation: Positive Depression Screening Follow-up: Existing condition and In treatment Thrive Assessment: Date of Thrive Assessment Date Thrive assessed 11/05/24 11/05/24 10:14 Currently or been in a relationship where the following occur: No concerns reported Const General: no acute distress and alert HENMT Ears: TM's normal bilaterally and EAC's normal Teeth and gingiva: edentulous Throat: Yes posterior oropharynx normal and Yes tonsils normal (no TP congestion) Neck Neck: Yes supple and No lymphadenopathy Thyroid: Thyroid normal Resp Auscultation: clear to auscultation bilaterally, no rales and no wheezes Cardio Rate: regular rate Rhythm: regular rhythm Heart sounds: no murmurs GI Palpation (GI): Soft to palpation and nontender Auscultation: normal bowel sounds General: Yes no CVA tenderness Back/Spine/Pelvis Other: (+) mild soreness/tenderness on palpation over the trapezius muscles around the shoulders/suprascapular areas bilaterally Back: no CVA tenderness Thoracic/Lumbar Spine: No lumbar spinal tenderness Skin Rashes: no rashes Extrem General: Yes no clubbing, cyanosis or edema Results Reviewed Results Reviewed: Laboratory Tests 10/26/24 10/26/24 09:31 11:00 WBC 3.4 L Hgb 12.3 L Hct 35.0 L Plt Count 196 Sodium 140 Potassium 4.4 Creatinine 0.92 Estimated GFR > 60 Fasting Glucose 82 Hemoglobin A1c % 6.6 H Calcium 9.6 AST 26 ALT 12 Liver Fibrosis Score 0.42 Liver Fibrosis Stage F1-F2 Triglycerides 39 Cholesterol 144 LDL Cholesterol, Calc 86 HDL Cholesterol 51 25-OH Vitamin D Total 43.1 TSH 1.05 Urine pH 7.0 Ur Specific [place] 1.025 Urine Protein Trace Urine Glucose (UA) Negative Urine Blood Negative Urine Nitrite Negative Ur Leukocyte Esterase Negative Microalb/Creat Ratio 7.5 Hepatitis A IgG Ab REACTIVE Hep Bs Antibody REACTIVE Coding Level of Care Code Est Pt Level 4 (07795) Complex EM visit Add On G2211 Diagnoses Type 2 diabetes mellitus with diabetic neuropathy, with long-term current use of insulin E11.40; Z79.4 Diabetes mellitus termite control servicer insulin use: with termite control servicer use Essential hypertension I10 MARIAH (obstructive sleep apnea) G47.33 Aneurysm of ascending aorta without rupture I71.21 Presence of rupture: without rupture Vitamin D deficiency E55.9 Degeneration of intervertebral disc of lumbar region with discogenic back pain M51.360 Disc-related pain type: discogenic back pain only BPH loc w urin obs/LUTS N40.1 Erectile dysfunction, unspecified erectile dysfunction type N52.9 Erectile dysfunction type: unspecified Alcohol abuse F10.10 Episode of recurrent major depressive disorder, unspecified depression episode severity F33.9 Depression Type: major depressive disorder Major depression recurrence: recurrent Active/Remission status: currently active Major depression episode severity: unspecified Overweight (BMI 25.0-29.9) E66.3 Assessment & Plan Assessment & Plan (1) Type 2 diabetes mellitus with diabetic neuropathy, unspecified: Onset Date: ~2003 Comment: MD/PROVIDER: RECOMMEND monitoring thiamine related to hx of neuropathy/ alcohol abuse and c/o memory loss Code(s): E11.40 - Type 2 diabetes mellitus with diabetic neuropathy, unspecified Category: Medical Qualifiers: Diabetes mellitus prison insulin use: with prison use Qualified Code(s): E11.40 - Type 2 diabetes mellitus with diabetic neuropathy, unspe cified; Z79.4 - ferry terminal agent (current) use of insulin Plan: His HgbA1c was at 6.6% on his labs done last week (he was previously at 7.6% a few months ago) - goal is <7.0% Reinforced diabetic diet He is currently on Metformin ER 500 mg QD and Mounjaro 2.5 mg SQ once a week He is also supposedly on Fiasp via V-Go 20 3 clicks with meals Follow up with endocrinology and with diabetic miter operator as scheduled (2) Essential hypertension: Code(s): I10 - Essential (primary) hypertension Category: Medical Plan: Reinforced low sodium diet - goal is systolic BP of 120 mm or less Continue Amlodipine 10 mg QD and Metoprolol ER 25 mg QD (3) MARIAH (obstructive sleep apnea): Comment: A moderate degree of sleep apnea. The AHI was 18/hr and oxygen franck was 76%. Code(s): G47.33 - Obstructive sleep apnea (adult) (pediatric) Category: Medical Plan: Home sleep study done came back significant for moderate degree of sleep apnea Patient has declined use of CPAP in the past but agreed to start using it back in September 2023 APAP 5-20 cm H2O ordered by Sleep Medicine Follow up with Sleep Medicine as scheduled (4) Ascending aortic aneurysm: Comment: (4.5cm - noted on prior [facility] CT scans) Code(s): I71.21 - Aneurysm of the ascending aorta, without rupture Category: Medical Qualifiers: Presence of rupture: without rupture Qualified Code(s): I71.21 - Aneurysm of the ascending aorta, without rupture Plan: His most recent imaging studies (TTE) done at [facility] on 08/25/2024 revealed (+) 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 Jake Jefferson) for these (5) Vitamin D deficiency: Code(s): E55.9 - Vitamin D deficiency, unspecified Category: Medical Plan: Continue Vitamin D3 2000 units QD (6) Lumbar degenerative disc disease: Comment: Hx of L3-L4, L4-L5 fusion surgery Code(s): M51.369 - Other intervertebral disc degeneration, lumbar region without mention of lumbar back pain or lower extremity pain Category: Medical Qualifiers: Disc-related pain type: discogenic back pain only Qualified Code(s): M51.360 - Other intervertebral disc degeneration, lumbar region with discogenic back pain only Plan: Reinforced activity and weight-lifting restrictions to minimize aggravating his low back pain Continue Ibuprofen 800 mg TID PRN and Cyclobenzaprine 10 mg TID PRN - patient has been cautioned about taking Ibuprofen often as they can adversely affect his renal function when taken in high doses or taken frequently (7) BPH loc w urin obs/LUTS: Code(s): N40.1 - Benign prostatic hyperplasia with lower urinary tract symptoms Category: Medical Plan: Continue Tamsulosin 0.4 mg Q HS Follow up with urology as scheduled (8) Erectile dysfunction: Code(s): N52.9 - Male erectile dysfunction, unspecified Category: Medical Qualifiers: Erectile dysfunction type: unspecified Qualified Code(s): N52.9 - Male erectile dysfunction, unspecified Plan: Continue Tadalafil 20 mg PRN (9) Alcohol abuse: Comment: continues to drink alcohol - discussed risks- continue to cut back Code(s): F10.10 - Alcohol abuse, uncomplicated Category: Social Hx Plan: Patient is counseled again on abstinence (10) Depression: Comment: No suicidal homicidal ideation= declined intervention No psychotherapy Encouraged to discuss further with PCP- Code(s): F32.9 - Major depressive disorder, single episode, unspecified Category: Medical Qualifiers: Depression Type: major depressive disorder Major depression recurrence: recurrent Active/Remission status: currently active Major depression episode severity: unspecified Qualified Code(s): F33.9 - Major depressive disorder, recurrent, unspecified Plan: Continue Bupropion XL 150 mg QD, Fluoxetine 40 mg QD and Mirtazapine 7.5 mg Q HS He is advised to consider referral to psychiatry for continuing management of his mood disorder (11) Overweight (BMI 25.0-29.9): Code(s): E66.3 - Overweight Category: Medical Plan: Reinforced diet/exercise as tolerated/lose weight Plan Follow up in 4 months Orders: Orders Lipid Panel 4 Months E78.00 - Pure hypercholesterolemia, unspecified Complete Blood Count Auto Diff 4 Months D64.9 - Anemia, unspecified Microalbumin, Random (w Creat) 4 Months E11.9 - Type 2 diabetes mellitus without complications Hemoglobin A1c 4 Months E11.9 - Type 2 diabetes mellitus without complications TSH reflex Free T4 4 Months E78.00 - Pure hypercholesterolemia, unspecified UA CC w/rflx Micro + Cult 4 Months R30.0 - Dysuria Vitamin D 25-OH Total 4 Months E55.9 - Vitamin D deficiency, unspecified
--- OUTSIDE RECORDS SUMMARY | 2024-11-05 10:57 | XMS_ITS | Clinical Summary ---
Author Organization [employer] Address [address] [facility] [address] [place] [address] Care Team Providers Care Anodizer Name Role Phone Unavailable Primary Care Provider [...] Encounters Date Type Department Care Team Description 11/02/2024 3:00 PM EDT Office Visit [facility] ADULT DENTAL [address] [place] [address] Spencer Rao, DDS 10/29/2024 Telephone [facility] ADULT DENTAL [address] [place] [address] Spencer Rao, DDS 10/19/2024 11:00 AM EDT Office Visit [facility] ADULT DENTAL [address] [place], [place] [address] Spencer Rao, DDS 10/05/2024 11:00 AM EDT Office Visit [facility] ADULT DENTAL [address] [place] [address] Spencer Rao, DDS 09/10/2024 11:30 AM EST Office Visit [facility] ADULT DENTAL [address] [place] [address] John Paul Raoa, DDS 09/03/2024 Telephone [facility] ADULT DENTAL [address] [place] [address] Spencer Rao, DDS 08/17/2024 11:00 AM EST Office Visit [facility] ADULT DENTAL [address] [place] [address] Spencer Rao, DDBal from Last 3 Months Social History Tobacco [...] Care Team (Late st Contact Info) Description 12/07/2024 10:00 AM EDT Office Visit [facility] ADULT DENTAL [address] [place] [address] Spencer Rao DDS [address] [place] [address] 03/16/2025 3:00 PM EDT Office Visit [facility] ADULT DENTAL [address] [place] [address] Amalia Urrutia Health Maintenance Due Date Last [...] ( season) 2024 Influenza Vaccine (#1) 2024 , 05/09/2023, 04/18/2022, Additional history exists Dental Oral Exam 07/03/2024 [...] IMPRESSION Routine 08/17/2024 11 :00 AM EST PROPHYLAXIS - ADULT Routine 01/01/2024 1 0:00 AM EDT INTRAORAL - COMPLETE SERIES OF RADIOGRAPHIC IMAGES Routine 01/01/2024 10:00 AM EDT PERIODIC ORAL EVALUATION - ESTABLISHED PATIENT Routine 01/01/2024 10:00 AM EDT from Last 3 Months or Most Recently Relevant to Health Maintenance Insurance [employer] MEDICARE REPLACEMENT DENTAL-[facility] MED[facility] STAND ADULT DENTAL - [employer] DENTAL PPO
--- OUTSIDE RECORDS SUMMARY | 2024-11-05 10:57 | XMS_ITS | Clinical Summary ---
Author Organization [address] [place] [address] Address [address] [place] [address] Phone Care Team Providers Care Library Director Name Role Phone Hector Epps MD Primary [...] see if this helps. Ascending aortic aneurysm ([facility] V24) 05/06/20 Overview (04/15/2024): 4.5cm Last Assessment [...] this is required. Diabetic retinopathy (CMS/HCC V24, [facility]/HCC V28) 06/06/2021 Diabetes mellitus with kidne y complication (CMS/HCC V24, [facility]/HCC V28) 12/21/2020 Microalbuminuria 12/21/2020 Erectile dysfunction 10/12/2018 [...] work-up and evaluation. History of substance abuse ([facility], [facility] V28) 09/28/2015 Overview (04/15/2024): Cocaine, marijuana, some heroin Type 2 diabetes mellitus wit h cataract ([facility], [facility] V28) 09/28/2015 Encounters Date Type Department Care Team Description 09/02/2024 Telephone Adult Medicine [address] [address] Christiano Guerrero MD call back 08/25/2024 3:00 PM EST Ancillary Procedure [facility] [address] [place] [address] Aneurysm of ascending aorta without rupture ([facility] V[facility]) from Last 3 Months Immunizations Name [...] HISTORICAL CATARACT REMOVAL NASAL SEPTUM SURGERY PROCEDURE: [place] REPAIR NASAL SEPTAL PERFORATIONS COLONOSCOPY 01/2020 PROCEDURE: HISTORICAL COLONOSCOPY; COMMENT: repeat 5 years polyp OTHER SURGICAL HISTORY 09/16/2022 PROCEDURE: UPPER GI ENDOSCOPY, REMOVE LESION; COMMENT: bowman -biopsies taken OTHER SURGICAL HISTORY PROCEDURE: PULMONOLOGY BRONCHOSCOPY; COMMENT: dr. kilgore -bronchoscopy and mediastinoscopy with mediastinal lymph node biopsies Medical History Medical History Date Comments History of substance abuse ( [facility] V[facility], [facility] V28) 09/28/2015 DX:History of substance abus e (HCC); COMMENT: Cocaine, marijuana, some heroin Chronic hepatitis C ([facility] V24, [facility] V28) 11/05/2015 DX:Chronic hepatitis C (HCC) ; COMMENT: Genotype 1a Depression 11/05/2015 DX:Depression Cervical radiculopathy 11/05/2015 DX:Cervic al radiculopathy; COMMENT: recurrent CTS (carpal tunnel syndrome) 11/05/2015 DX: CTS (carpal tunnel syndrome); COMMENT: Right, NCV 06/03 Diabetes mellitus type 2 wit h neurological manifestations ([facility] V24, [facility] V28) 11/05/2015 DX:Diabetes mellitus type 2 with neurological manifestations ([facility]) GERD (gastroesophageal reflu x disease) 11/05/2015 DX:GERD (gastroesophageal re flux disease) DJD (degenerative joint dise ase) of knee 11/05/2015 DX:DJD (degenerative joint d isease) of knee Type 2 diabetes mellitus wit h cataract ([facility], [facility] V28) 09/28/2015 DX:Type 2 diabetes mellitus with cataract ([facility]) Bilateral low back pain with out sciatica [...] EST Aneurysm of ascending aorta without rupture ([facility] V24) DEPRESSION SCREENING Routine 02/17/2024 FALLS RISK [...] 54 mL CV PACS Left Atrium Minor [place] 5.9 cm CV PACS Left Atrium Major [place] 5.6 cm CV PACS LA Area Sys [...] Proximal 1.9 cm CV PACS MV Deceleration Wallace 2.7 m/s2 CV PACS E Wave Deceleration [...] Overall the study quality was adequate. Result [facility] Christiano Guerrero MD CV ECHO PROCEDURES Fin al Result * Urine Albumin Creatinine Ratio (02/17/2024) [facility] Urine Albumin Creatinine Ratio Abstracted Result [facility] HEALTH MAINTENANCE Final Result * Annual BMP Blood Test (02/17/2024) [facility] Annual BMP Blood Test Abstracted Result [facility] HEALTH MAINTENANCE Final Result * Falls Risk Assessment (02/17/2024) [facility] Falls Risk Assessment Abstracted Result [facility] HEALTH MAINTENANCE Final Result * Depression Screening (02/17/2024) [facility] Depression Screening Abstracted Result [facility] HEALTH MAINTENANCE Final Result * (ABNORMAL) Hemoglobin A1c (02/17/2024) [facility] Hemoglobin A1C 7.4(A) <=6.5 % Blood Venous blood specimen / Unknown Result [facility] LAB BLOOD ORDERABLES Zunilda l Result * Lipid panel (02/17/2024) [facility] LDL/HDL Ratio 3 0 - 4 Triglycerides 93 0 - 150 mg/dL Cholesterol 125 0 - 200 mg/dL HDL 48 >=40 mg/dL LDL Cholesterol 59 0 - 100 mg/dL Blood Venous blood specimen / Unknown Result [facility] LAB BLOOD ORDERABLES Zunilda l Result * Diabetes Eye Exam (10/30/2023) [facility] Diabetes: Annual Retina Eye Exam Abstracted Result [facility] HEALTH MAINTENANCE Final Result * Colonoscopy (01/28/2020) [facility] Colonoscopy No interpretation , Abstracted Anatomical Region Laterality Modality Other Historical Provider HEALTH MAINTENANCE Final Result * Hepatitis C Screening (04/01/2016) Pathologist [facility] Hepatitis C Screening Abstracted Historical Provider HEALTH MAINTENANCE Final Result from Last 3 Months or Most Recently Relevant to Health Maintenance Insurance [employer] MEDICARE ADVANTAGE MEDICARE FAMILY HEALTH PLAN MEDICAID - [place] Care Teams Library Director Relationship Specialty Start Date End Date Hector Epps MD [address] [place] [address] [address] [place], [place] PCP - General Internal Medicine 09/03/24
--- OUTSIDE RECORDS SUMMARY | 2024-11-05 10:57 | XMS_ITS | Encounter Summary ---
Author Organization [employer] [facility] Address [address] [facility] 7t [place] [address] Care Team Providers Care Electric Razor Assembler Name Role Phone Unavailable Primary Care Provider Unavailabl e Encounter Details Date Type Department Care Team (Late st Contact Info) Description 07/30/2024 Telephone [facility] ADULT DENTAL [address] [place] [address] Spencer Rao DDS [address] [place] [address] Social History Tobacco Use Types Packs/Day Years [...] Description 12/07/2024 10:00 AM EDT Office Visit [facility] AD[facility] [address] [place] [address] Spencer Rao DDS [address] [place] [address] 03/16/2025 3:00 PM EDT Office Visit [facility] ADULT DENTAL [address] [place] [address] Amalia Urrutia documented as of this encounter Visit Diagnoses Not on filedocumented in this encounter
--- OUTSIDE RECORDS SUMMARY | 2024-11-05 10:57 | XMS_ITS | Encounter Summary ---
Author Organization [employer] Address [address] [facility] 7t [place] [address] Care Team Providers Care House Mover Helper Name Role Phone Unavailable Primary Care Provider Unavailabl e Reason for Visit * Reason Onset Date Comments Appointment 03/13/2023 Encounter Details Date Type Department Care Team ([facility] st Contact Info) Description 03/13/2023 Telephone C ADULT DENTAL [address] [place], [place] [phone] Dinah Mckinley DDS [address] [place], [place] [phone] Appointment Social History Tobacco Use Types Packs/Day [...] did offer the patient an appt in [facility] with the understanding that he would become a [facility] patient but he is unwilling to go to [facility]. He wants to know why hes being told that he needs to come in and then listed. Tried my best to explain. Would like his appt or phone call. documented in this encounter Plan of Treatment Upcoming Encounters Date Type Department Care Team (Late st Contact Info) Description 12/07/2024 10:00 AM EDT Office Visit [facility] ADULT DENTAL [address] [place] [address] Spencer Rao DDS [address] [place] [address] 03/16/2025 3:00 PM EDT Office Visit [facility] ADULT DENTAL [address] [place] [address] Amalia Urrutia documented as of this encounter Visit Diagnoses Not on filedocumented in this encounter
--- OUTSIDE RECORDS SUMMARY | 2024-11-05 10:57 | XMS_ITS | Encounter Summary ---
Author Organization [employer] Address [address] [facility] 7t [place] [address] Care Team Providers Care Feeder/Folder Name Role Phone Unavailable Primary Care Provider Unavailabl e Reason for Visit * Reason Onset Date Comments insurance appt 12/25/2023 Encounter Details Date Type Department Care Team (Late st Contact Info) Description 12/25/2023 Telephone [facility] ADULT DENTAL [address] [place], [place] [phone] David Grayson insurance appt Social History Tobacco [...] Rawls - 12/25/2023 2:56 PM EDT Patient [facility] is not active. He says he has [employer] inurance. Patient was asked who is the insurance company that carries the insurance and he said [employer]. Asked again which is the insurance company that carries the insurance and patient hung up. Unsure of insurance coverage DR Bill front office manager aware documented in this encounter Plan of Treatment Upcoming Encounters Date Type Department Care Team (Late st Contact Info) Description 12/07/2024 10:00 AM EDT Office Visit [facility] ADULT DENTAL [address] [place], [place] [phone] Spencer Rao DDS [address] [place], [place] [phone] 03/16/2025 3:00 PM EDT Office Visit [facility] ADULT DENTAL [address] [place] [address] Amalia Urrutia documented as of this encounter Visit Diagnoses Not on filedocumented in this encounter
--- OUTSIDE RECORDS SUMMARY | 2024-11-05 10:57 | XMS_ITS | Encounter Summary ---
Author Organization [facility] Address [address] [place] [address] 7 [place] [address] Care Team Providers Care Sole Sewer Hand Name Role Phone Unavailable Primary Care Provider Unavailabl e Reason for Visit * Reason Comments Dentures Encounter Details Date Type Department Care Team (Late st Contact Info) Description 11/02/2024 3:00 PM EDT Office Visit [facility] ADULT DENTAL [address] [place] [address] Spencer Rao NABIL [address] [place] [address] Social History Tobacco Use Types Packs/Day Years [...] Description 12/07/2024 10:00 AM EDT Office Visit [facility] ADULT DENTAL [address] [place] [address] Maira Spencer, ERINS [address] [place] [address] 03/16/2025 3:00 PM EDT Office Visit [facility] ADULT DENTAL [address] [place] [address] Amalia Urrutia Scheduled Orders Name Type Priority Associated Diagnoses Orde r Schedule DENTURE FOLLOWUP Dental Routine 1 Occurr ences starting 11/02/2024 documented as of this encounter Visit Diagnoses Not on filedocumented in this encounter
== END 2024-11-05 11:13 | disposition home or self-care (01) ==
LOC: HO.HMCH 10:07
PROVIDERS: PCP Physician Assistant; Visit Provider Internal Medicine
DX: E11.40 Type 2 diabetes mellitus with diabetic neuropathy, unspecified (principal); Z79.4 Long term (current) use of insulin; I71.21 Aneurysm of the ascending aorta, without rupture; F33.9 Major depressive disorder, recurrent, unspecified; I10 Essential (primary) hypertension; G47.33 Obstructive sleep apnea (adult) (pediatric); E55.9 Vitamin D deficiency, unspecified; M51.360 Other intervertebral disc degeneration, lumbar region with discogenic back pain only; N40.1 Benign prostatic hyperplasia with lower urinary tract symptoms; N52.9 Male erectile dysfunction, unspecified; F10.10 Alcohol abuse, uncomplicated; E66.3 Overweight

== ENCOUNTER → 2024-11-05 10:06 | Outpatient (BNVA) | payer MEDICARE, SELFPAY | PROVIDERS: PCP Physician Assistant; Visit Provider Internal Medicine | DX: E11.40 Type 2 diabetes mellitus with diabetic neuropathy, unspecified (principal); I10 Essential (primary) hypertension; G47.33 Obstructive sleep apnea (adult) (pediatric); I71.21 Aneurysm of the ascending aorta, without rupture; E55.9 Vitamin D deficiency, unspecified; M51.360 Other intervertebral disc degeneration, lumbar region with discogenic back pain only; N40.1 Benign prostatic hyperplasia with lower urinary tract symptoms; N52.9 Male erectile dysfunction, unspecified; F10.10 Alcohol abuse, uncomplicated; F33.9 Major depressive disorder, recurrent, unspecified; E66.3 Overweight; Z68.24 Body mass index [BMI] 24.0-24.9, adult; Z79.4 Long term (current) use of insulin | CPT/HCPCS: 96127; 99212 ==

== ENCOUNTER 2024-11-13 03:44 | Emergency (ER) | payer MEDICARE, OTHER, MEDICAID, SELFPAY ==
[2024-11-13 03:45] VITALS: BP 151/94; PULSE 78; RESP 20; TEMP 36.9; O2SAT 100; BMI 24.4
--- OUTSIDE RECORDS SUMMARY | 2024-11-13 04:00 | XMS_ITS | Encounter Summary ---
Author Organization [facility] Address [address] [place] [address] Care Team Providers Care Camp Guard Name Role Phone Félix Garvey PA-C Primary Care Provider [phone] Rod Machuca MD Primary Care Provider [phone] Aron Son MD Unavailable Unavailable Félix Garvey PA-C Primary Care Provider [phone] Encounter Details Date Type Department Care Team Description 10/03/2020 Old Medical Records Medical Records [address] [place] [id number] Abstract, Provider Social History Tobacco Use Types [...] on filedocumented in this encounter Care Teams Camp Guard Relationship Specialty Start Date End Date Félix Garvey PA-C [address] [place] [address] [phone] PCP - General Internal Medicine 09/27/20 05/09/22 Rod Machuca MD [address] [place] [address] PCP - General Lung Cancer Account Service Representative 05/10/22 06/05/22 Félix Garvey PA-C [address] [place] [address] PCP - General Internal Medicine 06/06/22 Aron Son MD [address] [place] [address] Specialist Cardiovascular Disease 06/06/22 documented as of this encounter
--- OUTSIDE RECORDS SUMMARY | 2024-11-13 04:00 | XMS_ITS | Encounter Summary ---
Author Organization [facility] Address [address] [place] [address] Care Team Providers Care Hr Operations Advisor Name Role Phone Aron Son MD Unavailable Unavailable Félix Garvey PA-C Primary Care Provider [phone] Encounter Details Date Type Department Care Team Description 12/29/2023 Nail Making Machine Setter Report Medical Records [address] [place] [address] Lee Burgess Social History Tobacco Use Types [...] on filedocumented in this encounter Care Teams Hr Operations Advisor Relationship Specialty Start Date End Date Félix Garvey PA-C [address] [place] [phone] PCP - General Internal Medicine 06/06/22 Aron Son MD Specialist Cardiovascular Disease 06/06/22 documented as of this encounter
--- OUTSIDE RECORDS SUMMARY | 2024-11-13 04:00 | XMS_ITS | Clinical Summary ---
Author Organization [address] [place] [address] Address [address] [place] [address] Phone Care Team Providers Care Mortgage Servicing Specialist Name Role Phone Hector Epps MD Primary [...] see if this helps. Ascending aortic aneurysm ([facility] V24) 05/06/20 Overview (04/15/2024): 4.5cm Last Assessment [...] this is required. Diabetic retinopathy (CMS/HCC V24, [facility]/HCC V28) 06/06/2021 Diabetes mellitus with kidne y complication (CMS/HCC V24, [facility]/HCC V28) 12/21/2020 Microalbuminuria 12/21/2020 Erectile dysfunction [...] work-up and evaluation. History of substance abuse ([facility] V24, [facility] V28) 09/28/2015 Overview (04/15/2024): Cocaine, marijuana, some heroin Type 2 diabetes mellitus wit h cataract ([facility] V24, [facility] V28) 09/28/2015 Encounters Date Type Department Care Team Description 09/02/2024 Telephone Adult Medicine [address] [address] Christiano Guerrero MD call back 08/25/2024 3:00 PM EST Ancillary Procedure [facility] - [address] [place] [address] Aneurysm of ascending aorta without rupture ([facility] V24) from Last 3 Months Immunizations Name [...] HISTORICAL CATARACT REMOVAL NASAL SEPTUM SURGERY PROCEDURE: [place] REPAIR NASAL SEPTAL PERFORATIONS COLONOSCOPY 01/2020 PROCEDURE: HISTORICAL COLONOSCOPY; COMMENT: repeat 5 years polyp OTHER SURGICAL HISTORY 09/16/2022 PROCEDURE: UPPER GI ENDOSCOPY, REMOVE LESION; COMMENT: bowman -biopsies taken OTHER SURGICAL HISTORY PROCEDURE: PULMONOLOGY BRONCHOSCOPY; COMMENT: dr. kilgore -bronchoscopy and mediastinoscopy with mediastinal lymph node biopsies Medical History Medical History Date Comments History of substance abuse ( [facility] V24, [facility] V28) 09/28/2015 DX:History of substance abus e (HCC); COMMENT: Cocaine, marijuana, some heroin Chronic hepatitis C ([facility] V24, [facility] V28) 11/05/2015 DX:Chronic hepatitis C (HCC) ; COMMENT: Genotype 1a Depression 11/05/2015 DX:Depression Cervical radiculopathy 11/05/2015 DX:Cervic al radiculopathy; COMMENT: recurrent CTS (carpal tunnel syndrome) 11/05/2015 DX: CTS (carpal tunnel syndrome); COMMENT: Right, NCV 06/03 Diabetes mellitus type 2 wit h neurological manifestations ([facility] V24, [facility] V28) 11/05/2015 DX:Diabetes mellitus type 2 with neurological manifestations ([facility]) GERD (gastroesophageal reflu x disease) 11/05/2015 DX:GERD (gastroesophageal re flux disease) DJD (degenerative joint dise ase) of knee 11/05/2015 DX:DJD (degenerative joint d isease) of knee Type 2 diabetes mellitus wit h cataract ([facility] V24, [facility] V28) 09/28/2015 DX:Type 2 diabetes mellitus with cataract ([facility]) Bilateral low back pain with out sciatica [...] EST Aneurysm of ascending aorta without rupture ([facility] V24) DEPRESSION SCREENING Routine 02/17/2024 FALLS RISK [...] 54 mL CV PACS Left Atrium Minor [place] 5.9 cm CV PACS Left Atrium Major [place] 5.6 cm CV PACS LA Area Sys [...] Proximal 1.9 cm CV PACS MV Deceleration [place] 2.7 m/s2 CV PACS E Wave Deceleration [...] Overall the study quality was adequate. Result [facility] Christiano Guerrero MD CV ECHO PROCEDURES Fin al Result * Urine Albumin Creatinine Ratio (02/17/2024) Pathologist [facility] Urine Albumin Creatinine Ratio Abstracted Result [facility] Provider HEALTH MAINTENANCE Final Result * Annual BMP Blood Test (02/17/2024) Pathologist [facility] Annual BMP Blood Test Abstracted Result [facility] HEALTH MAINTENANCE Final Result * Falls Risk Assessment (02/17/2024) [facility] Falls Risk Assessment Abstracted Result [facility] HEALTH MAINTENANCE Final Result * Depression Screening (02/17/2024) [facility] Depression Screening Abstracted Result [facility] HEALTH MAINTENANCE Final Result * (ABNORMAL) Hemoglobin A1c (02/17/2024) [facility] Hemoglobin A1C 7.4(A) <=6.5 % Blood Venous blood specimen / Unknown Result [facility] Provider LAB BLOOD ORDERABLES Zunilda l Result * Lipid panel (02/17/2024) [facility] LDL/HDL Ratio 3 0 - 4 Triglycerides 93 0 - 150 mg/dL Cholesterol 125 0 - 200 mg/dL HDL 48 >=40 mg/dL LDL Cholesterol 59 0 - 100 mg/dL Blood Venous blood specimen / Unknown Result [facility] LAB BLOOD ORDERABLES Zunilda l Result * Diabetes Eye Exam (10/30/2023) [facility] Diabetes: Annual Retina Eye Exam Abstracted Result [facility] HEALTH MAINTENANCE Final Result * Colonoscopy (01/28/2020) [facility] Colonoscopy No interpretation , Abstracted Anatomical Region Laterality Modality Other Result [facility] HEALTH MAINTENANCE Final Result * Hepatitis C Screening (04/01/2016) Hepatitis C Screening Abstracted us Historical Provider HEALTH MAINTENANCE Final Result from Last 3 Months or Most Recently Relevant to Health Maintenance Insurance [employer] MEDICARE ADVANTAGE MEDICARE FAMILY HEALTH PLAN MEDICAID - [place] Care Teams Mortgage Servicing Specialist Relationship Specialty Start Date End Date Hector Epps MD [address] [place] [address] [address] [place] PCP - General Internal Medicine 09/03/24
--- OUTSIDE RECORDS SUMMARY | 2024-11-13 04:00 | XMS_ITS | Encounter Summary ---
Author Organization [facility] Address [address] [place] [address] Care Team Providers Care R And D Lab Technician Name Role Phone Aron Son MD Unavailable Unavailable Félix Garvey PA-C Primary Care Provider [phone] Encounter Details Date Type Department Care Team Description 03/12/2023 Cash Register Balancer Report Medical Records [address] [place], [place] [phone] [place] [address] Social History Tobacco Use Types Packs/Day Years [...] on filedocumented in this encounter Care Teams R And D Lab Technician Relationship Specialty Start Date End Date Félix Garvey PA-C [address] [place], [place] [address] PCP - General Internal Medicine 06/06/22 Aron Son MD Specialist Cardiovascular Disease 06/06/22 documented as of this encounter
--- OUTSIDE RECORDS SUMMARY | 2024-11-13 04:00 | XMS_ITS | Encounter Summary ---
Author Organization [facility] Address [address] [place] [address] Care Team Providers Care Digital Experience Manager Name Role Phone Aron Son MD Unavailable Unavailable Félix Garvey PA-C Primary Care Provider [phone] Encounter Details Date Type Department Care Team Description 05/14/2023 Transfer Records Medical Records [address] [place] [address] [place] Social History Tobacco Use Types [...] on filedocumented in this encounter Care Teams Digital Experience Manager Relationship Specialty Start Date End Date Félix Garvey PA-C [address] [place], [place] [phone] PCP - General Internal Medicine 06/06/22 Aron Son MD Specialist Cardiovascular Disease 06/06/22 documented as of this encounter
--- OUTSIDE RECORDS SUMMARY | 2024-11-13 04:00 | XMS_ITS | Encounter Summary ---
Author Organization [facility] Address [address] [place] [address] Care Team Providers Care Station Mechanic Apprentice Name Role Phone Félix Garvey PA-C Primary Care Provider [phone] Rod Machuca MD Primary Care Provider Aron Son MD Unavailable Unavailable Félix Garvey PA-C Primary Care Provider [phone] Encounter Details Date Type Department Care Team Description 04/12/2021 Cnc Service Technician Report Medical Records [address] [place] [address] Ely Kirby Social History Tobacco Use Types [...] on filedocumented in this encounter Care Teams Station Mechanic Apprentice Relationship Specialty Start Date End Date Félix Garvey PA-C [address] [place], [place] [phone] PCP - General Internal Medicine 09/27/20 05/09/22 Rod Machuca MD [address] [place], [place] [phone] PCP - General Lung Cancer Casting Director 05/10/22 06/05/22 Félix Garvey PA-C [address] [place] [address] PCP - General Internal Medicine 06/06/22 Aron Son MD [address] [place] [address] Specialist Cardiovascular Disease 06/06/22 documented as of this encounter
--- OUTSIDE RECORDS SUMMARY | 2024-11-13 04:00 | XMS_ITS | Encounter Summary ---
Author Organization [facility] Address [address] [place] [address] Care Team Providers Care Car Trimmer Name Role Phone Aron Son MD Unavailable Unavailable Félix Garvey PA-C Primary Care Provider [phone] Encounter Details Date Type Department Care Team Description 03/25/2023 Oracle Identity Management Consultant Report Medical Records [address] [place] [address] Mario Alberto Carter MD Social History Tobacco [...] on filedocumented in this encounter Care Teams Car Trimmer Relationship Specialty Start Date End Date Félix Garvey PA-C [address] [place] [address] [phone] PCP - General Internal Medicine 06/06/22 Aron Son MD Specialist Cardiovascular Disease 06/06/22 documented as of this encounter
--- OUTSIDE RECORDS SUMMARY | 2024-11-13 04:00 | XMS_ITS | Encounter Summary ---
Author Organization [facility] [employer] [facility] Address [address] [place] [address] Care Team Providers Care Shoe Caser Name Role Phone Vincenzo Green MD Primary Care Provider [phone] Félix Garvey PA-C Primary Care Provider [phone] Rod Machuca MD Primary Care Provider [phone] Aron Son MD Unavailable Unavailable Félix Garvey PA-C Primary Care Provider [phone] Encounter Details Date Type Department Care Team Description 09/14/2020 Cane Feeder Report Medical Records [address] [place] [address] Ely Kirby Social History Tobacco Use Types [...] on filedocumented in this encounter Care Teams Shoe Caser Relationship Specialty Start Date End Date Vincenzo Green MD [address] [place] [address] [phone] PCP - General Internal Medicine 08/03/15 09/26/20 Félix Garvey PA-C [address] [place] [address] PCP - General Internal Medicine 09/27/20 05/09/22 Rod Machuca MD [address] [place] [address] PCP - General Lung Cancer First Grade Teacher 05/10/22 06/05/22 Félix Garvey PA-C [address] [place] [address] PCP - General Internal Medicine 06/06/22 Aron Son MD [address] [place] [address] Specialist Cardiovascular Disease 06/06/22 documented as of this encounter
--- OUTSIDE RECORDS SUMMARY | 2024-11-13 04:00 | XMS_ITS | Encounter Summary ---
Author Organization [facility] Address [address] [place] [address] Care Team Providers Care Senior Treasury Analyst Name Role Phone Vincenzo Green MD Primary Care Provider + [phone] Félix Garvey PA-C Primary Care Provider +[phone] Rod Machuca MD Primary Care Provider [phone] Aron Son MD Unavailable Unavailable Félix Garvey PA-C Primary Care Provider [phone] Encounter Details Date Type Department Care Team Description 09/19/2020 Old Medical Records Medical Records [address] [place] [address] Abstract, Provider Social History Tobacco Use Types [...] filedocumented in this encounter Care Teams Senior Treasury Analyst Relationship Specialty Start Date End Date Vincenzo Green MD [address] [place] [address] [phone] PCP - General Internal Medicine 08/03/15 09/26/20 Félix Garvey PA-C [address] [place] [address] PCP - General Internal Medicine 09/27/20 05/09/22 Rod Machuca MD [address] [place] [address] PCP - General Lung Cancer Pipe Stripper 05/10/22 06/05/22 Félix Garvey PA-C [address] [place] [address] PCP - General Internal Medicine 06/06/22 Aron Son MD [address] [place] [address] Specialist Cardiovascular Disease 06/06/22 documented as of this encounter
--- OUTSIDE RECORDS SUMMARY | 2024-11-13 04:00 | XMS_ITS | Encounter Summary ---
Author Organization [facility] Address [address] [place] [address] Care Team Providers Care Director Of Patient Safety Name Role Phone Vincenzo Green MD Primary Care Provider [phone] Félix Garvey PA-C Primary Care Provider + [phone] Rod Machuca MD Primary Care Provider [phone] Aron Son MD Unavailable Unavailable Félix Garvey PA-C Primary Care Provider [phone] Encounter Details Date Type Department Care Team Description 10/15/2016 Tobacco Sample Puller Report Medical Records [address] [place] [address] Zack Powers Social History Tobacco Use Types [...] filedocumented in this encounter Care Teams Director Of Patient Safety Relationship Specialty Start Date End Date Vincenzo Green MD [address] [place] [address] [phone] PCP - General Internal Medicine 08/03/15 09/26/20 Félix Garvey PA-C [address] [place] [address] [phone] PCP - General Internal Medicine 09/27/20 05/09/22 Rod Machuca MD [address] [place] [address] PCP - General Lung Cancer Fraud Prevention Analyst 05/10/22 06/05/22 Félix Garvey PA-C [address] [place] [address] PCP - General Internal Medicine 06/06/22 Aron Son MD [address] [place] [address] Specialist Cardiovascular Disease 06/06/22 documented as of this encounter
--- OUTSIDE RECORDS SUMMARY | 2024-11-13 04:00 | XMS_ITS | Encounter Summary ---
Author Organization [facility] Address [address] [place] [address] Care Team Providers Care Psychiatric Technician Assistant Name Role Phone Aron Son MD Unavailable Unavailable Félix Garvey PA-C Primary Care Provider +[phone] Encounter Details Date Type Department Care Team Description 09/09/2023 Company Truck Driver Report Medical Records [address] [place] [address] Abstract, Provider Social History Tobacco Use Types [...] on filedocumented in this encounter Care Teams Psychiatric Technician Assistant Relationship Specialty Start Date End Date Félix Garvey PA-C [address] [place] [address] [phone] PCP - General Internal Medicine 06/06/22 Aron Son MD Specialist Cardiovascular Disease 06/06/22 documented as of this encounter
--- OUTSIDE RECORDS SUMMARY | 2024-11-13 04:00 | XMS_ITS | Encounter Summary ---
Author Organization [facility] Address [address] [place] [address] Care Team Providers Care Automatic Teller Machine Servicer Name Role Phone Vincenzo Green MD Primary Care Provider [phone] Félix Garvey PA-C Primary Care Provider + [phone] Rod Machuca MD Primary Care Provider [phone] Aron Son MD Unavailable Unavailable Félix Garvey PA-C Primary Care Provider +[phone] Encounter Details Date Type Department Care Team Description 03/11/2016 Restaurant Kitchen And Service Manager Report Medical Records [address] [place] [address] Zack Powers Social History Tobacco Use Types [...] filedocumented in this encounter Care Teams Automatic Teller Machine Servicer Relationship Specialty Start Date End Date Vincenzo Green MD [address] [place] [address] [phone] PCP - General Internal Medicine 08/03/15 09/26/20 Félix Garvey PA-C [address] [place] [address] [phone] PCP - General Internal Medicine 09/27/20 05/09/22 Rod Machuca MD [address] [place] [address] PCP - General Lung Cancer Sandblaster Glass 05/10/22 06/05/22 Félix Garvey PA-C [address] [place] [address] PCP - General Internal Medicine 06/06/22 Aron Son MD [address] [place] [address] Specialist Cardiovascular Disease 06/06/22 documented as of this encounter
--- OUTSIDE RECORDS SUMMARY | 2024-11-13 04:00 | XMS_ITS | Encounter Summary ---
Author Organization [facility] Address [address] [place] [address] Care Team Providers Care Payroll Coordinator Name Role Phone Félix Garvey PA-C Primary Care Provider [phone] Rod Machuca MD Primary Care Provider [phone] Aron Son MD Unavailable Unavailable Félix Garvey PA-C Primary Care Provider +[phone] Encounter Details Date Type Department Care Team Description 04/11/2021 Propulsion Motor And Generator Repairer Report Medical Records [address] [place] [address] Abstract, Provider Social History Tobacco Use Types [...] on filedocumented in this encounter Care Teams Payroll Coordinator Relationship Specialty Start Date End Date Félix Garvey PA-C [address] [place] [address] PCP - General Internal Medicine 09/27/20 05/09/22 Rod Machuca MD [address] [place] [address] [phone] PCP - General Lung Cancer Plant Manager 05/10/22 06/05/22 Félix Garvey PA-C [address] [place] [address] PCP - General Internal Medicine 06/06/22 Aron Son MD [address] [place] [address] Specialist Cardiovascular Disease 06/06/22 documented as of this encounter
--- OUTSIDE RECORDS SUMMARY | 2024-11-13 04:00 | XMS_ITS | Encounter Summary ---
Author Organization [facility] Address [address] [place] [address] Care Team Providers Care Ruby On Rails Web Developer Name Role Phone Félix Garvey PA-C Primary Care Provider [phone] Rod Machuca MD Primary Care Provider [phone] Aron Son MD Unavailable Unavailable Félix Garvey PA-C Primary Care Provider +[phone] Encounter Details Date Type Department Care Team Description 08/09/2021 Physician/Internist Report Medical Records [address] [place] [address] Ely Kirby Social History Tobacco Use Types [...] on filedocumented in this encounter Care Teams Ruby On Rails Web Developer Relationship Specialty Start Date End Date Félix Garvey PA-C [address] [place], [place] [phone] PCP - General Internal Medicine 09/27/20 05/09/22 Rod Machuca MD [address] [place], [place] [phone] PCP - General Lung Cancer Service Desk Lead 05/10/22 06/05/22 Félix Garvey PA-C [address] [place] [address] PCP - General Internal Medicine 06/06/22 Aron Son MD [address] [place] [address] Specialist Cardiovascular Disease 06/06/22 documented as of this encounter
--- OUTSIDE RECORDS SUMMARY | 2024-11-13 04:00 | XMS_ITS | Encounter Summary ---
Author Organization [facility] [employer] [facility] Address [address] [place] [address] Care Team Providers Care Canine Enforcement Officer Name Role Phone Aron Son MD Unavailable Unavailable Félix Garvey PA-C Primary Care Provider +[phone] Encounter Details Date Type Department Care Team Description 08/20/2023 Telephonic Case Manager Report Medical Records [address] [place] [address] Lee Burgess Social History Tobacco Use Types [...] on filedocumented in this encounter Care Teams Canine Enforcement Officer Relationship Specialty Start Date End Date Félix Garvey PA-C [address] [place] [address] [phone] PCP - General Internal Medicine 06/06/22 Aron Son MD Specialist Cardiovascular Disease 06/06/22 documented as of this encounter
--- OUTSIDE RECORDS SUMMARY | 2024-11-13 04:01 | XMS_ITS | Encounter Summary ---
Author Organization [facility] Address [address] [place] [address] Care Team Providers Care Sales Enablement Manager Name Role Phone Vincenzo Green MD Primary Care Provider [phone] Félix Garvey PA-C Primary Care Provider + [phone] Rod Machuca MD Primary Care Provider [phone] Aron Son MD Unavailable Unavailable Félix Garvey PA-C Primary Care Provider + [phone] Encounter Details Date Type Department Care Team Description 11/25/2017 Hospital Medical Records [address] [place] [address] Lee Arroyo MD Social History Tobacco Use [...] on filedocumented in this encounter Care Teams Sales Enablement Manager Relationship Specialty Start Date End Date Vincenzo Green MD [address] [place] [address] [phone] PCP - General Internal Medicine 08/03/15 09/26/20 Félix Garvey PA-C [address] [place] [address] [phone] PCP - General Internal Medicine 09/27/20 05/09/22 Rod Machuca MD [address] [place] [address] PCP - General Lung Cancer Can Maker 05/10/22 06/05/22 Félix Garvey PA-C [address] [place] [address] PCP - General Internal Medicine 06/06/22 Aron Son MD [address] [place] [address] Specialist Cardiovascular Disease 06/06/22 documented as of this encounter
--- OUTSIDE RECORDS SUMMARY | 2024-11-13 04:01 | XMS_ITS | Encounter Summary ---
Author Organization [facility] Address [address] [place] [address] Care Team Providers Care Post Secondary Professional Name Role Phone Vincenzo Green MD Primary Care Provider [phone] Félix Garvey PA-C Primary Care Provider [phone] Rod Machuca MD Primary Care Provider [phone] Aron Son MD Unavailable Unavailable Félix Garvey PA-C Primary Care Provider [phone] Encounter Details Date Type Department Care Team Description 06/15/2018 Alliance Director Report Medical Records [address] [place] [address] Crystal Raines Social History Tobacco Use Types [...] on filedocumented in this encounter Care Teams Post Secondary Professional Relationship Specialty Start Date End Date Vincenzo Green MD [address] [place] [address] [phone] PCP - General Internal Medicine 08/03/15 09/26/20 Félix Garvey PA-C [address] [place] [address] [phone] PCP - General Internal Medicine 09/27/20 05/09/22 Rod Machuca MD [address] [place] [address] PCP - General Lung Cancer Universal Banker 05/10/22 06/05/22 Fléix Garvey PA-C [address] [place] [address] PCP - General Internal Medicine 06/06/22 Aron Son MD [address] [place] [address] Specialist Cardiovascular Disease 06/06/22 documented as of this encounter
--- OUTSIDE RECORDS SUMMARY | 2024-11-13 04:01 | XMS_ITS | Encounter Summary ---
Author Organization [facility] Address [address] [place] [address] Care Team Providers Care Ham Stringer Name Role Phone Félix Garvey PA-C Primary Care Provider [phone] Rod Machuca MD Primary Care Provider [phone] Aron Son MD Unavailable Unavailable Félix Garvey PA-C Primary Care Provider +[phone] Encounter Details Date Type Department Care Team Description 10/24/2021 Employee Benefits Coordinator Report Medical Records [address] [place] [address] Julita Marcial DPM Social History Tobacco Use [...] on filedocumented in this encounter Care Teams Ham Stringer Relationship Specialty Start Date End Date Félix Garvey PA-C [address] [place], [place] [phone] PCP - General Internal Medicine 09/27/20 05/09/22 Rod Machuca MD [address] [place], [place] [phone] PCP - General Lung Cancer Customer Relations Consultant 05/10/22 06/05/22 Félix Garvey PA-C [address] [place] [address] PCP - General Internal Medicine 06/06/22 Aron Son MD [address] [place] [address] Specialist Cardiovascular Disease 06/06/22 documented as of this encounter
--- OUTSIDE RECORDS SUMMARY | 2024-11-13 04:01 | XMS_ITS | Encounter Summary ---
Author Organization [facility] [employer] [facility] Address [address] [place] [address] Care Team Providers Care Coding Clerk Name Role Phone Aron Son MD Unavailable Unavailable Félix Garvey PA-C Primary Care Provider +[phone] Encounter Details Date Type Department Care Team Description 11/13/2023 Spinning Frame Fixer Report Medical Records [address] [place], [place] [address] [place] [address] Social History Tobacco Use Types Packs/Day Years [...] on filedocumented in this encounter Care Teams Coding Clerk Relationship Specialty Start Date End Date Félix Garvey PA-C [address] [place], [place] [phone] PCP - General Internal Medicine 06/06/22 Aron Son MD Specialist Cardiovascular Disease 06/06/22 documented as of this encounter
--- OUTSIDE RECORDS SUMMARY | 2024-11-13 04:01 | XMS_ITS | Encounter Summary ---
Author Organization [employer] Address [address] [facility] 7t [place] [address] Care Team Providers Care Track Superintendent Name Role Phone Unavailable Primary Care Provider Unavailabl e Reason for Visit * Reason Onset Date Comments insurance appt 12/25/2023 Encounter Details Date Type Department Care Team (Late st Contact Info) Description 12/25/2023 Telephone [facility] ADULT DENTAL [address] [place], [place] [phone] David Grayson insurance appt Social History Tobacco [...] Rawls - 12/25/2023 2:56 PM EDT [facility]. He says he has ar[employer]-X inurance. Patient was asked who is the insurance company that carries the insurance and he said [employer]. Asked again which is the insurance company that carries the insurance and patient hung up. Unsure of insurance coverage DR Bill resort desk clerk aware documented in this encounter Plan of Treatment Upcoming Encounters Date Type Department Care Team (Late st Contact Info) Description 12/07/2024 10:00 AM EDT Office Visit [facility] ADULT DENTAL [address] [place], [place] [phone] Spencer Rao DDS [address] [place], [place] [phone] 03/16/2025 3:00 PM EDT Office Visit [facility] ADULT DENTAL [address] [place] [address] Amalia Urrutia documented as of this encounter Visit Diagnoses Not on filedocumented in this encounter
--- OUTSIDE RECORDS SUMMARY | 2024-11-13 04:01 | XMS_ITS | Encounter Summary ---
Author Organization [facility] Address [address] [place] [address] Care Team Providers Care Camera Repair Technician Name Role Phone Vincenzo Green MD Primary Care Provider [phone] Félix Garvey PA-C Primary Care Provider [phone] Rod Machuca MD Primary Care Provider [phone] Aron Son MD Unavailable Unavailable Félix Garvey PA-C Primary Care Provider [phone] Encounter Details Date Type Department Care Team Description 11/06/2015 Release of Information Medical Records [address] [place] [address] Abstract, Provider Social History Tobacco Use Types [...] on filedocumented in this encounter Care Teams Camera Repair Technician Relationship Specialty Start Date End Date Vincenzo Green MD [address] [place] [address] [phone] PCP - General Internal Medicine 08/03/15 09/26/20 Félix Garvey PA-C [address] [place] [address] [id number] PCP - General Internal Medicine 09/27/20 05/09/22 Rod Machuca MD [address] [place] [address] PCP - General Lung Cancer Case Maker 05/10/22 06/05/22 Félix Garvey PA-C [address] [place] [address] PCP - General Internal Medicine 06/06/22 Aron Son MD [address] [place] [address] Specialist Cardiovascular Disease 06/06/22 documented as of this encounter
--- OUTSIDE RECORDS SUMMARY | 2024-11-13 04:01 | XMS_ITS | Encounter Summary ---
Author Organization [facility] Address [address] [place] [address] Care Team Providers Care Pin Inserter Name Role Phone Aron Son MD Unavailable Unavailable Félix Garvey PA-C Primary Care Provider +[phone] Encounter Details Date Type Department Care Team Description 08/16/2022 Fire Systems Inspector Report Medical Records [address] [place] [address] Rod Machuca MD [address] [place] [address] Social History Tobacco Use Types Packs/Day Years [...] on filedocumented in this encounter Care Teams Pin Inserter Relationship Specialty Start Date End Date Félix Garvey PA-C [address] [place] [address] PCP - General Internal Medicine 06/06/22 Aron Son MD Specialist Cardiovascular Disease 06/06/22 documented as of this encounter
--- OUTSIDE RECORDS SUMMARY | 2024-11-13 04:01 | XMS_ITS | Encounter Summary ---
Author Organization [facility] Address [address] [place] [address] Care Team Providers Care Flight Service Specialist Name Role Phone Vincenzo Green MD Primary Care Provider [phone] Félix Garvey PA-C Primary Care Provider + [phone] Rod Machuca MD Primary Care Provider [phone] Aron Son MD Unavailable Unavailable Félix Garvey PA-C Primary Care Provider [phone] Encounter Details Date Type Department Care Team Description 10/13/2018 Fleet Maintenance Foreman Report Medical Records [address] [place] [address] Abstract, Provider Social History Tobacco Use Types [...] on filedocumented in this encounter Care Teams Flight Service Specialist Relationship Specialty Start Date End Date Vincenzo Green MD [address] [place] [address] [phone] PCP - General Internal Medicine 08/03/15 09/26/20 Félix Garvey PA-C [address] [place] [address] [phone] PCP - General Internal Medicine 09/27/20 05/09/22 Rod Machuca MD [address] [place] [address] PCP - General Lung Cancer Physical Security Engineer 05/10/22 06/05/22 Félix Garvey PA-C [address] [place] [address] PCP - General Internal Medicine 06/06/22 Aron Son MD [address] [place] [address] Specialist Cardiovascular Disease 06/06/22 documented as of this encounter
--- OUTSIDE RECORDS SUMMARY | 2024-11-13 04:01 | XMS_ITS | Encounter Summary ---
Author Organization [employer] Address [address] [facility] 7t [place] [address] Care Team Providers Care Sales Assistant Displays Name Role Phone Unavailable Primary Care Provider Unavailabl e Reason for Visit * Reason Onset Date Comments Appointment 03/13/2023 Encounter Details Date Type Department Care Team ([facility] st Contact Info) Description 03/13/2023 Telephone C ADULT DENTAL [address] [place], [place] [phone] Dinah Mckinley DDS [address] [place], [place] [phone] Appointment Social History Tobacco Use Types Packs/Day [...] did offer the patient an appt in [place] with the understanding that he would become a [place] patient but he is unwilling to go to [facility]. He wants to know why hes being told that he needs to come in and then listed. Tried my best to explain. Would like his appt or phone call. documented in this encounter Plan of Treatment Upcoming Encounters Date Type Department Care Team (Late st Contact Info) Description 12/07/2024 10:00 AM EDT Office Visit [facility] ADULT DENTAL [address] [place] [address] Spencer Rao DDS [address] [place] [address] 03/16/2025 3:00 PM EDT Office Visit [facility] ADULT DENTAL [address] [place] [address] Amalia Urrutia documented as of this encounter Visit Diagnoses Not on filedocumented in this encounter
--- OUTSIDE RECORDS SUMMARY | 2024-11-13 04:01 | XMS_ITS | Encounter Summary ---
Author Organization [facility] Address [address] [place] [address] Care Team Providers Care Social Worker Assistant Name Role Phone Vincenzo Green MD Primary Care Provider [phone] Félix Garvey PA-C Primary Care Provider [phone] Rod Machuca MD Primary Care Provider [phone] Aron Son MD Unavailable Unavailable Félix Garvey PA-C Primary Care Provider [phone] Encounter Details Date Type Department Care Team Description 12/13/2015 Business Doc Medical Records [address] [place] [address] Abstract, Provider Social History Tobacco Use Types [...] filedocumented in this encounter Care Teams Social Worker Assistant Relationship Specialty Start Date End Date Vincenzo Green MD [address] [place] [address] [phone] PCP - General Internal Medicine 08/03/15 09/26/20 Félix Garvey PA-C [address] [place] [address] [phone] PCP - General Internal Medicine 09/27/20 05/09/22 Rod Machuca MD [address] [place] [address] PCP - General Lung Cancer Light Rail Operator 05/10/22 06/05/22 Félix Garvey PA-C [address] [place] [address] PCP - General Internal Medicine 06/06/22 Aron Son MD [address] [place] [address] Specialist Cardiovascular Disease 06/06/22 documented as of this encounter
--- OUTSIDE RECORDS SUMMARY | 2024-11-13 04:01 | XMS_ITS | Clinical Summary ---
Author Organization [employer] Address [address] [facility] 7t [place] [address] Care Team Providers Care Jewelry Manager Name Role Phone Unavailable Primary Care [...] Description 11/02/2024 3:00 PM EDT Office Visit [facility] ADULT DENTAL [address] [place] [address] Spencer Rao, DDS 10/29/[address] [facility] ADULT DENTAL [address] [place] [address] Spencer Rao, DDS 10/19/2024 11:00 AM EDT Office Visit [facility] ADULT DENTAL [address] [place], [place] [address] Spencer Rao, DDS 10/05/2024 11:00 AM EDT Office Visit [facility] ADULT DENTAL [address] [place] [address] Spencer Rao, DDS 09/10/2024 11:30 AM EST Office Visit [facility] ADULT DENTAL [address] [place] [address] John Paul Raoa, DDS 09/03/[address] [facility] ADULT DENTAL [address] [place] [address] Spencer Rao, DDS 08/17/2024 11:00 AM EST Office Visit [facility] ADULT DENTAL [address] [place] [address] Spencer Rao, DDBal from Last 3 Months [...] Description 12/07/2024 10:00 AM EDT Office Visit [facility] ADULT DENTAL [address] [place] [address] Spencer Rao DDS [address] [place] [address] 03/16/2025 3:00 PM EDT Office Visit [facility] ADULT DENTAL [address] [place] [address] Amalia Urrutia Health Maintenance Due Date Last [...] Procedure Name Priority Date/Time Associated Diagnosis Comments Max COMPLETE DENTURE - MAXILLARY Routine 11/02/2024 3:00 PM EDT WAX TRY IN Routine 10/19/2024 11:00 AM [...] to Health Maintenance Insurance AETNA MEDICARE [facility] AD[facility] - AETNA DENTAL PPO
--- OUTSIDE RECORDS SUMMARY | 2024-11-13 04:01 | XMS_ITS | Encounter Summary ---
Author Organization [facility] [employer] [facility] Address [address] [place] [address] Care Team Providers Care Soundscriber Mechanic Name Role Phone Aron Son MD Unavailable Unavailable Félix Garvey PA-C Primary Care Provider +1 [phone] Encounter Details Date Type Department Care Team Description 06/07/2022 Release of Information Medical Records [address] [place], [place] [phone] [place] [address] Social History Tobacco Use Types Packs/Day Years [...] on filedocumented in this encounter Care Teams Soundscriber Mechanic Relationship Specialty Start Date End Date Félix Garvey PA-C [address] [place], [place] [phone] PCP - General Internal Medicine 06/06/22 Aron Son MD Specialist Cardiovascular Disease 06/06/22 documented as of this encounter
--- OUTSIDE RECORDS SUMMARY | 2024-11-13 04:01 | XMS_ITS | Encounter Summary ---
Author Organization [facility] Address [address] [place] [address] Care Team Providers Care Supervisor Intelligence Analyst Name Role Phone Vincenzo Green MD Primary Care Provider + [phone] Félix Garvey PA-C Primary Care Provider +[phone] Rod Machuca MD Primary Care Provider [phone] Aron Son MD Unavailable Unavailable Félix Garvey PA-C Primary Care Provider +[phone] Reason for Visit * Reason Onset Date Comments injection 09/29/2017 Encounter Details Date Type Department Care Team Description 09/29/2017 Telephone Physiatry - [address] [id number] Ed Holley DO injection Social History Tobacco [...] on filedocumented in this encounter Care Teams Supervisor Intelligence Analyst Relationship Specialty Start Date End Date Vincenzo Green MD [address] [place] [address] PCP - General Internal Medicine 08/03/15 09/26/20 Félix Garvey PA-C [address] [place] [address] 31593 PCP - General Internal Medicine 09/27/20 05/09/22 Rod Machuca MD [address] [place] [address]24 PCP - General Lung Cancer Lens Grinder And Polisher 05/10/22 06/05/22 Félix Garvey PA-C [address] [place] [address] 20655 PCP - General Internal Medicine 06/06/22 Aron Son MD [address] [place] [address] 09778 Specialist Cardiovascular Disease 06/06/22 documented as of this encounter
--- OUTSIDE RECORDS SUMMARY | 2024-11-13 04:01 | XMS_ITS | Encounter Summary ---
Author Organization [facility] Address [address] [place] [address] Care Team Providers Care Inspector Canvas Products Name Role Phone Aron Son MD Unavailable Unavailable Félix Garvey PA-C Primary Care Provider [phone] Encounter Details Date Type Department Care Team Description 11/06/2023 Orders Only Medical Records [address] [place] [address] [address] Social History Tobacco Use Types [...] on filedocumented in this encounter Care Teams Inspector Canvas Products Relationship Specialty Start Date End Date Félix Garvey PA-C [address] [place], [place] [phone] PCP - General Internal Medicine 06/06/22 Aron Son MD Specialist Cardiovascular Disease 06/06/22 documented as of this encounter
--- OUTSIDE RECORDS SUMMARY | 2024-11-13 04:01 | XMS_ITS | Encounter Summary ---
Author Organization [facility] Address [address] [place] [address] Care Team Providers Care Rehab/Pre Vocational Counselor Name Role Phone Aron Son MD Unavailable Unavailable Félix Garvey PA-C Primary Care Provider +[phone] Encounter Details Date Type Department Care Team Description 10/17/2022 Fuel System Maintenance Worker Report Medical Records [address] [place] [address] Ely Kirby Social History Tobacco Use Types [...] on filedocumented in this encounter Care Teams Rehab/Pre Vocational Counselor Relationship Specialty Start Date End Date Félix Garvey PA-C [address] [place], [place] [phone] PCP - General Internal Medicine 06/06/22 Aron Son MD Specialist Cardiovascular Disease 06/06/22 documented as of this encounter
--- OUTSIDE RECORDS SUMMARY | 2024-11-13 04:01 | XMS_ITS ---
Author Organization [facility] Address [address] [facility] [place] [address] Care Team Providers Care Manager Case Name Role Phone Félix Cooper Primary Care Provider Unav ailJulita Shah Unavailable [phone] Allergies Allergen (clinical drug ingredient) Drug/Non Drug [...] a day for 30 day(s) Active Nystatin-Triamcinolone 843525-9.1 UNIT/GM 1 application Externally Twice a day Active Pen [place] 10/03 Ac tive Insulin Glargine 100 UNIT/ML [...] Problem Acquired hammer toe of right foot (4512472648812 105) Other hammer toe(s) (acquired), right foot (M20.41) Active confirmed Problem Acquired hammer toe of left foot (0291903837861 103) Other hammer toe(s) (acquired), left foot (M20.42) Active confirmed Vital Signs Height 5 ft 10 in in 11/11/2023 Weight 200 lbs 11/11/2023 BMI 28.69 kg/m2 11/11/2023 Encounters Encounter Location Date Provider Diagnosis [facility] [address] [place] [address] 11/11/2023 Julita Marcial Other hammer toe(s) (acquired), [...] Reason: Provider Name:Julita fajardo, 12/03/2024 09:00:00 AM, [address] [place] [address], [address], Progress Notes * Kaila RHODESOB:[birth year] (63 yo M)Acc No.[id number]:11/11/2023 Progress Note Patient:?Thong Rhodes Provider:?Julita Marcial DPM :1960???Age:63 Y???Sex:Male Nahun e:11/11/2023 Address:[address] [place] [address] [facility] Pcp:JESUS Jerry Subjective: * Chief Complaints: * [...] Disabled. * Medications:?TakingPen Needl es 10/03 Nystatin-Triamcinolone 061487-5.1 UNIT/GM Cream 1 application Externally Twice a [...] 1 tablet Orally Once a dayTaking Pen [place] 10/03 Taking Nystatin-Triamcinolone 573321-3.1 UNIT/GM Cream 1 application Externally Twice a [...] Sign off status: Completed true * Provider:?Julita Marcila DPM Date:? Generated for Eyal orta/Teri/Alejandro on:?11/13/2024 04:01 AM EDT History and Physical Notes * [...]
--- OUTSIDE RECORDS SUMMARY | 2024-11-13 04:01 | XMS_ITS | Patient Health Record ---
Author Organization [facility] Address [address] [facility] [place] [address] Care Team Providers Care Insole Taper Name Role Phone Félix Cooper Primary Care Provider Unav ailable Julita Marcial Unavailable [phone] Allergies Allergen (clinical drug ingredient) Drug/Non Drug Allergy documented on EMR Reaction Allergy Type Onset Date Status liraglutide Victoza Unknown Drug Allergy Activ e canagliflozin Canagliflozin Unknown Drug Allergy Active lisinopril Lisinopril Unknown Drug Allergy Activ e Reason For Referral No Information Medications Medication SIG (Take, Route, Frequency, Duration) Notes Start Date End Date Status Nystatin-Triamcinolone 867688-0.1 UNIT/GM 1 application Externally Twice a day Active Tadalafil 20 MG 1 tablet Orally for 30 day(s) Not-Taking Pen [place] /16 Ac tive Extra Depth Orthopedic Shoes [...] Problem Acquired hammer toe of right foot (2225878437690 105) Other hammer toe(s) (acquired), right foot (M20.41) Active confirmed Problem Acquired hammer toe of left foot (9975849295875 103) Other hammer toe(s) (acquired), left foot (M20.42) Active confirmed Problem 226716481 Type 2 diabetes mellitus without complications (E11.9) Active confirmed Problem 061028851 Hammer toe of left foot (M20.42) Active confirmed Plan Of Treatment Next Appt Details Provider Name:Julita fajardo, 12/03/2024 09:00:00 AM, [address] [facility], [place], [address], Insurance Providers Payer Name Payer Address Payer Phone Subscriber Number Group Number Insured Name Patient Relationship to Insured Coverage Start Date Coverage End Date Medicare National [employer] [address] [place] [address] [id number] Bharath Almeida Self - patient is the [...]
--- OUTSIDE RECORDS SUMMARY | 2024-11-13 04:01 | XMS_ITS | Encounter Summary ---
Author Organization [facility] Address [address] [place] [address] Care Team Providers Care Insole Presser Name Role Phone Aron Son MD Unavailable Unavailable Félix Garvey PA-C Primary Care Provider [phone] Encounter Details Date Type Department Care Team Description 09/29/2023 Upper Trimmer Report Medical Records [address] [place] [address] Jacklyn Chow NP Social History Tobacco Use [...] on filedocumented in this encounter Care Teams Insole Presser Relationship Specialty Start Date End Date Félix Garvey PA-C [address] [place] [address] [phone] PCP - General Internal Medicine 06/06/22 Aron Son MD Specialist Cardiovascular Disease 06/06/22 documented as of this encounter
--- OUTSIDE RECORDS SUMMARY | 2024-11-13 04:01 | XMS_ITS | Encounter Summary ---
Author Organization [facility] Address [address] [place] [address] Care Team Providers Care Technical Instructor Name Role Phone Vincenzo Green MD Primary Care Provider [phone] Félix Garvey PA-C Primary Care Provider +[phone] Rod Machuca MD Primary Care Provider [phone] Aron Son MD Unavailable Unavailable Félix Garvey PA-C Primary Care Provider [phone] Reason for Visit * Reason Onset Date Comments refill request 09/17/2017 Encounter Details Date Type Department Care Team Description 09/17/2017 Refill Adult Medicine [address] [phone] Vincenzo Green MD [address] [place] [address] [phone] refill request Social History Tobacco Use Types [...] / Plan: [place] / Product Type: MEDICARE [id number] documented in this encounter Plan of Treatment Not on file documented as of this encounter Visit Diagnoses Not on filedocumented in this encounter Care Teams Technical Instructor Relationship Specialty Start Date End Date Vincenzo Green MD [address] [place] [address] [phone] PCP - General Internal Medicine 08/03/15 09/26/20 Félix Garvey PA-C [address] [place] [address] PCP - General Internal Medicine 09/27/20 05/09/22 Rod Machuca MD [address] [place] [address] PCP - General Lung Cancer Manager Revenue 05/10/22 06/05/22 Félix Garvey PA-C [address] [place] [address] PCP - General Internal Medicine 06/06/22 Aron Son MD [address] [place] [address] Specialist Cardiovascular Disease 06/06/22 documented as of this encounter
--- OUTSIDE RECORDS SUMMARY | 2024-11-13 04:01 | XMS_ITS | Encounter Summary ---
Author Organization [facility] Address [address] [place] [address] Care Team Providers Care Resource Manager Forester Name Role Phone Aron Son MD Unavailable Unavailable Félix Garvey PA-C Primary Care Provider +[phone] Encounter Details Date Type Department Care Team Description 06/07/2022 SCAN Medical Records [address] [place] [address] [facility] Social History Tobacco Use Types Packs/Day Years [...] on filedocumented in this encounter Care Teams Resource Manager Forester Relationship Specialty Start Date End Date Félix Garvey PA-C [address] [place], [place] [phone] PCP - General Internal Medicine 06/06/22 Aron Son MD Specialist Cardiovascular Disease 06/06/22 documented as of this encounter
--- OUTSIDE RECORDS SUMMARY | 2024-11-13 04:01 | XMS_ITS | Encounter Summary ---
Author Organization [facility] Address [address] [place] [address] Care Team Providers Care Parimutuel Clerk Name Role Phone Aron Son MD Unavailable Unavailable Félix Garvey PA-C Primary Care Provider [phone] Encounter Details Date Type Department Care Team Description 10/03/2022 Tower Attendant Report Medical Records [address] [place] [address] Mario Alberto Carter MD Social History Tobacco [...] on filedocumented in this encounter Care Teams Parimutuel Clerk Relationship Specialty Start Date End Date Félix Garvey PA-C [address] [place], [place] [phone] PCP - General Internal Medicine 06/06/22 Aron Son MD Specialist Cardiovascular Disease 06/06/22 documented as of this encounter
--- OUTSIDE RECORDS SUMMARY | 2024-11-13 04:01 | XMS_ITS | Encounter Summary ---
Author Organization [facility] Address [address] [place] [address] Care Team Providers Care Adventure Education Teacher Name Role Phone Félix Garvey PA-C Primary Care Provider [phone] Rod Machuca MD Primary Care Provider Aron Son MD Unavailable Unavailable Félix Garvey PA-C Primary Care Provider [phone] Encounter Details Date Type Department Care Team Description 04/11/2022 Spa Experience Coordinator Report Medical Records [address] [place] [address] Ely Kirby Social History Tobacco Use Types [...] on filedocumented in this encounter Care Teams Adventure Education Teacher Relationship Specialty Start Date End Date Félix Garvey PA-C [address] [place], [place] [phone] PCP - General Internal Medicine 09/27/20 05/09/22 Rod Machuca MD [address] [place], [place] [phone] PCP - General Lung Cancer Brilliandeer Looper 05/10/22 06/05/22 Félix Garvey PA-C [address] [place] [address] PCP - General Internal Medicine 06/06/22 Aron Son MD [address] [place] [address] Specialist Cardiovascular Disease 06/06/22 documented as of this encounter
--- OUTSIDE RECORDS SUMMARY | 2024-11-13 04:01 | XMS_ITS | Encounter Summary ---
Author Organization [facility] Address [address] [place] [address] Care Team Providers Care Support Worker Name Role Phone Aron Son MD Unavailable Unavailable Félix Garvey PA-C Primary Care Provider [phone] Reason for Visit * Reason Onset Date Comments REFERRAL 12/09/2022 Encounter Details Date Type Department Care Team Description 12/09/2022 Telephone Adult Medicine [facility] [address] [place], [place] [phone] Félix Garvey PA-C [address] [place], [place] [phone] REFERRAL Social History Tobacco Use Types Packs/Day [...] Ref[place]06[place] [facility] Never received referral request please resend to fx [phone] documented in this encounter Plan of Treatment Not on file documented as of this encounter Visit Diagnoses Not on filedocumented in this encounter Care Teams Support Worker Relationship Specialty Start Date End Date Félix Garvey PA-C [address] [place] [address] PCP - General Internal Medicine 06/06/22 Aron Son MD Specialist Cardiovascular Disease 06/06/22 documented as of this encounter
--- OUTSIDE RECORDS SUMMARY | 2024-11-13 04:01 | XMS_ITS | Encounter Summary ---
Author Organization [facility] Address [address] [place] [address] Care Team Providers Care Lease Purchase Truck Driver Name Role Phone Aron Son MD Unavailable Unavailable Félix Garvey PA-C Primary Care Provider [phone] Reason for Visit * Reason Onset Date Comments Error 09/16/2022 Encounter Details Date Type Department Care Team Description 09/16/2022 Telephone Adult Medicine [facility] [address] [place] [address] [phone] Félix Garvey PA-C [address] [place] [address] [phone] Error Social History Tobacco Use Types Packs/Day [...] on filedocumented in this encounter Care Teams Lease Purchase Truck Driver Relationship Specialty Start Date End Date Félix Garvey PA-C [address] [place] [address] PCP - General Internal Medicine 06/06/22 Aron Son MD Specialist Cardiovascular Disease 06/06/22 documented as of this encounter
--- OUTSIDE RECORDS SUMMARY | 2024-11-13 04:01 | XMS_ITS | Encounter Summary ---
Author Organization [facility] Address [address] [place] [address] Care Team Providers Care Systems Spec Name Role Phone Vincenzo Green MD Primary Care Provider [phone] Félix Garvey PA-C Primary Care Provider + [phone] Rod Machuca MD Primary Care Provider [phone] Aron Son MD Unavailable Unavailable Félix Garvey PA-C Primary Care Provider [phone] Encounter Details Date Type Department Care Team Description 06/08/2019 Medical Facilities Section Director Report Medical Records [address] [place] [address] [facility] Social History Tobacco Use Types Packs/Day [...] on filedocumented in this encounter Care Teams Systems Spec Relationship Specialty Start Date End Date Vincenzo Green MD [address] [place] [address] [phone] PCP - General Internal Medicine 08/03/15 09/26/20 Félix Garvey PA-C [address] [place] [address] [phone] PCP - General Internal Medicine 09/27/20 05/09/22 Rod Machuca MD [address] [place] [address] PCP - General Lung Cancer Atomic Spectroscopist 05/10/22 06/05/22 Félix Garvey PA-C [address] [place] [address] PCP - General Internal Medicine 06/06/22 Aron Son MD [address] [place] [address] Specialist Cardiovascular Disease 06/06/22 documented as of this encounter
--- OUTSIDE RECORDS SUMMARY | 2024-11-13 04:01 | XMS_ITS | Encounter Summary ---
Author Organization [facility] Address [address] [place] [address] Care Team Providers Care Emotional Disabilities Teacher Name Role Phone Aron Son MD Unavailable Unavailable Félix Garvey PA-C Primary Care Provider [phone] Reason for Visit * Reason Onset Date Comments REFERRAL 12/09/2022 Encounter Details Date Type Department Care Team Description 12/09/2022 Telephone Adult Medicine [facility] [address] [place], [place] [phone] Félix Garvey PA-C [address] [place], [place] [phone] REFERRAL Social History Tobacco Use Types Packs/Day [...] PLAN / Plan: [place] FAMILY POS $22/$33 [place] [id number] / Product Type: POS [id number] Effective 04/20/09: BCBS will not retro referral [...] insurance must be obtained and registered in [facility] [facility] or their referral can not be processed. [...] YES Is this visit:Follow Up Address of Specialist:[address] [place] [address], [address] Phone # of Specialist: Fax #: (if applicable):[phone] Does patient have an appointment scheduled?: NO Date of appointment- (including a retro-request): 12/05/22 Is this appointment related to: Not MVA, WC or Surgery related documented in this encounter Plan of Treatment Not on file documented as of this encounter Visit Diagnoses Not on filedocumented in this encounter Care Teams Emotional Disabilities Teacher Relationship Specialty Start Date End Date Félix Garvey PA-C [address] [place] [address] PCP - General Internal Medicine 06/06/22 Aron Son MD Specialist Cardiovascular Disease 06/06/22 documented as of this encounter
--- OUTSIDE RECORDS SUMMARY | 2024-11-13 04:01 | XMS_ITS | Encounter Summary ---
Author Organization [facility] Address [address] [facility] 7t [place] [address] Care Team Providers Care Assistant Maintenance Manager Name Role Phone Unavailable Primary Care Provider Unavailabl e Encounter Details Date Type Department Care Team (Late st Contact Info) Description 07/30/2024 Telephone [facility] [address] [place] [address] Spencer Rao DDS [address] [place] [address] Social History Tobacco Use Types Packs/Day Years [...] Description 12/07/2024 10:00 AM EDT Office Visit [facility] [address] [place] [address] Spencer Rao DDS [address] [place] [address] 03/16/2025 3:00 PM EDT Office Visit [facility] [address] [place] [address] Amalia Urrutia documented as of this encounter Visit Diagnoses Not on filedocumented in this encounter
--- OUTSIDE RECORDS SUMMARY | 2024-11-13 04:01 | XMS_ITS | Encounter Summary ---
Author Organization [facility] Address [address] [place] [address] Care Team Providers Care Brim Stretcher Name Role Phone Vincenzo Green MD Primary Care Provider [phone] Félix Garvey PA-C Primary Care Provider [phone] Rod Machuca MD Primary Care Provider [phone] Aron Son MD Unavailable Unavailable Félix Garvey PA-C Primary Care Provider [phone] Encounter Details Date Type Department Care Team Description 08/30/2019 Designated Broker Report Medical Records [address] [place] [address] Lloyd Hung Social History Tobacco Use Types [...] on filedocumented in this encounter Care Teams Brim Stretcher Relationship Specialty Start Date End Date Vincenzo Green MD [address] [place] [address] [phone] PCP - General Internal Medicine 08/03/15 09/26/20 Félix Garvey PA-C [address] [place] [address] [phone] PCP - General Internal Medicine 09/27/20 05/09/22 Rod Machuca MD [address] [place] [address] PCP - General Lung Cancer Sales Estimator 05/10/22 06/05/22 Félix Garvey PA-C [address] [place] [address] PCP - General Internal Medicine 06/06/22 Aron Son MD [address] [place] [address] Specialist Cardiovascular Disease 06/06/22 documented as of this encounter
--- OUTSIDE RECORDS SUMMARY | 2024-11-13 04:01 | XMS_ITS | Encounter Summary ---
Author Organization [facility] Address [address] [place] [address] Care Team Providers Care Cut Out Marker Name Role Phone Vincenzo Green MD Primary Care Provider [phone] Félix Garvey PA-C Primary Care Provider [phone] Rod Machuca MD Primary Care Provider Aron Son MD Unavailable Unavailable Félix Garvey PA-C Primary Care Provider [phone] Encounter Details Date Type Department Care Team Description 07/05/2019 Old Medical Records Medical Records [address] [place] [address] Abstract, Provider Social History Tobacco Use Types [...] on filedocumented in this encounter Care Teams Cut Out Marker Relationship Specialty Start Date End Date Vincenzo Green MD [address] [place] [address] [phone] PCP - General Internal Medicine 08/03/15 09/26/20 Félix Garvey PA-C [address] [place] [address] [phone] PCP - General Internal Medicine 09/27/20 05/09/22 Rod Machuca MD [address] [place] [address] PCP - General Lung Cancer Overcoiler 05/10/22 06/05/22 Félix Garvey PA-C [address] [place] [address] PCP - General Internal Medicine 06/06/22 Aron Son MD [address] [place] [address] Specialist Cardiovascular Disease 06/06/22 documented as of this encounter
--- OUTSIDE RECORDS SUMMARY | 2024-11-13 04:01 | XMS_ITS | Encounter Summary ---
Author Organization [facility] Address [address] [place] [address] Care Team Providers Care Box Printing Machine Operator Name Role Phone Vincenzo Green MD Primary Care Provider [phone] Félix Garvey PA-C Primary Care Provider [phone] Rod Machuca MD Primary Care Provider [phone] Aron Son MD Unavailable Unavailable Félix Garvey PA-C Primary Care Provider +[phone] Encounter Details Date Type Department Care Team Description 10/02/2015 Release of Information Medical Records [address] [place] [address] Abstract, Provider Social History Tobacco Use Types [...] on filedocumented in this encounter Care Teams Box Printing Machine Operator Relationship Specialty Start Date End Date Vincenzo Green MD [address] [place] [address] [phone] PCP - General Internal Medicine 08/03/15 09/26/20 Félix Garvey PA-C [address] [place] [address] [phone] PCP - General Internal Medicine 09/27/20 05/09/22 Rod Machuca MD [address] [place] [address] PCP - General Lung Cancer Language Translator 05/10/22 06/05/22 Félix Garvey PA-C [address] [place] [address] PCP - General Internal Medicine 06/06/22 Aron Son MD [address] [place] [address] Specialist Cardiovascular Disease 06/06/22 documented as of this encounter
--- OUTSIDE RECORDS SUMMARY | 2024-11-13 04:02 | XMS_ITS ---
Author Organization [facility] Address [address] [place] [address] Care Team Providers Care Factory Maintenance Manager Name Role Phone Félix Cooper Primary Care Provider Unav ailable Julita Marcial [phone] Galeano Encounters Encounter Location Date Provider Diagnosis [facility] [address] [place] [address] 10/29/2023 Julita Marcial Plan Of Treatment Next Appt Details Provider Name:Julita fajardo, 12/03/2024 09:00:00 AM, [address] [place], [address], Progress Notes * Kaila RHODESOB:[birth year] (64 yo M)Acc No.[id number]:10/29/2023 Progress Note Patient:?Thong RHODES Provider:?Julita Marcial DPM :1960???Age:62 Y???Sex:Male Nahun e:10/29/2023 Address:[address] [place] Pcp:JESUS Jerry Subjective: * Chief Complaints: * [...] Marcial DPM Date:?04/2024 Generated for Eyal orta/Teri/Alejandro on:?11/13/2024 04:01 AM EDT
--- OUTSIDE RECORDS SUMMARY | 2024-11-13 04:02 | XMS_ITS | Encounter Summary ---
Author Organization [facility] Address [address] [place] [address] Care Team Providers Care Banana Grader Name Role Phone Vincenzo Green MD Primary Care Provider [phone] Félix Garvey PA-C Primary Care Provider [phone] Rod Machuca MD Primary Care Provider [phone] Aron Son MD Unavailable Unavailable Félix Garvey PA-C Primary Care Provider [phone] Encounter Details Date Type Department Care Team Description 11/05/2017 Orders Only Adult Medicine [address] [id number] Vincenzo Green MD [address] [place] [address] [phone] Preoperative examination; Screening for deficiency anemia; assisted current use of anticoagulant therapy Social History [...] - 33.6 SEC 11/17/2017 3:33 PM EDT [facility] Comment: Please note adjusted APTT (sec) reference range ?? effective 01/19/2016. 11/17/2017 2:06 PM EDT 11/17/2017 2:07 PM EDT Vincenzo Green MD LAB Performing Organization Address [facility] de Phone Number [address] * PROTHROMBIN TIME (11/17/2017 2:06 PM EDT) PT 13.1 11.6 - 15.6 SEC 11/17/2017 3:18 PM EDT [facility] Comment: Please note adjusted PT(sec)normal reference range ?? effective 03/21/15. INR 0.98 11/17/2017 3:18 PM EDT [facility] 11/17/2017 2:06 PM EDT 11/17/2017 2:07 PM EDT Vincenzo Green MD LAB Performing Organization Address [facility] Phone Number [address] * (ABNORMAL) CBC (AUTO DIFF PLATELET) (11/17/2017 2:06 PM EDT) WBC 6.0 4.8 - 10.8 x10-3 11/17/2017 2:45 PM EDT [facility] RBC 4.2(L) 4.5 - 5.5 x10-6 11/17/2017 2:45 PM EDT [facility] HGB 13.3(L) 13.5 - 17.5 g/dl 11/17/2017 2:45 PM EDT [facility] HCT 38.0(L) 42 - 54 % 11/17/2017 2:45 PM EDT [facility] MCV 89.6 79 - 98 fl 11/17/2017 2:45 PM EDT [facility] MCH 31.4 27 - 32 pg 11/17/2017 2:45 PM EDT [facility] MCHC 35.0 32 - 37 g/dl 11/17/2017 2:45 PM EDT [facility] RDW 12.3 11 - 15 % 11/17/2017 2:45 PM EDT [facility] PLT COUNT 193 130 - 400 x10-3 11/17/2017 2:45 PM EDT [facility] MEAN PLATELET VOLUME 10.3 7 - 11 fl 11/17/2017 2:45 PM EDT [facility] NEUT % 76.9 41 - 85 % 11/17/2017 2:45 PM EDT [facility] LYMPH % 16.4 15 - 48 % 11/17/2017 2:45 PM EDT [facility] MONO % 6.3 0 - 12 % 11/17/2017 2:45 PM EDT [facility] EOS % 0.2 0 - 5 % 11/17/2017 2:45 PM EDT [facility] BASO % 0.2 0 - 2 % 11/17/2017 2:45 PM EDT [facility] 11/17/2017 2:06 PM EDT 11/17/2017 2:07 PM EDT Vincenzo Green MD LAB Performing Organization Address City/State/[facility] de Phone Number [facility] [address] documented in this encounter Visit Diagnoses Diagnosis Preoperative examination Preoperative examination, unspecified Screening for deficiency anemia Screening for other and unspecified deficiency anemia manager terminal current use of anticoagulant therapy documented in this encounter Care Teams Banana Grader Relationship Specialty Start Date End Date Vincenzo Green MD [address] [place] [id number] PCP - General Internal Medicine 08/03/15 09/26/20 Félix Garvey PA-C [address] [place] [address] PCP - General Internal Medicine 09/27/20 05/09/22 Rod Machuca MD [address] [place] [address] PCP - General Lung Cancer Maintenance Construction Helper 05/10/22 06/05/22 Félix Garvey PA-C [address] [place] [address] PCP - General Internal Medicine 06/06/22 Aron Son MD [address] [place] [address] Specialist Cardiovascular Disease 06/06/22 documented as of this encounter
--- NOTE | 2024-11-13 04:34 | ED_ITS ---
HPI - Male Genitourinary General Chief complaint: Urogenital-Male Stated complaint: genital bleeding Time Seen by Provider: 11/13/24 04:32 Source: patient Mode of arrival: ambulatory Limitations: no limitations History of Present Illness ED Provider: HPI Narrative: Patient is diabetic noticed rash on his glans for last 4 weeks off and on with small amount of bleed Related Data Home Medications ?Medication ?Instructions ?Recorded ?Confirmed bupropion HCl 150 mg 24 hr tablet, 150 mg PO QAM 04/11/21 11/05/24 extended release nystatin-triamcinolone 100,000 1 appl topical DAILY 04/12/21 11/05/24 unit/g-0.1 % topical cream clotrimazole-betamethasone 1 1 appl topical DAILY 02/20/22 11/05/24 %-0.05 % topical cream metoprolol succinate 25 mg 25 mg PO DAILY 08/06/22 11/05/24 tablet,extended release 24 hr Previous Rx's ?Medication ?Instructions ?Recorded lancets #100 ea 12/22/20 amlodipine 10 mg tablet 10 mg PO DAILY #30 tabs 08/16/21 tadalafil 20 mg tablet 20 mg PO DAILY PRN sexual activity 02/20/22 #30 tabs lancets (Accu-Chek Softclix #100 ea 08/06/22 Lancets) tamsulosin 0.4 mg capsule 0.4 mg PO DAILY 90 days #90 caps 10/04/22 blood-glucose meter (Accu-Chek #1 ea 11/19/22 Guide Glucose Meter) blood-glucose,trashman,cont #1 ea 01/14/23 (Dexcom G7 Employment Agency Manager) mirtazapine 7.5 mg tablet 7.5 mg PO BEDTIME #30 tabs 06/26/23 blood sugar diagnostic (Accu-Chek #100 ea 08/08/23 Guide test strips) blood-glucose sensor (Dexcom G7 #3 ea 08/20/23 Sensor device) cholecalciferol (vitamin D3) 50 50 mcg PO DAILY #90 caps 05/24/24 mcg (2,000 unit) capsule (Vitamin D3) fluoxetine 60 mg tablet 60 mg PO DAILY #90 tabs 07/28/24 insulin aspart (niacinamide) See Rx Instructions subcut DAILY 07/28/24 (U-100) 100 unit/mL subcutaneous 30 days #30 mL solution metformin 500 mg tablet,extended 500 mg PO BEDTIME #90 tabs 07/28/24 release 24 hr thiamine mononitrate (vit B1) 100 100 mg PO DAILY #90 tabs 07/28/24 mg tablet lancets (Accu-Chek Fastclix Lancet #102 ea 08/19/24 Drum) sub-q insulin device, 20 unit #30 ea 09/21/24 (V-GO 20 device) bisacodyl 5 mg tablet,delayed 20 mg (4 x 5 mg) PO ONCE colon 09/28/24 release (Dulcolax (bisacodyl)) prep 1 day #4 tabs polyethylene glycol 3350 17 17 g PO DAILY colon prep 1 day 09/28/24 gram/dose oral powder (Miralax) #238 grams tirzepatide 2.5 mg/0.5 mL 2.5 mg (0.5 mL) subcut QWEEK #6 mL 10/27/24 subcutaneous pen injector cyclobenzaprine 10 mg tablet 10 mg PO BEDTIME PRN muscle spasm 11/01/24 #20 tabs ibuprofen 800 mg tablet 800 mg PO Q8H #30 tabs 11/01/24 lidocaine 5 % topical patch 1 patch topical DAILY #30 ea 11/01/24 cephalexin 500 mg capsule 500 mg PO QID 10 days #40 caps 11/13/24 miconazole nitrate 2 % topical 1 appl topical BID #15 grams 11/13/24 cream Allergies Allergy/AdvReac Type Severity Reaction Status Date / Time lisinopril Allergy Severe Angioedema Verified 11/13/24 03:48 canagliflozin [Invokana] Allergy Unknown polyuria Verified 11/13/24 03:48 quetiapine AdvReac Intermediate sedation, Verified 11/13/24 03:48 fatigue liraglutide [Victoza] AdvReac Unknown nausea, Verified 11/13/24 03:48 constipation Review of Systems Review of Systems: Yes all other systems are reviewed and are negative [facility] Past Medical History Medical History Cervicalgia Injury of right thumb Lumbar degenerative disc disease Vitamin D deficiency Hypersomnia Snoring Cognitive disorder Tubular adenoma of colon (~2019) BPH loc w urin obs/LUTS Frequency of urination Erectile dysfunction NAFLD (nonalcoholic fatty liver disease) Hepatitis C Hepatitis B Arthritis Alcohol abuse Depression Carpal tunnel syndrome Type 2 diabetes mellitus with diabetic neuropathy, unspecified (~2003) Essential hypertension Overweight (BMI 25.0-29.9) Surgical History History of rhinoplasty History of colonoscopy History of lumbar surgery History of cataract surgery History of excision of mass Family History Family History Father Myocardial infarct Colon cancer Mother Diabetes Social History Social History Household Members: Spouse Household Members Other:: Housing: House Alcohol intake: current Alcohol intake frequency: a few times a month Alcohol type: beer and hard liquor Patient Tobacco Use Status: Never used Tobacco e-Cigarette/Vaping Use: Never Used Substance Use Type: Crack/Cocaine Advance Directives: Yes Advance Directives on File: Yes Advance Directives Date on File: 07/20/24 Do you have a plan to hurt others: No Plan service: Yes Current occupational status: disabled Current occupational exposures/hazards: No Cognitive needs: No Hearing needs: No Vision needs: No Physical Exam Vital Signs: Vital Signs: Last Vital Signs Temp 98.4 F 11/13/24 03:45 Pulse 78 11/13/24 03:45 Resp 20 11/13/24 03:45 BP 151/94 H 11/13/24 03:45 Pulse Ox 100 11/13/24 03:45 O2 Del Method Room Air 11/13/24 03:45 BMI result Body Mass Index 24.4 Appearance: Alert. Oriented X3. No acute distress. Eyes: no pallor or icterus ENT: Pharynx normal Oral Mucosa moist tympanic membrane intact no erythema, Neck: Normal inspection. Neck supple. CVS: Normal heart rate and rhythm. Pulses normal. Respiratory: No respiratory distress. Equal air entry bilateral, Abd: soft, not tender Skin: Skin warm and dry. Normal skin color. Normal skin turgor. Extremities: No lower extremity edema, no calf tenderness Neuro: Oriented X 3. Medical Decision Making Medical Decision Making MDM Narrative: Patient's with balanitis diabetic will give cephalexin and miconazole Discharge Plan Discharge Clinical Impression: Acute balanitis due to infection Patient Disposition: Home, Self-Care Instructions: Balanitis (ED) Additional Instructions: Apply antifungal cream as prescribed twice a day Antibiotic as prescribed Follow with your PCP Prescriptions: New miconazole nitrate 2 % cream 1 appl topical BID Qty: 15 0RF cephalexin 500 mg capsule 500 mg PO QID 10 Days Qty: 40 0RF No Action tamsulosin 0.4 mg capsule 0.4 mg PO DAILY 90 Days Qty: 90 3RF (DME) blood-glucose meter [Accu-Chek Guide Glucose Meter] Misc See Rx Instructions .Route Qty: 1 0RF Rx Instructions: As directed tests 4 X/day (DME) Accu-Chek Guide test strips Strip See Rx Instructions .Route Qty: 100 5RF Rx Instructions: As directed tests 4 X/day cholecalciferol (vitamin D3) [Vitamin D3] 50 mcg (2,000 unit) capsule 50 mcg PO DAILY Qty: 90 5RF (DME) lancets [Accu-Chek Fastclix Lancet Drum] Misc See Rx Instructions .ROUTE .COMPLEX Qty: 102 6RF Dose Instruction: TEST FOUR TIMES A DAY DIRECTED Rx Instructions: TEST FOUR TIMES A DAY DIRECTED (DME) V-GO 20 Device See Rx Instructions .ROUTE .COMPLEX Qty: 30 1RF Dose Instruction: ONE DAILY Rx Instructions: ONE DAILY (DME) lancets Misc See Rx Instructions topical TID Qty: 100 6RF Rx Instructions: 4x daily nystatin-triamcinolone 100,000-0.1 unit/g-% cream 1 appl topical DAILY bupropion HCl 150 mg tablet extended release 24 hr 150 mg PO QAM amlodipine 10 mg tablet 10 mg PO DAILY Qty: 30 11RF metoprolol succinate 25 mg tablet extended release 24 hr 25 mg PO DAILY (DME) lancets [Accu-Chek Softclix Lancets] Misc See Rx Instructions .Route Qty: 100 4RF Rx Instructions: As directed-tests 4X/day clotrimazole-betamethasone 1-0.05 % cream 1 appl topical DAILY tadalafil 20 mg tablet 20 mg PO DAILY PRN (Reason: sexual activity) Qty: 30 1RF Rx Instructions: On demand time of sexual activity (DME) Dexcom G7 Employment Agency Manager Misc See Rx Instructions .Route Qty: 1 0RF Rx Instructions: As directed metformin 500 mg tablet extended release 24 hr 500 mg PO BEDTIME Qty: 90 3RF insulin aspart (niacinamide) 100 unit/mL solution See Rx Instructions subcut DAILY 30 Days Qty: 30 4RF Rx Instructions: 2 clicks subcutaneous with meals. Up to 76 units via V Go subcut daily; fluoxetine 60 mg tablet 60 mg PO DAILY Qty: 90 3RF thiamine mononitrate (vit B1) 100 mg tablet 100 mg PO DAILY Qty: 90 3RF tirzepatide 2.5 mg/0.5 mL pen injector 2.5 mg subcut QWEEK Qty: 6 3RF (DME) Dexcom G7 Sensor Device See Rx Instructions .Route Qty: 3 4RF Rx Instructions: As directed change every 10 days mirtazapine 7.5 mg tablet 7.5 mg PO BEDTIME Qty: 30 6RF bisacodyl [Dulcolax (bisacodyl)] 5 mg tablet,delayed release (DR/EC) 20 mg PO ONCE 1 Days Qty: 4 0RF Rx Instructions: Take 4 tablets at 12 pm the day before colonoscopy appointment polyethylene glycol 3350 [Miralax] 17 gram/dose powder 17 g PO DAILY 1 Days Qty: 238 0RF Rx Instructions: Mix Miralax with 64 oz(8 cups) of Crystal light. Take 2 tablets of Dulcolax qt 12 pm. Wait to have your 1st bowel movement, then begin drinking Miralax. Drink a glass of Miralax every 10-15 minutes until you are finished. You will drink at least another 4 cups of clear liquid of your choice over the next 2 hours. Please drink as many clear liquids as possible You may have clear liquids up to four hours before your procedure cyclobenzaprine 10 mg tablet 10 mg PO BEDTIME PRN (Reason: muscle spasm) Qty: 20 0RF ibuprofen 800 mg tablet 800 mg PO Q8H Qty: 30 0RF lidocaine 5 % adhesive patch,medicated 1 patch topical DAILY Qty: 30 0RF Rx Instructions: leave on most painful area for up to 12 hrs Print Language: Maltese
[2024-11-13 04:45] VITALS: BP 121/88; PULSE 74; RESP 16; TEMP 36.7; O2SAT 98
== END 2024-11-13 04:46 | disposition home or self-care (01) ==
PROVIDERS: Emergency Provider Internal Medicine; PCP Physician Assistant
DX: N48.1 Balanitis (principal); R21 Rash and other nonspecific skin eruption; Z79.899 Other long term (current) drug therapy
CPT/HCPCS: 99283

== ENCOUNTER 2024-12-07 15:17 | Outpatient (AMB) | payer MEDICARE, OTHER, MEDICAID, SELFPAY ==
--- NOTE | 2024-12-07 15:43 | A.OFFVIS_ITS ---
Intake Visit Reasons: BPH w/LUTS Intake Note: Patient is present for BPH W/LUTS Urology Medication:TAMSULOSIN,TADALAFIL Antibiotic Allergy:CANAGLIFLOZEN Blood Thinner:NONE Capacity Planning Analyst Required: No Allergies lisinopril Allergy (Severe, Verified 12/07/24 15:46) Angioedema canagliflozin [Invokana] Allergy (Unknown, Verified 12/07/24 15:46) polyuria quetiapine Adverse Reaction (Intermediate, Verified 12/07/24 15:46) sedation, fatigue liraglutide [Victoza] Adverse Reaction (Unknown, Verified 12/07/24 15:46) nausea, constipation HPI Comments Details: Bharath is a pleasant male. He is a patient of Dr. Capps. He is seen for the following urologic conditions - erectile dysfunction - BPH Seen in office late 2021 Issues with erections Would like to restart daily plus on demand Prescriptions provided Erectile dysfunction Background of diabetes Insulin dependent Prior medications include on demand tadalafil 20 mg Prior issues with ejaculation which could be secondary to antidepressants for diabetes Labs T 09/11 256 Lower urinary tract symptoms Response to tamsulosin Minimal nocturia Effective emptying PSA 06/10 0.6 T 09/11 256 - borderline PFSH Medical History Cervicalgia Injury of right thumb Lumbar degenerative disc disease Vitamin D deficiency Hypersomnia Snoring Cognitive disorder Tubular adenoma of colon (~2019) BPH loc w urin obs/LUTS Frequency of urination Erectile dysfunction NAFLD (nonalcoholic fatty liver disease) Hepatitis C Hepatitis B Arthritis Alcohol abuse Depression Carpal tunnel syndrome Type 2 diabetes mellitus with diabetic neuropathy, unspecified (~2003) Essential hypertension Overweight (BMI 25.0-29.9) Surgical History History of rhinoplasty History of colonoscopy History of lumbar surgery History of cataract surgery History of excision of mass Family History Father Myocardial infarct Colon cancer Mother Diabetes Social History Household Members: Spouse Household Members Other:: Housing: House Alcohol intake: current Alcohol intake frequency: a few times a month Alcohol type: beer and hard liquor Patient Tobacco Use Status: Never used Tobacco e-Cigarette/Vaping Use: Never Used Substance Use Type: Crack/Cocaine Advance Directives Date on File: 07/20/24 service: Yes Current occupational status: disabled Current occupational exposures/hazards: No Cognitive needs: No Hearing needs: No Vision needs: No Review of Systems Const Denies chills and Denies fever(s) Card Reports no additional complaints and Denies syncope Resp Denies cough GI Denies abdominal pain and Denies heartburn Reports as per HPI and Denies change in libido Neuro Denies syncope Psych Denies change in libido Endo Denies change in libido Physical Exam Const General: cooperative, healthy appearing, comfortable and no acute distress Orientation/consciousness: patient oriented x3 HEENT Face and sinus: Yes normal facial exam Mouth: moist mucous membranes Neck Neck: Yes normal visual inspection, Yes full ROM and Yes trachea midline Chest Chest palpation & inspection: normal inspection of the chest Resp Effort & Inspection: normal respiratory effort, able to speak in complete sentences and no respiratory distress GI Inspection: Yes normal to inspection Back/Spine/Pelvis Cervical Spine: normal cervical lordosis Thoracic/Lumbar Spine: thoracic and lumbar spine normal to inspection Skin General skin exam: no rashes or lesions noted Neuro General: patient oriented x3, gait normal, tone normal and moves all extremities Extrem General: Yes normal to inspection and Yes capillary refill normal Assessment & Plan Assessment & Plan (1) Erectile dysfunction: Code(s): N52.9 - Male erectile dysfunction, unspecified Category: Medical Qualifiers: Erectile dysfunction type: unspecified Qualified Code(s): N52.9 - Male erectile dysfunction, unspecified (2) Frequency of urination: Code(s): R35.0 - Frequency of micturition Category: Medical Plan Restart Cialis Check baseline labs since diabetic Orders: Orders Testosterone, Free/Total Today N52.9 - Male erectile dysfunction, unspecified Prostate Specific Antigen Today N52.9 - Male erectile dysfunction, unspecified Medications: New tadalafil 5 mg PO DAILY 90 tabs 0RF sexual activity 90 days E11.69 - Type 2 diabetes mellitus with other specified complication, N52.1 - Erectile dysfunction due to diseases classified elsewhere Changed From tadalafil On demand time of sexual activity 20 mg PO DAILY PRN 30 tabs 1RF sexual activity N52.9 - Male erectile dysfunction, unspecified To tadalafil On demand time of sexual activity 20 mg PO ONCE PRN 30 tabs 1RF sexual activity 90 days N52.9 - Male erectile dysfunction, unspecified Patient Instructions: This note is constructed using voice recognition software. While every effort has been made to ensure accuracy financial aid officer errors may have been included. Imaging studies, laboratory and physical exam results were discussed and reviewed in detail. No major barriers to patient understanding were identified. An opportunity to ask questions regarding the treatment plan was provided. All questions were answered. The patient expressed understanding and agreement with the above treatment plan. The patient is aware they should contact our office by phone for worsening of their current condition or the appearance of new urologic symptoms. Compliance is encouraged with any medications and followup testing that is ordered. It is a privilege to participate in the urologic care of your patient. If you have any questions or concerns regarding treatment for the above conditions, or other urologic issues, please do not hesitate to contact me. The office telephone contact is [phone]. Sincerely, Dr Milton Barrera MD, [facility] - Urology Compassionate Specialist Care for the Genitourinary System Coding Level of Care Code Est Pt Level 4 (98527) Diagnoses Erectile dysfunction, unspecified erectile dysfunction type N52.9 Erectile dysfunction type: unspecified Frequency of urination R35.0
--- OUTSIDE RECORDS SUMMARY | 2024-12-07 16:20 | XMS_ITS | Encounter Summary ---
Author Organization [facility] Address [address] [place] [address] Care Team Providers Care Aircraft Cleaning Supervisor Name Role Phone Aron Son MD Unavailable Unavailable Félix Garvey PA-C Primary Care Provider [phone] Encounter Details Date Type Department Care Team Description 11/06/2023 Orders Only Medical Records [address] [place] [address] [address] Social History Tobacco Use Types [...] on filedocumented in this encounter Care Teams Aircraft Cleaning Supervisor Relationship Specialty Start Date End Date Félix Garvey PA-C [address] [place], [place] [phone] PCP - General Internal Medicine 06/06/22 Aron Son MD Specialist Cardiovascular Disease 06/06/22 documented as of this encounter
--- OUTSIDE RECORDS SUMMARY | 2024-12-07 16:20 | XMS_ITS | Encounter Summary ---
Author Organization [facility] Address [address] [place] [address] Care Team Providers Care Wrapper And Preserver Name Role Phone Aron Son MD Unavailable Unavailable Félix Garvey PA-C Primary Care Provider [phone] Reason for Visit * Reason Onset Date Comments Faxed Order 12/27/2022 [facility] diagnost ic Encounter Details Date Type Department Care Team Description 12/27/2022 Telephone Adult Medicine [address] [id number] Félix Garvey PA-C [address] [place] [address] [phone] Faxed Order ([facility] diagnostic) Social History Tobacco [...] filedocumented in this encounter Care Teams Wrapper And Preserver Relationship Specialty Start Date End Date Félix Garvey PA-C [address] [place] [address] [phone] PCP - General Internal Medicine 06/06/22 Aron Son MD Specialist Cardiovascular Disease 06/06/22 documented as of this encounter
--- OUTSIDE RECORDS SUMMARY | 2024-12-07 16:20 | XMS_ITS | Encounter Summary ---
Author Organization [facility] Address [address] [place] [address] Care Team Providers Care Programming Internship Name Role Phone Aron Son MD Unavailable Unavailable Félix Garvey PA-C Primary Care Provider [phone] Encounter Details Date Type Department Care Team Description 12/29/2023 Premix Operator Concentrate Report Medical Records [address] [place] [address] Lee Burgess Social History Tobacco Use Types [...] on filedocumented in this encounter Care Teams Programming Internship Relationship Specialty Start Date End Date Félix Garvey PA-C [address] [place] [address] [phone] PCP - General Internal Medicine 06/06/22 Aron Son MD Specialist Cardiovascular Disease 06/06/22 documented as of this encounter
--- OUTSIDE RECORDS SUMMARY | 2024-12-07 16:20 | XMS_ITS | Encounter Summary ---
Author Organization [facility] Address [address] [place] [address] Care Team Providers Care Pier Master Assistant Name Role Phone Aron Son MD Unavailable Unavailable Félix Garvey PA-C Primary Care Provider [phone] Reason for Visit * Reason Onset Date Comments Provider Call Back 02/03/2023 Encounter Details Date Type Department Care Team Description 02/03/2023 Telephone Gastroenterology - [place] [address] [phone] Mario Block PA-C [address] [address] Provider Call Back Social History Tobacco Use [...] - 160 ug/dL 05/08/2023 4:54 PM EDT [facility] [employer] TOTAL IRON BINDING CAPACITY 273 250 - 450 ug/dL 05/08/2023 5:01 PM EDT [facility] [employer] % FE SATURATION 35 20 - 50 % 5:01 PM EDT [facility] [employer] 05/08/2023 2:16 PM EDT 05/08/2023 2:16 PM EDT Narrative [facility] - 05/08/2023 5:01 PM EDT Release to patient->Immediate Mario Davidgerard LEE-C LAB [employer] * CHG ASSAY OF FERRITIN (05/08/2023 2:16 PM EDT) FERRITIN 197 26 - 388 ng/mL 05/08/2023 5:01 PM EDT [facility] 05/08/2023 2:16 PM EDT 05/08/2023 2:16 PM EDT Narrative [facility] - 05/08/2023 5:01 PM EDT Release to patient->Immediate Mario Davidgerard LEE-C LAB Performing Organization Address [facility]/ZIP Co de Phone Number [employer] * (ABNORMAL) CHG COMPREHENSIVE METABOLIC PANEL (05/08/2023 2:16 PM EDT) GLUCOSE 69(L) 70 - 100 mg/dL 05/08/2023 4:54 PM EDT [facility] Comment:Reference range appl icable to fasting specimens only Blood Urea Nitrogen 24 5 - 25 mg/dL 05/08/2023 4:54 PM EDT [facility] CREAT 1.07 0.7 - 1.3 mg/dL 05/08/2023 4:54 PM EDT [facility] GLOMERULAR FILTRATION RATE 77 >60 05/08/2023 4:54 PM EDT [facility] Comment: This eGFR result was calculated using [...] Release to patient->Immediate Mario Block PA-C LAB [facility] * (ABNORMAL) CHG BLOOD [...] 32 pg 05/08/2023 4:40 PM EDT [facility] CORPUSCULAR HGB CONC 33.9 32 - 37 g/dL 05/08/2023 4:40 PM EDT [facility] RED CELL DISTRIBUTION WIDTH 13.0 11 - 15 % 05/08/2023 4:40 PM EDT [facility] [employer] PLT COUNT 182 130 - 400 x10-3/uL 05/08/2023 4:40 PM EDT [facility] PLATELET VOLUME 9.9 7 - 11 fL 05/08/2023 4:40 PM EDT [facility] NRBC % AUTO 0.0 <1 % 05/08/2023 4:40 PM EDT [facility] NEUTROPHILS % 79.9 % 05/08/2023 4:40 PM EDT [facility] LYMPH % 12.6 % 05/08/2023 4:40 PM EDT [facility] MONO % 6.3 % 05/08/2023 4:40 PM EDT [facility] EOS % 0.8 % 05/08/2023 4:40 PM EDT [facility] [employer] BASO % 0.1 % 05/08/2023 4:40 PM EDT [facility] IMMATURE GRANULOCYTES % 0.3 % 05/08/2023 4:40 PM EDT [facility] NRBC # AUTO 0.00 <0.1 x10-3/uL 05/08/2023 4:40 PM EDT [facility] NEUT # 6.19 1.5 - 7.0 x10-3/uL 05/08/2023 4:40 PM EDT [facility] LYMPH # 0.98(L) 1 - 5.0 x10-3/uL 05/08/2023 4:40 PM EDT [facility] MONO # 0.49 0.2 - 1.0 x10-3/uL 05/08/2023 4:40 PM EDT [facility] EOS # 0.06 0 - 0.5 x10-3/uL 05/08/2023 4:40 PM EDT [facility] BASO # 0.01 0 - 0.2 x10-3/uL 05/08/2023 4:40 PM EDT [facility] IMMATURE GRANULOCYTES # 0.02 0 - 0.03 x10-3/uL 05/08/2023 4:40 PM EDT [facility] 05/08/2023 2:16 PM EDT 05/08/2023 2:16 PM EDT Narrative [facility] - 05/08/2023 4:40 PM EDT Release to patient->Immediate [facility] documented in this encounter Visit Diagnoses Diagnosis Rectal bleeding- Primary Hemorrhage of rectum and anus Rectal bleeding Hemorrhage of rectum and anus Diabetes mellitus type 2 with neurological manifestations (HCC) Type II or unspecified type diabetes mellitus with neurological manifestations, not stated as uncontrolled documented in this encounter Care Teams Pier Master Assistant Relationship Specialty Start Date End Date Félix Garvey PA-C [address] [place] [address] PCP - General Internal Medicine 06/06/22 Aron Son MD Specialist Cardiovascular Disease 06/06/22 documented as of this encounter
--- OUTSIDE RECORDS SUMMARY | 2024-12-07 16:20 | XMS_ITS | Encounter Summary ---
Author Organization [email or web address] [facility] Address [address] [place] [address] Care Team Providers Care Paper Box Maker Name Role Phone Aron Son MD Unavailable Unavailable Félix Garvey PA-C Primary Care Provider [phone] Encounter Details Date Type Department Care Team Description 08/20/2023 County Judge Report Medical Records [address] [place] [address] Lee Burgess Social History Tobacco Use Types [...] on filedocumented in this encounter Care Teams Paper Box Maker Relationship Specialty Start Date End Date Félix Garvey PA-C [address] [place] [address] [id number] PCP - General Internal Medicine 06/06/22 Aron Son MD Specialist Cardiovascular Disease 06/06/22 documented as of this encounter
--- OUTSIDE RECORDS SUMMARY | 2024-12-07 16:20 | XMS_ITS | Encounter Summary ---
Author Organization [facility] Address [address] [place] [address] Care Team Providers Care Fluid Jet Cutter Operator Name Role Phone Aron Son MD Unavailable Unavailable Félix Garvey PA-C Primary Care Provider [phone] Reason for Visit * Reason Onset Date Comments Error 09/16/2022 Encounter Details Date Type Department Care Team Description 09/16/2022 Telephone Adult Medicine [facility] [address] [place] [address] [phone] Félix Garvey PA-C [address] [place], [place] [phone] Error Social History Tobacco Use Types Packs/Day [...] on filedocumented in this encounter Care Teams Fluid Jet Cutter Operator Relationship Specialty Start Date End Date Félix Garvey PA-C [address] [place] [address] PCP - General Internal Medicine 06/06/22 Aron Son MD Specialist Cardiovascular Disease 06/06/22 documented as of this encounter
--- OUTSIDE RECORDS SUMMARY | 2024-12-07 16:20 | XMS_ITS | Data Portability ---
Author Organization MD - [facility], [facility] Address [address] [place] [address] Care Team Providers Care Daub Color Mixer Name Role Phone SHWETA CARMONA Primary Care Provider Assessment Encounter Date Assessment Date Assessment LastModified by Organization Details LastModified Time 03/26/2024 03/26/2024 Nature of diagnosis was discussed with patient and family member today. At this time symptoms are most consistent with advanced osteoarthritis of the bilateral knees. Discussed multiple treatment options to include anti-inflammatori es therapy cortisone gel injection knee brace. Patient wishes to proceed with a cortisone injection today. Risk benefits given. Patient is should pay special attention to blood sugars as he is a diabetic. If it does work well for him can repeat cortisone injections every 3 to 6 months. No significant improvement will consider alternative conservative measures. All questions were answered to patient's satisfaction. Follow-up as above. julio césar Not available 03/26/2024 10:07:12 Plan of Treatment Reminders Order Date Submit Date Provider Last Modified By Organization Details Last Modified Time Details Appointments RECHECK 15 2024 07:45A Aliyah Nathan PA-C Not available Not available Not available Lab None recorded . Referral None recorded . Procedures None recorded . Surgeries None recorded . Imaging XR, knee, 4 or more view - 211 2023 024 julio césar [facility], [address], [facility] [address], [place], [address], 03/26/2024 12:26:33 Medication Orders None recorded . Patient TargetsNo targets recorded. Patient InstructionsNo instructions recorded. Reason for Referral None Reported. Results Created Date Observation Date Name Description Value Unit Range Abnormal Flag Note LastModifiedBy Organization Detail LastModifiedTime 03/26/20 24 03/26/2024 XR, knee, 4 or more view [email or web address] ?Encry pted=s hAaTro YD8dLq bEUv6g %2BXZw aYqtaq 0bqfl% 2Fg9IQ a4ajBk vP9nXo QUaueC m3YtLR FvZlgJ JJ8[place] HZtai3 [id number] AC0Kqa n2CWau iKiQtr MwF INTERFACE [facility] [address], [place], [address], 03/26/2024 08:23:38 03/26/20 24 03/26/2024 XR, knee, 4 or more view [email or web address] ?Encry pted=s hAaTro YD8dLq bEUv6g %2BXZw aYqtaq 0bqfl% 2Fg9IQ a4ajBk vP9nXo QUaueC m3YtLR FvZlgJ JJ8mAn HZtai3 5i8973 AC0Kqa n2CWau iKiQtr MwF INTERFACE [facility] [address], [place], [address], 03/26/2024 08:23:40 Result Notes None recorded. Procedures Surgical History Date Name Laterality Status Provider Name and Address Organization Details Recorded Time 5 Knee Kenalog 40 1cc Injection, Bilateral completed Shar Nathan PA-C [address], [place], [address], [facility] 11/23/2024 09:36:14 4 Knee Kenalog 40 1cc Injection, Bilateral completed TASHIA MeehanC [address], [place], [address], [facility] 03/26/2024 10:06:13 Imaging Results Imaging Date Name Status LastModified by Organiz ation Details LastModified Time 03/26/2024 XR, knee, 4 or more view completed INTERFACE [facility] [address], [place], [address], 03/26/2024 08:23:38 03/26/2024 XR, knee, 4 or more view completed [facility] [address], [place], [address], 03/26/2024 08:23:40 Procedure Notes None recorded. Medical Equipment None Reported. Allergies No known drug allergies Medications Name Sig Start Date Stop Date Status Note LastModified by Organization Details LastModified Time quetiapine 25 mg tablet TAKE ONE TABLET BY MOUTH DAILY AT BEDTIME active Not Available Not Available No t Available fluoxetine 40 mg capsule TAKE ONE CAPSULE BY MOUTH EVERY DAY active Not Available Not Available No t Available cyclobenzap rine 10 mg tablet TAKE ONE TABLET BY MOUTH DAILY AT BEDTIME NEEDED FOR MUSCLE SPASM active Not Available Not Available No t Available amoxicillin 500 mg capsule TAKE ONE CAPSULE BY MOUTH EVERY 8 HOURS FOR 7 DAYS active Not Available Not Available No t Available miconazole nitrate 2 % topical cream APPLY TOPICALLY TWO TIMES A DAY active Not Available Not Available No t Available ibuprofen 800 mg tablet TAKE ONE TABLET BY MOUTH EVERY 8 HOURS active Not Available Not Available No t Available valacyclovi r 1 gram tablet TAKE ONE TABLET BY MOUTH EVERY 8 HOURS FOR 7 DAYS active Not Available Not Available No t Available fluconazole 200 mg tablet TAKE ONE TABLET BY MOUTH EVERY DAY FOR 7 DAYS active Not Available Not Available No t Available prednisone 20 mg tablet TAKE THREE TABLETS BY MOUTH EVERY DAY FOR 4 DAYS active Not Available Not Available No t Available thiamine HCl (vitamin B1) 100 mg tablet TAKE ONE TABLET BY MOUTH EVERY DAY active Not Available Not Available No t Available acetaminoph en 500 mg tablet TAKE ONE TABLET BY MOUTH EVERY 8 HOURS NEEDED FOR MILD PAIN FOR UP TO 5 DAYS active Not Available Not Available No t Available sildenafil 100 mg tablet TAKE 1 TABLET BY MOUTH 45 TO 60 MINUTES PRIOR TO INTERCOUR SE ONCE DAILY NEEDED active Not Available Not Available No t Available prednisolon e acetate 1 % eye drops,suspe nsion INSTILL 1 DROP INTO THE RIGHT EYE TWICE A DAY DIRECTED active Not Available Not Available No t Available tamsulosin 0.4 mg capsule TAKE ONE CAPSULE BY MOUTH EVERY DAY 30 MINUTES AFTER THE SAME MEAL EACH DAY active Not Available Not Available No t Available amlodipine 10 mg tablet TAKE ONE TABLET BY MOUTH EVERY DAY active Not Available Not Available No t Available cephalexin 500 mg capsule TAKE ONE CAPSULE BY MOUTH FOUR TIMES A DAY FOR 10 DAYS active Not Available Not Available No t Available lidocaine 5 % topical patch APPLY 1 PATCH TOPICALLY ONCE A DAY AND LEAVE ON THE MOST PAINFUL AREA FOR UP TO 12 HOURS. active Not Available Not Available No t Available betamethaso ne dipropionat e 0.05 % topical cream APPLY TO PENIS TWO TIMES A DAY UNTIL HEALED. REPEAT NEEDED. active Not Available Not Available No t Available metoprolol succinate ER 25 mg tablet,exte nded release 24 hr TAKE ONE TABLET BY MOUTH EVERY DAY active Not Available Not Available No t Available ketoconazol e 2 % topical cream APPLY ONCE A DAY TO RASH ON THE TIP OF THE PENIS active Not Available Not Available No t Available metformin ER 500 mg tablet,exte nded release 24 hr TAKE ONE TABLET BY MOUTH DAILY AT BEDTIME active Not Available Not Available No t Available clotrimazol e 1 % topical cream APPLY A PEA-SIZED AMOUNT TO THE PENILE RASH TWICE A DAY FOR 4 WEEKS active Not Available Not Available No t Available naproxen 500 mg tablet TAKE ONE TABLET BY MOUTH TWICE A DAY active Not Available Not Available No t Available oxycodone 5 mg tablet TAKE ONE TABLET BY MOUTH TWICE A DAY NEEDED FOR SEVERE PAIN SCALE SCORE 7-10) 03/26 completed Not Available Not Available Not Available bupropion HCl XL 150 mg 24 hr tablet, extended release TAKE ONE TABLET BY MOUTH EVERY DAY IN THE MORNING active Not Available Not Available No t Available tadalafil 5 mg tablet TAKE ONE TABLET BY MOUTH EVERY DAY active Not Available Not Available No t Available mirtazapine 7.5 mg tablet TAKE ONE TABLET BY MOUTH AT BEDTIME active Not Available Not Available No t Available Vitamin D3 50 mcg (2,000 unit) capsule TAKE ONE CAPSULE BY MOUTH EVERY DAY active Not Available Not Available No t Available fluoxetine 60 mg tablet TAKE ONE TABLET BY MOUTH EVERY DAY active Not Available Not Available No t Available V-GO 20 device ONE DAILY active Not Available Not Available No t Available Accu-Chek Guide test strips USE TO TEST FOUR TIMES DAILY DIRECTED 03/26 completed Not Available Not Available Not Available Fiasp U-100 Insulin 100 unit/mL subcutaneou s solution INJECT UP TO 76 UNITS DAILY active Not Available Not Available No t Available Accu-Chek Fastclix Lancet Drum TEST FOUR TIMES A DAY DIRECTED active Not Available Not Available No t Available Flowflex COVID-19 Antigen Home Test kit USE ACCORDING TO MANUFACTU RERS INSTRUCTI ONS 03/26 completed Not Available Not Available Not Available Mounjaro 7.5 mg/0.5 mL subcutaneou s pen injector INJECT 0.5ML UNDER THE SKIN EVERY WEEK active Not Available Not Available No t Available Mounjaro 5 mg/0.5 mL subcutaneou s pen injector INJECT 5MG SUBCUTANE OUSLY ONCE A WEEK active Not Available Not Available No t Available Mounjaro 2.5 mg/0.5 mL subcutaneou s pen injector INJECT 0.5ML 2.5MG) UNDER THE SKIN ONCE A WEEK active Not Available Not Available No t Available Vitals Date Recorded Body height Body mass index (BMI) Body weight Provider Name and Address Organization Details Last Updated DateTime 03/26/2024 177.8 cm 28.7 kg/m2 [address] [facility] 03/26/2024 08:04:37 Date Recorded Body height Body mass index (BMI) Body weight Provider Name and Address Organization Details Last Updated DateTime 11/23/2024 177.8 cm 28.7 kg/m2 37834.47 g Alice Demetrio [facility] 11/23/2024 09:14:11 Social History None recorded. Functional Status None recorded. Mental Status None recorded. Family History Nothing Reported. Medical History Condition Response Diabetes Y Headaches Y Hypertension Y Sleep Apnea Y Past Encounters Encounter ID Performer Location Encounter Start Date Encounter Closed Date Diagnosis/Indication Diagnosis SNOMED-CT Code Diagnosis ICD10 Code Diagnosis Note [id number] [facility] [address] [place] [address] 03/26/2024 07:56:28 03/26/2024 10:09:01 Pain of bilateral knee joints 8728377355 99061 M25.561 M25.562 Bilateral osteoarthritis of knees [id number] 11566 M17.0 You have been provided with a cortisone injection in order to reduce the pain and inflammati on that you are experienci ng. The injection consists of two medication s. Cortisone (an anti-infla mmatory that will take 48-72 hours to take effect) and Lidocaine (a numbing agent that will last 2-3 hours). Please note that not everyone will have a lasting response following the injection. PATIENT INSTRUCTIO NSOnce the Lidocaine wears off, you may have an increase in your pain. I recommend icing the affected area for 20 minutes 3-4 times per day.It is recommende d that you refrain from any high level activities using the joint or limb that was injected for approximat enrique 24-48 hours. Normal day-to-day activities are generally not a problem.PO SSIBLE SIDE EFFECTSInd ividuals with dark complexion s may experience some skin discolorat ion locally at the site of the injection. There is the possibilit y of an increase in discomfort within 48 hours following the injection. This is called a ? f lare? . To help minimize the chances of this, please see the post-injec tion instructio ns above.Ther e is a less than 1% chance of an infection. If you notice any signs of infection (redness, warmth, drainage, fever greater than 100 degrees) please call our office or contact us through the portal [facility]. [id number] [facility] [address] [place] [phone] 11/23/2024 09:07:54 11/23/2024 09:36:47 Primary gonarthrosis, bilateral [id number] M17.0 You have been provided with a cortisone injection in order to reduce the pain and inflammati on that you are experienci ng. The injection consists of two medication s. Cortisone (an anti-infla mmatory that will take 48-72 hours to take effect) and Lidocaine (a numbing agent that will last 2-3 hours). Please note that not everyone will have a lasting response following the injection. PATIENT INSTRUCTIO NSOnce the Lidocaine wears off, you may have an increase in your pain. I recommend icing the affected area for 20 minutes 3-4 times per day.It is recommende d that you refrain from any high level activities using the joint or limb that was injected for approximat enrique 24-48 hours. Normal day-to-day activities are generally not a problem.PO SSIBLE SIDE EFFECTSInd ividuals with dark complexion s may experience some skin discolorat ion locally at the site of the injection. There is the possibilit y of an increase in discomfort within 48 hours following the injection. This is called a ? f lare? . To help minimize the chances of this, please see the post-injec tion instructio ns above.Ther e is a less than 1% chance of an infection. If you notice any signs of infection (redness, warmth, drainage, fever greater than 100 degrees) please call our office or contact us through the portal [facility]. Health Concerns Section Related Observation LastModified by Organization Detai ls LastModified Time None Recorded Concern Status LastModified by Organization Details LastModified Time None Recorded Advance Directives Directive None Recorded Payers Encounter Date Sequence Insurance Name Policy Number Policy Romero Covered Member ID Romero Member ID Guarantor Name 03/26/2024 1 [employer] (MEDICARE REPLACEMENT /ADVANTAGE - PPO) [id number] A Bharath Colon [id number] Bharath Hawkins Colon 11/23/2024 2 [employer] - FOR LIFE (MEDICARE SUPPLEMENT) Bharath Colon [id number] Bharath Hawkins Colon 11/23/2024 1 [employer] (MEDICARE REPLACEMENT /ADVANTAGE - PPO) [id number] A Bharath Colon [id number] Bharath Hawkins Colon Notes Date Note Type Note Provider Name and Address Organization Details Recorded Time 03/26/2024 text/html I am seeing the patient today under the supervision of {{Dr. Kylee Ho #}} who was available but who did not see the patient.Patient comes in for eval ration about pain. States his pain discomfort in his knee for a number of years. States that come back 13 years with pain discomfort but had significantly worse in the last year or so. Does not recall any new injury to account for this. Has a lot of crepitus with popping cracking getting up from a seated position difficulty ambulating. Feels the knees will occasionally buckle and give out on him. Patient has had no recent treatment surgeries or modalities to the knee. States that he did undergo a cortisone injection probably 20 years ago. Again no recent treatments. Shar Nathan PA-C [address], [place], [address], [facility] 03/26/2024 10:07:41 11/23/2024 text/html I am seeing the patient today under the supervision of {{Dr. Kylee Reaves* Dr. Makayla Dickinson}} who was available but who did not see the patient. HPI: Patient comes in for recheck of {{right left bilater al*}} knee pain. Has known osteoarthritis in the medial compartment of the knee(s). Been treated conservatively with cortisone injection to this point with {{ 16#}} weeks relief of symptoms. No new injury or modalities. Past family, medical, social history and review of systems has been reviewed, updated and is located in the patient? s chart. Examination:The patient is well appearing and in no apparent distress. Alert and oriented x3. Vital signs per intake sheet. Examination of the {{right left bilater al*}} knee reveals no effusion erythema or warmth. Decreased range of motion. Lower extremity varus deformity. Point tender over the medial joint line. Calf soft and nontender. 4+/5 strength of knee flexion extension. Impression: Osteoarthritis Plan: Nature of the diagnosis discussed with the patient today. Both surgical and nonsurgical options were reviewed. This point recommend a repeat cortisone injection. Patient agreed. {{anterior medial anterior lateral* Superior Lateral}} portal was used. See Procedure note. Follow-up with us in 3 months for discussion of continued conservative management versus total joint arthroplasty. Shar Nathan PA-C [address], [place], [address], [facility] 11/23/2024 09:36:46
--- OUTSIDE RECORDS SUMMARY | 2024-12-07 16:20 | XMS_ITS | Encounter Summary ---
Author Organization [facility] Address [address] [place] [address] Care Team Providers Care Dish Stacker Name Role Phone Félix Garvey PA-C Primary Care Provider [phone] Rod Machuca MD Primary Care Provider Aron Son MD Unavailable Unavailable Félix Garvey PA-C Primary Care Provider [phone] Reason for Visit * Reason Comments E-prescribe Rx Request Encounter Details Date Type Department Care Team Description 01/06/2021 Refill Adult Medicine [address] [phone] Félix Garvey PA-C [address] [place] [address] [phone] E-prescribe Rx Request Social History Tobacco Use [...] N/A Patients current insurance carrier is: Payor: [email or web address] / [place] / Product Type: MEDICARE [id number] documented in this encounter Plan of Treatment Not on file documented as of this encounter Visit Diagnoses Not on filedocumented in this encounter Care Teams Dish Stacker Relationship Specialty Start Date End Date Félix Garvey PA-C [address] [place] [address] PCP - General Internal Medicine 09/27/20 05/09/22 Rod Machuca MD [address] [place] [address] PCP - General Lung Cancer Camera Engineer 05/10/22 06/05/22 Félix Garvey PA-C [address] [place] [address] PCP - General Internal Medicine 06/06/22 Aron Son MD [address] [place] [address] Specialist Cardiovascular Disease 06/06/22 documented as of this encounter
--- OUTSIDE RECORDS SUMMARY | 2024-12-07 16:20 | XMS_ITS | Encounter Summary ---
Author Organization [facility] Address [address] [place] [address] Care Team Providers Care Grooving Lathe Tender Name Role Phone Vincenzo Green MD Primary Care Provider [phone] Félix Garvey PA-C Primary Care Provider +1 [phone] Rod Machuca MD Primary Care Provider [phone] Aron Son MD Unavailable Unavailable Félix Garvey PA-C Primary Care Provider + [phone] Reason for Visit * Reason Comments E-prescribe Rx Request Encounter Details Date Type Department Care Team Description 07/04/2016 Refill Adult Medicine [address] [id number] Vincenzo Green MD [address] [place] [address] [id number] E-prescribe Rx Request Social History Tobacco Use [...] an upcoming appointment? No-unable to reach left [facility] to call for appointment due to [...] / Plan: [place] / Product Type: MEDICARE [id number] documented in this encounter Plan of Treatment Not on file documented as of this encounter Visit Diagnoses Not on filedocumented in this encounter Care Teams Grooving Lathe Tender Relationship Specialty Start Date End Date Vincenzo Green MD [address] [place] [address] PCP - General Internal Medicine 08/03/15 09/26/20 Félix Garvey PA-C [address] [place] [address] PCP - General Internal Medicine 09/27/20 05/09/22 Rod Machuca MD [address] [place] [address] 848[address] PCP - General Lung Cancer Switch Technician 05/10/22 06/05/22 Félix Garvey PA-C [address] [place] [address] PCP - General Internal Medicine 06/06/22 Aron Son MD [address] [place] [address] Specialist Cardiovascular Disease 06/06/22 documented as of this encounter
--- OUTSIDE RECORDS SUMMARY | 2024-12-07 16:20 | XMS_ITS | Encounter Summary ---
Author Organization [facility] Address [address] [place] [address] Care Team Providers Care Tire Setter Name Role Phone Vincenzo Green MD Primary Care Provider [phone] Félix Garvey PA-C Primary Care Provider + [phone] Rod Machuca MD Primary Care Provider Aron Son MD Unavailable Unavailable Félix Garvey PA-C Primary Care Provider + -[phone] Encounter Details Date Type Department Care Team Description 10/15/2016 [place] Report Medical Records [address] [place] [address] Zack Powers Social History Tobacco Use Types [...] on filedocumented in this encounter Care Teams Tire Setter Relationship Specialty Start Date End Date Vincenzo Green MD [address] [place] [address] [phone] PCP - General Internal Medicine 08/03/15 09/26/20 Félix Garvey PA-C [address] [place] [address] [phone] PCP - General Internal Medicine 09/27/20 05/09/22 Rod Machuca MD [address] [place] [address] PCP - General Lung Cancer Ethylene Plant Helper 05/10/22 06/05/22 Félix Garvey PA-C [address] [place] [address] PCP - General Internal Medicine 06/06/22 Aron Son MD [address] [place] [address] Specialist Cardiovascular Disease 06/06/22 documented as of this encounter
--- OUTSIDE RECORDS SUMMARY | 2024-12-07 16:20 | XMS_ITS | Encounter Summary ---
Author Organization [facility] [employer] [facility] Address [address] [place] [address] Care Team Providers Care Pack Worker Name Role Phone Aron Son MD Unavailable Unavailable Félix Garvey PA-C Primary Care Provider +[phone] Encounter Details Date Type Department Care Team Description 10/03/2022 Silver Solution Mixer Report Medical Records [address] [place] [address] Mario Alberto Carter MD Social History Tobacco [...] on filedocumented in this encounter Care Teams Pack Worker Relationship Specialty Start Date End Date Félix Garvey PA-C [address] [place], [place] [phone] PCP - General Internal Medicine 06/06/22 Aron Son MD Specialist Cardiovascular Disease 06/06/22 documented as of this encounter
--- OUTSIDE RECORDS SUMMARY | 2024-12-07 16:20 | XMS_ITS | Encounter Summary ---
Author Organization [employer] [employer] [facility] Address [address] [place] [address] Care Team Providers Care Forest Scientist Name Role Phone Aron Son MD Unavailable Unavailable Félix Garvey PA-C Primary Care Provider +1 [phone] Encounter Details Date Type Department Care Team Description 12/19/2022 Dump Truck Driver Report Medical Records [address] [place] [address] Abstract, Provider Social History Tobacco Use Types [...] filedocumented in this encounter Care Teams Forest Scientist Relationship Specialty Start Date End Date Félix Garvey PA-C [address] [place], [place] [phone] PCP - General Internal Medicine 06/06/22 Aron Son MD Specialist Cardiovascular Disease 06/06/22 documented as of this encounter
--- OUTSIDE RECORDS SUMMARY | 2024-12-07 16:20 | XMS_ITS | Encounter Summary ---
Author Organization [employer] [facility] Address [address] [place] [address] Care Team Providers Care Jack Machine Operator Name Role Phone Aron Son MD Unavailable Unavailable Félix Garvey PA-C Primary Care Provider +1 [phone] Encounter Details Date Type Department Care Team Description 12/30/2022 Holistic Nutritionist Report Medical Records [address] [place] [address] Tracy Banerjee [address] [place] [address] Social History Tobacco Use Types Packs/Day Years [...] on filedocumented in this encounter Care Teams Jack Machine Operator Relationship Specialty Start Date End Date Félix Garvey PA-C [address] [place] [address] PCP - General Internal Medicine 06/06/22 Aron Son MD Specialist Cardiovascular Disease 06/06/22 documented as of this encounter
--- OUTSIDE RECORDS SUMMARY | 2024-12-07 16:20 | XMS_ITS | Clinical Summary ---
Author Organization [address] [place] [address] Address [address] [place] [address] Phone Care Team Providers Care Instructor Ballroom Dancing Name Role Phone Hector Epps MD Primary [...] see if this helps. Ascending aortic aneurysm ([facility] V24) 05/06/20 Overview (04/15/2024): 4.5cm Last Assessment [...] this is required. Diabetic retinopathy (CMS/HCC V24, [facility]/HCC V28) 06/06/2021 Diabetes mellitus with kidne y complication (CMS/HCC V24, [facility]/HCC V28) 12/21/2020 Microalbuminuria 12/21/2020 Erectile dysfunction 10/12/2018 [...] and evaluation. History of substance abuse ([facility] V[facility], [place] [id number]) 09/28/2015 Overview (04/15/2024): Cocaine, marijuana, some heroin Type 2 diabetes mellitus wit h cataract ([facility] V24, [facility] V28) 09/28/2015 Immunizations Name Administration Dates Next Due [...] HISTORICAL CATARACT REMOVAL NASAL SEPTUM SURGERY PROCEDURE: FL REPAIR NASAL SEPTAL PERFORATIONS COLONOSCOPY 01/2020 PROCEDURE: HISTORICAL COLONOSCOPY; COMMENT: repeat 5 years polyp OTHER SURGICAL HISTORY 09/16/2022 PROCEDURE: UPPER GI ENDOSCOPY, REMOVE LESION; COMMENT: bowman -biopsies taken OTHER SURGICAL HISTORY PROCEDURE: PULMONOLOGY BRONCHOSCOPY; COMMENT: dr. kilgore -bronchoscopy and mediastinoscopy with mediastinal lymph node biopsies Medical History Medical History Date Comments History of substance abuse ( [facility] V24, [facility] V28) 09/28/2015 DX:History of substance abus e ([facility]); COMMENT: Cocaine, marijuana, some heroin Chronic hepatitis C ([facility] V24, [facility] V28) 11/05/2015 DX:Chronic hepatitis C (HCC) ; COMMENT: Genotype 1a Depression 11/05/2015 DX:Depression Cervical radiculopathy 11/05/2015 DX:Cervic al radiculopathy; COMMENT: recurrent CTS (carpal tunnel syndrome) 11/05/2015 DX: CTS (carpal tunnel syndrome); COMMENT: Right, NCV 06/03 Diabetes mellitus type 2 wit h neurological manifestations ([facility] V24, [facility] V28) 11/05/2015 DX:Diabetes mellitus type 2 with neurological manifestations (HCC) GERD (gastroesophageal reflu x disease) 11/05/2015 DX:GERD (gastroesophageal re flux disease) DJD (degenerative joint dise ase) of knee 11/05/2015 DX:DJD (degenerative joint d isease) of knee Type 2 diabetes mellitus wit h cataract ([facility] V24, [facility] V28) 09/28/2015 DX:Type 2 diabetes mellitus with [...] Procedure Name Priority Date/Time Associated Diagnosis Comments DEPRESSION SCREENING Routine 02/17/2024 FALLS RISK ASSESSMENT Routine 02/17/2024 URINE ALBUMIN CREATININE RATIO Routine 02/17/2024 ANNUAL BMP BLOOD TEST Routine 02/17/2024 HEMOGLOBIN A1C Routine 02/17/2024 LIPID PANEL Routine 02/17/2024 DIABETES EYE EXAM Routine 10/30/2023 COLONOSCOPY Routine 01/28/2020 HEPATITIS C SCREENING Routine 04/01/2016 from Last 3 Months or Most Recently Relevant to Health Maintenance Results * Urine Albumin Creatinine Ratio (02/17/2024) Pathologist [facility] Urine Albumin Creatinine Ratio Abstracted Historical Provider MD HEALTH MAINTENANCE Final Result * Annual BMP Blood Test (02/17/2024) Pathologist [facility] Annual BMP Blood Test Abstracted Historical Provider HEALTH MAINTENANCE Final Result * Falls Risk Assessment (02/17/2024) Pathologist [facility] Falls Risk Assessment Abstracted Historical Provider HEALTH MAINTENANCE Final Result * Depression Screening (02/17/2024) [facility] Depression Screening Abstracted Result [facility] Provider HEALTH MAINTENANCE Final Result * (ABNORMAL) Hemoglobin A1c (02/17/2024) [facility] Hemoglobin A1C 7.4(A) <=6.5 % Blood Venous blood specimen / Unknown Result [facility] Provider LAB BLOOD ORDERABLES Zunilda l Result * Lipid panel (02/17/2024) [facility] LDL/HDL Ratio 3 0 - 4 Triglycerides 93 0 - 150 mg/dL Cholesterol 125 0 - 200 mg/dL HDL 48 >=40 mg/dL LDL Cholesterol 59 0 - 100 mg/dL Blood Venous blood specimen / Unknown Result [facility] Provider LAB BLOOD ORDERABLES Zunilda l Result * Diabetes Eye Exam (10/30/2023) [facility] Diabetes: Annual Retina Eye Exam Abstracted Result [facility] Provider HEALTH MAINTENANCE Final Result * Colonoscopy (01/28/2020) [facility] Colonoscopy No interpretation , Abstracted Anatomical Region Laterality Modality Other Result [facility] Provider HEALTH MAINTENANCE Final Result * Hepatitis C Screening (04/01/2016) [facility] Hepatitis C Screening Abstracted Result [facility] Provider HEALTH MAINTENANCE Final Result from Last 3 Months or Most Recently Relevant to Health Maintenance Insurance [employer] MEDICARE ADVANTAGE MEDICARE [facility] HE[facility]AN MEDICAID - [place] Care Teams Instructor Ballroom Dancing Relationship Specialty Start Date End Date Hector Epps MD [address] [place] [address] [address] [place] PCP - General Internal Medicine 09/03/24
--- OUTSIDE RECORDS SUMMARY | 2024-12-07 16:20 | XMS_ITS | Encounter Summary ---
Author Organization [employer] [facility] Address [address] [place] [address] Care Team Providers Care University Controller Name Role Phone Aron Son MD Unavailable Unavailable Félix Garvey PA-C Primary Care Provider [phone] Encounter Details Date Type Department Care Team Description 03/13/2023 Electrician Powerhouse Report Medical Records [address] [place] [address] Jake Prakash PA-C Social History Tobacco Use [...] on filedocumented in this encounter Care Teams University Controller Relationship Specialty Start Date End Date Félix Garvey PA-C [address] [place] [address] [id number] PCP - General Internal Medicine 06/06/22 Aron Son MD Specialist Cardiovascular Disease 06/06/22 documented as of this encounter
--- OUTSIDE RECORDS SUMMARY | 2024-12-07 16:20 | XMS_ITS | Encounter Summary ---
Author Organization [employer] [employer] [facility] Address [address] [place] [address] Care Team Providers Care Mimeographer Name Role Phone Aron Son MD Unavailable Unavailable Félix Garvey PA-C Primary Care Provider +1 -[phone] Encounter Details Date Type Department Care Team Description 10/08/2023 Online Advertising Director Report Medical Records [address] [place] [address] Jake Prakash PA-C Social History Tobacco Use [...] on filedocumented in this encounter Care Teams Mimeographer Relationship Specialty Start Date End Date Félix Garvey PA-C [address] [place] [address] [phone] PCP - General Internal Medicine 06/06/22 Aron Son MD Specialist Cardiovascular Disease 06/06/22 documented as of this encounter
--- OUTSIDE RECORDS SUMMARY | 2024-12-07 16:20 | XMS_ITS | Encounter Summary ---
Author Organization [facility] [employer] [facility] Address [address] [place] [address] Care Team Providers Care Zig Zag Spring Machine Operator Name Role Phone Aron Son MD Unavailable Unavailable Félix Garvey PA-C Primary Care Provider +1 -[phone] Encounter Details Date Type Department Care Team Description 09/29/2023 Garment Steamer Report Medical Records [address] [place] [address] Jacklyn Chow NP Social History Tobacco Use [...] on filedocumented in this encounter Care Teams Zig Zag Spring Machine Operator Relationship Specialty Start Date End Date Félix Garvey PA-C [address] [place] [address] [phone] PCP - General Internal Medicine 06/06/22 Aron Son MD Specialist Cardiovascular Disease 06/06/22 documented as of this encounter
--- OUTSIDE RECORDS SUMMARY | 2024-12-07 16:20 | XMS_ITS | Encounter Summary ---
Author Organization [employer] [employer] [facility] Address [address] [place] [address] Care Team Providers Care Cover Mat Machine Operator Name Role Phone Aron Son MD Unavailable Unavailable Félix Garvey PA-C Primary Care Provider [phone] Encounter Details Date Type Department Care Team Description 04/09/2023 Hospital Medical Records [address] [place] [address] oRd Machuca MD [address] [place] [address] Social History Tobacco Use Types Packs/Day Years [...] on filedocumented in this encounter Care Teams Cover Mat Machine Operator Relationship Specialty Start Date End Date Félix Garvey PA-C [address] [place] [address] PCP - General Internal Medicine 06/06/22 Aron Son MD Specialist Cardiovascular Disease 06/06/22 documented as of this encounter
--- OUTSIDE RECORDS SUMMARY | 2024-12-07 16:20 | XMS_ITS | Encounter Summary ---
Author Organization [employer] [employer] [facility] Address [address] [place] [address] Care Team Providers Care Instrument Mechanics Supervisor Name Role Phone Vincenzo Green MD Primary Care Provider [phone] Félix Garvey PA-C Primary Care Provider [phone] Rod Machuca MD Primary Care Provider [phone] Aron Son MD Unavailable Unavailable Félix Garvey PA-C Primary Care Provider + [phone] Encounter Details Date Type Department Care Team Description 09/14/2020 Vertical Roll Operator Report Medical Records [address] [place] [address] Ely Kirby Social History Tobacco Use Types [...] on filedocumented in this encounter Care Teams Instrument Mechanics Supervisor Relationship Specialty Start Date End Date Vincenzo Green MD [address] [place] [address] [phone] PCP - General Internal Medicine 08/03/15 09/26/20 Félix Garvey PA-C [address] [place] [address] PCP - General Internal Medicine 09/27/20 05/09/22 Rod Machuca MD [address] [place] [address] PCP - General Lung Cancer Smoke Tester 05/10/22 06/05/22 Félix Garvey PA-C [address] [place] [address] PCP - General Internal Medicine 06/06/22 Aron Son MD [address] [place] [address] Specialist Cardiovascular Disease 06/06/22 documented as of this encounter
--- OUTSIDE RECORDS SUMMARY | 2024-12-07 16:20 | XMS_ITS | Encounter Summary ---
Author Organization [employer] [employer] [facility] Address [address] [place] [address] Care Team Providers Care Local Delivery Truck Driver Name Role Phone Aron Son MD Unavailable Unavailable Félix Garvey PA-C Primary Care Provider [phone] Encounter Details Date Type Department Care Team Description 07/10/2023 Frog Or Oyster Farmworker Report Medical Records [address] [place] [address] Tracy Banerjee [address] [place] [address] Social History Tobacco Use Types Packs/Day Years [...] on filedocumented in this encounter Care Teams Local Delivery Truck Driver Relationship Specialty Start Date End Date Félix Garvey PA-C [address] [place] [address] PCP - General Internal Medicine 06/06/22 Aron Son MD Specialist Cardiovascular Disease 06/06/22 documented as of this encounter
--- OUTSIDE RECORDS SUMMARY | 2024-12-07 16:20 | XMS_ITS | Encounter Summary ---
Author Organization [employer] [facility] Address [address] [place] [address] Care Team Providers Care Shrimp Trawler Name Role Phone Aron Son MD Unavailable Unavailable Félix Garvey PA-C Primary Care Provider +1 [phone] Encounter Details Date Type Department Care Team Description 11/20/2023 Engineering Geologist Report Medical Records [address] [place] [address] Jake Prakash PA-C Social History Tobacco Use [...] on filedocumented in this encounter Care Teams Shrimp Trawler Relationship Specialty Start Date End Date Félix Garvey PA-C [address] [place] [address] [phone] PCP - General Internal Medicine 06/06/22 Aron Son MD Specialist Cardiovascular Disease 06/06/22 documented as of this encounter
--- OUTSIDE RECORDS SUMMARY | 2024-12-07 16:20 | XMS_ITS | Encounter Summary ---
Author Organization [employer] [facility] Address [address] [place] [address] Care Team Providers Care Defective Cigarette Slitter Name Role Phone Aron Son MD Unavailable Unavailable Félix Garvey PA-C Primary Care Provider +1 [phone] Encounter Details Date Type Department Care Team Description 10/17/2022 Hydraulic Repairer Report Medical Records [address] [place] [address] Ely Kirby Social History Tobacco Use Types [...] on filedocumented in this encounter Care Teams Defective Cigarette Slitter Relationship Specialty Start Date End Date Félix Garvey PA-C [address] [place], [place] [phone] PCP - General Internal Medicine 06/06/22 Aron Son MD Specialist Cardiovascular Disease 06/06/22 documented as of this encounter
--- OUTSIDE RECORDS SUMMARY | 2024-12-07 16:20 | XMS_ITS | Encounter Summary ---
Author Organization [facility] Address [address] [place] [address] Care Team Providers Care Plasterer Foreman Name Role Phone Félix Garvey PA-C Primary Care Provider [phone] Rod Machuca MD Primary Care Provider [phone] Aron Son MD Unavailable Unavailable Félix Garvey PA-C Primary Care Provider +[phone] Encounter Details Date Type Department Care Team Description 08/09/2021 Sweat Box Attendant Report Medical Records [address] [place] [address] Ely Kirby Social History Tobacco Use Types [...] on filedocumented in this encounter Care Teams Plasterer Foreman Relationship Specialty Start Date End Date Félix Garvey PA-C [address] [place], [place] [phone] PCP - General Internal Medicine 09/27/20 05/09/22 Rod Machuca MD [address] [place], [place] [phone] PCP - General Lung Cancer Communications Analyst 05/10/22 06/05/22 Félix Garvey PA-C [address] [place] [address] PCP - General Internal Medicine 06/06/22 Aron Son MD [address] [place] [address] Specialist Cardiovascular Disease 06/06/22 documented as of this encounter
--- OUTSIDE RECORDS SUMMARY | 2024-12-07 16:20 | XMS_ITS | Encounter Summary ---
Author Organization [employer] [facility] Address [address] [place] [address] Care Team Providers Care Continuous Pickling Line Pickler Name Role Phone Aron Son MD Unavailable Unavailable Félix Garvey PA-C Primary Care Provider +1 [phone] Encounter Details Date Type Department Care Team Description 04/18/2023 Maintenance Shop Clerk Report Medical Records [address] [place] [address] Rod Machuca MD [address] [place] [address] Social History Tobacco Use Types Packs/Day Years [...] on filedocumented in this encounter Care Teams Continuous Pickling Line Pickler Relationship Specialty Start Date End Date Félix Garvey PA-C [address] [place] [address] PCP - General Internal Medicine 06/06/22 Aron Son MD Specialist Cardiovascular Disease 06/06/22 documented as of this encounter
--- OUTSIDE RECORDS SUMMARY | 2024-12-07 16:20 | XMS_ITS | Encounter Summary ---
Author Organization [facility] Address [address] [place] [address] Care Team Providers Care Tractor Operator Name Role Phone Aron Son MD Unavailable Unavailable Félix Garvey PA-C Primary Care Provider +1 [phone] Encounter Details Date Type Department Care Team Description 05/10/2023 Telephone Gastroenterology - [facility] [address] [facility] [address] [place] [phone] Mario Block PA-C [address] [address] Social History Tobacco Use Types Packs/Day Years [...] on filedocumented in this encounter Care Teams Tractor Operator Relationship Specialty Start Date End Date Félix Garvey PA-C [address] [place] [address] PCP - General Internal Medicine 06/06/22 Aron Son MD Specialist Cardiovascular Disease 06/06/22 documented as of this encounter
--- OUTSIDE RECORDS SUMMARY | 2024-12-07 16:20 | XMS_ITS | Encounter Summary ---
Author Organization [facility] Address [address] [place] [address] Care Team Providers Care Visual Merchandising Associate Name Role Phone Vincenzo Green MD Primary Care Provider [phone] Félix Garvey PA-C Primary Care Provider + [phone] Rod Machuca MD Primary Care Provider [phone] Aron Son MD Unavailable Unavailable Félix Garvey PA-C Primary Care Provider [phone] Encounter Details Date Type Department Care Team Description 03/11/2016 Business Manager College Or University Report Medical Records [address] [place] [address] Zack Powers Social History Tobacco Use Types [...] on filedocumented in this encounter Care Teams Visual Merchandising Associate Relationship Specialty Start Date End Date Vincenzo Green MD [address] [place] [address] [phone] PCP - General Internal Medicine 08/03/15 09/26/20 Félix Garvey PA-C [address] [place] [address] [id number] PCP - General Internal Medicine 09/27/20 05/09/22 Rod Machuca MD [address] [place] [address] PCP - General Lung Cancer Bale Tie Machine Operator 05/10/22 06/05/22 Félix Garvey PA-C [address] [place] [address] PCP - General Internal Medicine 06/06/22 Aron Son MD [address] [place] [address] Specialist Cardiovascular Disease 06/06/22 documented as of this encounter
--- OUTSIDE RECORDS SUMMARY | 2024-12-07 16:21 | XMS_ITS | Encounter Summary ---
Author Organization [facility] Address [address] [place] [address] Care Team Providers Care Multi Media Specialist Name Role Phone Félix Garvey PA-C Primary Care Provider [phone] Rod Machuca MD Primary Care Provider [phone] Aron Son MD Unavailable Unavailable Félix Garvey PA-C Primary Care Provider +[phone] Encounter Details Date Type Department Care Team Description 08/16/2021 Valve Assembler Report Medical Records [address] [place] [id number] [place] [address] Social History Tobacco Use Types Packs/Day Years [...] on filedocumented in this encounter Care Teams Multi Media Specialist Relationship Specialty Start Date End Date Félix Garvey PA-C [address] [place], [place] [phone] PCP - General Internal Medicine 09/27/20 05/09/22 Rod Machuca MD [address] [place], [place] [phone] PCP - General Lung Cancer Director Of Critical Care 05/10/22 06/05/22 Félix Garvey PA-C [address] [place] [address] PCP - General Internal Medicine 06/06/22 Aron Son MD [address] [place] [address] Specialist Cardiovascular Disease 06/06/22 documented as of this encounter
--- OUTSIDE RECORDS SUMMARY | 2024-12-07 16:21 | XMS_ITS | Encounter Summary ---
Author Organization [facility] Address [address] [place] [address] Care Team Providers Care Boarding Room Fixer Name Role Phone Aron Son MD Unavailable Unavailable Félix Garvey PA-C Primary Care Provider +[phone] Encounter Details Date Type Department Care Team Description 07/10/2024 Industrial Custodian Report Medical Records [address] [place] [address] Tracy Banerjee [address] [place] [address] Social History Tobacco Use Types Packs/Day Years [...] on filedocumented in this encounter Care Teams Boarding Room Fixer Relationship Specialty Start Date End Date Félix Garvey PA-C [address] [place] [address] PCP - General Internal Medicine 06/06/22 Aron Son MD Specialist Cardiovascular Disease 06/06/22 documented as of this encounter
--- OUTSIDE RECORDS SUMMARY | 2024-12-07 16:21 | XMS_ITS | Encounter Summary ---
Author Organization [facility] Address [address] [place] [address] Care Team Providers Care Textile Machine Operator Name Role Phone Vincenzo Green MD Primary Care Provider [phone] Félix Garvey PA-C Primary Care Provider [phone] Rod Machuca MD Primary Care Provider [phone] Aron Son MD Unavailable Unavailable Félix Garvey PA-C Primary Care Provider [phone] Encounter Details Date Type Department Care Team Description 09/19/2017 Market Development Manager Report Medical Records [address] [place] [address] Crystal Raines Social History Tobacco Use Types [...] on filedocumented in this encounter Care Teams Textile Machine Operator Relationship Specialty Start Date End Date Vincenzo Green MD [address] [place] [address] [phone] PCP - General Internal Medicine 08/03/15 09/26/20 Félix Garvey PA-C [address] [place] [address] [phone] PCP - General Internal Medicine 09/27/20 05/09/22 Rod Machuca MD [address] [place] [address] PCP - General Lung Cancer Membership Advisor 05/10/22 06/05/22 Félix Garvey PA-C [address] [place] [address] PCP - General Internal Medicine 06/06/22 Aron Son MD [address] [place] [address] Specialist Cardiovascular Disease 06/06/22 documented as of this encounter
--- OUTSIDE RECORDS SUMMARY | 2024-12-07 16:21 | XMS_ITS | Encounter Summary ---
Author Organization [facility] Address [address] [place] [address] Care Team Providers Care Machine Heel Sprayer Name Role Phone Vincenzo Green MD Primary Care Provider + [phone] Félix Garvey PA-C Primary Care Provider +[phone] Rod Machuca MD Primary Care Provider [phone] Aron Son MD Unavailable Unavailable Félix Garvey PA-C Primary Care Provider [phone] Encounter Details Date Type Department Care Team Description 09/12/2017 Orders Only Adult Medicine [address] [address] Félix Garvey PA-C [address] [place] [address] [phone] Right lumbar radiculopathy Social History Tobacco Use [...] unspecified documented in this encounter Care Teams Machine Heel Sprayer Relationship Specialty Start Date End Date Vincenzo Green MD [address] [place] [address] PCP - General Internal Medicine 08/03/15 09/26/20 Félix Garvey PA-C [address] [place] [address] PCP - General Internal Medicine 09/27/20 05/09/22 Rod Machuca MD [address] [place] [address] PCP - General Lung Cancer Manager Orange 05/10/22 06/05/22 Félix Garvey PA-C [address] [place] [address] PCP - General Internal Medicine 06/06/22 Aron Son MD [address] [place] [address] Specialist Cardiovascular Disease 06/06/22 documented as of this encounter
--- OUTSIDE RECORDS SUMMARY | 2024-12-07 16:21 | XMS_ITS | Encounter Summary ---
Author Organization [facility] Address [address] [place] [address] Care Team Providers Care Home Care Coordinator Name Role Phone Aron Son MD Unavailable Unavailable Félix Garvey PA-C Primary Care Provider +[phone] Encounter Details Date Type Department Care Team Description 06/07/2022 Release of Information Medical Records [address] [place], [place] [id number] [place] [address] Social History Tobacco Use Types Packs/Day Years [...] on filedocumented in this encounter Care Teams Home Care Coordinator Relationship Specialty Start Date End Date Félix Garvey PA-C [address] [place], [place] [phone] PCP - General Internal Medicine 06/06/22 Aron Son MD Specialist Cardiovascular Disease 06/06/22 documented as of this encounter
--- OUTSIDE RECORDS SUMMARY | 2024-12-07 16:21 | XMS_ITS | Encounter Summary ---
Author Organization [facility] Address [address] [place] [address] Care Team Providers Care Thermal Cutting Machine Operator Name Role Phone Vincenzo Green MD Primary Care Provider [phone] Félix Garvey PA-C Primary Care Provider [phone] Rod Machuca MD Primary Care Provider Aron Son MD Unavailable Unavailable Félix Garvey PA-C Primary Care Provider +[phone] Encounter Details Date Type Department Care Team Description 11/05/2017 Orders Only Adult Medicine [address] [phone] Vincenzo Green MD [address] [place] [address] [phone] Preoperative examination; Screening for deficiency anemia; ocean transportation intermediary current use of anticoagulant therapy Social History [...] - 33.6 SEC 11/17/2017 3:33 PM EDT [facility] Comment: Please note adjusted APTT (sec) reference range ?? effective 01/19/2016. 11/17/2017 2:06 PM EDT 11/17/2017 2:07 PM EDT Vincenzo Green MD LAB Performing Organization Address [facility] de Phone Number [address] * PROTHROMBIN TIME (11/17/2017 2:06 PM EDT) PT 13.1 11.6 - 15.6 SEC 11/17/2017 3:18 PM EDT [facility] Comment: Please note adjusted PT(sec)normal reference range ?? effective 03/21/15. INR 0.98 11/17/2017 3:18 PM EDT [facility] 11/17/2017 2:06 PM EDT 11/17/2017 2:07 PM EDT Vincenzo Green MD LAB Performing Organization Address [facility] Phone Number [address] * (ABNORMAL) CBC (AUTO DIFF PLATELET) (11/17/2017 2:06 PM EDT) WBC 6.0 4.8 - 10.8 x10-3 11/17/2017 2:45 PM EDT [facility] RBC 4.2(L) 4.5 - 5.5 x10-6 11/17/2017 2:45 PM EDT [facility] HGB 13.3(L) 13.5 - 17.5 g/dl 11/17/2017 2:45 PM EDT [facility] HCT 38.0(L) 42 - 54 % 11/17/2017 2:45 PM EDT [facility] MCV 89.6 79 - 98 fl 11/17/2017 2:45 PM EDT [facility] MCH 31.4 27 - 32 pg 11/17/2017 2:45 PM EDT [facility] MCHC 35.0 32 - 37 g/dl 11/17/2017 2:[address] [facility] RDW 12.3 11 - 15 % 11/17/2017 2:[address] [facility] PLT COUNT 193 130 - 400 x10-3 11/17/2017 2:45 PM EDT [facility] MEAN PLATELET VOLUME 10.3 7 - 11 fl 11/17/2017 2:[address] [facility] NEUT % 76.9 41 - 85 % 11/17/2017 2:[address] [facility] LYMPH % 16.4 15 - 48 % 11/17/2017 2:[address] [facility] MONO % 6.3 0 - 12 % 11/17/2017 2:[address] [facility] EOS % 0.2 0 - 5 % 11/17/2017 2:[address] [facility] BASO % 0.2 0 - 2 % 11/17/2017 2:45 PM EDT [facility] 11/17/2017 2:06 PM EDT 11/17/2017 2:07 PM EDT Vincenzo Green MD LAB Performing Organization Address City/State/[facility] Co de Phone Number [facility] [address] documented in this encounter Visit Diagnoses Diagnosis Preoperative examination Preoperative examination, unspecified Screening for deficiency anemia Screening for other and unspecified deficiency anemia jail current use of anticoagulant therapy documented in this encounter Care Teams Thermal Cutting Machine Operator Relationship Specialty Start Date End Date Vincenzo Green MD [address] [place] [address] PCP - General Internal Medicine 08/03/15 09/26/20 Félix Garvey PA-C [address] [place] [address] PCP - General Internal Medicine 09/27/20 05/09/22 Rod Machuca MD [address] [place] [address] PCP - General Lung Cancer Magistrate 05/10/22 06/05/22 Félix Garvey PA-C [address] [place] [address] PCP - General Internal Medicine 06/06/22 Aron Son MD [address] [place] [address] Specialist Cardiovascular Disease 06/06/22 documented as of this encounter
--- OUTSIDE RECORDS SUMMARY | 2024-12-07 16:21 | XMS_ITS | Encounter Summary ---
Author Organization [employer] [facility] Address [address] [facility] 7t [place] [address] Care Team Providers Care Transcribing Machine Operator Name Role Phone Unavailable Primary Care Provider Unavailabl e Reason for Visit * Reason Comments Dentures Encounter Details Date Type Department Care Team (Late st Contact Info) Description 12/07/2024 10:00 AM EDT Office Visit [facility] ADULT DENTAL [address] [place] [address] Spencer Rao DDS [address] [place] [address] Social History Tobacco Use Types Packs/Day Years [...] Care Team (Late st Contact Info) Description 03/16/2025 3:00 PM EDT Office Visit [facility] ADULT DENTAL [address] [place] [address] Amalia Urrutia documented as of this encounter Visit Diagnoses Not on filedocumented in this encounter
--- OUTSIDE RECORDS SUMMARY | 2024-12-07 16:21 | XMS_ITS | Encounter Summary ---
Author Organization [employer] [facility] Address [address] [facility] 7t [place] [address] Care Team Providers Care Wet Plant Operator Name Role Phone Unavailable Primary Care Provider Unavailabl e Encounter Details Date Type Department Care Team (Late st Contact Info) Description 07/30/2024 Telephone [facility] ADULT DENTAL [address] [place] [address] Spencer Rao DDS [address] [place], [place] [phone] Social History Tobacco Use Types Packs/Day Years [...] Description 03/16/2025 3:00 PM EDT Office Visit [facility] ADULT DENTAL [address] [place] [address] Amalia Urrutia documented as of this encounter Visit Diagnoses Not on filedocumented in this encounter
--- OUTSIDE RECORDS SUMMARY | 2024-12-07 16:21 | XMS_ITS | Encounter Summary ---
Author Organization [facility] Address [address] [place] [address] Care Team Providers Care Supervisory Cbp Officer Name Role Phone Vincenzo Green MD Primary Care Provider [phone] Félix Garvey PA-C Primary Care Provider + [phone] Rod Machuca MD Primary Care Provider [phone] Aron Son MD Unavailable Unavailable Félix Garvey PA-C Primary Care Provider [phone] Encounter Details Date Type Department Care Team Description 10/13/2018 Mixing And Dispensing Supervisor Report Medical Records [address] [place] [address] Abstract, Provider Social History Tobacco Use Types [...] on filedocumented in this encounter Care Teams Supervisory Cbp Officer Relationship Specialty Start Date End Date Vincenzo Green MD [address] [place] [address] [phone] PCP - General Internal Medicine 08/03/15 09/26/20 Félxi Garvey PA-C [address] [place] [address] [phone] PCP - General Internal Medicine 09/27/20 05/09/22 Rod Machuca MD [address] [place] [address] PCP - General Lung Cancer Md Allergy Immunology 05/10/22 06/05/22 Félix Garvey PA-C [address] [place] [address] PCP - General Internal Medicine 06/06/22 Aron Son MD [address] [place] [address] Specialist Cardiovascular Disease 06/06/22 documented as of this encounter
--- OUTSIDE RECORDS SUMMARY | 2024-12-07 16:21 | XMS_ITS | Encounter Summary ---
Author Organization [facility] Address [address] [place] [address] Care Team Providers Care Data Modeler Name Role Phone Vincenzo Green MD Primary Care Provider [phone] Félix Garvey PA-C Primary Care Provider [phone] Rod Machuca MD Primary Care Provider [phone] Aron Son MD Unavailable Unavailable Félix Garvey PA-C Primary Care Provider [phone] Encounter Details Date Type Department Care Team Description 12/13/2015 Business Doc Medical Records [address] [place] [address] Abstract, Provider Social History Tobacco Use Types [...] filedocumented in this encounter Care Teams Data Modeler Relationship Specialty Start Date End Date Vincenzo Green MD [address] [place] [address] [phone] PCP - General Internal Medicine 08/03/15 09/26/20 Félix Garvey PA-C [address] [place] [address] [phone] PCP - General Internal Medicine 09/27/20 05/09/22 Rod Machuca MD [address] [place] [address] PCP - General Lung Cancer Network Security Officer 05/10/22 06/05/22 Félix Garvey PA-C [address] [place] [address] PCP - General Internal Medicine 06/06/22 Aron Son MD [address] [place] [address] Specialist Cardiovascular Disease 06/06/22 documented as of this encounter
--- OUTSIDE RECORDS SUMMARY | 2024-12-07 16:21 | XMS_ITS | Encounter Summary ---
Author Organization [facility] Address [address] [place] [address] Care Team Providers Care Instructional Design Consultant Name Role Phone Vincenzo Green MD Primary Care Provider [phone] Félix Garvey PA-C Primary Care Provider [phone] Rod Machuca MD Primary Care Provider [phone] Aron Son MD Unavailable Unavailable Félix Garvey PA-C Primary Care Provider [phone] Encounter Details Date Type Department Care Team Description 07/08/2019 Old Medical Records Medical Records [address] [place] [address] Abstract, Provider Social History Tobacco Use Types [...] filedocumented in this encounter Care Teams Instructional Design Consultant Relationship Specialty Start Date End Date Vincenzo Green MD [address] [place] [address] [phone] PCP - General Internal Medicine 08/03/15 09/26/20 Félix Garvey PA-C [address] [place] [address] [phone] PCP - General Internal Medicine 09/27/20 05/09/22 Rod Machuca MD [address] [place] [address] PCP - General Lung Cancer Pharmacy Graduate Intern 05/10/22 06/05/22 Félix Garvey PA-C [address] [place] [address] PCP - General Internal Medicine 06/06/22 Aron Son MD [address] [place] [address] Specialist Cardiovascular Disease 06/06/22 documented as of this encounter
--- OUTSIDE RECORDS SUMMARY | 2024-12-07 16:21 | XMS_ITS | Encounter Summary ---
Author Organization [facility] Address [address] [place] [address] Care Team Providers Care Waterside Worker Name Role Phone Vincenzo Green MD Primary Care Provider [phone] Félix Garvey PA-C Primary Care Provider + [phone] Rod Machuca MD Primary Care Provider [phone] Aron Son MD Unavailable Unavailable Félix Garvey PA-C Primary Care Provider + [phone] Encounter Details Date Type Department Care Team Description 11/25/2017 Hospital Medical Records [address] [place] [address] Lee Arroyo MD Social History Tobacco Use [...] on filedocumented in this encounter Care Teams Waterside Worker Relationship Specialty Start Date End Date Vincenzo rGeen MD [address] [place] [address] [phone] PCP - General Internal Medicine 08/03/15 09/26/20 Félix Garvey PA-C [address] [place] [place] [address] [phone] PCP - General Internal Medicine 09/27/20 05/09/22 Rod Machuca MD [address] [place] [address] PCP - General Lung Cancer Bottle Tester 05/10/22 06/05/22 Félix Garvey PA-C [address] [place] [address] PCP - General Internal Medicine 06/06/22 Aron Son MD [address] [place] [address] Specialist Cardiovascular Disease 06/06/22 documented as of this encounter
--- OUTSIDE RECORDS SUMMARY | 2024-12-07 16:21 | XMS_ITS | Encounter Summary ---
Author Organization [employer] Address [address] [facility] 7t [place] [address] Care Team Providers Care Insurance Loss Control Surveyor Name Role Phone Unavailable Primary Care Provider Unavailabl e Reason for Visit * Reason Onset Date Comments Appointment 03/13/2023 Encounter Details Date Type Department Care Team (Late st Contact Info) Description 03/13/2023 Telephone C ADULT DENTAL [address] [place], [place] [phone] Dinah Mckinley DDS [address] [place], [place] [phone] Appointment Social History Tobacco Use Types Packs/Day [...] did offer the patient an appt in [place] with the understanding that he would become a [place] patient but he is unwilling to go to [facility]. He wants to know why hes being told that he needs to come in and then listed. Tried my best to explain. Would like his appt or phone call. documented in this encounter Plan of Treatment Upcoming Encounters Date Type Department Care Team (Late st Contact Info) Description 03/16/2025 3:00 PM EDT Office Visit [facility] ADULT DENTAL [address] [place] [address] Amalia Urrutia documented as of this encounter Visit Diagnoses Not on filedocumented in this encounter
--- OUTSIDE RECORDS SUMMARY | 2024-12-07 16:21 | XMS_ITS | Encounter Summary ---
Author Organization [facility] Address [address] [place] [address] Care Team Providers Care Rn Clinical Research Name Role Phone Félix Garvey PA-C Primary Care Provider [phone] Rod Machuca MD Primary Care Provider [phone] Aron Son MD Unavailable Unavailable Félix Garvey PA-C Primary Care Provider +[phone] Encounter Details Date Type Department Care Team Description 09/20/2021 Manager N[place] Report Medical Records [address] [place] [address] Milton Barrera MD Social History Tobacco Use [...] on filedocumented in this encounter Care Teams Rn Clinical Research Relationship Specialty Start Date End Date Félix Garvey PA-C [address] [place], [place] [phone] PCP - General Internal Medicine 09/27/20 05/09/22 Rod Machuca MD [address] [place], [place] [phone] PCP - General Lung Cancer Motion Picture Equipment Machinist 05/10/22 06/05/22 Félix Garvey PA-C [address] [place] [address] PCP - General Internal Medicine 06/06/22 Aron Son MD [address] [place] [address] Specialist Cardiovascular Disease 06/06/22 documented as of this encounter
--- OUTSIDE RECORDS SUMMARY | 2024-12-07 16:21 | XMS_ITS | Clinical Summary ---
Author Organization [employer] Address [address] [facility] 7t [place] [address] Care Team Providers Care Insurance Manager Name Role Phone Unavailable Primary Care [...] 0.4 mg by mouth Once per day. Active Mounjaro 2.5 MG/0.5ML solution pen-injector INJECT [...] Encounters Date Type Department Care Team Description 12/07/2024 10:00 AM EDT Office Visit [facility] ADULT [facility]AL [address] [facility] [place] [address] Spencer aRo, DDS 11/02/2024 3:00 PM EDT Office Visit [facility] ADULT DENTAL [address] [facility] [place] [address] Spencer Rao, DDS 10/29/2024 Telephone [facility] ADULT DENTAL [address] [facility] [place] [address] Spencer Rao, DDS 10/19/2024 11:00 AM EDT Office Visit [facility] ADULT DENTAL [address] [facility] [place] [address] Spencer Rao, DDS 10/05/2024 11:00 AM EDT Office Visit [facility] ADULT DENTAL [address] [facility] [place] [address] Spencer Rao, DDS 09/10/2024 11:30 AM EST Office Visit [facility] ADULT DENTAL [address] [place] [address] Spencer Rao DDS from Last 3 Months [...] Description 03/16/2025 3:00 PM EDT Office Visit [facility] ADULT DENTAL [address] [place] [address] Amalia Urrutia Health Maintenance Due Date Last Done Comments CT Colonography 1958 Colonoscopy 1958 Colorectal Cancer Screening 1958 Depression Screening 1958 FIT DNA/Cologuard 1958 FIT 1958 FOBT [...] 2024 , 05/09/2023, 04/18/2022, Additional history exists Diabetes: Hemoglobin A1C 05/19/2024 024, 02/17/2024, 12/25/2022 Dental Oral Exam 07/03/2024 01/01/2024, , 09/27/2014, Additional history exists Dental Prophylaxis 07/03/2024 01/01/2024, 01/04/2014 Dental X-Ray: Bitewings 01/01/2025 01/01/20 24, 03/14/2020, 09/03/2019, Additional history exists Tobacco Screening 12/07/2025 12/07/2024 DTaP/Tdap/Td Vaccines (2 - Td or Tdap) [...] TRY IN Routine 09/10/2024 11:30 AM EST PROPHYLAXIS - ADULT Routine 01/01/2024 1 0:00 AM EDT INTRAORAL - COMPLETE SERIES OF RADIOGRAPHIC IMAGES Routine 01/01/2024 10:00 AM EDT PERIODIC ORAL EVALUATION - ESTABLISHED PATIENT Routine 01/01/2024 10:00 AM EDT from Last 3 Months or Most Recently Relevant to Health Maintenance Insurance [employer] MEDICARE REPLACEMENT [place] ST[place] ADULT DENTAL - [employer]ETNA DENTAL PPO
--- OUTSIDE RECORDS SUMMARY | 2024-12-07 16:21 | XMS_ITS | Encounter Summary ---
Author Organization [facility] Address [address] [place] [address] Care Team Providers Care Brazer Helper Induction Name Role Phone Vincenzo Green MD Primary Care Provider [phone] Félix Garvey PA-C Primary Care Provider [phone] Rod Machuca MD Primary Care Provider [phone] Aron Son MD Unavailable Unavailable Félix Garvey PA-C Primary Care Provider [phone] Encounter Details Date Type Department Care Team Description 04/13/2019 Potato Loader Report Medical Records [address] [place] [address] Crystal Raines Social History Tobacco Use Types [...] on filedocumented in this encounter Care Teams Brazer Helper Induction Relationship Specialty Start Date End Date Vincenzo Green MD [address] [place] [address] [phone] PCP - General Internal Medicine 08/03/15 09/26/20 Félix Garvey PA-C [address] [place] [address] [phone] PCP - General Internal Medicine 09/27/20 05/09/22 Rod Machuca MD [address] [place] [address] PCP - General Lung Cancer Hydraulic Lift Operator 05/10/22 06/05/22 Félix Garvey PA-C [address] [place] [address] PCP - General Internal Medicine 06/06/22 Aron Son MD [address] [place] [address] Specialist Cardiovascular Disease 06/06/22 documented as of this encounter
--- OUTSIDE RECORDS SUMMARY | 2024-12-07 16:21 | XMS_ITS | Encounter Summary ---
Author Organization [employer] Address [address] [facility] 7t [place] [address] Care Team Providers Care Wet Suit Gluer Name Role Phone Unavailable Primary Care Provider Unavailabl e Reason for Visit * Reason Onset Date Comments insurance appt 12/25/2023 Encounter Details Date Type Department Care Team (Late st Contact Info) Description 12/25/2023 Telephone [facility] ADULT DENTAL [address] [place] [address] David Grayson insurance appt Social History Tobacco [...] Rawls - 12/25/2023 2:56 PM EDT [facility]. He says he has [employer] inurance. Patient was asked who is the insurance company that carries the insurance and he said [employer]. Asked again which is the insurance company that carries the insurance and patient hung up. Unsure of insurance coverage DR Bill front counter clerk aware documented in this encounter Plan of Treatment Upcoming Encounters Date Type Department Care Team (Late st Contact Info) Description 03/16/2025 3:00 PM EDT Office Visit [facility] ADULT DENTAL [address] [place] [address] Amalia Urrutia documented as of this encounter Visit Diagnoses Not on filedocumented in this encounter
--- OUTSIDE RECORDS SUMMARY | 2024-12-07 16:21 | XMS_ITS | Encounter Summary ---
Author Organization [facility] Address [address] [place] [address] Care Team Providers Care Torch Cutter Name Role Phone Vincenzo Green MD Primary Care Provider [phone] Félix Garvey PA-C Primary Care Provider [phone] Rod Machuca MD Primary Care Provider [phone] Aron Son MD Unavailable Unavailable Félix Garvey PA-C Primary Care Provider [phone] Encounter Details Date Type Department Care Team Description 10/14/2017 [facility] Medical Records [address] [place] [id number] Abstract, Provider Social History Tobacco Use Types [...] on filedocumented in this encounter Care Teams Torch Cutter Relationship Specialty Start Date End Date Vincenzo Green MD [address] [place] [address] [phone] PCP - General Internal Medicine 08/03/15 09/26/20 Félix Garvey PA-C [address] [place] [address] [phone] PCP - General Internal Medicine 09/27/20 05/09/22 Rod Machuca MD [address] [place] [address] PCP - General Lung Cancer Liquor Grinder Mill Operator 05/10/22 06/05/22 Félix Garvey PA-C [address] [place] [address] PCP - General Internal Medicine 06/06/22 Aron Son MD [address] [place] [address] Specialist Cardiovascular Disease 06/06/22 documented as of this encounter
--- OUTSIDE RECORDS SUMMARY | 2024-12-07 16:21 | XMS_ITS | Encounter Summary ---
Author Organization [facility] Address [address] [place] [address] Care Team Providers Care Middle School Principal Name Role Phone Vincenzo Green MD Primary Care Provider [phone] Félix Garvey PA-C Primary Care Provider [phone] Rod Machuca MD Primary Care Provider Aron Son MD Unavailable Unavailable Félix Garvey PA-C Primary Care Provider [phone] Encounter Details Date Type Department Care Team Description 09/21/2018 Director Trading Report Medical Records [address] [place] [id number] Crystal Raines Social History Tobacco Use Types [...] on filedocumented in this encounter Care Teams Middle School Principal Relationship Specialty Start Date End Date Vincenzo Green MD [address] [place] [address] [phone] PCP - General Internal Medicine 08/03/15 09/26/20 Félix Garvey PA-C [address] [place] [address] [phone] PCP - General Internal Medicine 09/27/20 05/09/22 Rod Machuca MD [address] [place] [address] PCP - General Lung Cancer Ware Cleaner 05/10/22 06/05/22 Félix Garvey PA-C [address] [place] [address] PCP - General Internal Medicine 06/06/22 Aron Son MD [address] [place] [address] Specialist Cardiovascular Disease 06/06/22 documented as of this encounter
--- OUTSIDE RECORDS SUMMARY | 2024-12-07 16:21 | XMS_ITS | Encounter Summary ---
Author Organization [facility] Address [address] [place] [address] Care Team Providers Care Fishing Vessel Captain Name Role Phone Vincenzo Green MD Primary Care Provider [phone] Félix Garvey PA-C Primary Care Provider [phone] Rod Machuca MD Primary Care Provider [phone] Aron Son MD Unavailable Unavailable Félix Garvey PA-C Primary Care Provider [phone] Encounter Details Date Type Department Care Team Description 08/30/2019 Cask Maker Report Medical Records [address] [place] [id number] Lloyd Hung Social History Tobacco Use Types [...] on filedocumented in this encounter Care Teams Fishing Vessel Captain Relationship Specialty Start Date End Date Vincenzo Green MD [address] [place] [address] [phone] PCP - General Internal Medicine 08/03/15 09/26/20 Félix Garvey PA-C [address] [place] [address] [phone] PCP - General Internal Medicine 09/27/20 05/09/22 Rod Machuca MD [address] [place] [address] PCP - General Lung Cancer Manager Commercial Real Estate 05/10/22 06/05/22 Félix Garvey PA-C [address] [place] [address] PCP - General Internal Medicine 06/06/22 Aron Son MD [address] [place] [address] Specialist Cardiovascular Disease 06/06/22 documented as of this encounter
== END 2024-12-07 16:50 | disposition home or self-care (01) ==
LOC: HO.HUSH 15:17
PROVIDERS: PCP Physician Assistant; Visit Provider Urology
DX: N52.9 Male erectile dysfunction, unspecified (principal); R35.0 Frequency of micturition
CPT/HCPCS: 99214

== ENCOUNTER → 2024-12-07 15:17 | Outpatient (BNVA) | payer MEDICARE, MEDICAID, SELFPAY | PROVIDERS: PCP Physician Assistant; Visit Provider Urology | DX: N52.9 Male erectile dysfunction, unspecified (principal); R35.0 Frequency of micturition | CPT/HCPCS: 99212 ==

== ENCOUNTER 2025-01-03 09:17 | Outpatient (AMB) | payer MEDICARE, MEDICAID, SELFPAY ==
[2025-01-03 09:21] VITALS: BP 136/82; PULSE 69; TEMP 36.6; O2SAT 94; BMI 24.0
--- NOTE | 2025-01-03 09:21 | AM.OFFWIN_ITS ---
Intake Vital Signs 3 01/03/25 09:21 Height 5 ft 10 in Weight 167 lb 4 oz BMI 24.0 BP 136/82 Blood Pressure Location Lt brachial Position Sitting Pulse 69 Pulse Source Pulse Oximeter Temp 98 F Temp Source Oral Pulse Oximetry (%) 94 Oxygen Delivery Method Room Air Intake Visit Reasons: EP Poison Laura RT arm Patient Tobacco Use Status: Never used Tobacco Allergies lisinopril Allergy (Severe, Verified 01/03/25 09:28) Angioedema canagliflozin [Invokana] Allergy (Unknown, Verified 01/03/25 09:28) polyuria quetiapine Adverse Reaction (Intermediate, Verified 01/03/25 09:28) sedation, fatigue liraglutide [Victoza] Adverse Reaction (Unknown, Verified 01/03/25 09:28) nausea, constipation Do you need a note to return to daycare/school/sports/work: No HPI HPI Comments 2 History of Present Illness0 Details 64 y/o Male patient who presents to the walk in clinic with c/o very itchy rash covering his B/L Upper Arms and Torso. Reports that he was working on his Garden with his friends, and believes he might have encountered Poison Laura plant. He did change clothes, washed them in Hot water and immediately took a shower. He has been using Calamine lotion and some Itchy relief Fyffe with minimal relief. [facility] Medical History (Updated 01/03/25 @ 09:49 by Melanie Alvarez NP) Rash and nonspecific skin eruption Cervicalgia Injury of right thumb Lumbar degenerative disc disease Vitamin D deficiency Hypersomnia Snoring Cognitive disorder Tubular adenoma of colon (~2019) BPH loc w urin obs/LUTS Frequency of urination Erectile dysfunction NAFLD (nonalcoholic fatty liver disease) Hepatitis C Hepatitis B Arthritis Alcohol abuse Depression Carpal tunnel syndrome Type 2 diabetes mellitus with diabetic neuropathy, unspecified (~2003) Essential hypertension Overweight (BMI 25.0-29.9) Surgical History History of rhinoplasty History of colonoscopy History of lumbar surgery History of cataract surgery History of excision of mass Family History Father Myocardial infarct Colon cancer Mother Diabetes Social History Household Members: Spouse Household Members Other:: Housing: House Alcohol intake: current Alcohol intake frequency: a few times a month Alcohol type: beer and hard liquor Patient Tobacco Use Status: Never used Tobacco e-Cigarette/Vaping Use: Never Used Substance Use Type: Crack/Cocaine Advance Directives Date on File: 07/20/24 service: Yes Current occupational status: disabled Current occupational exposures/hazards: No Cognitive needs: No Hearing needs: No Vision needs: No Review of Systems Const All systems reviewed & are unremarkable except as noted in HPI and below Physical Exam Vital Signs: Last Vital Signs Temp 98 F 01/03/25 09:21 Pulse 69 01/03/25 09:21 BP 136/82 01/03/25 09:21 Pulse Ox 94 01/03/25 09:21 Oxygen Delivery Method Room Air 01/03/25 09:21 BMI result Body Mass Index 24.0 Const General: no acute distress; No comfortable Nutritional Appearance: well nourished Orientation/consciousness: patient oriented x3 Skin Full body images: 2 1. Erythematous Hives covering B/L upper Arms and Torso. Neuro General: patient oriented x3, gait normal and moves all extremities Psych Speech and movement: Normal speech and movement present Assessment & Plan Assessment & Plan (1) Rash and nonspecific skin eruption: Code(s): R21 - Rash and other nonspecific skin eruption Plan: Ordered Prednisone for 10 days Ordered Steroid cream BID. May take Benadrly at bedtime. Medications: New 2 prednisone 20 mg PO DAILY 10 tabs 0RF R21 - Rash and other nonspecific skin eruption triamcinolone acetonide 0.1% 1 appl topical BID 120 mL 1RF R21 - Rash and other nonspecific skin eruption Coding Level of Care Code Est Pt Level 4 (52536) Diagnoses Rash and nonspecific skin eruption R21 Time Spent (min) 20
--- OUTSIDE RECORDS SUMMARY | 2025-01-03 09:58 | XMS_ITS | Clinical Summary ---
Author Organization [address] [place] [address] Address [address] [place] [address] Phone Care Team Providers Care Paste Up Artist Name Role Phone Hector Epps MD Primary [...] see if this helps. Ascending aortic aneurysm ([facility] V24) 05/06/20 Overview (04/15/2024): 4.5cm [...] this is required. Diabetic retinopathy (CMS/HCC V24, [facility]/HCC V28) 06/06/2021 Diabetes mellitus with kidne y complication (CMS/HCC V24, [facility]/HCC V28) 12/21/2020 Microalbuminuria 12/21/2020 Erectile dysfunction [...] work-up and evaluation. History of substance abuse ([facility] V24, [place] 845508) 09/28/2015 Overview (04/15/2024): Cocaine, marijuana, some heroin Type 2 diabetes mellitus wit h cataract ([facility] V24, [facility] V28) 09/28/2015 Immunizations Name Administration Dates Next [...] HISTORICAL CATARACT REMOVAL NASAL SEPTUM SURGERY PROCEDURE: IN REPAIR NASAL SEPTAL PERFORATIONS COLONOSCOPY 01/2020 PROCEDURE: HISTORICAL COLONOSCOPY; COMMENT: repeat 5 years polyp OTHER SURGICAL HISTORY 09/16/2022 PROCEDURE: UPPER GI ENDOSCOPY, REMOVE LESION; COMMENT: bowman -biopsies taken OTHER SURGICAL HISTORY PROCEDURE: PULMONOLOGY BRONCHOSCOPY; COMMENT: dr. kilgore -bronchoscopy and mediastinoscopy with mediastinal lymph node biopsies Medical History Medical History Date Comments History of substance abuse ( [facility] V24, [facility] V28) 09/28/2015 DX:History of substance abus e ([facility]); COMMENT: Cocaine, marijuana, some heroin Chronic hepatitis C ([facility] V24, [facility] V28) 11/05/2015 DX:Chronic hepatitis C (HCC) ; COMMENT: Genotype 1a Depression 11/05/2015 DX:Depression Cervical radiculopathy 11/05/2015 DX:Cervic al radiculopathy; COMMENT: recurrent CTS (carpal tunnel syndrome) 11/05/2015 DX: CTS (carpal tunnel syndrome); COMMENT: Right, NCV 06/03 Diabetes mellitus type 2 wit h neurological manifestations ([facility] V24, [facility] V28) 11/05/2015 DX:Diabetes mellitus type 2 with neurological manifestations (HCC) GERD (gastroesophageal reflu x disease) 11/05/2015 DX:GERD (gastroesophageal re flux disease) DJD (degenerative joint dise ase) of knee 11/05/2015 DX:DJD (degenerative joint d isease) of knee Type 2 diabetes mellitus wit h cataract ([facility] V24, [facility] V28) 09/28/2015 DX:Type 2 diabetes mellitus with [...] * Urine Albumin Creatinine Ratio (02/17/2024) Pathologist [facility] Urine Albumin Creatinine Ratio Abstracted Historical Provider MD HEALTH MAINTENANCE Final Result * Annual BMP Blood Test (02/17/2024) Pathologist [facility] Annual BMP Blood Test Abstracted Historical Provider HEALTH MAINTENANCE Final Result * Falls Risk Assessment (02/17/2024) Pathologist [facility] Falls Risk Assessment Abstracted Historical Provider HEALTH MAINTENANCE Final Result * Depression Screening (02/17/2024) [facility] Depression Screening Abstracted Result [facility] Provider HEALTH MAINTENANCE Final Result * (ABNORMAL) Hemoglobin A1c (02/17/2024) [facility] Hemoglobin A1C 7.4(A) <=6.5 % Blood Venous blood specimen / Unknown Result [facility] Provider LAB BLOOD ORDERABLES Zunilda l Result * Lipid panel (02/17/2024) [facility] LDL/HDL Ratio 3 0 - 4 Triglycerides 93 0 - 150 mg/dL Cholesterol 125 0 - 200 mg/dL HDL 48 >=40 mg/dL LDL Cholesterol 59 0 - 100 mg/dL Blood Venous blood specimen / Unknown Result [facility] Provider LAB BLOOD ORDERABLES Zunilda l Result * Diabetes Eye Exam (10/30/2023) [facility] Diabetes: Annual Retina Eye Exam Abstracted Result [facility] Provider HEALTH MAINTENANCE Final Result * Colonoscopy (01/28/2020) [facility] Colonoscopy No interpretation , Abstracted Anatomical Region Laterality Modality Other Result [facility] Provider HEALTH MAINTENANCE Final Result * Hepatitis C Screening (04/01/2016) [facility] Hepatitis C Screening Abstracted Result [facility] Provider HEALTH MAINTENANCE Final Result from Last 3 Months or Most Recently Relevant to Health Maintenance Insurance [employer] MEDICARE ADVANTAGE MEDICARE [facility] HEALTH PLAN MEDICAID - [place] Care Teams Paste Up Artist Relationship Specialty Start Date End Date Hector Epps MD [address] [place] [address] [address] PCP - General Internal Medicine 09/03/24
== END 2025-01-03 10:01 | disposition home or self-care (01) ==
PROVIDERS: PCP Physician Assistant; Visit Provider Nurse Practitioner Family
DX: R21 Rash and other nonspecific skin eruption (principal)

== ENCOUNTER → 2025-01-03 09:17 | Outpatient (BNVA) | payer MEDICARE, MEDICAID, SELFPAY | PROVIDERS: PCP Physician Assistant; Visit Provider Nurse Practitioner Family | DX: R21 Rash and other nonspecific skin eruption (principal) | CPT/HCPCS: 99212 ==

== ENCOUNTER 2025-01-24 07:46 | Outpatient (REF) | payer MEDICARE, MEDICAID, SELFPAY ==
--- OUTSIDE RECORDS SUMMARY | 2025-01-24 07:49 | XMS_ITS | Encounter Summary ---
Author Organization [facility] Address [address] [place] [address] Care Team Providers Care Project Engineer Chemicals Name Role Phone Unavailable Primary Care Provider Unavailabl e Encounter Details Date Type Department Care Team (Late st Contact Info) Description 07/30/2024 Telephone [facility] [address] [place] [address] Spencer Rao DDS [address] [place] [address] Social History Tobacco Use Types Packs/Day Years [...] Care Team (Late st Contact Info) Description 01/25/2025 10:00 AM EDT Office Visit [facility] [address] [place] [address] Spencer Rao DDS [address] [place] [address] 03/16/2025 3:00 PM EDT Office Visit [facility] [address] [place] [address] Amalia Urrutia documented as of this encounter Visit Diagnoses Not on filedocumented in this encounter
--- OUTSIDE RECORDS SUMMARY | 2025-01-24 07:49 | XMS_ITS | Data Portability ---
Author Organization [place] [facility] Address [address] [place] [address] Care Team Providers Care Transfill Technician Name Role Phone SHWETA CARMONA Primary Care [...] Time Details Appointments RECHECK 15 2024 07:45A M Shar Nathan PA-C Not available Not available Not available Lab None recorded . Referral None recorded . Procedures None recorded . Surgeries None recorded . Imaging XR, knee, 4 or more view - 211 2023 024 julio césar Bejarano Office, [address], [facility] [address], [place], [address], 03/26/2024 12:26:33 Medication Orders None recorded . Patient TargetsNo targets recorded. Patient InstructionsNo instructions recorded. Reason for Referral None Reported. Results Created Date Observation Date Name Description Value Unit Range Abnormal Flag Note LastModifiedBy Organization Detail LastModifiedTime 03/26/20 24 03/26/2024 XR, knee, 4 or more view http:/ [email or web address] ?Encry pted=s Zaira YD8dLq bEUv6g %2BXZw aYqtaq 0bqfl% 2Fg9IQ a4ajBk vP9nXo QUaueC m3YtLR FvZlgJ JJ8mAn HZtai3 9a2431 AC0Kqa n2CWau iKiQtr MwF INTERFACE [facility] [address] [facility] [address], [place], [address], 03/26/2024 08:23:38 03/26/20 24 03/26/2024 XR, knee, 4 or more view [email or web address] ?Encry pted=ash Meneses YD8dLq bEUv6g %2BXZw aYqtaq 0bqfl% 2Fg9IQ a4ajBk vP9nXo QUaueC m3YtLR FvZlgJ JJ8mAn HZtai3 6x0805 AC0Kqa n2CWau iKiQtr MwF INTERFACE [facility] [address] [facility] [address], [place], [address], 03/26/2024 08:23:40 Result Notes Documentation Provider Name and Address Organization Details Recorded Time Xr, Knee, 4 Or More View : [email or web address]? Encrypted=ydQgFnxZT7nKzqZ Uv6g%3JMPxyAuasg0rbly%2Fg 3NUw4jgTirW8gDzHTdvdCt6Ht VXXcEzkLRN7xDwDCdwx75r113 1KU4Pild4VZwgoRaOngCkL Not Available [facility] 03/26/2024 08:23: 38 Xr, Knee, 4 Or More View : [email or web address]? Encrypted=zcRjKcwVD8xSflJ Uv6g%7XTJuvQndnt9bhqu%2Fg 8FGb1ykVrdU0kGsEIfzlXm6Se RESwEvgYBG7fWkUWxft81j546 6US2Ccfm5XAjytFjBcsXdE Not Available [facility] 03/26/2024 08:23: 41 Procedures Surgical History Date Name Laterality Status Provider Name and Address Organization Details Recorded Time 5 Knee Kenalog 40 1cc Injection, Bilateral completed Shar Nathan PA-C [address], [place], [address], [facility] 11/23/2024 09:36:14 4 Knee Kenalog 40 1cc Injection, Bilateral completed Shar Nathan PA-C [address], [place], [address], [facility] 03/26/2024 10:06:13 Imaging Results None recorded. Procedure Notes None recorded. Medical Equipment None [...] Updated DateTime 11/23/2024 177.8 cm 28.7 kg/m2 49153.47 g Alice Atkinson [facility] 11/23/2024 09:14:11 Date Recorded Body height Body mass index (BMI) Body weight Provider Name and Address Organization Details Last Updated DateTime 03/26/2024 177.8 cm 28.7 kg/m2 [address] [facility] 03/26/2024 08:04:37 Social History None recorded. Functional Status None recorded. Mental Status None recorded. Family History Nothing Reported. Medical History Condition Response Diabetes Y Headaches Y Hypertension Y Sleep Apnea Y Past Encounters Encounter ID Performer Location Encounter Start Date Encounter Closed Date Diagnosis/Indication Diagnosis SNOMED-CT Code Diagnosis ICD10 Code Diagnosis Note [id number] [facility] [address] [place] [address] 03/26/2024 07:56:28 03/26/2024 10:09:01 Pain of bilateral knee joints [id number] 29450 M25.561 M25.562 Bilateral osteoarthritis of knees [id number] 09103 M17.0 You have been provided with a [...] following the injection. This is called a flare . To help minimize the chances of this, please see the post-injec tion instructio ns above.Ther e is a less than 1% chance of an infection. If you notice any signs of infection (redness, warmth, drainage, fever greater than 100 degrees) please call our office or contact us through the portal [facility]. [id number] [facility] [address] floor [address] [place] [address] 11/23/2024 09:07:54 12/09/2024 14:40:06 Primary gonarthrosis, bilateral 956715091 M17.0 You have been provided with a [...] following the injection. This is called a flare . To help minimize the chances of [...] Recorded Advance Directives Directive None Recorded Payers Insurance Date Sequence Insurance Name Policy Number Policy Romero Covered Member ID Romero Member ID Guarantor Name 12/09/2024 2 [employer] ( - MEDICARE SUPPLEMENT) Bharath Colon [id number] Bharath Hawkins Colon 12/09/2024 1 [employer] (MEDICARE REPLACEMENT/ ADVANTAGE - PPO) [id number] Bharath Colon [id number] Bharath Hawkins Colon 03/26/2024 2 [facility] (HMO) Bharath Colon [id number] Bharath Hawkins Colon 03/26/[address] [facility] (POS) Bharath Colon [id number] Bharath Hawkins Colon 03/26/2024 2 [place] [facility] Bharath Colon [id number] Bharath Hawkins Colon Notes Date Note Type Note Provider Name and Address Organization Details Recorded Time 03/26/2024 text/html I am seeing the patient today under the supervision of who was available but who did not [...] no recent treatments. Shar Nathan PA-C [address], [place], [address], [facility] 03/26/2024 10:07:41 11/23/2024 text/html I am seeing the patient today under the supervision of who was available but who did not see the patient. HPI: Patient comes in for recheck of bilateral knee pain. Has known osteoarthritis in the medial compartment of the knee(s). Been treated conservatively with cortisone injection to this point with 16 weeks relief of symptoms. No new injury or modalities. Past family, medical, social history and review of systems has been reviewed, updated and is located in the patient s chart. Examination:The patient is well appearing and in no apparent distress. Alert and oriented x3. Vital signs per intake sheet. Examination of the bilateral knee reveals no effusion erythema or warmth. Decreased range of motion. Lower extremity varus deformity. Point tender over the medial joint line. Calf soft and nontender. 4+/5 strength of knee flexion extension. Impression: Osteoarthritis Plan: Nature of the diagnosis discussed with the patient today. Both surgical and nonsurgical options were reviewed. This point recommend a repeat cortisone injection. Patient agreed. anterior lateral portal was used. See Procedure note. Follow-up with us in 3 months for discussion of continued conservative management versus total joint arthroplasty. Shar Nathan PA-C [address], [place], [address], [facility] 11/23/2024 09:36:46
--- OUTSIDE RECORDS SUMMARY | 2025-01-24 07:49 | XMS_ITS | Clinical Summary ---
Author Organization [address] [place] [address] Address [address] [place] [address] Phone Care Team Providers Care Direct Response Consultant Name Role Phone Hector Epps MD Primary [...] see if this helps. Ascending aortic aneurysm ([facility] V24) 05/06/20 Overview (04/15/2024): 4.5cm [...] this is required. Diabetic retinopathy (CMS/HCC V24, [facility]/HCC V28) 06/06/2021 Diabetes mellitus with kidne y complication (CMS/HCC V24, [facility]/HCC V28) 12/21/2020 Microalbuminuria 12/21/2020 Erectile dysfunction [...] work-up and evaluation. History of substance abuse [place] [place], [place] [id number]) 09/28/2015 Overview (04/15/2024): Cocaine, marijuana, some heroin Type 2 diabetes mellitus wit h cataract ([facility] [place] [facility] [place]) 09/28/2015 Immunizations Name Administration Dates Next [...] HISTORICAL CATARACT REMOVAL NASAL SEPTUM SURGERY PROCEDURE: NV REPAIR NASAL SEPTAL PERFORATIONS COLONOSCOPY 01/2020 PROCEDURE: HISTORICAL COLONOSCOPY; COMMENT: repeat 5 years polyp OTHER SURGICAL HISTORY 09/16/2022 PROCEDURE: UPPER GI ENDOSCOPY, REMOVE LESION; COMMENT: bowman -biopsies taken OTHER SURGICAL HISTORY PROCEDURE: PULMONOLOGY BRONCHOSCOPY; COMMENT: dr. kilgore -bronchoscopy and mediastinoscopy with mediastinal lymph node biopsies Medical History Medical History Date Comments History of substance abuse ( [facility] [place] [facility] [place]) 09/28/2015 DX:History of substance abus e ([facility]); COMMENT: Cocaine, marijuana, some heroin Chronic hepatitis C ([facility] V24, [facility] V28) 11/05/2015 DX:Chronic hepatitis C (HCC) ; COMMENT: Genotype 1a Depression 11/05/2015 DX:Depression Cervical radiculopathy 11/05/2015 DX:Cervic al radiculopathy; COMMENT: recurrent CTS (carpal tunnel syndrome) 11/05/2015 DX: CTS (carpal tunnel syndrome); COMMENT: Right, NCV 06/03 Diabetes mellitus type 2 wit h neurological manifestations ([facility] V24, [facility] V28) 11/05/2015 DX:Diabetes mellitus type 2 with neurological manifestations (HCC) GERD (gastroesophageal reflu x disease) 11/05/2015 DX:GERD (gastroesophageal re flux disease) DJD (degenerative joint dise ase) of knee 11/05/2015 DX:DJD (degenerative joint d isease) of knee Type 2 diabetes mellitus wit h cataract ([facility] V24, [facility] V28) 09/28/2015 DX:Type 2 diabetes [...] Blood Test 02/16/2025 02/17/2024, 02/17/2024 Influenza Vaccine (#1) 2025 , 04/18/2022, 04/19/2020, Additional history exists DTaP,Tdap,and Td [...] * Urine Albumin Creatinine Ratio (02/17/2024) Pathologist [facility] Urine Albumin Creatinine Ratio Abstracted Historical Provider MD HEALTH MAINTENANCE Final Result * Annual BMP Blood Test (02/17/2024) Pathologist [facility] Annual BMP Blood Test Abstracted Historical Provider HEALTH MAINTENANCE Final Result * Falls Risk Assessment (02/17/2024) Pathologist [facility] Falls Risk Assessment Abstracted Historical Provider HEALTH MAINTENANCE Final Result * Depression Screening (02/17/2024) [facility] Depression Screening Abstracted Result [facility] Provider HEALTH MAINTENANCE Final Result * (ABNORMAL) Hemoglobin A1c (02/17/2024) [facility] Hemoglobin A1C 7.4(A) <=6.5 % Blood Venous blood specimen / Unknown Result [facility] Provider LAB BLOOD ORDERABLES Zunilda l Result * Lipid panel (02/17/2024) [facility] LDL/HDL Ratio 3 0 - 4 Triglycerides 93 0 - 150 mg/dL Cholesterol 125 0 - 200 mg/dL HDL 48 >=40 mg/dL LDL Cholesterol 59 0 - 100 mg/dL Blood Venous blood specimen / Unknown Result [facility] Provider LAB BLOOD ORDERABLES Zunilda l Result * Diabetes Eye Exam (10/30/2023) [facility] Diabetes: Annual Retina Eye Exam Abstracted Result [facility] Provider HEALTH MAINTENANCE Final Result * Colonoscopy (01/28/2020) [facility] Colonoscopy No interpretation , Abstracted Anatomical Region Laterality Modality Other Result [facility] Provider HEALTH MAINTENANCE Final Result * Hepatitis C Screening (04/01/2016) [facility] Hepatitis C Screening Abstracted Result [facility] Provider HEALTH MAINTENANCE Final Result from Last 3 Months or Most Recently Relevant to Health Maintenance Insurance [employer] MEDICARE ADVANTAGE MEDICARE [facility] HEALTH PLAN MEDICAID - [place] Care Teams Direct Response Consultant Relationship Specialty Start Date End Date Hector Epps MD [address] [place] [address] [place] [address] [place] [address] [place] PCP - General Internal Medicine 09/03/24
[2025-01-24 08:13] LABS: MANUAL DIFF FLAG NO
[2025-01-24 08:49] LABS: Hematocrit 36.2 % (42.0-52.0); Hemoglobin 12.4 g/dl (14.0-18.0); Imm Gran Abs Auto 0.01 X10*3/uL (0.00-0.03); Imm Gran Pct Auto 0.2 % (0.0-0.4); Lymphocytes Absolute Auto 1.0 X10*3/uL (1.2-4.9); Mean Corpuscular HGB Conc 34.3 g/dl (31.0-36.0); Mean Corpuscular Hemoglobin 30.9 pg (27.0-33.0); Mean Corpuscular Volume 90.3 fL (80.0-98.0); NRBC Abs Auto 0.000 X10*3/uL (0.0-0.012); NRBC Pct Auto 0.0 /100WBC (0.0-0.2); Platelet Count 178 X10*3/uL (160-400); Red Blood Count 4.01 X10*6/uL (4.60-5.80); White Blood Count 4.4 X10*3/uL (4.8-10.8)
[2025-01-24 09:18] LABS: Hemoglobin A1C 175.8206 umol/L; Total Hemoglobin (HGBA1C) 3228.2551 umol/L
[2025-01-24 10:47] LABS: Cholesterol 151 mg/dL (<200); HDL Cholesterol 59 mg/dL (>40); Triglycerides 141 mg/dL (<150)
[2025-01-24 16:21] LABS: Appearance Urine Clear; Glucose Urine UA Negative (Negative); PH 5.5 (5.0-9.0); Specific Gravity - Urine 1.025 (1.005-1.025)
[2025-01-24 17:49] LABS: Microalbum/Creatinine Ratio Ur 10.3 ug/mg cr (<30)
== END 2025-01-24 07:47 | disposition home or self-care (01) ==
LOC: HO.LAB 07:46
PROVIDERS: PCP Internal Medicine; Visit Provider Internal Medicine
DX: E11.40 Type 2 diabetes mellitus with diabetic neuropathy, unspecified (principal); E11.65 Type 2 diabetes mellitus with hyperglycemia; I10 Essential (primary) hypertension; E55.9 Vitamin D deficiency, unspecified; E78.00 Pure hypercholesterolemia, unspecified; D64.9 Anemia, unspecified; R30.0 Dysuria; Z79.4 Long term (current) use of insulin; Z79.52 Long term (current) use of systemic steroids; Z79.899 Other long term (current) drug therapy
CPT/HCPCS: 36415; 80061; 81003; 82043; 82306; 82570; 82947; 83036; 84443; 85025; 99212

== ENCOUNTER 2025-01-24 08:27 | Outpatient (AMB) | payer MEDICARE, MEDICAID, SELFPAY ==
[2025-01-24 08:32] VITALS: BP 120/70; PULSE 72; O2SAT 95; BMI 23.7
--- NOTE | 2025-01-24 08:32 | MHC.OFFVIS ---
Vital Signs 01/24/25 08:32 Height 5 ft 10 in Weight 165 lb 2.273 oz BMI 23.7 BP 120/70 Blood Pressure Location Rt brachial Position Sitting Pulse 72 Pulse Source Pulse Oximeter Pulse Oximetry (%) 95 Oxygen Delivery Method Room Air Intake Visit Reasons: Diabetes Type 2 Intake Note: Patient presents today for a follow-up on Type 2 Diabetes Mellitus: Last Diabetic eye exam was on: 04/2024 Last Podiatry exam was on: Does not see a Face And Fill Packer Most recent HbA1c: Pending at [facility], 01/26/2025 Random Glucose- 180 mg/dL, Today Page Technician Required: No Accompanied by: Significant Other Allergies lisinopril Allergy (Severe, Verified 01/24/25 08:54) Angioedema canagliflozin (Invokana) Allergy (Unknown, Verified 01/24/25 08:54) polyuria quetiapine Adverse Reaction (Intermediate, Verified 01/24/25 08:54) sedation, fatigue liraglutide (Victoza) Adverse Reaction (Unknown, Verified 01/24/25 08:54) nausea, constipation Medication List - Last Reconciled 01/24/25 by Kate Dyer PA-C amlodipine 10 mg PO DAILY bisacodyl (Dulcolax (bisacodyl)) 20 mg (4 x 5 mg) PO ONCE 1 day blood sugar diagnostic (Accu-Chek Guide test strips) As directed tests 4 X/day blood-glucose meter (Accu-Chek Guide Glucose Meter) As directed tests 4 X/day blood-glucose sensor (Dexcom G7 Sensor device) As directed change every 10 days blood-glucose,gas pumping station helper,cont (Dexcom G7 Fusion Juncture Grinder) As directed bupropion HCl XL 150 mg PO QAM 90 days cholecalciferol (vitamin D3) (Vitamin D3) 50 mcg PO DAILY cyclobenzaprine 10 mg PO BEDTIME PRN fluoxetine 60 mg PO DAILY ibuprofen 800 mg PO Q8H insulin aspart (niacinamide) 100 unit/mL 2 clicks subcutaneous with meals. Up to 76 units via V Go subcut daily; 30 days lancets 4x daily lancets (Accu-Chek Softclix Lancets) As directed-tests 4X/day lancets (Accu-Chek Fastclix Lancet Drum) TEST FOUR TIMES A DAY DIRECTED metoprolol succinate ER 25 mg PO DAILY miconazole nitrate 2% 1 appl topical BID mirtazapine 7.5 mg PO BEDTIME polyethylene glycol 3350 (Miralax) 17 grams PO DAILY 1 day prednisone 20 mg PO DAILY sub-q insulin device, 20 unit (V-GO 20 device) ONE DAILY tadalafil 20 mg PO ONCE PRN 90 days tadalafil 5 mg PO DAILY 90 days tamsulosin 0.4 mg PO DAILY 90 days thiamine mononitrate (vit B1) 100 mg PO DAILY tirzepatide 2.5 mg (0.5 mL) subcut QWEEK NS triamcinolone acetonide 0.1% 1 appl topical BID HPI HPI Diabetes Type 2: Details: Patient is a 63 year old male with DM type 2 diagnosed in 2003 , who presents for management of diabetes. He last followed with Dr. Cabrera. He did labs just prior to arrival today, not available for review at this time. Past medical history: DM2, HTN, GERD, NAFLD, hepatitis C, lower back pain due to herniated disc L5 Micro and macrovascular complications: + proliferative retinopathy, +, neuropathy Diabetes medications: Fiasp via V-GO 20 with 2 clicks with small meals, 3 clicks with larger meals. Only 1 click for correction blood glucose over 300. Taking mounjaro 2.5 units weekly decreased from 5. stopped metformin-intolerant CGM-dexcom 7 reviewed. GMI 7.7%. Previous A1c was 6.6%. Average glucose 183, usage 88%, variability 41%. Very hyperglycemic 16%, hyperglycemic 27%, in range 57%, 0% hypoglycemia Reports that he has not been taking his medication much. He will intermittently use the insulin but has been off of Mounjaro until last Friday. He states that he ran into supply issue and then just decided to not temporarily take this. He tells me he is going to start being compliant because he has been paying attention to a sensor and knows that his sugars are too high. He is also watermelon, bananas and ice cream. He states that he has a very strong sweet tooth and has been having a hard time without the Mounjaro controlling this. He does not want any medication adjustments as he feels that he just needs to improve compliance. Symptoms reported: denies numbness, tingling, cramping in lower extremities Hypoglycemia: none Exercise: walking over 30 minutes Steel Cutter - CDE education: Face And Fill Packer: denies Ophthalmology evaluation: UTD CV: bp today in office is 120/70. He is currently managed on amlodipine 10 mg daily, metoprolol 25 mg daily. Cholesterol has been managed with diet. Last LDL was 86. [facility] Medical History (Updated 01/03/25 @ 09:49 by Melanie Alvarez NP) Rash and nonspecific skin eruption Cervicalgia Injury of right thumb Lumbar degenerative disc disease Vitamin D deficiency Hypersomnia Snoring Cognitive disorder Tubular adenoma of colon (~2019) BPH loc w urin obs/LUTS Frequency of urination Erectile dysfunction NAFLD (nonalcoholic fatty liver disease) Hepatitis C Hepatitis B Arthritis Alcohol abuse Depression Carpal tunnel syndrome Type 2 diabetes mellitus with diabetic neuropathy, unspecified (~2003) Essential hypertension Overweight (BMI 25.0-29.9) Surgical History History of rhinoplasty History of colonoscopy History of lumbar surgery History of cataract surgery History of excision of mass Family History Father Myocardial infarct Colon cancer Mother Diabetes Social History Household Members: Spouse Household Members Other:: Housing: House Alcohol intake: current Alcohol intake frequency: a few times a month Alcohol type: beer and hard liquor Patient Tobacco Use Status: Never used Tobacco e-Cigarette/Vaping Use: Never Used Substance Use Type: Crack/Cocaine Advance Directives Date on File: 07/20/24 service: Yes Current occupational status: disabled Current occupational exposures/hazards: No Cognitive needs: No Hearing needs: No Vision needs: No Physical Exam Vital Signs: Last Vital Signs Pulse 72 01/24/25 08:32 BP 120/70 01/24/25 08:32 Pulse Ox 95 01/24/25 08:32 Oxygen Delivery Method Room Air 01/24/25 08:32 BMI result Body Mass Index 23.7 Const Orientation/consciousness: patient oriented x3 HEENT Ears: hearing grossly normal bilaterally Neck Neck: Yes no lymphadenopathy Thyroid: Thyroid normal Carotids: no bruits Lymphatic: no lymphadenopathy noted Resp Auscultation: clear to auscultation bilaterally Cardio Rate: regular rate Rhythm: regular rhythm Heart sounds: S1 normal heart sound present and S2 normal heart sound present Peripheral pulses: dorsalis pedis present Skin General skin exam: no rashes or lesions noted Neuro General: patient oriented x3, gait normal and no focal motor deficits Extrem Other: Monofilament sensation intact bilaterally. Vibratory sensation intact bilaterally. Skin intact. General: Yes normal to inspection Results Reviewed Results Reviewed: Laboratory Last Values Glucose (Clinic) 180 mg/dL (60-115) H 01/24/25 08:43 Laboratory Tests 10/26/24 09:31 Creatinine 0.92 Estimated GFR > 60 Hemoglobin A1c % 6.6 H AST 26 ALT 12 Triglycerides 39 Cholesterol 144 LDL Cholesterol, Calc 86 HDL Cholesterol 51 Assessment & Plan Assessment & Plan (1) Type 2 diabetes mellitus with diabetic neuropathy, unspecified: Onset Date: ~2003 Comment: MD/PROVIDER: RECOMMEND monitoring thiamine related to hx of neuropathy/ alcohol abuse and c/o memory loss Code(s): E11.40 - Type 2 diabetes mellitus with diabetic neuropathy, unspecified Category: Medical Qualifiers: Diabetes mellitus penitentiary insulin use: with penitentiary use Qualified Code(s): E11.40 - Type 2 diabetes mellitus with diabetic neuropathy, unspecified; Z79.4 - superintendent container terminal (current) use of insulin Plan: We reviewed the complications associated with uncontrolled diabetes including but not limited to risk of stroke, heart attack, kidney disease, blindness, amputations, worsened neuropathy etc.. He is going to start taking the Mounjaro 2.5 mg weekly He will be compliant with the Fiasp He will return for follow up in 3 months or sooner if needed. (2) Essential hypertension: Code(s): I10 - Essential (primary) hypertension Category: Medical Plan: BP WNL. Continue current regimen Medications: Refilled blood sugar diagnostic (Accu-Chek Guide test strips) As directed tests 4 X/day 100 ea 5RF lancets (Accu-Chek Fastclix Lancet Drum) TEST FOUR TIMES A DAY DIRECTED 102 ea 6RF E11.65 - Type 2 diabetes mellitus with hyperglycemia lancets (Accu-Chek Softclix Lancets) As directed-tests 4X/day 100 ea 4RF tirzepatide 2.5 mg (0.5 mL) subcut QWEEK 6 mL 3RF NS E11.40 - Type 2 diabetes mellitus with diabetic neuropathy, unspecified, Z79.4 - superintendent container terminal (current) use of insulin Coding Level of Care Code Est Pt Level 4 (99873) Complex EM visit Add On G2211 Diagnoses Type 2 diabetes mellitus with diabetic neuropathy, with long-term current use of insulin E11.40; Z79.4 Diabetes mellitus buttermaker continuous churn insulin use: with buttermaker continuous churn use Essential hypertension I10
[2025-01-24 08:46] LABS: Glucose, Whole Blood 180 mg/dL (60-115)
== END 2025-01-24 08:55 | disposition home or self-care (01) ==
LOC: HO.ENCR 08:28
PROVIDERS: PCP Internal Medicine; Visit Provider Physician Assistant
DX: E11.40 Type 2 diabetes mellitus with diabetic neuropathy, unspecified (principal); Z79.4 Long term (current) use of insulin; I10 Essential (primary) hypertension

== ENCOUNTER → 2025-01-25 11:11 | Outpatient (BNVA) | payer MEDICARE, MEDICAID, SELFPAY | PROVIDERS: PCP Internal Medicine; Visit Provider Physician Assistant | DX: M25.511 Pain in right shoulder (principal) | CPT/HCPCS: 99212 ==

== ENCOUNTER 2025-01-25 13:24 | Outpatient (AMB) | payer MEDICARE, MEDICAID, SELFPAY ==
[2025-01-25 13:26] VITALS: BP 122/60; PULSE 80; TEMP 36.8; O2SAT 99; BMI 23.8
--- NOTE | 2025-01-25 13:26 | MHC.OFFWIV ---
Intake Vital Signs 01/25/25 13:26 Height 5 ft 10 in Weight 166 lb BMI 23.8 BP 122/60 Blood Pressure Location Rt brachial Position Sitting Pulse 80 Pulse Source Pulse Oximeter Temp 98.2 F Temp Source Oral Pulse Oximetry (%) 99 Oxygen Delivery Method Room Air Intake Visit Reasons: EP pain on RT shoulder & arm Intake Note: presents with right shoulder pain for a month Patient Tobacco Use Status: Never used Tobacco Allergies lisinopril Allergy (Severe, Verified 01/25/25 13:30) Angioedema canagliflozin (Invokana) Allergy (Unknown, Verified 01/25/25 13:30) polyuria quetiapine Adverse Reaction (Intermediate, Verified 01/25/25 13:30) sedation, fatigue liraglutide (Victoza) Adverse Reaction (Unknown, Verified 01/25/25 13:30) nausea, constipation Medication List - Last Reconciled 01/25/25 by Cynthia Avalos PA-C amlodipine 10 mg orally periodically; bisacodyl (Dulcolax (bisacodyl)) 20 mg (4 x 5 mg) PO ONCE 1 day blood sugar diagnostic (Accu-Chek Guide test strips) As directed tests 4 X/day blood-glucose meter (Accu-Chek Guide Glucose Meter) As directed tests 4 X/day blood-glucose sensor (Dexcom G7 Sensor device) As directed change every 10 days blood-glucose,biodiesel operations manager,cont (Dexcom G7 Ginger Farmer) As directed bupropion HCl XL 150 mg orally periodically; cholecalciferol (vitamin D3) (Vitamin D3) 50 mcg orally periodically; cyclobenzaprine 10 mg PO BEDTIME PRN fluoxetine 60 mg orally periodically; ibuprofen 800 mg PO Q8H insulin aspart (niacinamide) 100 unit/mL 2 clicks subcutaneous with meals. Up to 76 units via V Go subcut daily; 30 days lancets 4x daily lancets (Accu-Chek Fastclix Lancet Drum) TEST FOUR TIMES A DAY DIRECTED lancets (Accu-Chek Softclix Lancets) As directed-tests 4X/day metoprolol succinate ER 25 mg orally periodically; miconazole nitrate 2% 1 appl topical BID mirtazapine 7.5 mg PO BEDTIME polyethylene glycol 3350 (Miralax) 17 grams PO DAILY 1 day prednisone 20 mg PO DAILY sub-q insulin device, 20 unit (V-GO 20 device) ONE DAILY tadalafil 20 mg PO ONCE PRN 90 days tadalafil 5 mg PO DAILY 90 days tamsulosin 0.4 mg orally periodically; thiamine mononitrate (vit B1) 100 mg PO DAILY tirzepatide 2.5 mg (0.5 mL) subcut QWEEK NS triamcinolone acetonide 0.1% 1 appl topical BID HPI HPI Comments History of Present Illness Details History of Present Illness - The patient is a 64-year-old male presenting with right shoulder pain. - The pain has been present for a little more than a month and is associated with lifting activities and sleeping on his right side. - The patient reports that the pain is constant and worsens with certain movements, such as reaching behind the back. - The patient has attempted to alleviate the pain with NSAIDs like Aleve, but with limited success. - There is no history of previous injuries to the shoulder. Physical Exam General: Cooperative, healthy appearing, comfortable, no acute distress and well developed Orientation: Patient oriented x3 Limitations: Pain in the right shoulder, possibly due to bursitis Head: Normal to inspection Ears: Hearing grossly normal bilaterally Nose: Normal External nose present Face and sinus: Normal facial exam Eyes: Appearance normal, both eyes and all related structures Neck: Normal visual inspection and Yes full ROM Respiratory: Normal respiratory effort and able to speak in complete sentences. Skin: no rashes or lesions noted Neuro: Patient oriented x3 Extremities: Right shoulder TTP on lateral upper shoulder, pain with abduction at 110 degrees, + empty can, + lift off, no pain with flexion or extension of elbow PFSH Medical History (Updated 01/25/25 @ 14:15 by Cynthia Avalos PA-C) Rash and nonspecific skin eruption Cervicalgia Injury of right thumb Lumbar degenerative disc disease Vitamin D deficiency Hypersomnia Snoring Cognitive disorder Tubular adenoma of colon (~2019) BPH loc w urin obs/LUTS Frequency of urination Erectile dysfunction NAFLD (nonalcoholic fatty liver disease) Hepatitis C Hepatitis B Arthritis Alcohol abuse Depression Carpal tunnel syndrome Type 2 diabetes mellitus with diabetic neuropathy, unspecified (~2003) Essential hypertension Overweight (BMI 25.0-29.9) Surgical History History of rhinoplasty History of colonoscopy History of lumbar surgery History of cataract surgery History of excision of mass Family History Father Myocardial infarct Colon cancer Mother Diabetes Social History Household Members: Spouse Household Members Other:: Housing: House Alcohol intake: current Alcohol intake frequency: a few times a month Alcohol type: beer and hard liquor Patient Tobacco Use Status: Never used Tobacco e-Cigarette/Vaping Use: Never Used Substance Use Type: Crack/Cocaine Advance Directives Date on File: 07/20/24 service: Yes Current occupational status: disabled Current occupational exposures/hazards: No Cognitive needs: No Hearing needs: No Vision needs: No Review of Systems Const All systems reviewed & are unremarkable except as noted in HPI and below Physical Exam Vital Signs: Last Vital Signs Temp 82.2 F L 01/25/25 13:26 Pulse 80 01/25/25 13:26 BP 122/60 01/25/25 13:26 Pulse Ox 99 01/25/25 13:26 Oxygen Delivery Method Room Air 01/25/25 13:26 BMI result Body Mass Index 23.8 Assessment & Plan Assessment & Plan (1) Acute pain of right shoulder: Code(s): M25.511 - Pain in right shoulder Plan: Plan - Initiate treatment with diclofenac, a strong anti-inflammatory, to be taken every 12 hours for three to four days, then as needed. - Avoid concurrent use of other NSAIDs such as ibuprofen, Advil, or Motrin to prevent renal complications. - May use ice, rest. - If symptoms persist, follow up with the primary care physician for potential referral to an sales and marketing specialist or PT. Patient was informed and verbally consented to the use of an ambient scribe for clinic note documentation during this visit. Medications: New diclofenac sodium 50 mg PO Q12H PRN 20 tabs 0RF pain Cynthia Avalos PA-C Changed From cholecalciferol (vitamin D3) (Vitamin D3) 50 mcg PO DAILY 90 caps 5RF E11.65 - Type 2 diabetes mellitus with hyperglycemia, Z79.4 - FDC (current) use of insulin To cholecalciferol (vitamin D3) (Vitamin D3) 50 mcg orally periodically; E11.65 - Type 2 diabetes mellitus with hyperglycemia, Z79.4 - termite helper (current) use of insulin Sybil Cabrera MD From fluoxetine 60 mg PO DAILY 90 tabs 3RF To fluoxetine 60 mg orally periodically; Sybil Cabrera MD From tamsulosin 0.4 mg PO DAILY 90 days 90 caps 3RF N52.9 - Male erectile dysfunction, unspecified To tamsulosin 0.4 mg orally periodically; N52.9 - Male erectile dysfunction, unspecified Hector Epps MD From amlodipine 10 mg PO DAILY 30 tabs 11RF To amlodipine 10 mg orally periodically; Hector Epps MD From bupropion HCl XL 150 mg PO QAM 90 days 90 tabs 0RF To bupropion HCl XL 150 mg orally periodically; Hector Epps MD From metoprolol succinate ER 25 mg PO DAILY 90 tabs 0RF To metoprolol succinate ER 25 mg orally periodically; Hector Epps MD Coding Level of Care Code Est Pt Level 3 (58562) Diagnoses Acute pain of right shoulder M25.511
== END 2025-01-25 14:26 | disposition home or self-care (01) ==
PROVIDERS: PCP Internal Medicine; Visit Provider Physician Assistant
DX: M25.511 Pain in right shoulder (principal)

== ENCOUNTER 2025-01-27 08:04 | Outpatient (AMB) | payer MEDICARE, SELFPAY ==
--- OUTSIDE RECORDS SUMMARY | 2025-01-27 08:10 | XMS_ITS | Encounter Summary ---
Author Organization for; [employer] Address [address] [facility] [address] [place] [address] Care Team Providers Care Manager Energy Name Role Phone Unavailable Primary Care Provider Unavailabl e Reason for Visit * Reason Onset Date Comments insurance appt 12/25/2023 Encounter Details Date Type Department Care Team (Late st Contact Info) Description 12/25/2023 Telephone [facility] [address] [place], [place] [phone] David Grayson insurance appt Social History Tobacco [...] Rawls - 12/25/2023 2:56 PM EDT Patient Info [facility] is not active. He says he has [employer] inurance. Patient was asked who is the insurance company that carries the insurance and he said [employer]. Asked again which is the insurance company that carries the insurance and patient hung up. Unsure of insurance coverage DR Bill manager desktop aware documented in this encounter Plan of Treatment Upcoming Encounters Date Type Department Care Team (Late st Contact Info) Description 03/08/2025 9:00 AM EDT Office Visit [facility] [address], [place] [phone] Spencer Rao DDS [address], [place] [phone] documented as of this encounter Visit Diagnoses Not on filedocumented in this encounter
--- OUTSIDE RECORDS SUMMARY | 2025-01-27 08:10 | XMS_ITS | Data Portability ---
Author Organization [place] - [facility], [facility] Address [address] [place] [address] Care Team Providers Care Spot Man Name Role Phone SHWETA CARMONA Primary Care [...] julio césar Bejarano Office, [address], [facility] [address], [place], [address], 03/26/2024 12:26:33 Medication Orders None recorded . [...] a4ajBk vP9nXo QUaueC m3YtLR FvZlgJ JJ8mAn HZtai3 3p2766 AC0Kqa n2CWau iKiQtr MwF INTERFACE [facility] Office [address] [facility] [address], [place], [address], 03/26/2024 08:23:38 03/26/20 24 03/26/2024 XR, knee, 4 or more view http:/ [email or web address] ?Encry pted=ahs Meneses YD8dLq bEUv6g %2BXZw aYqtaq 0bqfl% 2Fg9IQ a4ajBk vP9nXo QUaueC m3YtLR FvZlgJ JJ8mAn HZtai3 1a4783 AC0Kqa n2CWau iKiQtr MwF INTERFACE [facility] [employer] Office [address] [facility] [address], [place], [address], 03/26/2024 08:23:40 Result Notes Documentation Provider Name and Address Organization Details Recorded Time Xr, Knee, 4 Or More View : [email or web address] Encrypted=dzIqJruMA9eQwgQ Uv6g%3AVYapJmufy6qwye%2Fg 0FPp1teUeiJ4wOsYCoaoQo4By YNIxOiwMTP2iDhPNcpk18w073 2JJ2Hwlb7IBnevOgDaaJeS Not Available [facility] 03/26/2024 08:23: 38 Xr, Knee, 4 Or More View : [email or web address] Encrypted=alBzBjoPR9zSvgM Uv6g%6GZQtkFhwxc2jbux%2Fg 9YFl8faGzuH4jEvPMuncKd4Dc EFZfSfsVLY1dZiIEcrv17y159 4AR7Mghy1EWljwLjVrvPlG Not Available [facility] 03/26/2024 08:23: 41 Procedures Surgical History Date Name Laterality Status Provider Name and Address Organization Details Recorded Time 5 Knee Kenalog 40 1cc Injection, Bilateral completed Shar Nathan PA-C [address], [place], [address], [facility] 11/23/2024 09:36:14 4 Knee Kenalog 40 1cc Injection, Bilateral completed Shar Nathan PA-C [address], [place], [address], [facility] 03/26/2024 10:06:13 [...] Updated DateTime 11/23/2024 177.8 cm 28.7 kg/m2 60133.47 g Alice Atkinson [facility] 11/23/2024 09:14:11 Date Recorded Body height Body mass index (BMI) Body weight Provider Name and Address Organization Details Last Updated DateTime 03/26/2024 177.8 cm 28.7 kg/m2 [address]19[address] [facility] 03/26/2024 08:04:37 Social History None recorded. Functional Status None recorded. Mental Status None recorded. Family History Nothing Reported. Medical History Condition Response Diabetes Y Headaches Y Hypertension Y Sleep Apnea Y Past Encounters Encounter ID Performer Location Encounter Start Date Encounter Closed Date Diagnosis/Indication Diagnosis SNOMED-CT Code Diagnosis ICD10 Code Diagnosis Note [id number] [facility] [address] [place] [address] 03/26/2024 07:56:28 03/26/2024 10:09:01 Pain of bilateral knee joints [id number] 66455 M25.561 M25.562 Bilateral osteoarthritis of knees [id number] 68159 M17.0 You have been provided with a [...] office or contact us through the portal [facility]. [id number] MERLINE Meehan [address] floor [address] [place] [address] 11/23/2024 09:07:54 12/09/2024 14:40:06 Primary gonarthrosis, bilateral 255629223 M17.0 You have been provided with a [...] LIFE ( - MEDICARE SUPPLEMENT) Bharath Colon [id number] Bharath Hawkins Colon 12/09/2024 1 [employer] (MEDICARE REPLACEMENT/ ADVANTAGE - PPO) [id number] Bharath Colon [id number] Bharath Hawkins Colon 03/26/2024 2 [facility] (HMO) Bharath Colon [id number] Bharath Hawkins Colon 03/26/2024 2 [facility] (POS) Bharath Colon [id number] Bharath Hawkins Colon 03/26/2024 2 [place]: [facility] Bharath Colon [id number] Bharath Hawkins Colon Notes Date Note Type [...] no recent treatments. Shar Nathan PA-C [address], [place], [address], [facility] 03/26/2024 10:07:41 [...] total joint arthroplasty. Shar Nathan PA-C [address], [place], [address], [facility] 11/23/2024 09:36:46
--- OUTSIDE RECORDS SUMMARY | 2025-01-27 08:10 | XMS_ITS | Clinical Summary ---
Author Organization [address] [place] [address] Address [address] [place] [address] Phone Care Team Providers Care Orchard Worker Name Role Phone Hector Epps MD Primary [...] see if this helps. Ascending aortic aneurysm ([facility] V24) 05/06/20 Overview (04/15/2024): 4.5cm [...] this is required. Diabetic retinopathy (CMS/HCC V24, [facility]/HCC V28) 06/06/2021 Diabetes mellitus with kidne y complication (CMS/HCC V24, [facility]/HCC V28) 12/21/2020 Microalbuminuria 12/21/2020 Erectile dysfunction 10/12/2018 [...] work-up and evaluation. History of substance abuse ([facility] V24, [place] [id number]) 09/28/2015 Overview (04/15/2024): Cocaine, marijuana, some heroin Type 2 diabetes mellitus wit h cataract ([facility] V24, [facility] V28) 09/28/2015 Immunizations Name Administration Dates Next [...] Date Comments History of substance abuse ( [facility] V24, [facility] V28) 09/28/2015 DX:History of substance abus e ([facility]); COMMENT: Cocaine, marijuana, some heroin Chronic hepatitis C ([facility] V24, [facility] V28) 11/05/2015 DX:Chronic hepatitis C (HCC) ; COMMENT: Genotype 1a Depression 11/05/2015 DX:Depression Cervical radiculopathy 11/05/2015 DX:Cervic al radiculopathy; COMMENT: recurrent CTS (carpal tunnel syndrome) 11/05/2015 DX: CTS (carpal tunnel syndrome); COMMENT: Right, NCV 06/03 Diabetes mellitus type 2 wit h neurological manifestations ([facility] V24, [facility] V28) 11/05/2015 DX:Diabetes mellitus type 2 with neurological manifestations (HCC) GERD (gastroesophageal reflu x disease) 11/05/2015 DX:GERD (gastroesophageal re flux disease) DJD (degenerative joint dise ase) of knee 11/05/2015 DX:DJD (degenerative joint d isease) of knee Type 2 diabetes mellitus wit h cataract ([facility] V24, [facility] V28) 09/28/2015 DX:Type 2 diabetes [...] Result * Falls Risk Assessment (02/17/2024) Pathologist [facility] Falls Risk Assessment Abstracted Historical Provider HEALTH MAINTENANCE Final Result * Depression Screening (02/17/2024) [facility] Depression Screening Abstracted Result [facility] Provider HEALTH MAINTENANCE Final Result * (ABNORMAL) Hemoglobin A1c (02/17/2024) [facility] Hemoglobin A1C 7.4(A) <=6.5 % Blood Venous blood specimen / Unknown Result [facility] Provider LAB BLOOD ORDERABLES Zunilda l Result * Lipid panel (02/17/2024) [facility] LDL/HDL Ratio 3 0 - 4 Triglycerides 93 0 - 150 mg/dL Cholesterol 125 0 - 200 mg/dL HDL 48 >=40 mg/dL LDL Cholesterol 59 0 - 100 mg/dL Blood Venous blood specimen / Unknown Result [facility] Provider LAB BLOOD ORDERABLES Zunilda l Result * Diabetes Eye Exam (10/30/2023) [facility] Diabetes: Annual Retina Eye Exam Abstracted Result [facility] Provider HEALTH MAINTENANCE Final Result * Colonoscopy (01/28/2020) [facility] Colonoscopy No interpretation , Abstracted Anatomical Region Laterality Modality Other Result [facility] Provider HEALTH MAINTENANCE Final Result * Hepatitis C Screening (04/01/2016) [facility] Hepatitis C Screening Abstracted Result [facility] Provider HEALTH MAINTENANCE Final Result from Last 3 Months or Most Recently Relevant to Health Maintenance Insurance [employer] MEDICARE ADVANTAGE MEDICARE [facility] HEALTH PLAN MEDICAID - [place] Care Teams Orchard Worker Relationship Specialty Start Date End Date Hector Epps MD [address] [place] [address] [place] [address] [place] PCP - General Internal Medicine 09/03/24
--- NOTE | 2025-01-27 08:42 | MHC.AMDMED ---
Intake Intake Visit Reasons: 60 min Home Connect Lpn Required: No Accompanied by: Spouse Allergies lisinopril Allergy (Severe, Verified 01/25/25 13:30) Angioedema canagliflozin (Invokana) Allergy (Unknown, Verified 01/25/25 13:30) polyuria quetiapine Adverse Reaction (Intermediate, Verified 01/25/25 13:30) sedation, fatigue liraglutide (Victoza) Adverse Reaction (Unknown, Verified 01/25/25 13:30) nausea, constipation HPI Comprehensive Diabetes Asmnt Most Recent Diabetes Results: Hemoglobin A1c 6.9 % 03/14/20 Microalb/Creat Ratio, (<30) 10.3 ug/mg cr 01/24/25 Cholesterol, (<200) 151 mg/dL 01/24/25 HDL Cholesterol, (>40) 59 mg/dL 01/24/25 Triglycerides, (<150) 141 mg/dL 01/24/25 Creatinine, (0.5-1.4) 0.92 mg/dL 10/26/24 BUN, (9-16) 14 mg/dL 10/26/24 Sodium, (135-145) 140 mmol/L 10/26/24 Potassium, (3.3-5.1) 4.4 mmol/L 10/26/24 Chloride, (96-108) 107 mmol/L 10/26/24 Carbon Dioxide, (22-29) 28 mmol/L 10/26/24 Calcium, (8.4-10.2) 9.6 mg/dL 10/26/24 AST, (5-37) 26 U/L 10/26/24 ALT, (0-40) 12 U/L 10/26/24 Total Protein, (6.5-8.0) 7.0 g/dL 10/26/24 Albumin, (3.5-5.0) 4.3 g/dL 10/26/24 [facility] Medical History (Updated 01/25/25 @ 14:15 by Cynthia Avalos PA-C) Rash and nonspecific skin eruption Cervicalgia Injury of right thumb Lumbar degenerative disc disease Vitamin D deficiency Hypersomnia Snoring Cognitive disorder Tubular adenoma of colon (~2019) BPH loc w urin obs/LUTS Frequency of urination Erectile dysfunction NAFLD (nonalcoholic fatty liver disease) Hepatitis C Hepatitis B Arthritis Alcohol abuse Depression Carpal tunnel syndrome Type 2 diabetes mellitus with diabetic neuropathy, unspecified (~2003) Essential hypertension Overweight (BMI 25.0-29.9) Surgical History History of rhinoplasty History of colonoscopy History of lumbar surgery History of cataract surgery History of excision of mass Family History Father Myocardial infarct Colon cancer Mother Diabetes Social History Household Members: Spouse Household Members Other:: Housing: House Alcohol intake: current Alcohol intake frequency: a few times a month Alcohol type: beer and hard liquor Patient Tobacco Use Status: Never used Tobacco e-Cigarette/Vaping Use: Never Used Substance Use Type: Crack/Cocaine Advance Directives Date on File: 07/20/24 service: Yes Current occupational status: disabled Current occupational exposures/hazards: No Cognitive needs: No Hearing needs: No Vision needs: No Assessment & Plan Assessment & Plan (1) Type 2 diabetes mellitus with diabetic neuropathy, unspecified: Onset Date: ~2003 Comment: MD/PROVIDER: RECOMMEND monitoring thiamine related to hx of neuropathy/ alcohol abuse and c/o memory loss Code(s): E11.40 - Type 2 diabetes mellitus with diabetic neuropathy, unspecified Qualifiers: Diabetes mellitus longwall headgate operator insulin use: with longwall headgate operator use Qualified Code(s): E11.40 - Type 2 diabetes mellitus with diabetic neuropathy, unspecified; Z79.4 - intermediate (current) use of insulin Plan: Personal Continuous Glucose Monitor: Patients CGM information reviewed, Pt uses Dexcom G7 with color drum worker A1c on 01/24/2025 7.1% Patient recently seen by Endocrine PA. at that visit patient reported he had stopped taking most of his medications, but had resumed Mounjaro 2.5 mg the week before visit. Patient also reports that he has been feeling V-Go with 200 units of insulin and wearing until insulin is gone. Explained to patient it is important to change V-Go every 24 hours to keep receiving the 20 units of basal insulin the V-Go will infuse. If he wears it beyond the 24 hours he will no longer be getting basal insulin. Recommended to patient instead of filling V-Go completely with 200 units, he should fill to 100 units and change every 24 hours Patient and his agreed to plan Patient reports he frequently forgets to take medications, he also has been using glucose strips in his glucometer Message sent to endocrine PA to order new glucose strips and fastClix lancets, since last prescription he received was for soft clicks in they do not fit in his lancing device. Overall patient's glucose level is fair. Recommended to patient if he is eating fruit or ice cream to move these high carbohydrate foods to earlier in the day, exercise after carbohydrate meals and snacks, that will help reduce post meal glucose numbers Patient has follow-up appointment with endocrine PA in 04/2025 Patient able to insert sensor independently at home without issue.? Portions of this note were created using voice recognition software, please excuse any words or phrases that may have been misinterpreted. Patient Instructions: Follow-up with public health educator in 4 months Coding Level of Care Code Est Pt Level 1 (27647) Diagnoses Type 2 diabetes mellitus with diabetic neuropathy, with long-term current use of insulin E11.40; Z79.4 Diabetes mellitus longwall headgate operator insulin use: with alf use
== END 2025-01-27 08:47 | disposition home or self-care (01) ==
LOC: HO.ENCR 08:05
PROVIDERS: PCP Physician Assistant Medical; Visit Provider Registered Nurse Diabetes Educator
DX: E11.40 Type 2 diabetes mellitus with diabetic neuropathy, unspecified (principal); Z79.4 Long term (current) use of insulin

== ENCOUNTER → 2025-01-27 08:04 | Outpatient (BNVA) | payer MEDICARE, SELFPAY | PROVIDERS: PCP Physician Assistant Medical; Visit Provider Registered Nurse Diabetes Educator | DX: E11.40 Type 2 diabetes mellitus with diabetic neuropathy, unspecified (principal); Z79.4 Long term (current) use of insulin | CPT/HCPCS: 99211 ==

== ENCOUNTER 2025-02-09 16:32 | Outpatient (AMB) | payer MEDICARE, SELFPAY ==
[2025-02-09 16:33] VITALS: BP 142/76; PULSE 78; O2SAT 98; BMI 25.3
--- NOTE | 2025-02-09 16:33 | A.OFFPC_ITS ---
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 Required: No Accompanied by: Self / Same As Patient Allergies lisinopril Allergy (Severe, Verified 02/09/25 17:00) Angioedema canagliflozin (Invokana) Allergy (Unknown, Verified 02/09/25 17:00) polyuria quetiapine Adverse Reaction (Intermediate, Verified 02/09/25 17:00) sedation, fatigue liraglutide (Victoza) Adverse Reaction (Unknown, Verified 02/09/25 17:00) nausea, constipation Medication List - Last Reconciled 02/09/25 by Hector Epps MD amlodipine 10 mg PO DAILY bisacodyl (Dulcolax (bisacodyl)) 20 mg (4 x 5 mg) PO ONCE 1 day blood sugar diagnostic (Accu-Chek Guide test strips) As directed tests 4 X/day blood sugar diagnostic (Accu-Chek Letty Plus test strips) Use once daily as directed to monitor blood sugars blood-glucose meter (Accu-Chek Guide Glucose Meter) As directed tests 4 X/day blood-glucose sensor (Dexcom G7 Sensor device) As directed change every 10 days blood-glucose,riverine assault craft crewman,cont (Dexcom G7 Supervisor Pyrotechnic Loading) As directed bupropion HCl XL 150 mg orally periodically; cholecalciferol (vitamin D3) (Vitamin D3) 50 mcg PO DAILY cyclobenzaprine 10 mg PO BEDTIME PRN diclofenac sodium 50 mg PO Q12H PRN fluoxetine 60 mg PO QAM insulin aspart (niacinamide) 100 unit/mL 2 clicks subcutaneous with meals. Up to 76 units via V Go subcut daily; 30 days lancets 4x daily lancets (Accu-Chek Fastclix Lancet Drum) TEST FOUR TIMES A DAY DIRECTED metoprolol succinate ER 25 mg PO DAILY mirtazapine 7.5 mg PO BEDTIME polyethylene glycol 3350 (Miralax) 17 grams PO DAILY 1 day sub-q insulin device, 20 unit (V-GO 20 device) ONE DAILY tadalafil 20 mg PO ONCE PRN 90 days tadalafil 5 mg PO DAILY 90 days tamsulosin 0.4 mg orally periodically; thiamine mononitrate (vit B1) 100 mg PO DAILY tirzepatide 2.5 mg (0.5 mL) subcut QWEEK NS Tobacco use date assessed: 02/09/25 Fall risk assessment: No Falls in past year Last assessed Fall Risk: 02/09/25 Dental Screening Dental Screen Date: 02/09/25 Did you have a dental visit in the last 12 months?: Yes Did you have a dental problem in the last 6 months where you did not have access to dental care?: No Was dental information given to patient?: Patient has dentist HPI memory loss concerns HPI Details Patient comes in today for his follow up visit He is accompanied today by a couple of his family members ( and daughter) who feels that he has been getting more and more forgetful over the past few months and they are concerned that he may be developing some dementia They report that patient seems to be forgetting simple details and appear to have a tendency to ask the same questions over and over again in a relatively short amount of time He also seems to be forgetting things that were just mentioned to him a couple of minutes ago Patient states that he has also been experiencing increased pain in his right shoulder for the past couple of weeks although he thinks that the pain is starting to improve slightly States that he has a habit of sleeping on his right side often and he has been trying not to do that for the past 2 weeks ever since his shoulder started bothering him He denies any headaches or dizziness Denies any chest pains, no increased SOB No nausea/vomiting, no abdominal pain No change in bowel habits noted He had his follow up labs done a couple of weeks ago - to discuss his results [facility] Medical History Rash and nonspecific skin eruption Cervicalgia Injury of right thumb Lumbar degenerative disc disease Vitamin D deficiency Hypersomnia Snoring Cognitive disorder Tubular adenoma of colon (~2019) BPH loc w urin obs/LUTS Frequency of urination Erectile dysfunction NAFLD (nonalcoholic fatty liver disease) Hepatitis C Hepatitis B Arthritis Alcohol abuse Depression Carpal tunnel syndrome Type 2 diabetes mellitus with diabetic neuropathy, unspecified (~2003) Essential hypertension Overweight (BMI 25.0-29.9) Surgical History History of rhinoplasty History of colonoscopy History of lumbar surgery History of cataract surgery History of excision of mass Family History Father Myocardial infarct Colon cancer Mother Diabetes Social History Household Members: Spouse Household Members Other:: Housing: House Alcohol intake: current Alcohol intake frequency: a few times a month Alcohol type: beer and hard liquor Patient Tobacco Use Status: Never used Tobacco e-Cigarette/Vaping Use: Never Used Substance Use Type: Crack/Cocaine Advance Directives Date on File: 07/20/24 service: Yes Current occupational status: disabled Current occupational exposures/hazards: No Cognitive needs: No Hearing needs: No Vision needs: No Questionnaire PHQ-9 Over the last 2 weeks, how often have you been bothered by any of the following problems? 1. Little interest or pleasure in doing things: several days 2. Feeling down, depressed, or hopeless: several days 3. Trouble falling or staying asleep, or sleeping too much: more than half the days 4. Feeling tired or having little energy: more than half the days 5. Poor appetite or overeating: more than half the days 6. Feeling bad about yourself - or that you are a failure or have let yourself or your family down: more than half the days 7. Trouble concentrating on things, such as reading the newspaper or watching television: more than half the days 8. Moving or speaking so slowly that other people could have noticed. Or the opposite - being so fidgety or restless that you have been moving around a lot more than usual: more than half the days 9. Thoughts that you would be better off or of hurting yourself in some way: not at all Total score: 14 Depression Screening Interpretation: Positive Depression Screening Follow-up: Existing condition and In treatment Depression Screening Done: Yes 47574 - PHQ-9 Billing: Yes Source: Developed by Drs. Lee Gould, Shaina Amato, Darryn Landaverde and colleagues, with an educational lashawn from [employer]. Thrive Questionnaire Date Thrive assessed: 02/09/25 I am a: Patient What is your living situation today?: I have a steady place to live Within the past 12 months, did the food you bought not last and you didn't have the money to get more?: Never true Within the past 12 months, did you worry whether your food would run out before you got money to buy more?: Never true Do you have trouble paying for medicines?: No Do you have trouble getting transportation to medical appointments?: No Do you have trouble paying your heating and electricity bill?: No Do you have trouble taking care of your child, family member or friend?: No Do you have trouble with day-to-day activities such as bathing, preparing meals, shopping, managing finances, etc.?: No Are you currently unemployed and looking for a job?: No Are you interested in more education?: No Please select the resources that you would like help with: None Currently or been in a relationship where the following occur: No concerns reported THRIVE Score: 0 AUDIT C Alcohol Use Questionnaire (AUDIT-C) 1. How often do you have a drink containing alcohol?: 2-3 times a week 2. How many drinks containing alcohol do you have on a typical day when you are drinking?: 1 or 2 3. How often do you have six or more drinks on one occasion?: Never Total Score: 3 Score Reviewed/Action Taken: Yes ANGEL LUIS-7 AMB Questionnaire ANGEL LUIS-7 Date ANGEL LUIS - 7 assessed: 02/09/25 Feeling nervous, anxious, or on edge: 1 = Several days Not being able to stop or control worryin = Several days Worrying too much about different things: 1 = Several days Trouble relaxin = Several days Being so restless that it is hard to sit still: 1 = Several days Becoming easily annoyed or irritable: 1 = Several days Feeling afraid as if something awful might happen: 1 = Several days Total ANGEL LUIS-7 score (0-4 normal; 5-9 mild; 10-14 moderate; 15-21 severe): 7 Source: Developed by Drs. Lee Gould, Shaina Amato, Darryn Landaverde and colleagues, with an educational lashawn from [employer]. Review of Systems Const Denies chills, Denies fatigue, Denies fever(s) and Denies headache(s) ENT Denies dysphagia, Denies dizziness, Denies otalgia, Denies headache(s), Denies neck pain, Denies odynophagia and Denies sore throat Card Denies chest pain, Denies palpitations and Denies dyspnea Resp Denies chest congestion, Denies cough and Denies dyspnea GI Denies abdominal pain, Denies constipation, Denies dysphagia, Denies heartburn, Denies diarrhea, Denies nausea, Denies odynophagia and Denies vomiting Denies difficulty urinating, Denies dysuria, Denies nocturia and Denies urinary frequency Musc Reports arthralgias (in the right shoulder - see HPI) and Denies neck pain Skin/Breast Denies rash Neuro Denies dizziness, Denies headache(s) and Reports memory loss (per family) Psych Reports memory loss (per family) Endo Denies fatigue and Denies palpitations Physical exam (Primary Care) Vital Signs: Last Vital Signs Pulse 78 02/09/25 16:33 BP 142/76 H 02/09/25 16:33 Pulse Ox 98 02/09/25 16:33 Oxygen Delivery Method Room Air 02/09/25 16:33 BMI result Body Mass Index 25.3 Tobacco/Smoking Status: Tobacco use Status Tobacco use date assessed 02/09/25 02/09/25 16:34 Patient Tobacco Use Status Never used Tobacco 02/09/25 16:34 e-Cigarette/Vaping Use Never Used 02/09/25 16:34 PHQ-9: PHQ-9 Score PHQ-9: Total score 14 02/10/25 09:35 Depression Screening Interpretation: Positive Depression Screening Follow-up: Existing condition and In treatment Thrive Assessment: Date of Thrive Assessment Date Thrive assessed 02/09/25 02/09/25 16:34 Currently or been in a relationship where the following occur: No concerns reported Const General: no acute distress and alert HENMT Ears: TM's normal bilaterally and EAC's normal Throat: Yes posterior oropharynx normal and Yes tonsils normal (no TP congestion) Neck Neck: Yes supple and No lymphadenopathy Thyroid: Thyroid normal Resp Auscultation: clear to auscultation bilaterally, no rales and no wheezes Cardio Rate: regular rate Rhythm: regular rhythm Heart sounds: no murmurs GI Palpation (GI): Soft to palpation and nontender Auscultation: normal bowel sounds General: Yes no CVA tenderness Back/Spine/Pelvis Back: no CVA tenderness Thoracic/Lumbar Spine: No lumbar spinal tenderness Skin Rashes: no rashes Extrem General: Yes no clubbing, cyanosis or edema Right upper extremity: shoulder/upper arm Details: tenderness Location: of the A-C joint; no swelling Results Reviewed Results Reviewed: Laboratory Tests 01/24/25 01/24/25 01/24/25 08:10 08:43 09:00 WBC 4.4 L Hgb 12.4 L Hct 36.2 L Plt Count 178 Glucose (Clinic) 180 H Hemoglobin A1c % 7.1 H Triglycerides 141 Cholesterol 151 LDL Cholesterol, Calc 64 HDL Cholesterol 59 25-OH Vitamin D Total 37.3 TSH 0.76 Ur Specific [place] 1.025 Urine Protein Negative Urine Glucose (UA) Negative Urine Blood Negative Urine Nitrite Negative Ur Leukocyte Esterase Negative Microalb/Creat Ratio 10.3 Coding Level of Care Code Est Pt Level 4 (22485) Diagnoses Memory loss R41.3 Type 2 diabetes mellitus with diabetic neuropathy, with long-term current use of insulin E11.40; Z79.4 Diabetes 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 insulin use: with correction use Essential hypertension I10 MARIAH (obstructive sleep apnea) G47.33 Aneurysm of ascending aorta without rupture I71.21 Presence of rupture: without rupture Vitamin D deficiency E55.9 Degeneration of intervertebral disc of lumbar region with discogenic back pain M51.360 Disc-related pain type: discogenic back pain only BPH loc w urin obs/LUTS N40.1 Erectile dysfunction, unspecified erectile dysfunction type N52.9 Erectile dysfunction type: unspecified Alcohol abuse F10.10 Overweight (BMI 25.0-29.9) E66.3 Additional Codes PHQ-9 - 59014 - PHQ-9 Billing: Yes ([id number]) Assessment & Plan Assessment & Plan (1) Memory loss: Code(s): R41.3 - Other amnesia Category: Medical Plan: Patient is currently seeing neurology and sleep medicine but is seeing them mostly for continuing management of his obstructive sleep apnea He has an appointment scheduled for a repeat sleep study in a couple of weeks and has a follow up appointment with sleep medicine and neurology in May 09 but he is again being seen mostly for his MARIAH Will go ahead and place a referral for him for neurology to see him for his memory issues and perhaps they can help address patient's obstructive sleep apnea and memory issues at the same time when he seen in April 2025 (2) Type 2 diabetes mellitus with diabetic neuropathy, unspecified: Onset Date: ~2003 Comment: MD/PROVIDER: RECOMMEND monitoring thiamine related to hx of neuropathy/ alcohol abuse and c/o memory loss Code(s): E11.40 - Type 2 diabetes mellitus with diabetic neuropathy, unspecified Category: Medical Qualifiers: Diabetes mellitus correction insulin use: with correction use Qualified Code(s): E11.40 - Type 2 diabetes mellitus with diabetic neuropathy, unspecified; Z79.4 - roasterman (current) use of insulin Plan: Patient's HgbA1c was at 7.1% on his labs done a few weeks ago (was at 6.6% a few months ago) - goal is ideally <6.5% Reinforced diabetic diet Continue Mounjaro 2.5 mg SQ once a week He is also supposedly on Fiasp via V-Go 20 3 clicks with meals Follow up with endocrinology and with diabetic computer lab para professional as scheduled (3) Essential hypertension: Code(s): I10 - Essential (primary) hypertension Category: Medical Plan: Reinforced low sodium diet - goal is systolic BP of 120 mm or less Continue Amlodipine 10 mg QD and Metoprolol ER 25 mg QD (4) MARIAH (obstructive sleep apnea): Comment: A moderate degree of sleep apnea. The AHI was 18/hr and oxygen franck was 76%. Code(s): G47.33 - Obstructive sleep apnea (adult) (pediatric) Category: Medical Plan: Home sleep study done came back significant for moderate degree of sleep apnea Patient has declined use of CPAP in the past but agreed to start using it back in September 2023 - APAP 5-20 cm H2O ordered by Sleep Medicine He is scheduled for a repeat sleep study in a couple of weeks Follow up with Sleep Medicine as scheduled (5) Ascending aortic aneurysm: Comment: (4.5cm - noted on prior [facility] scans) Code(s): I71.21 - Aneurysm of the ascending aorta, without rupture Category: Medical Qualifiers: Presence of rupture: without rupture Qualified Code(s): I71.21 - Aneurysm of the ascending aorta, without rupture Plan: His most recent imaging studies (TTE) done at [facility] on 08/25/2024 revealed (+) 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 Jake Jefferson) for these (6) Vitamin D deficiency: Code(s): E55.9 - Vitamin D deficiency, unspecified Category: Medical Plan: Continue Vitamin D3 2000 units QD (7) Lumbar degenerative disc disease: Comment: Hx of L3-L4, L4-L5 fusion surgery Code(s): M51.369 - Other intervertebral disc degeneration, lumbar region without mention of lumbar back pain or lower extremity pain Category: Medical Qualifiers: Disc-related pain type: discogenic back pain only Qualified Code(s): M51.360 - Other intervertebral disc degeneration, lumbar region with discogenic back pain only Plan: Reinforced activity and weight-lifting restrictions to minimize aggravating his low back pain Continue Ibuprofen 800 mg TID PRN and Cyclobenzaprine 10 mg TID PRN - patient has been cautioned about taking Ibuprofen often as they can adversely affect his renal function when taken in high doses or taken frequently (8) BPH loc w urin obs/LUTS: Code(s): N40.1 - Benign prostatic hyperplasia with lower urinary tract symptoms Category: Medical Plan: Continue Tamsulosin 0.4 mg Q HS Follow up with urology as scheduled (9) Erectile dysfunction: Code(s): N52.9 - Male erectile dysfunction, unspecified Category: Medical Qualifiers: Erectile dysfunction type: unspecified Qualified Code(s): N52.9 - Male erectile dysfunction, unspecified Plan: Continue Tadalafil 20 mg PRN (10) Alcohol abuse: Comment: continues to drink alcohol - discussed risks- continue to cut back Code(s): F10.10 - Alcohol abuse, uncomplicated Category: Social Hx Plan: Patient is counseled again on abstinence (11) Overweight (BMI 25.0-29.9): Code(s): E66.3 - Overweight Category: Medical Plan: Reinforced diet/exercise as tolerated/lose weight Plan Follow up in 3 months Orders: Orders Comprehensive [place]. Panel Fast 3 Months E78.00 - Pure hypercholesterolemia, unspecified UA CC w/rflx Micro + Cult 3 Months R30.0 - Dysuria Vitamin B12 and Folate 3 Months E53.8 - Deficiency of other specified B group vitamins XR shoulder RT min 2V 02/10/ M25.511 - Pain in right shoulder Hemoglobin A1c 3 Months E11.9 - Type 2 diabetes mellitus without complications Lipid Panel 3 Months E78.00 - Pure hypercholesterolemia, unspecified Complete Blood Count Auto Diff 3 Months D64.9 - Anemia, unspecified Microalbumin, Random (w Creat) 3 Months E11.9 - Type 2 diabetes mellitus without complications TSH reflex Free T4 3 Months E78.00 - Pure hypercholesterolemia, unspecified Vitamin D 25-OH Total 3 Months E55.9 - Vitamin D deficiency, unspecified Referrals Neurology Referral R41.3 - Other amnesia Medications: Changed From amlodipine 10 mg orally periodically; To amlodipine 10 mg PO DAILY From cholecalciferol (vitamin D3) (Vitamin D3) 50 mcg orally periodically; E11.65 - Type 2 diabetes mellitus with hyperglycemia, Z79.4 - retirement (current) use of insulin To cholecalciferol (vitamin D3) (Vitamin D3) 50 mcg PO DAILY E11.65 - Type 2 diabetes mellitus with hyperglycemia, Z79.4 - roasterman (current) use of insulin From metoprolol succinate ER 25 mg orally periodically; To metoprolol succinate ER 25 mg PO DAILY From fluoxetine 60 mg orally periodically; To fluoxetine 60 mg PO MARY
--- OUTSIDE RECORDS SUMMARY | 2025-02-09 16:34 | XMS_ITS | Clinical Summary ---
Author Organization [address] [place] [address] Address [address] [place] [address] Phone Care Team Providers Care Note Keeper Name Role Phone Hector Epps MD Primary [...] if this helps. Ascending aortic aneurysm ([facility] V24) 05/06/20 Overview [...] is required. Diabetic retinopathy (CMS/HCC V24, [facility]/HCC V28) 06/06/2021 Diabetes mellitus with kidne y complication (CMS/HCC V24, [facility]/HCC V28) 12/21/2020 Microalbuminuria 12/21/2020 Erectile dysfunction [...] work-up and evaluation. History of substance abuse ([facility] [place]24, [place] [id number]) 09/28/2015 Overview (04/15/2024): Cocaine, marijuana, some heroin Type 2 diabetes mellitus wit h cataract ([facility] [place], [facility] V28) 09/28/2015 Immunizations Name Administration Dates Next [...] HISTORICAL CATARACT REMOVAL NASAL SEPTUM SURGERY PROCEDURE: ND REPAIR NASAL SEPTAL PERFORATIONS COLONOSCOPY 01/2020 PROCEDURE: HISTORICAL COLONOSCOPY; COMMENT: repeat 5 years polyp OTHER SURGICAL HISTORY 09/16/2022 PROCEDURE: UPPER GI ENDOSCOPY, REMOVE LESION; COMMENT: bowman -biopsies taken OTHER SURGICAL HISTORY PROCEDURE: PULMONOLOGY BRONCHOSCOPY; COMMENT: dr. kilgore -bronchoscopy and mediastinoscopy with mediastinal lymph node biopsies Medical History Medical History Date Comments History of substance abuse ( [facility] [place], [facility] V28) 09/28/2015 DX:History of substance abus e ([facility]); COMMENT: Cocaine, marijuana, some heroin Chronic hepatitis C ([facility] V24, [facility] V28) 11/05/2015 DX:Chronic hepatitis C (HCC) ; COMMENT: Genotype 1a Depression 11/05/2015 DX:Depression Cervical radiculopathy 11/05/2015 DX:Cervic al radiculopathy; COMMENT: recurrent CTS (carpal tunnel syndrome) 11/05/2015 DX: CTS (carpal tunnel syndrome); COMMENT: Right, NCV 06/03 Diabetes mellitus type 2 wit h neurological manifestations ([facility] V24, [facility] V28) 11/05/2015 DX:Diabetes mellitus type 2 with neurological manifestations (HCC) GERD (gastroesophageal reflu x disease) 11/05/2015 DX:GERD (gastroesophageal re flux disease) DJD (degenerative joint dise ase) of knee 11/05/2015 DX:DJD (degenerative joint d isease) of knee Type 2 diabetes mellitus wit h cataract ([facility] V24, [facility] V28) 09/28/2015 DX:Type 2 diabetes [...] Screening 06/29/2022 COVID-19 Vaccine ( season) 2024 Depression Screening 07/21/2024 02/17/2024 Diabetes: Blood Sugar Control Test (HGBA1C) 08/19/2024 02/17/2024, 02/17/2024 Diabetes: Annual Retina Eye Exam 10/29/2024 10/30/2023 Colorectal Cancer Screening: Colonoscopy 01/27/2025 01/28/2020 Diabetes: Annual Urine Albumin-Creatinine Ratio (uACR) 02/16/2025 [...] * Urine Albumin Creatinine Ratio (02/17/2024) Pathologist [facility] Urine Albumin Creatinine Ratio Abstracted Historical Provider MD HEALTH MAINTENANCE Final Result * Annual BMP Blood Test (02/17/2024) Pathologist [facility] Annual BMP Blood Test Abstracted Historical Provider HEALTH MAINTENANCE Final Result * Falls Risk Assessment (02/17/2024) Pathologist [facility] Falls Risk Assessment Abstracted Historical Provider HEALTH MAINTENANCE Final Result * Depression Screening (02/17/2024) [facility] Depression Screening Abstracted Result [facility] Provider HEALTH MAINTENANCE Final Result * (ABNORMAL) Hemoglobin A1c (02/17/2024) [facility] Hemoglobin A1C 7.4(A) <=6.5 % Blood Venous blood specimen / Unknown Result [facility] Provider LAB BLOOD ORDERABLES Zunilda l Result * Lipid panel (02/17/2024) [facility] LDL/HDL Ratio 3 0 - 4 Triglycerides 93 0 - 150 mg/dL Cholesterol 125 0 - 200 mg/dL HDL 48 >=40 mg/dL LDL Cholesterol 59 0 - 100 mg/dL Blood Venous blood specimen / Unknown Result [facility] Provider LAB BLOOD ORDERABLES Zunilda l Result * Diabetes Eye Exam (10/30/2023) [facility] Diabetes: Annual Retina Eye Exam Abstracted Result [facility] Provider HEALTH MAINTENANCE Final Result * Colonoscopy (01/28/2020) [facility] Colonoscopy No interpretation , Abstracted Anatomical Region Laterality Modality Other Result [facility] Provider HEALTH MAINTENANCE Final Result * Hepatitis C Screening (04/01/2016) [facility] Hepatitis C Screening Abstracted Result [facility] Provider HEALTH MAINTENANCE Final Result from Last 3 Months or Most Recently Relevant to Health Maintenance Insurance [employer] MEDICARE ADVANTAGE MEDICARE [facility] HE[facility] MEDICAID - [place] Care Teams Note Keeper Relationship Specialty Start Date End Date Hector Epps MD [address] [place] [address] [place] [address] [place] [address] [place] PCP - General Internal Medicine 09/03/24
--- OUTSIDE RECORDS SUMMARY | 2025-02-09 16:35 | XMS_ITS | Data Portability ---
Author Organization [place] - [facility], [facility] Address [address] [place] [address] Care Team Providers Care Pharmacy Specialist Name Role Phone SHWETA CARMONA Primary Care [...] julio césar Bejarano Office, [address], [facility] [address], [place], [address], 03/26/2024 12:26:33 Medication Orders None recorded . [...] a4ajBk vP9nXo QUaueC m3YtLR FvZlgJ JJ8mAn HZtai3 [id number] AC0Kqa n2CWau iKiQtr MwF INTERFACE [facility] Office [address] [facility] [address], [place], [address], 03/26/2024 08:23:38 03/26/20 24 03/26/2024 XR, knee, 4 or more view http:/ [email or web address] ?Encry pted=ash Meneses YD8dLq bEUv6g %2BXZw aYqtaq 0bqfl% 2Fg9IQ a4ajBk vP9nXo QUaueC m3YtLR FvZlgJ JJ8mAn HZtai3 6w3765 AC0Kqa n2CWau iKiQtr MwF INTERFACE [facility] Office [address], [place], [address], 03/26/2024 08:23:40 Result Notes Documentation Provider Name and Address Organization Details Recorded Time Xr, Knee, 4 Or More View : [email or web address]? Encrypted=yuIgVxuGP1tVabS Uv6g%9MQEkwAnwrt6zvgv%2Fg 1MHb1ruZdjM5yOvKHvsrTf8Gv KDUcXdrMHF6gOqWYgdt80a496 3ON2Hxbe0EYonhOkWyaNsA Not Available [facility] 03/26/2024 08:23: 38 Xr, Knee, 4 Or More View : [email or web address]? Encrypted=hlRwXkdXN1qQfzF Uv6g%7AYEiiCjkzh7ynrv%2Fg 0AQt7kcYucY4iPsIJlpiVh9Im JJZyUgdPVU5eTuEPsix31a102 7FA5Mwmf2UJnwwCgFwnBfT Not Available [facility] 03/26/2024 08:23: 41 Procedures Surgical History Date Name Laterality Status Provider Name and Address Organization Details Recorded Time 5 Knee Kenalog 40 1cc Injection, Bilateral completed Shar Nathan PA-C [address], [place], [address], [facility] 11/23/2024 09:36:14 4 Knee Kenalog 40 1cc Injection, Bilateral completed Shar Nathan PA-C [address], [place], [address], [facility] 03/26/2024 10:06:13 Imaging Results [...] Updated DateTime 11/23/2024 177.8 cm 28.7 kg/m2 96837.47 g Alice Atkinson [facility] 11/23/2024 09:14:11 Date Recorded Body height Body mass index (BMI) Body weight Provider Name and Address Organization Details Last Updated DateTime 03/26/2024 177.8 cm 28.7 kg/m2 [address] [facility] 03/26/2024 08:04:37 Social History None recorded. Functional Status None recorded. Mental Status None recorded. Family History Nothing Reported. Medical History Condition Response Diabetes Y Headaches Y Hypertension Y Sleep Apnea Y Past Encounters Encounter ID Performer Location Encounter Start Date Encounter Closed Date Diagnosis/Indication Diagnosis SNOMED-CT Code Diagnosis ICD10 Code Diagnosis Note [id number] [facility] 2[address] floor [address] [place] [address] 03/26/2024 07:56:28 03/26/2024 10:09:01 Pain of bilateral knee joints [id number] 27561 M25.561 M25.562 Bilateral osteoarthritis of knees [id number] 59311 M17.0 You have been provided with a [...] office or contact us through the portal [facility]. [id number] [facility] 3rd floor [address] [place] [address] 11/23/2024 09:07:54 12/09/2024 14:40:06 Primary gonarthrosis, bilateral [id number] M17.0 You have been provided with a [...] LIFE ( - MEDICARE SUPPLEMENT) Bharath Colon [id number] Bharath Hawkins Colon 12/09/2024 1 [employer] (MEDICARE REPLACEMENT/ ADVANTAGE - PPO) [id number] Bharath Colon [id number] Bharath Hawkins Colon 03/26/2024 2 [facility] (HMO) Bharath Colon [id number] Bharath Hawkins Colon 03/26/2024 2 [facility]ILY [facility] (POS) Bharath Colon [id number] Bharath Hawkins Colon 03/26/2024 2 [place] [facility] Bharath Colon [id number] Bharath Hawkins Colon Notes Date Note Type [...] no recent treatments. Shar Nathan PA-C [address], [place], [address], [facility] 03/26/2024 10:07:41 11/23/2024 text/html [...] total joint arthroplasty. Shar Nathan PA-C [address], [place], [address], [facility] 11/23/2024 09:36:46
--- OUTSIDE RECORDS SUMMARY | 2025-02-09 16:35 | XMS_ITS | Encounter Summary ---
Author Organization [employer] [facility] Address [address] [facility] 7t [place] [address] Care Team Providers Care Safe Technician Name Role Phone Unavailable Primary Care Provider Unavailabl e Encounter Details Date Type Department Care Team (Late st Contact Info) Description 07/30/[address] [facility] [address] [place] [address] Spencer Rao DDS [address] [place] [address] Social History Tobacco Use Types Packs/Day Years [...] Description 03/08/2025 9:00 AM EDT Office Visit [facility] [address] [place] [address] Spencer Rao DDS [address] [place] [address] documented as of this encounter Visit Diagnoses Not on filedocumented in this encounter
== END 2025-02-09 17:24 | disposition home or self-care (01) ==
LOC: HO.HMCH 16:32
PROVIDERS: PCP Internal Medicine; Visit Provider Internal Medicine
DX: R41.3 Other amnesia (principal); E11.40 Type 2 diabetes mellitus with diabetic neuropathy, unspecified; Z79.4 Long term (current) use of insulin; I10 Essential (primary) hypertension; G47.33 Obstructive sleep apnea (adult) (pediatric); I71.21 Aneurysm of the ascending aorta, without rupture; E55.9 Vitamin D deficiency, unspecified; M51.360 Other intervertebral disc degeneration, lumbar region with discogenic back pain only; N40.1 Benign prostatic hyperplasia with lower urinary tract symptoms; N52.9 Male erectile dysfunction, unspecified; F10.10 Alcohol abuse, uncomplicated; E66.3 Overweight

== ENCOUNTER → 2025-02-09 16:32 | Outpatient (BNVA) | payer MEDICARE, SELFPAY | PROVIDERS: PCP Internal Medicine; Visit Provider Internal Medicine | DX: M25.511 Pain in right shoulder (principal); E11.65 Type 2 diabetes mellitus with hyperglycemia; E11.40 Type 2 diabetes mellitus with diabetic neuropathy, unspecified; I10 Essential (primary) hypertension; G47.33 Obstructive sleep apnea (adult) (pediatric); I71.21 Aneurysm of the ascending aorta, without rupture; E55.9 Vitamin D deficiency, unspecified; M51.360 Other intervertebral disc degeneration, lumbar region with discogenic back pain only; N40.1 Benign prostatic hyperplasia with lower urinary tract symptoms; N52.9 Male erectile dysfunction, unspecified; F10.10 Alcohol abuse, uncomplicated; E66.3 Overweight; E53.8 Deficiency of other specified B group vitamins; E78.00 Pure hypercholesterolemia, unspecified; Z79.4 Long term (current) use of insulin; Z68.25 Body mass index [BMI] 25.0-25.9, adult | CPT/HCPCS: 96127; 99212 ==

== ENCOUNTER 2025-02-10 14:21 | Outpatient (REF) | payer MEDICARE, OTHER, SELFPAY ==
--- NOTE | ~2025-02-10 | XR_ITS ---
EXAMINATION: XR SHOULDER, RIGHT CLINICAL INFORMATION: M25.511 - Pain in right shoulder COMPARISON: None available. TECHNIQUE: AP external rotation, Grashey, scapular Y, and axillary views of the right shoulder. FINDINGS: The AC joint is intact and not degenerated. Glenohumeral joint is intact and not degenerated. No fracture is identified. XR/XR shoulder RT min 2V IMPRESSION: Unremarkable right shoulder. Electronically signed by: Jalil Gordon MD 02/10/2025 02:57 PM EDT
--- OUTSIDE RECORDS SUMMARY | 2025-02-10 14:30 | XMS_ITS ---
Author Name [facility] Organization Unknown Care Team Organization Name Specialty Phone Email Start Date End Da te [facility] Nevin Navas Primary Care 12/27/2022 03/08/20 [facility] Soco Primary Care 05/28/2022 03/08/2024
--- OUTSIDE RECORDS SUMMARY | 2025-02-10 14:31 | XMS_ITS | Clinical Summary ---
Author Organization [address] [place] [address] Address [address] [place] [address] Phone Care Team Providers Care Product Mgr Name Role Phone Hector Epps MD Primary [...] see if this helps. Ascending aortic aneurysm ([facility] V24) 05/06/20 Overview (04/15/2024): 4.5cm [...] this is required. Diabetic retinopathy (CMS/HCC V24, [facility]/HCC V28) 06/06/2021 Diabetes mellitus with kidne y complication (CMS/HCC V24, [facility]/HCC V28) 12/21/2020 Microalbuminuria 12/21/2020 Erectile dysfunction 10/12/2018 [...] substance abuse ([facility], [place] [id number]) 09/28/2015 Overview (04/15/2024): Cocaine, marijuana, some heroin Type 2 diabetes mellitus wit h cataract ([facility], [facility] V28) 09/28/2015 Immunizations Name Administration Dates Next [...] abuse ( [facility] V24, [facility] V28) 09/28/2015 DX:History of substance abus e ([facility]); COMMENT: Cocaine, marijuana, some heroin Chronic hepatitis C ([facility] V24, [facility] V28) 11/05/2015 DX:Chronic hepatitis C (HCC) ; COMMENT: Genotype 1a Depression 11/05/2015 DX:Depression Cervical radiculopathy 11/05/2015 DX:Cervic al radiculopathy; COMMENT: recurrent CTS (carpal tunnel syndrome) 11/05/2015 DX: CTS (carpal tunnel syndrome); COMMENT: Right, NCV 06/03 Diabetes mellitus type 2 wit h neurological manifestations ([facility] V24, [facility] V28) 11/05/2015 DX:Diabetes mellitus type 2 with neurological manifestations (HCC) GERD (gastroesophageal reflu x disease) 11/05/2015 DX:GERD (gastroesophageal re flux disease) DJD (degenerative joint dise ase) of knee 11/05/2015 DX:DJD (degenerative joint d isease) of knee Type 2 diabetes mellitus wit h cataract ([facility] V24, [facility] V28) 09/28/2015 DX:Type 2 diabetes [...] Urine Albumin Creatinine Ratio (02/17/2024) Pathologist [facility] Urine Albumin Creatinine Ratio Abstracted Historical Provider MD HEALTH MAINTENANCE Final Result * Annual BMP Blood Test (02/17/2024) Pathologist [facility] Annual BMP Blood Test Abstracted Historical Provider HEALTH MAINTENANCE Final Result * Falls Risk Assessment (02/17/2024) Pathologist [facility] Falls Risk Assessment Abstracted Historical Provider HEALTH MAINTENANCE Final Result * Depression Screening (02/17/2024) [facility] Depression Screening Abstracted Result [facility] Provider HEALTH MAINTENANCE Final Result * (ABNORMAL) Hemoglobin A1c (02/17/2024) [facility] Hemoglobin A1C 7.4(A) <=6.5 % Blood Venous blood specimen / Unknown Result [facility] Provider LAB BLOOD ORDERABLES Zunilda l Result * Lipid panel (02/17/2024) [facility] LDL/HDL Ratio 3 0 - 4 Triglycerides 93 0 - 150 mg/dL Cholesterol 125 0 - 200 mg/dL HDL 48 >=40 mg/dL LDL Cholesterol 59 0 - 100 mg/dL Blood Venous blood specimen / Unknown Result [facility] Provider LAB BLOOD ORDERABLES Zunilda l Result * Diabetes Eye Exam (10/30/2023) [facility] Diabetes: Annual Retina Eye Exam Abstracted Result [facility] Provider HEALTH MAINTENANCE Final Result * Colonoscopy (01/28/2020) [facility] Colonoscopy No interpretation , Abstracted Anatomical Region Laterality Modality Other Result [facility] Provider HEALTH MAINTENANCE Final Result * Hepatitis C Screening (04/01/2016) [facility] Hepatitis C Screening Abstracted Result [facility] Provider HEALTH MAINTENANCE Final Result from Last 3 Months or Most Recently Relevant to Health Maintenance Insurance [employer] MEDICARE ADVANTAGE MEDICARE [facility] HEALTH PLAN MEDICAID - [place] Care Teams Product Mgr Relationship Specialty Start Date End Date Hector Epps MD [address] [place] [address] [place] [address] [place] PCP - General Internal Medicine 09/03/24
== END 2025-02-10 14:22 | disposition home or self-care (01) ==
LOC: HO.XRAY 14:21
PROVIDERS: PCP Internal Medicine; Visit Provider Internal Medicine
DX: M25.511 Pain in right shoulder (principal)
CPT/HCPCS: 73030

== ENCOUNTER → 2025-02-10 14:27 | Outpatient (BNV) | payer MEDICARE, OTHER, SELFPAY | PROVIDERS: PCP Internal Medicine; Visit Provider Radiology Diagnostic Radiology | DX: M25.511 Pain in right shoulder (principal) | CPT/HCPCS: 73030 ==

== ENCOUNTER 2025-02-23 09:25 | Outpatient (AMB) | payer MEDICARE, MEDICAID, SELFPAY ==
--- NOTE | 2025-02-23 09:29 | MHC.OFFVIS ---
Intake Visit Reasons: 6 month Allergies lisinopril Allergy (Severe, Verified 02/09/25 17:00) Angioedema canagliflozin (Invokana) Allergy (Unknown, Verified 02/09/25 17:00) polyuria quetiapine Adverse Reaction (Intermediate, Verified 02/09/25 17:00) sedation, fatigue liraglutide (Victoza) Adverse Reaction (Unknown, Verified 02/09/25 17:00) nausea, constipation HPI Comments Details: 64 yo man with chronic alcohol abuse, IDDM, HTN and MARIAH resulting in cognitive and physical issues. He continues to drink alcohol and was more more forgetful and getting confused. Sometime he would dress up in the evening saying that he was going for work. No delusions or hallucinations [facility] Medical History (Updated 02/23/25 @ 09:38 by Randolph Pisano MD) Peripheral neuropathy Periodic limb movement Diabetic neuropathy Alcoholic dementia Rash and nonspecific skin eruption Cervicalgia Injury of right thumb Lumbar degenerative disc disease Vitamin D deficiency Hypersomnia Snoring Cognitive disorder Tubular adenoma of colon (~2019) BPH loc w urin obs/LUTS Frequency of urination Erectile dysfunction NAFLD (nonalcoholic fatty liver disease) Hepatitis C Hepatitis B Arthritis Alcohol abuse Depression Carpal tunnel syndrome Type 2 diabetes mellitus with diabetic neuropathy, unspecified (~2003) Essential hypertension Overweight (BMI 25.0-29.9) Surgical History History of rhinoplasty History of colonoscopy History of lumbar surgery History of cataract surgery History of excision of mass Family History Father Myocardial infarct Colon cancer Mother Diabetes Social History Household Members: Spouse Household Members Other:: Housing: House Alcohol intake: current Alcohol intake frequency: a few times a month Alcohol type: beer and hard liquor Patient Tobacco Use Status: Never used Tobacco e-Cigarette/Vaping Use: Never Used Substance Use Type: Crack/Cocaine Advance Directives Date on File: 07/20/24 service: Yes Current occupational status: disabled Current occupational exposures/hazards: No Cognitive needs: No Hearing needs: No Vision needs: No Review of Systems Const Details: NO headaches or seizures. Physical Exam Neuro Other: Mental Status: Alert and oriented to person, place, and time. Normal attention. Normal spontaneous speech, fluency, and comprehension. Cranial Nerves: CN II: Visual lipscomb full to confrontation, visual acuity intact. CN III, IV, : Pupils equal, round, reactive to light and accommodation. Extraocular movements are normal. CN V: Facial sensation is normal. CN VII: Facial movements symmetrical. CN VIII: Hearing intact to bedside conversation is normal. CN IX, X: Palate elevates symmetrically. CN XI: Shoulder shrug and head turn symmetrical. CN XII: Tongue midline without atrophy or fasciculations. Extrapyramidal: Full facial expressions and blinking. No rigidity. Movements are appropriate with no tremor or abnormality. Speech: Normal; no dysarthria or tremor. Assessment & Plan Assessment & Plan (1) Alcoholic dementia: Comment: NCV/EMG LE (in office) Moderately severe axonal sensory and motor peripheral neuropathy.08/18/24. [place] brain [place] [facility] [place]: Mod cerebellar and cerebral atrophy, mild MVD CTA brain and neck [place] [facility] [place] Code(s): F10.27 - Alcohol dependence with alcohol-induced persisting dementia Category: Medical Qualifiers: Dementia severity: moderate Dementia behavioral or psychological symptom: with other behavioral disturbance Qualified Code(s): F10.27 - Alcohol dependence with alcohol-induced persisting dementia (2) Peripheral neuropathy: Code(s): G62.9 - Polyneuropathy, unspecified Category: Medical Qualifiers: Peripheral neuropathy type: polyneuropathy, unspecified Qualified Code(s): G62.9 - Polyneuropathy, unspecified Plan Impression: Alcoholic dementia with behavioral symptoms, who continues to drink and is not inclined to stop Rec: a: Education b: Quit or minimize alcohol use c: Thiamine 100mg a dya d: Folic acid 1mg a day e: Quetiapine 25mg one at night for behavioral symptoms Medications: New quetiapine 25 mg PO BEDTIME 90 tabs 1RF folic acid 1 mg PO DAILY 90 tabs 1RF Refilled thiamine mononitrate (vit B1) 100 mg PO DAILY 90 tabs 1RF Coding Level of Care Code Est Pt Level 4 (71495) Diagnoses Moderate dementia associated with alcoholism, with other behavioral disturbance F10.27 Dementia severity: moderate Dementia behavioral or psychological symptom: with other behavioral disturbance Peripheral polyneuropathy G62.9 Peripheral neuropathy type: polyneuropathy, unspecified
--- OUTSIDE RECORDS SUMMARY | 2025-02-23 09:48 | XMS_ITS | Encounter Summary ---
Author Organization [facility] Address [address] [place] [address] Care Team Providers Care Woodworking Bench Carpenter Name Role Phone Vincenzo Green MD Primary Care Provider [phone] Félix Garvey PA-C Primary Care Provider [phone] Rod Machuca MD Primary Care Provider [phone] Aron Son MD Unavailable Unavailable Félix Garvey PA-C Primary Care Provider [phone] Reason for Visit * Reason Comments E-prescribe Rx Request Encounter Details Date Type Department Care Team Description 07/04/2016 Refill Adult Medicine [address] [id number] Vincenzo Green MD [address] [place] [address] [id number] E-prescribe Rx Request Social History Tobacco Use [...] an upcoming appointment? No-unable to reach left [facility] to call for appointment due [...] / Plan: [place] / Product Type: MEDICARE HEY-UIE-OVNAIUC documented in this encounter Plan of Treatment Not on file documented as of this encounter Visit Diagnoses Not on filedocumented in this encounter Care Teams Woodworking Bench Carpenter Relationship Specialty Start Date End Date Vincenzo Green MD [address] [place] [address] PCP - General Internal Medicine 08/03/15 09/26/20 Félix Garvey PA-C [address] [place] [address] PCP - General Internal Medicine 09/27/20 05/09/22 Rod Machuca MD [address] [place] [address] PCP - General Lung Cancer [place] 05/10/22 06/05/22 Félix Garvey PA-C [address] [place] [address] PCP - General Internal Medicine 06/06/22 Aron Son MD [address] [place] [address] Specialist Cardiovascular Disease 06/06/22 documented as of this encounter
--- OUTSIDE RECORDS SUMMARY | 2025-02-23 09:48 | XMS_ITS | Encounter Summary ---
Author Organization [facility] Address [address] [facility] 7[address] [place] [address] Care Team Providers Care Recovery Operator Name Role Phone Unavailable Primary Care Provider Unavailabl e Encounter Details Date Type Department Care Team (Late st Contact Info) Description 07/30/2024 Telephone [facility] [address] [place] [address] Spencer Rao DDS [address] [place] [address] Social History Tobacco Use Types Packs/Day Years [...] Description 03/08/2025 9:00 AM EDT Office Visit [facility] [address] [place] [address] Spencer Rao DDS [address] [place] [address] documented as of this encounter Visit Diagnoses Not on filedocumented in this encounter
--- OUTSIDE RECORDS SUMMARY | 2025-02-23 09:48 | XMS_ITS | Clinical Summary ---
Author Organization [address] [place] [address] Address [address] [place] [address] Phone Care Team Providers Care Tube Station Attendant Name Role Phone Hector Epps MD Primary [...] see if this helps. Ascending aortic aneurysm ([facility] V24) 05/06/20 Overview (04/15/2024): 4.5cm Last Assessment [...] this is required. Diabetic retinopathy (CMS/HCC V24, [facility]/HCC V28) 06/06/2021 Diabetes mellitus with kidne y complication (CMS/HCC V24, [facility]/HCC V28) 12/21/2020 Microalbuminuria 12/21/2020 Erectile [...] work-up and evaluation. History of substance abuse ([facility] [place], [place] [id number]) 09/28/2015 Overview (04/15/2024): Cocaine, marijuana, some heroin Type 2 diabetes mellitus wit h cataract ([facility] [place], [facility] V28) 09/28/2015 Immunizations Name Administration Dates Next [...] HISTORICAL CATARACT REMOVAL NASAL SEPTUM SURGERY PROCEDURE: AR REPAIR NASAL SEPTAL PERFORATIONS COLONOSCOPY 01/2020 PROCEDURE: HISTORICAL COLONOSCOPY; COMMENT: repeat 5 years polyp OTHER SURGICAL HISTORY 09/16/2022 PROCEDURE: UPPER GI ENDOSCOPY, REMOVE LESION; COMMENT: bowman -biopsies taken OTHER SURGICAL HISTORY PROCEDURE: PULMONOLOGY BRONCHOSCOPY; COMMENT: dr. kilgore -bronchoscopy and mediastinoscopy with mediastinal lymph node biopsies Medical History Medical History Date Comments History of substance abuse ( [facility] [place], [facility] V28) 09/28/2015 DX:History of substance abus e ([facility]); COMMENT: Cocaine, marijuana, some heroin Chronic hepatitis C ([facility] V24, [facility] V28) 11/05/2015 DX:Chronic hepatitis C (HCC) ; COMMENT: Genotype 1a Depression 11/05/2015 DX:Depression Cervical radiculopathy 11/05/2015 DX:Cervic al radiculopathy; COMMENT: recurrent CTS (carpal tunnel syndrome) 11/05/2015 DX: CTS (carpal tunnel syndrome); COMMENT: Right, NCV 06/03 Diabetes mellitus type 2 wit h neurological manifestations ([facility] V24, [facility] V28) 11/05/2015 DX:Diabetes mellitus type 2 with neurological manifestations (HCC) GERD (gastroesophageal reflu x disease) 11/05/2015 DX:GERD (gastroesophageal re flux disease) DJD (degenerative joint dise ase) of knee 11/05/2015 DX:DJD (degenerative joint d isease) of knee Type 2 diabetes mellitus wit h cataract ([facility] V24, [facility] V28) 09/28/2015 DX:Type 2 diabetes mellitus with [...] * Urine Albumin Creatinine Ratio (02/17/2024) Pathologist [facility] Urine Albumin Creatinine Ratio Abstracted Historical Provider MD HEALTH MAINTENANCE Final Result * Annual BMP Blood Test (02/17/2024) Pathologist [facility] Annual BMP Blood Test Abstracted Historical Provider HEALTH MAINTENANCE Final Result * Falls Risk Assessment (02/17/2024) Pathologist [facility] Falls Risk Assessment Abstracted Historical Provider HEALTH MAINTENANCE Final Result * Depression Screening (02/17/2024) [facility] Depression Screening Abstracted Result [facility] Provider HEALTH MAINTENANCE Final Result * (ABNORMAL) Hemoglobin A1c (02/17/2024) [facility] Hemoglobin A1C 7.4(A) <=6.5 % Blood Venous blood specimen / Unknown Result [facility] Provider LAB BLOOD ORDERABLES Zunilda l Result * Lipid panel (02/17/2024) [facility] LDL/HDL Ratio 3 0 - 4 Triglycerides 93 0 - 150 mg/dL Cholesterol 125 0 - 200 mg/dL HDL 48 >=40 mg/dL LDL Cholesterol 59 0 - 100 mg/dL Blood Venous blood specimen / Unknown Result [facility] Provider LAB BLOOD ORDERABLES Zunilda l Result * Diabetes Eye Exam (10/30/2023) [facility] Diabetes: Annual Retina Eye Exam Abstracted Result [facility] Provider HEALTH MAINTENANCE Final Result * Colonoscopy (01/28/2020) [facility] Colonoscopy No interpretation , Abstracted Anatomical Region Laterality Modality Other Result [facility] Provider HEALTH MAINTENANCE Final Result * Hepatitis C Screening (04/01/2016) [facility] Hepatitis C Screening Abstracted Result [facility] Provider HEALTH MAINTENANCE Final Result from Last 3 Months or Most Recently Relevant to Health Maintenance Insurance [employer] MEDICARE ADVANTAGE MEDICARE [facility] HEALTH PLAN MEDICAID - [place] Care Teams Tube Station Attendant Relationship Specialty Start Date End Date Hector Epps MD [address] [place] [address] [place] [address] [place] PCP - General Internal Medicine 09/03/24
== END 2025-02-23 09:42 | disposition home or self-care (01) ==
LOC: HO.HSM 09:26
PROVIDERS: PCP Internal Medicine; Referring Provider Physician Assistant; Visit Provider Psychiatry & Neurology Neurology
DX: F10.27 Alcohol dependence with alcohol-induced persisting dementia (principal); G62.9 Polyneuropathy, unspecified
CPT/HCPCS: 99214

== ENCOUNTER → 2025-02-23 09:25 | Outpatient (BNVA) | payer MEDICARE, MEDICAID, SELFPAY | PROVIDERS: PCP Internal Medicine; Referring Provider Physician Assistant; Visit Provider Psychiatry & Neurology Neurology | DX: F10.27 Alcohol dependence with alcohol-induced persisting dementia (principal); G62.9 Polyneuropathy, unspecified | CPT/HCPCS: 99212 ==

== ENCOUNTER 2025-03-02 09:02 | Outpatient (REF) | payer MEDICARE, MEDICAID, SELFPAY ==
--- OUTSIDE RECORDS SUMMARY | 2025-03-02 09:25 | XMS_ITS | Encounter Summary ---
Author Organization [employer] Address [address] [facility] [address] [place] [address] Care Team Providers Care Balance And Hairspring Assembler Name Role Phone Unavailable Primary Care Provider Unavailabl e Reason for Visit * Reason Onset Date Comments insurance appt 12/25/2023 Encounter Details Date Type Department Care Team (Late st Contact Info) Description 12/25/2023 Telephone [facility] ADULT D[facility] [address] [place], [place] [id number] David Grayson insurance appt Social History Tobacco [...] Rawls - 12/25/2023 2:56 PM EDT [facility]. He says he has [employer] inurance. Patient was asked who is the insurance company that carries the insurance and he said [employer]. Asked again which is the insurance company that carries the insurance and patient hung up. Unsure of insurance coverage DR Bill front sight attacher aware documented in this encounter Plan of Treatment Upcoming Encounters Date Type Department Care Team (Late st Contact Info) Description 03/08/2025 9:00 AM EDT Office Visit [facility] ADULT DENTAL [address], [place] [phone] Spencer Rao DDS [address], [place] [phone] documented as of this encounter Visit Diagnoses Not on filedocumented in this encounter
--- OUTSIDE RECORDS SUMMARY | 2025-03-02 09:25 | XMS_ITS | Clinical Summary ---
Author Organization [address] [place] [address] Address [address] [place] [address] Phone Care Team Providers Care Overhead Line Worker Name Role Phone Hector Epps MD [...] see if this helps. Ascending aortic aneurysm ([facility] V24) 05/06/20 Overview (04/15/2024): 4.5cm [...] this is required. Diabetic retinopathy (CMS/HCC V24, [facility]/HCC V28) 06/06/2021 Diabetes mellitus with kidne y complication (CMS/HCC V24, [facility]/HCC V28) 12/21/2020 Microalbuminuria 12/21/2020 Erectile dysfunction [...] evaluation. History of [place] abuse [place] [place] [id number] 09/28/2015 Overview (04/15/2024): Cocaine, marijuana, some heroin Type 2 diabetes mellitus wit h cataract ([facility] [place] [facility] [place] 09/28/2015 Immunizations Name Administration Dates Next [...] HISTORICAL CATARACT REMOVAL NASAL SEPTUM SURGERY PROCEDURE: [place] REPAIR NASAL SEPTAL PERFORATIONS COLONOSCOPY 01/2020 PROCEDURE: HISTORICAL COLONOSCOPY; COMMENT: repeat 5 years polyp OTHER SURGICAL HISTORY 09/16/2022 PROCEDURE: UPPER GI ENDOSCOPY, REMOVE LESION; COMMENT: bowman -biopsies taken OTHER SURGICAL HISTORY PROCEDURE: PULMONOLOGY BRONCHOSCOPY; COMMENT: dr. kilgore -bronchoscopy and mediastinoscopy with mediastinal lymph node biopsies Medical History Medical History Date Comments History of substance abuse ( [facility] [place] [facility] [place]) 09/28/2015 DX:History of substance abus e ([facility]); COMMENT: Cocaine, marijuana, some heroin Chronic hepatitis C ([facility] V24, [facility] V28) 11/05/2015 DX:Chronic hepatitis C (HCC) ; COMMENT: Genotype 1a Depression 11/05/2015 DX:Depression Cervical radiculopathy 11/05/2015 DX:Cervic al radiculopathy; COMMENT: recurrent CTS (carpal tunnel syndrome) 11/05/2015 DX: CTS (carpal tunnel syndrome); COMMENT: Right, NCV 06/03 Diabetes mellitus type 2 wit h neurological manifestations ([facility] V24, [facility] V28) 11/05/2015 DX:Diabetes mellitus type 2 with neurological manifestations (HCC) GERD (gastroesophageal reflu x disease) 11/05/2015 DX:GERD (gastroesophageal re flux disease) DJD (degenerative joint dise ase) of knee 11/05/2015 DX:DJD (degenerative joint d isease) of knee Type 2 diabetes mellitus wit h cataract ([facility] V24, [facility] V28) 09/28/2015 DX:Type 2 diabetes [...] * Urine Albumin Creatinine Ratio (02/17/2024) Pathologist [facility] Urine Albumin Creatinine Ratio Abstracted Historical Provider MD HEALTH MAINTENANCE Final Result * Annual BMP Blood Test (02/17/2024) Pathologist [facility] Annual BMP Blood Test Abstracted Historical Provider HEALTH MAINTENANCE Final Result * Falls Risk Assessment (02/17/2024) Pathologist [facility] Falls Risk Assessment Abstracted Historical Provider HEALTH MAINTENANCE Final Result * Depression Screening (02/17/2024) [facility] Depression Screening Abstracted Result [facility] Provider HEALTH MAINTENANCE Final Result * (ABNORMAL) Hemoglobin A1c (02/17/2024) [facility] Hemoglobin A1C 7.4(A) <=6.5 % Blood Venous blood specimen / Unknown Result [facility] Provider LAB BLOOD ORDERABLES Zunilda l Result * Lipid panel (02/17/2024) [facility] LDL/HDL Ratio 3 0 - 4 Triglycerides 93 0 - 150 mg/dL Cholesterol 125 0 - 200 mg/dL HDL 48 >=40 mg/dL LDL Cholesterol 59 0 - 100 mg/dL Blood Venous blood specimen / Unknown Result [facility] Provider LAB BLOOD ORDERABLES Zunilda l Result * Diabetes Eye Exam (10/30/2023) [facility] Diabetes: Annual Retina Eye Exam Abstracted Result [facility] Provider HEALTH MAINTENANCE Final Result * Colonoscopy (01/28/2020) [facility] Colonoscopy No interpretation , Abstracted Anatomical Region Laterality Modality Other Result [facility] Provider HEALTH MAINTENANCE Final Result * Hepatitis C Screening (04/01/2016) [facility] Hepatitis C Screening Abstracted Result [facility] Provider HEALTH MAINTENANCE Final Result from Last 3 Months or Most Recently Relevant to Health Maintenance Insurance [employer] MEDICARE ADVANTAGE MEDICARE [facility] HEALTH PLAN MEDICAID - [place] Care Teams Overhead Line Worker Relationship Specialty Start Date End Date Hector Epps MD [address] [place] [address] [place] [place] [address] [place] PCP - General Internal Medicine 09/03/24
[2025-03-02 10:47] LABS: Prostate Specific Antigen 1.00 ng/mL (<0.05-4.0)
[2025-03-02 11:02] LABS: Folate 10.5 ng/mL (> or = 4.0); Vitamin B12 294 pg/mL (200-900)
[2025-03-02 11:26] LABS: Hemoglobin A1C 260.6047 umol/L; Total Hemoglobin (HGBA1C) 5066.1896 umol/L
[2025-03-07 16:47] LABS: Testosterone, Free 64.3 pg/mL (35.0-155.0)
== END 2025-03-02 09:03 | disposition home or self-care (01) ==
LOC: HO.LAB 09:02
PROVIDERS: Internal Medicine; Visit Provider Urology
DX: E11.40 Type 2 diabetes mellitus with diabetic neuropathy, unspecified (principal); N52.9 Male erectile dysfunction, unspecified; Z79.4 Long term (current) use of insulin; Z12.5 Encounter for screening for malignant neoplasm of prostate
CPT/HCPCS: 36415; 82607; 82746; 83036; 84153; 84402; 84403; 84425

== ENCOUNTER 2025-03-11 08:46 | Outpatient (AMB) | payer MEDICARE, OTHER, MEDICAID, SELFPAY ==
--- OUTSIDE RECORDS SUMMARY | 2025-03-08 09:00 | XMS_ITS | Encounter Summary ---
Author Organization [employer] [facility] Address [address] [facility] [address] [place] [address] Care Team Providers Care Law Firm Receptionist Name Role Phone Unavailable Primary Care Provider Unavailabl e Reason for Visit * Reason Comments Extraction #[id number] Encounter Details Date Type Department Care Team (Late Contact Info) Description 03/08/2025 9:00 AM EDT Office Visit [facility] ADULT DENTAL [address] [place] [address] Spencer Rao DDS [address] [place] [address] Social History Tobacco Use Types Packs/Day Years [...] AM EDT documented as of this encounter Last Filed Vital Signs Vital Sign Reading Time Taken Comments Blood Pressure 128/76 03/08/2025 9:00 AM EDT Pulse 70 03/08/2025 9:00 AM EDT Temperature - - Respiratory Rate - - Oxygen Saturation - - Inhaled Oxygen Concentration - - Weight - - Height - - Body Mass Index - - documented in this encounter Plan of Treatment Upcoming Encounters Date Type Department Care Team (Late Contact Info) Description 05/10/2025 2:00 PM EDT Office Visit [facility]ULT [facility] [address] [place] [address] Spencer Rao DDS [address] [place] [address] Scheduled Orders Name Type Priority Associated Diagnoses Orde r Schedule CASE PRESENTATION, DETAILED AND EXTENSIVE TREATMENT PLANNING Dental Routine 1 Occurrences starting 03/08/2025 documented as of this encounter Visit Diagnoses Not on filedocumented in this encounter
--- NOTE | 2025-03-11 08:47 | MHC.OFFVIS ---
Intake Visit Reasons: 3m/PSA/Testo Intake Note: Patient is present for: 3mo follow up Urology Medication:TAMSULOSIN,TADALAFIL Blood Thinner:aspirin labs done 03/02/25: psa 1.00, total test 523, fr testo 64.3 Pe Electrical Engineer Required: No Accompanied by: Self / Same As Patient Allergies lisinopril Allergy (Severe, Verified 03/11/25 08:50) Angioedema canagliflozin (Invokana) Allergy (Unknown, Verified 03/11/25 08:50) polyuria quetiapine Adverse Reaction (Intermediate, Verified 03/11/25 08:50) sedation, fatigue liraglutide (Victoza) Adverse Reaction (Unknown, Verified 03/11/25 08:50) nausea, constipation HPI Comments Details: Bharath is a pleasant male. He is a patient of Dr. Capps. He is seen for the following urologic conditions - erectile dysfunction in setting of diabetes - BPH Has been on daily Cialis with on demand 20 mg Improved testosterone Improved diabetes control Weight loss with tirzepatide Six-month follow-up repeat labs Erectile dysfunction in setting of diabetes Background of diabetes Insulin dependent Prior medications include on demand tadalafil 20 mg Prior issues with ejaculation which could be secondary to antidepressants for diabetes Labs T 09/11 256, 03/14 523 1.0 Lower urinary tract symptoms Response to tamsulosin Minimal nocturia Effective emptying PSA 06/10 0.6 T 09/11 256 - borderline PFSH Medical History (Updated 03/11/25 @ 09:13 by Milton Barrera MD) Peripheral neuropathy Periodic limb movement Diabetic neuropathy Alcoholic dementia Rash and nonspecific skin eruption Cervicalgia Injury of right thumb Lumbar degenerative disc disease Vitamin D deficiency Hypersomnia Snoring Cognitive disorder Tubular adenoma of colon (~2019) BPH loc w urin obs/LUTS Frequency of urination Erectile dysfunction NAFLD (nonalcoholic fatty liver disease) Hepatitis C Hepatitis B Arthritis Alcohol abuse Depression Carpal tunnel syndrome Type 2 diabetes mellitus with diabetic neuropathy, unspecified (~2003) Essential hypertension Overweight (BMI 25.0-29.9) Surgical History History of rhinoplasty History of colonoscopy History of lumbar surgery History of cataract surgery History of excision of mass Family History Father Myocardial infarct Colon cancer Mother Diabetes Social History Household Members: Spouse Household Members Other:: Housing: House Alcohol intake: current Alcohol intake frequency: a few times a month Alcohol type: beer and hard liquor Patient Tobacco Use Status: Never used Tobacco e-Cigarette/Vaping Use: Never Used Substance Use Type: Crack/Cocaine Advance Directives Date on File: 07/20/24 service: Yes Current occupational status: disabled Current occupational exposures/hazards: No Cognitive needs: No Hearing needs: No Vision needs: No Review of Systems Const Denies chills and Denies fever(s) Card Reports no additional complaints and Denies syncope Resp Denies cough GI Denies abdominal pain and Denies heartburn Reports as per HPI and Denies change in libido Neuro Denies syncope Psych Denies change in libido Endo Denies change in libido Physical Exam Const General: cooperative, healthy appearing, comfortable and no acute distress Orientation/consciousness: patient oriented x3 HEENT Face and sinus: Yes normal facial exam Mouth: moist mucous membranes Neck Neck: Yes normal visual inspection, Yes full ROM and Yes trachea midline Chest Chest palpation & inspection: normal inspection of the chest Resp Effort & Inspection: normal respiratory effort, able to speak in complete sentences and no respiratory distress GI Inspection: Yes normal to inspection Back/Spine/Pelvis Cervical Spine: normal cervical lordosis Thoracic/Lumbar Spine: thoracic and lumbar spine normal to inspection Skin General skin exam: no rashes or lesions noted Neuro General: patient oriented x3, gait normal, tone normal and moves all extremities Extrem General: Yes normal to inspection and Yes capillary refill normal Assessment & Plan Assessment & Plan (1) BPH loc w urin obs/LUTS: Code(s): N40.1 - Benign prostatic hyperplasia with lower urinary tract symptoms Category: Medical (2) Erectile dysfunction associated with type 2 diabetes mellitus: Code(s): E11.69 - Type 2 diabetes mellitus with other specified complication; N52.1 - Erectile dysfunction due to diseases classified elsewhere Category: Medical Plan Six-month follow-up lab work Orders: Orders Testosterone, Total 5 Months N52.9 - Male erectile dysfunction, unspecified Medications: Changed From tadalafil 5 mg PO DAILY 90 days 90 tabs 0RF sexual activity E11.69 - Type 2 diabetes mellitus with other specified complication, N52.1 - Erectile dysfunction due to diseases classified elsewhere To tadalafil 5 mg PO DAILY@0730 90 tabs 1RF sexual activity 90 days E11.69 - Type 2 diabetes mellitus with other specified complication, N52.1 - Erectile dysfunction due to diseases classified elsewhere Refilled tadalafil On demand time of sexual activity 20 mg PO ONCE PRN 30 tabs 1RF sexual activity 90 days N52.9 - Male erectile dysfunction, unspecified Patient Instructions: This note is constructed using voice recognition software. While every effort has been made to ensure accuracy senior j2ee developer errors may have been included. Imaging studies, laboratory and physical exam results were discussed and reviewed in detail. No major barriers to patient understanding were identified. An opportunity to ask questions regarding the treatment plan was provided. All questions were answered. The patient expressed understanding and agreement with the above treatment plan. The patient is aware they should contact our office by phone for worsening of their current condition or the appearance of new urologic symptoms. Compliance is encouraged with any medications and followup testing that is ordered. It is a privilege to participate in the urologic care of your patient. If you have any questions or concerns regarding treatment for the above conditions, or other urologic issues, please do not hesitate to contact me. The office telephone contact is [phone]. Sincerely, Dr Milton Barrera MD, [facility] - Urology Compassionate Specialist Care for the Genitourinary System Coding Level of Care Code Est Pt Level 3 (36939) Complex EM visit Add On G2211 Diagnoses BPH loc w urin obs/LUTS N40.1 Erectile dysfunction associated with type 2 diabetes mellitus E11.69; N52.1
--- OUTSIDE RECORDS SUMMARY | 2025-03-11 08:59 | XMS_ITS | Clinical Summary ---
Author Organization [address] [place] [address] Address [address] [place] [address] Phone Care Team Providers Care Junior Architect Name Role Phone Hector Epps MD Primary [...] see if this helps. Ascending aortic aneurysm ([facility] V24) 05/06/20 Overview (04/15/2024): 4.5cm Last Assessment [...] this is required. Diabetic retinopathy (CMS/HCC V24, [facility]/HCC V28) 06/06/2021 Diabetes mellitus with kidne y complication (CMS/HCC V24, [facility]/HCC V28) 12/21/2020 Microalbuminuria 12/21/2020 Erectile [...] work-up and evaluation. History of substance abuse [place] [place] [id number]) 09/28/2015 Overview (04/15/2024): Cocaine, marijuana, some heroin Type 2 diabetes mellitus wit h cataract ([facility] [place], [facility] V28) 09/28/2015 Immunizations Name Administration Dates Next [...] HISTORICAL CATARACT REMOVAL NASAL SEPTUM SURGERY PROCEDURE: [place] REPAIR NASAL SEPTAL PERFORATIONS COLONOSCOPY 01/2020 PROCEDURE: HISTORICAL COLONOSCOPY; COMMENT: repeat 5 years polyp OTHER SURGICAL HISTORY 09/16/2022 PROCEDURE: UPPER GI ENDOSCOPY, REMOVE LESION; COMMENT: bowman -biopsies taken OTHER SURGICAL HISTORY PROCEDURE: PULMONOLOGY BRONCHOSCOPY; COMMENT: dr. kilgore -bronchoscopy and mediastinoscopy with mediastinal lymph node biopsies Medical History Medical History Date Comments History of substance abuse ( [facility] [place], [facility] [place]) 09/28/2015 DX:History of substance abus e ([facility]); COMMENT: Cocaine, marijuana, some heroin Chronic hepatitis C ([facility], [facility] V28) 11/05/2015 DX:Chronic hepatitis C (HCC) ; COMMENT: Genotype 1a Depression 11/05/2015 DX:Depression Cervical radiculopathy 11/05/2015 DX:Cervic al radiculopathy; COMMENT: recurrent CTS (carpal tunnel syndrome) 11/05/2015 DX: CTS (carpal tunnel syndrome); COMMENT: Right, NCV 06/03 Diabetes mellitus type 2 wit h neurological manifestations ([facility] V[facility], [facility] V28) 11/05/2015 DX:Diabetes mellitus type 2 with neurological manifestations (HCC) GERD (gastroesophageal reflu x disease) 11/05/2015 DX:GERD (gastroesophageal re flux disease) DJD (degenerative joint dise ase) of knee 11/05/2015 DX:DJD (degenerative joint d isease) of knee Type 2 diabetes mellitus wit h cataract ([facility] V24, [facility] V28) 09/28/2015 DX:Type 2 diabetes mellitus with [...] * Urine Albumin Creatinine Ratio (02/17/2024) Pathologist [facility] Urine Albumin Creatinine Ratio Abstracted Historical Provider MD HEALTH MAINTENANCE Final Result * Annual BMP Blood Test (02/17/2024) Pathologist [facility] Annual BMP Blood Test Abstracted Historical Provider HEALTH MAINTENANCE Final Result * Falls Risk Assessment (02/17/2024) Pathologist [facility] Falls Risk Assessment Abstracted Historical Provider HEALTH MAINTENANCE Final Result * Depression Screening (02/17/2024) [facility] Depression Screening Abstracted Result [facility] Provider HEALTH MAINTENANCE Final Result * (ABNORMAL) Hemoglobin A1c (02/17/2024) [facility] Hemoglobin A1C 7.4(A) <=6.5 % Blood Venous blood specimen / Unknown Result [facility] Provider LAB BLOOD ORDERABLES Zunilda l Result * Lipid panel (02/17/2024) [facility] LDL/HDL Ratio 3 0 - 4 Triglycerides 93 0 - 150 mg/dL Cholesterol 125 0 - 200 mg/dL HDL 48 >=40 mg/dL LDL Cholesterol 59 0 - 100 mg/dL Blood Venous blood specimen / Unknown Result [facility] Provider LAB BLOOD ORDERABLES Zunilda l Result * Diabetes Eye Exam (10/30/2023) [facility] Diabetes: Annual Retina Eye Exam Abstracted Result [facility] Provider HEALTH MAINTENANCE Final Result * Colonoscopy (01/28/2020) [facility] Colonoscopy No interpretation , Abstracted Anatomical Region Laterality Modality Other Result [facility] Provider HEALTH MAINTENANCE Final Result * Hepatitis C Screening (04/01/2016) [facility] Hepatitis C Screening Abstracted Result [facility] Provider HEALTH MAINTENANCE Final Result from Last 3 Months or Most Recently Relevant to Health Maintenance Insurance [employer] MEDICARE ADVANTAGE MEDICARE [facility] HEALTH PLAN MEDICAID - [place] Care Teams Junior Architect Relationship Specialty Start Date End Date Hector Epps MD [address] [place] [address] [place] [address] [place] PCP - General Internal Medicine 09/03/24
== END 2025-03-11 09:16 | disposition home or self-care (01) ==
LOC: HO.HUSH 08:47
PROVIDERS: PCP Physician Assistant; Visit Provider Urology
DX: N40.1 Benign prostatic hyperplasia with lower urinary tract symptoms (principal); E11.69 Type 2 diabetes mellitus with other specified complication; N52.1 Erectile dysfunction due to diseases classified elsewhere
CPT/HCPCS: 99213; G2211

== ENCOUNTER → 2025-03-11 08:46 | Outpatient (BNVA) | payer MEDICARE, OTHER, MEDICAID, SELFPAY | PROVIDERS: PCP Physician Assistant; Visit Provider Urology | DX: N40.1 Benign prostatic hyperplasia with lower urinary tract symptoms (principal); E11.69 Type 2 diabetes mellitus with other specified complication; N52.1 Erectile dysfunction due to diseases classified elsewhere | CPT/HCPCS: 99212 ==

== ENCOUNTER 2025-04-25 08:32 | Outpatient (AMB) | payer MEDICARE, OTHER, MEDICAID, SELFPAY ==
--- NOTE | 2025-04-25 08:40 | A.OFFVIS_ITS ---
Vital Signs 04/25/25 08:42 Height 5 ft 10 in Weight 175 lb 14.862 oz BMI 25.2 BP 108/64 Blood Pressure Location Lt brachial Position Sitting Pulse 84 Pulse Source Pulse Oximeter Pulse Oximetry (%) 98 Oxygen Delivery Method Room Air Intake Visit Reasons: Type 2 Diabetes Intake Note: Patient present today for Type 2 Diabetes Mellitus Last Diabetic eye exam: Has an appointment coming up this month Last Podiatry Visit: No longer sees a Home Health Care Social Worker Random Glucose: 161 mg/dl HgA1C: 6.9% 03/02/25 Direct Care Worker Required: No Accompanied by: Self / Same As Patient Allergies lisinopril Allergy (Severe, Verified 04/25/25 08:48) Angioedema canagliflozin (Invokana) Allergy (Unknown, Verified 04/25/25 08:48) polyuria quetiapine Adverse Reaction (Intermediate, Verified 04/25/25 08:48) sedation, fatigue liraglutide (Victoza) Adverse Reaction (Unknown, Verified 04/25/25 08:48) nausea, constipation Medication List - Last Reconciled 04/25/25 by Kate Dyer PA-C amlodipine 10 mg PO DAILY bisacodyl (Dulcolax (bisacodyl)) 20 mg (4 x 5 mg) PO ONCE 1 day blood sugar diagnostic (Accu-Chek Guide test strips) As directed tests 4 X/day blood sugar diagnostic (Accu-Chek Letty Plus test strips) Use once daily as directed to monitor blood sugars blood-glucose meter (Accu-Chek Guide Glucose Meter) As directed tests 4 X/day blood-glucose sensor (Dexcom G7 Sensor device) As directed change every 10 days blood-glucose,dock clerk,cont (Dexcom G7 Dry Press Operator Helper) As directed bupropion HCl XL 150 mg PO QAM cholecalciferol (vitamin D3) (Vitamin D3) 50 mcg PO DAILY cyclobenzaprine 10 mg PO BEDTIME PRN diclofenac sodium 50 mg PO Q12H PRN fluoxetine 60 mg PO QAM folic acid 1 mg PO DAILY insulin aspart (niacinamide) 100 unit/mL 2 clicks subcutaneous with meals. Up to 76 units via V Go subcut daily; 30 days lancets 4x daily lancets (Accu-Chek Fastclix Lancet Drum) TEST FOUR TIMES A DAY DIRECTED metoprolol succinate ER 25 mg PO DAILY mirtazapine 7.5 mg PO BEDTIME polyethylene glycol 3350 (Miralax) 17 grams PO DAILY 1 day quetiapine 25 mg PO BEDTIME semaglutide (Ozempic) 0.25 mg (0.368 mL) subcut QWEEK sub-q insulin device, 20 unit (V-GO 20 device) ONE DAILY tadalafil 5 mg PO DAILY@0730 90 days tadalafil 20 mg PO ONCE PRN 90 days tamsulosin 0.4 mg orally periodically; thiamine mononitrate (vit B1) 100 mg PO DAILY HPI HPI Type 2 Diabetes: Details: Patient is a 63 year old male with DM type 2 diagnosed in 2003 , who presents for management of diabetes. He last followed with Dr. Cabrera. Past medical history: DM2, HTN, GERD, NAFLD, hepatitis C, lower back pain due to herniated disc L5 Micro and macrovascular complications: + proliferative retinopathy, +, neuropathy Diabetes medications: Fiasp via V-GO 20 with 2 clicks with small meals, 3 clicks with larger meals. Only 1 click for correction blood glucose over 300. Taking mounjaro 2.5 units weekly decreased from 5. stopped metformin-intolerant -he was decreased on the Mounjaro due to weight loss. He states that he did not like how ?skinny ?. It made him. When he was on the higher dose his blood sugars were better. He is overall noncompliant with the Fiasp. He states that he often forgets and then has to inject after he has eaten. He also states sometimes he just does not want to take medications. He is compliant with the Mounjaro. CGM-dexcom- usage 70%, variability 41%. Very hyperglycemic 26%, hyperglycemic 32%, in range 42%, 0% hypoglycemia Hypoglycemia: none Exercise: walking over 30 minutes Sanding Machine Tender Automatic - CDE education: Yes Home Health Care Social Worker: denies Ophthalmology evaluation: UTD CV: bp today in office is 108/64. He is currently managed on amlodipine 10 mg daily, metoprolol 25 mg daily. Cholesterol has been managed with diet. Last LDL was 86. [facility] Medical History (Updated 04/25/25 @ 08:48 by Kate Dyer PA-C) Peripheral neuropathy Periodic limb movement Diabetic neuropathy Alcoholic dementia Rash and nonspecific skin eruption Cervicalgia Injury of right thumb Lumbar degenerative disc disease Vitamin D deficiency Hypersomnia Snoring Cognitive disorder Tubular adenoma of colon (~2019) BPH loc w urin obs/LUTS Frequency of urination Erectile dysfunction NAFLD (nonalcoholic fatty liver disease) Hepatitis C Hepatitis B Arthritis Alcohol abuse Depression Carpal tunnel syndrome Type 2 diabetes mellitus with diabetic neuropathy, unspecified (~2003) Essential hypertension Overweight (BMI 25.0-29.9) Surgical History History of rhinoplasty History of colonoscopy History of lumbar surgery History of cataract surgery History of excision of mass Family History Father Myocardial infarct Colon cancer Mother Diabetes Social History Household Members: Spouse Household Members Other:: Housing: House Alcohol intake: current Alcohol intake frequency: a few times a month Alcohol type: beer and hard liquor Patient Tobacco Use Status: Never used Tobacco e-Cigarette/Vaping Use: Never Used Substance Use Type: Crack/Cocaine Advance Directives Date on File: 07/20/24 service: Yes Current occupational status: disabled Current occupational exposures/hazards: No Cognitive needs: No Hearing needs: No Vision needs: No Physical Exam Const Orientation/consciousness: patient oriented x3 HEENT Ears: hearing grossly normal bilaterally Neck Thyroid: Thyroid normal Lymphatic: no lymphadenopathy noted Resp Auscultation: clear to auscultation bilaterally Cardio Rate: regular rate Rhythm: regular rhythm Heart sounds: S1 normal heart sound present and S2 normal heart sound present Skin General skin exam: no rashes or lesions noted Neuro General: patient oriented x3, gait normal and no focal motor deficits Results Reviewed Results Reviewed: Laboratory Tests 01/24/25 03/02/25 08:10 09:24 Estimat Average Glucose 151 Hemoglobin A1c % 6.9 H Triglycerides 141 Cholesterol 151 LDL Cholesterol, Calc 64 HDL Cholesterol 59 Assessment & Plan Assessment & Plan (1) Type 2 diabetes mellitus with diabetic neuropathy, unspecified: Onset Date: ~2003 Code(s): E11.40 - Type 2 diabetes mellitus with diabetic neuropathy, unspecified Category: Medical Qualifiers: Diabetes mellitus fpc insulin use: with fpc use Qualified Code(s): E11.40 - Type 2 diabetes mellitus with diabetic neuropathy, unspecified; Z79.4 - exterminator (current) use of insulin Plan: We reviewed the complications associated with uncontrolled diabetes including but not limited to risk of stroke, heart attack, kidney disease, blindness, amputations, worsened neuropathy etc.. We will switch from Mounjaro to Ozempic. He will be compliant with the Fiasp He will do a shorter follow up or sooner if needed. (2) Essential hypertension: Code(s): I10 - Essential (primary) hypertension Category: Medical Plan: BP WNL. Continue current regimen Medications: New semaglutide (Ozempic) 0.25 mg (0.368 mL) subcut QWEEK 3 mL 4RF Discontinued tirzepatide Discontinued Reason: Doctor's Order 2.5 mg (0.5 mL) subcut QWEEK 6 mL 3RF NS E11.40 - Type 2 diabetes mellitus with diabetic neuropathy, unspecified, Z79.4 - nursing home (current) use of insulin Patient Instructions: switch from mounjaro to ozempic call me if any side effects Coding Level of Care Code Est Pt Level 4 (91205) Complex EM visit Add On G2211 Diagnoses Type 2 diabetes mellitus with diabetic neuropathy, with long-term current use of insulin E11.40; Z79.4 Diabetes mellitus superintendent marine oil terminal insulin use: with superintendent marine oil terminal use Essential hypertension I10
[2025-04-25 08:42] VITALS: BP 108/64; PULSE 84; O2SAT 98; BMI 25.2
[2025-04-25 08:50] LABS: Glucose, Whole Blood 161 mg/dL (60-115)
--- OUTSIDE RECORDS SUMMARY | 2025-04-25 09:10 | XMS_ITS | Encounter Summary ---
Author Organization [employer] Address [address] [facility] [address] [place] [address] Care Team Providers Care Bench Assembly Inspector Name Role Phone Unavailable Primary Care Provider Unavailabl e Reason for Visit * Reason Onset Date Comments insurance appt 12/25/2023 Encounter Details Date Type Department Care Team (Late st Contact Info) Description 12/25/2023 Telephone [facility] ADULT DENTAL [address] [place], [place] [phone] David Grayson insurance appt Social History Tobacco [...] Rawls - 12/25/2023 2:56 PM EDT [facility]. He says he has [employer] inurance. Patient was asked who is the insurance company that carries the insurance and he said [employer]. Asked again which is the insurance company that carries the insurance and patient hung up. Unsure of insurance coverage DR Bill front desk coordinator aware documented in this encounter Plan of Treatment Upcoming Encounters Date Type Department Care Team (Late st Contact Info) Description 05/10/2025 2:00 PM EDT Office Visit [facility] ADULT DENTAL [address] [place], [place] [phone] Spencer Rao DDS [address], [place] [phone] documented as of this encounter Visit Diagnoses Not on filedocumented in this encounter
--- OUTSIDE RECORDS SUMMARY | 2025-04-25 09:10 | XMS_ITS | Encounter Summary ---
Author Organization [employer] [facility] Address [address] [facility] 7[address] [place] [address] Care Team Providers Care Template Checker Name Role Phone Unavailable Primary Care Provider Unavailabl e Encounter Details Date Type Department Care Team (Late st Contact Info) Description 07/30/2024 Telephone [facility] ADULT DENTAL [address] [place] [address] Spencer Rao DDS [address] [place] [address] Social History Tobacco Use Types Packs/Day Years [...] Description 05/10/2025 2:00 PM EDT Office Visit [facility] ADULT DENTAL [address] [place] [address] Spencer Rao DDS [address] [place] [address] documented as of this encounter Visit Diagnoses Not on filedocumented in this encounter
--- OUTSIDE RECORDS SUMMARY | 2025-04-25 09:10 | XMS_ITS | Clinical Summary ---
Author Organization [address] [place] [address] Address [address] [place] [address] Phone Care Team Providers Care Delivery Technician Name Role Phone Hector Epps MD Primary [...] see if this helps. Ascending aortic aneurysm ([facility] V24) 05/06/20 Overview (04/15/2024): 4.5cm Last Assessment [...] this is required. Diabetic retinopathy (CMS/HCC V24, [facility]/HCC V28) 06/06/2021 Diabetes mellitus with kidne y complication (CMS/HCC V24, [facility]/HCC V28) 12/21/2020 Microalbuminuria 12/21/2020 Erectile [...] work-up and evaluation. History of substance abuse ([facility] V24, [place] [id number]) 09/28/2015 Overview (04/15/2024): Cocaine, marijuana, some heroin Type 2 diabetes mellitus wit h cataract ([facility] V24, [facility] V28) 09/28/2015 Immunizations Immunization Administration Dates Next Due Influenza Quadravalent, MDCK [...] HISTORICAL CATARACT REMOVAL NASAL SEPTUM SURGERY PROCEDURE: CA REPAIR NASAL SEPTAL PERFORATIONS COLONOSCOPY 01/2020 PROCEDURE: HISTORICAL COLONOSCOPY; COMMENT: repeat 5 years polyp OTHER SURGICAL HISTORY 09/16/2022 PROCEDURE: UPPER GI ENDOSCOPY, REMOVE LESION; COMMENT: bowman -biopsies taken OTHER SURGICAL HISTORY PROCEDURE: PULMONOLOGY BRONCHOSCOPY; COMMENT: dr. kilgore -bronchoscopy and mediastinoscopy with mediastinal lymph node biopsies Medical History Medical History Date Comments History of substance abuse ( [facility] V24, [facility] V28) 09/28/2015 DX:History of substance abus e ([facility]); COMMENT: Cocaine, marijuana, some heroin Chronic hepatitis C ([facility] V24, [facility] V28) 11/05/2015 DX:Chronic hepatitis C (HCC) ; COMMENT: Genotype 1a Depression 11/05/2015 DX:Depression Cervical radiculopathy 11/05/2015 DX:Cervic al radiculopathy; COMMENT: recurrent CTS (carpal tunnel syndrome) 11/05/2015 DX: CTS (carpal tunnel syndrome); COMMENT: Right, NCV 06/03 Diabetes mellitus type 2 wit h neurological manifestations ([facility] V24, [facility] V28) 11/05/2015 DX:Diabetes mellitus type 2 with neurological manifestations (HCC) GERD (gastroesophageal reflu x disease) 11/05/2015 DX:GERD (gastroesophageal re flux disease) DJD (degenerative joint dise ase) of knee 11/05/2015 DX:DJD (degenerative joint d isease) of knee Type 2 diabetes mellitus wit h cataract ([facility] V24, [facility] V28) 09/28/2015 DX:Type 2 diabetes mellitus with [...] 06/29/2022 Social Influencers of Health Screening 06/29/2022 Depression Screening 07/21/2024 02/17/2024 Diabetes: Blood Sugar Control Test (HGBA1C) 08/19/2024 02/17/2024, 02/17/2024 Diabetes: Annual Retina Eye Exam 10/29/2024 10/30/2023 Colorectal Cancer Screening: Colonoscopy 01/27/2025 01/28/2020 Diabetes: Annual Urine Albumin-Creatinine Ratio (uACR) 02/16/2025 02/17/2024 Diabetes: Annual GFR (Glomerular Filtration Rate) 02/16/2025 02/17/2024, 02/17/2024 Falls Risk Assessment 02/16/2025 02/17/2024 Hypertension/CHF/CAD Annual BMP Blood Test 02/16/2025 02/17/2024, 02/17/2024 COVID-19 Vaccine ( season) 2025 Influenza Vaccine (#1) 2025 , 04/18/2022, 04/19/2020, [...] * Urine Albumin Creatinine Ratio (02/17/2024) Pathologist [facility] Urine Albumin Creatinine Ratio Abstracted Historical Provider MD HEALTH MAINTENANCE Final Result * Annual BMP Blood Test (02/17/2024) Pathologist [facility] Annual BMP Blood Test Abstracted Historical Provider HEALTH MAINTENANCE Final Result * Falls Risk Assessment (02/17/2024) Pathologist [facility] Falls Risk Assessment Abstracted Historical Provider HEALTH MAINTENANCE Final Result * Depression Screening (02/17/2024) [facility] Depression Screening Abstracted Result [facility] Provider HEALTH MAINTENANCE Final Result * (ABNORMAL) Hemoglobin A1c (02/17/2024) [facility] Hemoglobin A1C 7.4(A) <=6.5 % Blood Venous blood specimen / Unknown Result [facility] Provider LAB BLOOD ORDERABLES Zunilda l Result * Lipid panel (02/17/2024) [facility] LDL/HDL Ratio 3 0 - 4 Triglycerides 93 0 - 150 mg/dL Cholesterol 125 0 - 200 mg/dL HDL 48 >=40 mg/dL LDL Cholesterol 59 0 - 100 mg/dL Blood Venous blood specimen / Unknown Result [facility] Provider LAB BLOOD ORDERABLES Zunilda l Result * Diabetes Eye Exam (10/30/2023) [facility] Diabetes: Annual Retina Eye Exam Abstracted Result [facility] Provider HEALTH MAINTENANCE Final Result * Colonoscopy (01/28/2020) [facility] Colonoscopy No interpretation , Abstracted Anatomical Region Laterality Modality Other Result [facility] Provider HEALTH MAINTENANCE Final Result * Hepatitis C Screening (04/01/2016) [facility] Hepatitis C Screening Abstracted Result [facility] Provider HEALTH MAINTENANCE Final Result from Last 3 Months or Most Recently Relevant to Health Maintenance Insurance [employer] MEDICARE ADVANTAGE MEDICARE [facility] HEALTH [facility]AN MEDICAID - [place] Care Teams Delivery Technician Relationship Specialty Start Date End Date Hector Epps MD [address] [place] [address] [place] [address] [place] PCP - General Internal Medicine 09/03/24
--- OUTSIDE RECORDS SUMMARY | 2025-04-25 09:10 | XMS_ITS | Encounter Summary ---
Author Organization [employer] Address [address] [facility] [address] [place] [address] Care Team Providers Care Ultrasound Manager Name Role Phone Unavailable Primary Care Provider Unavailabl e Reason for Visit * Reason Onset Date Comments Appointment 03/13/2023 Encounter Details Date Type Department Care Team (Late st Contact Info) Description 03/13/2023 Telephone [facility] ADULT DENTAL [address] [place], [place] [phone] Dinah Mckinley DDS [address], [place] [phone] Appointment Social History Tobacco Use Types Packs/Day [...] did offer the patient an appt in [place] with the understanding that he would become a [facility] patient but he is unwilling to go to [facility]. He wants to know why hes being told that he needs to come in and then listed. Tried my best to explain. Would like his appt or phone call. documented in this encounter Plan of Treatment Upcoming Encounters Date Type Department Care Team (Late st Contact Info) Description 05/10/2025 2:00 PM EDT Office Visit [facility] ADULT DENTAL [address], [place] [phone] Spencer Rao DDS [address] [place] [address] documented as of this encounter Visit Diagnoses Not on filedocumented in this encounter
--- OUTSIDE RECORDS SUMMARY | 2025-04-25 09:10 | XMS_ITS | Clinical Summary ---
Author Organization [employer] Address [address] [facility] [address] [place] [address] Care Team Providers Care Gate Keeper Name Role Phone Unavailable Primary Care Provider [...] further work-up and evaluation. Chronic hepatitis C (CMS/HCC) 11/05/2015 Overview (08/05/2024): Genotype 1a Tx with antivirals, SVR achieved History of substance abuse (CMS/HCC) 09/28/2015 Overview (08/05/2024): Cocaine, marijuana, some heroin Type 2 diabetes mellitus with cataract 6 Arthritis 09/14/2013 Diabetes mellitus 09/14/2013 Hepatitis C 09/14/2013 Encounters Date Type Department Care Team Description 03/08/2025 9:00 AM EDT Office Visit [facility] ADULT DENTAL [address] [place] [address] Spencer Rao DDS 01/25/2025 10:00 AM EDT Office Visit [facility] ADULT DENTAL [address] [place] [address] Spencer Rao DDS from Last 3 Months [...] Description 05/10/2025 2:00 PM EDT Office Visit [facility] ADULT DENTAL [address] [place] [address] Spencer Rao DDS [address] [place] [address] Health Maintenance Due Date Last Done Comments Anal Pap [address] CT Colonography 1958 Colonoscopy 1958 Colorectal Cancer [...] - Risk 60-74 years 1-dose series) 2018 Diabetes: Hemoglobin A1C 05/19/2024 02/17/2024 Dental Oral Exam 07/03/2024 01/01/2024, , 09/27/2014, Additional history exists Dental Prophylaxis 07/03/2024 01/01/2024, 01/04/2014 Dental X-Ray: Bitewings 01/01/2025 01/01/20 24, 03/14/2020, 09/03/2019, Additional history exists COVID-19 Vaccine ( season) 2025 Influenza Vaccine (#1) 2025 , 05/09/2023, 04/18/2022, Additional history exists DTaP/Tdap/Td Vaccines (2 - Td or Tdap) 12/10/2025 12/11/2015 Tobacco Screening 03/08/2026 03/08/2025 Dental X-Ray: Full Mouth 01/01/2027 024, 09/03/2019, [...] Procedure Name Priority Date/Time Associated Diagnosis Comments CASE PRESENTATION, DETAILED AND EXTENSIVE TREATMENT PLANNING Routine 03/08/2025 9:00 AM EDT 32 EXTRACTION, ERUPTED TOOTH OR EXPOSED ROOT (ELEVATION/FORCEPS REMOVAL) Routine 03/08/2025 9:00 AM EDT DENTURE FOLLOWUP Routine 01/25/2025 10:0 0 AM EDT PROPHYLAXIS - ADULT Routine 01/01/2024 1 0:00 AM EDT INTRAORAL - COMPLETE SERIES OF RADIOGRAPHIC IMAGES Routine 01/01/2024 10:00 AM EDT PERIODIC ORAL EVALUATION - ESTABLISHED PATIENT Routine 01/01/2024 10:00 AM EDT from Last 3 Months or Most Recently Relevant to Health Maintenance Insurance AETNA MEDICARE REPLACEMENT [facility]AL-[facility] MEDICAID STAND ADULT DENTAL - [employer]ET[employer] DENTAL PPO
== END 2025-04-25 08:58 | disposition home or self-care (01) ==
LOC: HO.ENCR 08:33
PROVIDERS: PCP Internal Medicine; Visit Provider Physician Assistant
DX: E11.40 Type 2 diabetes mellitus with diabetic neuropathy, unspecified (principal); Z79.4 Long term (current) use of insulin; I10 Essential (primary) hypertension

== ENCOUNTER → 2025-04-25 08:32 | Outpatient (BNVA) | payer MEDICARE, OTHER, MEDICAID, SELFPAY | PROVIDERS: PCP Internal Medicine; Visit Provider Physician Assistant | DX: E11.40 Type 2 diabetes mellitus with diabetic neuropathy, unspecified (principal); E11.3599 Type 2 diabetes mellitus with proliferative diabetic retinopathy without macular edema, unspecified eye; I10 Essential (primary) hypertension; K21.9 Gastro-esophageal reflux disease without esophagitis; Z79.899 Other long term (current) drug therapy | CPT/HCPCS: 82947; 99212 ==

== ENCOUNTER 2025-05-19 14:53 | Outpatient (RCR) | payer MEDICARE, OTHER, MEDICAID, SELFPAY ==
--- NOTE | 2025-06-29 08:55 | MHC.PT.DC ---
[facility] [place] Office [place] Office [place] Office [address] Kathia Knutson [address] [phone] F: [phone] F: [phone] F: [phone] F: [phone] Physical Therapy Discharge Report Diagnosis: RIGHT SHOULDER PAIN (KP) Date of Surgery: Date of Evaluation: 05/04/25 Date of Discharge: Treatments to Date: 3 Cancellations to Date: 0 No Shows to Date: 0 Discharge Status: Achieved Goals Improved Function Independent with HEP Patient Elected to Stop Discharge Summary: Pt phoned to cancel remaining visits, he states he is doing well at this time. He has been issued a comprehensive home stretching and strengthening which he can pursue independently for self management of symptoms. Electronically signed by: Sharon Price PT DPT Please sign and return to therapist. Thank you for your referral.
== END 2025-06-29 08:55 | disposition home or self-care (01) ==
LOC: HO.PT 14:53
PROVIDERS: PCP Internal Medicine; Visit Provider Internal Medicine
DX: M25.511 Pain in right shoulder (principal)
CPT/HCPCS: 97110; 97140; 97161; 97535

== ENCOUNTER 2025-05-24 13:28 | Outpatient (AMB) | payer MEDICARE, OTHER, MEDICAID, SELFPAY ==
--- NOTE | 2025-05-24 13:37 | A.OFFPC_ITS ---
Vital Signs 05/24/25 13:38 Height 5 ft 10 in Weight 175 lb 2 oz BMI 25.1 BP 110/68 Blood Pressure Location Rt brachial Position Sitting Pulse 61 Pulse Source Pulse Oximeter Temp 97.1 F Temp Source Temporal Artery Scan Pulse Oximetry (%) 99 Oxygen Delivery Method Room Air Intake Visit Reasons: 3 mo follow up Quality Compliance Coordinator Required: No Regulatory Scientist: Present Accompanied by: Daughter Allergies lisinopril Allergy (Severe, Verified 05/24/25 14:30) Angioedema canagliflozin (Invokana) Allergy (Unknown, Verified 05/24/25 14:30) polyuria quetiapine Adverse Reaction (Intermediate, Verified 05/24/25 14:30) sedation, fatigue liraglutide (Victoza) Adverse Reaction (Unknown, Verified 05/24/25 14:30) nausea, constipation Medication List - Last Reconciled 05/24/25 by Hector Epps MD amlodipine 10 mg PO DAILY bisacodyl (Dulcolax (bisacodyl)) 20 mg (4 x 5 mg) PO ONCE 1 day blood sugar diagnostic (Accu-Chek Guide test strips) As directed tests 4 X/day blood sugar diagnostic (Accu-Chek Letty Plus test strips) Use once daily as directed to monitor blood sugars blood-glucose meter (Accu-Chek Guide Glucose Meter) As directed tests 4 X/day blood-glucose sensor (DexMeteor G7 Sensor device) As directed change every 10 days blood-glucose,hogshead roller,cont (Dexcom G7 Lotus Notes Administrator) As directed bupropion HCl XL 150 mg PO QAM cholecalciferol (vitamin D3) (Vitamin D3) 50 mcg PO DAILY cyclobenzaprine 10 mg PO BEDTIME PRN diclofenac sodium 50 mg PO Q12H PRN fluoxetine 60 mg PO QAM folic acid 1 mg PO DAILY insulin aspart (niacinamide) 100 unit/mL 2 clicks subcutaneous with meals. Up to 76 units via V Go subcut daily; 30 days lancets 4x daily lancets (Accu-Chek Fastclix Lancet Drum) TEST FOUR TIMES A DAY DIRECTED metoprolol succinate ER 25 mg PO DAILY mirtazapine 7.5 mg PO BEDTIME polyethylene glycol 3350 (Miralax) 17 grams PO DAILY 1 day quetiapine 25 mg PO BEDTIME semaglutide (Ozempic) 0.25 mg (0.368 mL) subcut QWEEK sub-q insulin device, 20 unit (V-GO 20 device) ONE DAILY tadalafil 5 mg PO DAILY@0730 90 days tadalafil 20 mg PO ONCE PRN 90 days tamsulosin 0.4 mg orally periodically; thiamine mononitrate (vit B1) 100 mg PO DAILY Tobacco use date assessed: 05/24/25 Fall risk assessment: No Falls in past year Last assessed Fall Risk: 05/24/25 Dental Screening Dental Screen Date: 05/24/25 [facility] Medical History (Updated 04/25/25 @ 08:48 by Kate Dyer PA-C) Peripheral neuropathy Periodic limb movement Diabetic neuropathy Alcoholic dementia Rash and nonspecific skin eruption Cervicalgia Injury of right thumb Lumbar degenerative disc disease Vitamin D deficiency Hypersomnia Snoring Cognitive disorder Tubular adenoma of colon (~2019) BPH loc w urin obs/LUTS Frequency of urination Erectile dysfunction NAFLD (nonalcoholic fatty liver disease) Hepatitis C Hepatitis B Arthritis Alcohol abuse Depression Carpal tunnel syndrome Type 2 diabetes mellitus with diabetic neuropathy, unspecified (~2003) Essential hypertension Overweight (BMI 25.0-29.9) Surgical History History of rhinoplasty History of colonoscopy History of lumbar surgery History of cataract surgery History of excision of mass Family History Father Myocardial infarct Colon cancer Mother Diabetes Social History Household Members: Spouse Household Members Other:: Housing: House Alcohol intake: current Alcohol intake frequency: a few times a month Alcohol type: beer and hard liquor Patient Tobacco Use Status: Never used Tobacco e-Cigarette/Vaping Use: Never Used Second Hand Smoke Exposure: No Substance Use Type: Crack/Cocaine Advance Directives Date on File: 07/20/24 service: Yes Current occupational status: disabled Current occupational exposures/hazards: No Cognitive needs: No Hearing needs: No Vision needs: No Questionnaire PHQ-9 Over the last 2 weeks, how often have you been bothered by any of the following problems? 1. Little interest or pleasure in doing things: several days 2. Feeling down, depressed, or hopeless: several days 3. Trouble falling or staying asleep, or sleeping too much: more than half the days 4. Feeling tired or having little energy: more than half the days 5. Poor appetite or overeating: more than half the days 6. Feeling bad about yourself - or that you are a failure or have let yourself or your family down: more than half the days 7. Trouble concentrating on things, such as reading the newspaper or watching television: more than half the days 8. Moving or speaking so slowly that other people could have noticed. Or the opposite - being so fidgety or restless that you have been moving around a lot more than usual: more than half the days 9. Thoughts that you would be better off or of hurting yourself in some way: not at all Total score: 14 Source: Developed by Drs. Lee Gould, Shaina Amato, Darryn Landaverde and colleagues, with an educational lashawn from [employer]. Thrive Questionnaire Date Thrive assessed: 05/24/25 I am a: Patient What is your living situation today?: I have a steady place to live Within the past 12 months, did the food you bought not last and you didn't have the money to get more?: Never true Within the past 12 months, did you worry whether your food would run out before you got money to buy more?: Never true Do you have trouble paying for medicines?: No Do you have trouble getting transportation to medical appointments?: No Do you have trouble paying your heating and electricity bill?: No Do you have trouble taking care of your child, family member or friend?: No Do you have trouble with day-to-day activities such as bathing, preparing meals, shopping, managing finances, etc.?: No Are you currently unemployed and looking for a job?: No Are you interested in more education?: No Please select the resources that you would like help with: None Currently or been in a relationship where the following occur: No concerns reported THRIVE Score: 0 AUDIT C Alcohol Use Questionnaire (AUDIT-C) 1. How often do you have a drink containing alcohol?: 2-3 times a week 2. How many drinks containing alcohol do you have on a typical day when you are drinking?: 1 or 2 3. How often do you have six or more drinks on one occasion?: Never Total Score: 3 Score Reviewed/Action Taken: Yes ANGEL LUIS-7 AMB Questionnaire ANGEL LUIS-7 Date ANGEL LUIS - 7 assessed: 05/24/25 Feeling nervous, anxious, or on edge: 1 = Several days Not being able to stop or control worryin = Several days Worrying too much about different things: 1 = Several days Trouble relaxin = Several days Being so restless that it is hard to sit still: 1 = Several days Becoming easily annoyed or irritable: 1 = Several days Feeling afraid as if something awful might happen: 1 = Several days Total ANGEL LUIS-7 score (0-4 normal; 5-9 mild; 10-14 moderate; 15-21 severe): 7 Source: Developed by Drs. Lee Gould, Shaina Amato, Darryn Landaverde and colleagues, with an educational lashawn from [employer]. Physical exam (Primary Care) Vital Signs: Last Vital Signs Temp 97.1 F 05/24/25 13:38 Pulse 61 05/24/25 13:38 BP 110/68 05/24/25 13:38 Pulse Ox 99 05/24/25 13:38 Oxygen Delivery Method Room Air 05/24/25 13:38 BMI result Body Mass Index 25.1 Tobacco/Smoking Status: Tobacco use Status Tobacco use date assessed 05/24/25 05/24/25 13:47 Patient Tobacco Use Status Never used Tobacco 05/24/25 13:40 e-Cigarette/Vaping Use Never Used 05/24/25 13:40 PHQ-9: PHQ-9 Score PHQ-9: Total score 14 05/24/25 14:04 Thrive Assessment: Date of Thrive Assessment Date Thrive assessed 05/24/25 05/24/25 13:47 Currently or been in a relationship where the following occur: No concerns reported Results AMB Hemoglobin A1c AMB Hemoglobin A1c 7.0 % Last Edit by MARITA Palafox on 05/24/25 14:10 Results Reviewed Results Reviewed: Laboratory Last Values Hgb A1c (Clinic) 7.0 % (4.0-6.0) H 05/24/25 13:56 Coding Assessment & Plan Assessment & Plan Orders: Orders AMB Hemoglobin A1c Today E11.40 - Type 2 diabetes mellitus with diabetic neuropathy, unspecified, Z79.4 - shelter (current) use of insulin Medications: Changed From amlodipine 10 mg PO DAILY To amlodipine 5 mg PO DAILY 30 tabs 3RF 30 days From cholecalciferol (vitamin D3) (Vitamin D3) 50 mcg PO DAILY E11.65 - Type 2 diabetes mellitus with hyperglycemia, Z79.4 - superintendent container terminal (current) use of insulin To cholecalciferol (vitamin D3) (Vitamin D3) 50 mcg PO DAILY 90 caps 3RF 90 days E11.65 - Type 2 diabetes mellitus with hyperglycemia, Z79.4 - superintendent container terminal (current) use of insulin Refilled metoprolol succinate ER 25 mg PO DAILY 90 tabs 1RF mirtazapine 7.5 mg PO BEDTIME 30 tabs 6RF bupropion HCl XL 150 mg PO QAM 90 tabs 1RF
[2025-05-24 13:38] VITALS: BP 110/68; PULSE 61; TEMP 36.2; O2SAT 99; BMI 25.1
--- OUTSIDE RECORDS SUMMARY | 2025-05-24 16:30 | XMS_ITS | Encounter Summary ---
Author Organization [employer] Address [address] [place] [address] Care Team Providers Care Housing Installer Name Role Phone Unavailable Primary Care Provider Unavailabl e Reason for Visit * Reason Onset Date Comments insurance appt 12/25/2023 Encounter Details Date Type Department Care Team (Late st Contact Info) Description 12/25/2023 Telephone [facility] [address] [facility] [place] [address] David Grayson insurance appt Social History Tobacco [...] Rawls - 12/25/2023 2:56 PM EDT Patient [employer] is not active. He says he has [employer] inurance. Patient was asked who is the insurance company that carries the insurance and he said [employer]. Asked again which is the insurance company that carries the insurance and patient hung up. Unsure of insurance coverage DR Bill front maker aware documented in this encounter Plan of Treatment Not on file documented as of this encounter Visit Diagnoses Not on filedocumented in this encounter
--- OUTSIDE RECORDS SUMMARY | 2025-05-24 16:30 | XMS_ITS | Encounter Summary ---
Author Organization [employer] Address [address] [facility] 7t [place] [address] Care Team Providers Care Life Advisor Name Role Phone Unavailable Primary Care Provider Unavailabl e Encounter Details Date Type Department Care Team (Late st Contact Info) Description 07/30/2024 Telephone C ADULT DENTAL [address], [place] [phone] Spencer Rao DDS [address], [place] [phone] Social History Tobacco Use Types Packs/Day Years [...]
--- OUTSIDE RECORDS SUMMARY | 2025-05-24 16:30 | XMS_ITS | Encounter Summary ---
Author Organization [employer] Address [address] [facility] 7t [place] [address] Care Team Providers Care Refueling Rampman Name Role Phone Unavailable Primary Care Provider Unavailabl e Reason for Visit * Reason Onset Date Comments Appointment 03/13/2023 Encounter Details Date Type Department Care Team (Late st Contact Info) Description 03/13/2023 Telephone C ADULT DENTAL [address], [place] [phone] Dinah Mckinley DDS [address], [place] [phone] Appointment Social History Tobacco Use Types Packs/Day [...] did offer the patient an appt in [place] with the understanding that he would become a [place] patient but he is unwilling to go to [facility]. He wants to know why hes being told that he needs to come in and then listed. Tried my best to explain. Would like his appt or phone call. documented in this encounter Plan of Treatment Not on file documented as of this encounter Visit Diagnoses Not on filedocumented in this encounter
--- OUTSIDE RECORDS SUMMARY | 2025-05-24 16:30 | XMS_ITS | Clinical Summary ---
Author Organization [employer] Address [address] [facility] 7t [place] [address] Care Team Providers Care Mounter Hand Name Role Phone Unavailable Primary Care [...] Description 03/08/2025 9:00 AM EDT Office Visit [facility] ADULT DENTAL [address] [place] [address] Spencer Rao DDS from Last 3 Months [...] Mass Index - - Plan of Treatment Health Maintenance Due Date [...] ( season) 2025 Influenza Vaccine (#1) 2025 3, 05/09/2023, 04/18/2022, Additional history exists DTaP/Tdap/Td Vaccines [...] (ELEVATION/FORCEPS REMOVAL) Routine 03/08/2025 9:00 AM EDT PROPHYLAXIS - ADULT Routine 01/01/2024 1 0:00 AM EDT INTRAORAL - COMPLETE SERIES OF RADIOGRAPHIC IMAGES Routine 01/01/2024 10:00 AM EDT PERIODIC ORAL EVALUATION - ESTABLISHED PATIENT Routine 01/01/2024 10:00 AM EDT from Last 3 Months or Most Recently Relevant to Health Maintenance Insurance [employer] MEDICARE REPLACEMENT DENTAL-[facility] MEDICAID STAND ADULT DENTAL - AETNA DENTAL PPO
--- OUTSIDE RECORDS SUMMARY | 2025-05-24 16:30 | XMS_ITS | Clinical Summary ---
Author Organization [address] [place] [address] Address [address] [place] [address] Phone Care Team Providers Care Industrial Photographer Name Role Phone Hector Epps MD Primary [...] see if this helps. Ascending aortic aneurysm ([facility] V24) 05/06/20 Overview (04/15/2024): 4.5cm [...] this is required. Diabetic retinopathy (CMS/HCC V24, [facility]/HCC V28) 06/06/2021 Diabetes mellitus with kidne y complication (CMS/HCC V24, [facility]/HCC V28) 12/21/2020 Microalbuminuria 12/21/2020 Erectile dysfunction [...] work-up and evaluation. History of substance abuse ([facility] V24, [place] [id number]) 09/28/2015 Overview (04/15/2024): Cocaine, marijuana, some heroin Type 2 diabetes mellitus wit h cataract ([facility] V24, [facility] V28) 09/28/2015 Immunizations Immunization Administration Dates Next [...] Date Comments History of substance abuse ( [facility] V24, [facility] V28) 09/28/2015 DX:History of substance abus e ([facility]); COMMENT: Cocaine, marijuana, some heroin Chronic hepatitis C ([facility] V24, [facility] V28) 11/05/2015 DX:Chronic hepatitis C (HCC) ; COMMENT: Genotype 1a Depression 11/05/2015 DX:Depression Cervical radiculopathy 11/05/2015 DX:Cervic al radiculopathy; COMMENT: recurrent CTS (carpal tunnel syndrome) 11/05/2015 DX: CTS (carpal tunnel syndrome); COMMENT: Right, NCV 06/03 Diabetes mellitus type 2 wit h neurological manifestations ([facility] V24, [facility] V28) 11/05/2015 DX:Diabetes mellitus type 2 with neurological manifestations (HCC) GERD (gastroesophageal reflu x disease) 11/05/2015 DX:GERD (gastroesophageal re flux disease) DJD (degenerative joint dise ase) of knee 11/05/2015 DX:DJD (degenerative joint d isease) of knee Type 2 diabetes mellitus wit h cataract ([facility] V24, [facility] V28) 09/28/2015 DX:Type 2 diabetes [...] of 2 - Risk 2-dose series) 1977 RSV Immunization Adult Patients (1 - Risk 50-74 years 1-dose series) 2008 Zoster Vaccines (1 of 2) 2008 Hepatitis B Vaccines (1 of 3 - Risk 3-dose series) 2018 Medicare Annual Wellness Visit 06/29/2022 [...] * Urine Albumin Creatinine Ratio (02/17/2024) Pathologist [facility] Urine Albumin Creatinine Ratio Abstracted Historical Provider MD HEALTH MAINTENANCE Final Result * Annual BMP Blood Test (02/17/2024) Pathologist [facility] Annual BMP Blood Test Abstracted Historical Provider HEALTH MAINTENANCE Final Result * Falls Risk Assessment (02/17/2024) Pathologist [facility] Falls Risk Assessment Abstracted Historical Provider HEALTH MAINTENANCE Final Result * Depression Screening (02/17/2024) [facility] Depression Screening Abstracted Result [facility] Provider HEALTH MAINTENANCE Final Result * (ABNORMAL) Hemoglobin A1c (02/17/2024) [facility] Hemoglobin A1C 7.4(A) <=6.5 % Blood Venous blood specimen / Unknown Result [facility] Provider LAB BLOOD ORDERABLES Zunilda l Result * Lipid panel (02/17/2024) [facility] LDL/HDL Ratio 3 0 - 4 Triglycerides 93 0 - 150 mg/dL Cholesterol 125 0 - 200 mg/dL HDL 48 >=40 mg/dL LDL Cholesterol 59 0 - 100 mg/dL Blood Venous blood specimen / Unknown Result [facility] Provider LAB BLOOD ORDERABLES Zunilda l Result * Diabetes Eye Exam (10/30/2023) [facility] Diabetes: Annual Retina Eye Exam Abstracted Result [facility] Provider HEALTH MAINTENANCE Final Result * Colonoscopy (01/28/2020) [facility] Colonoscopy No interpretation , Abstracted Anatomical Region Laterality Modality Other Result [facility] Provider HEALTH MAINTENANCE Final Result * Hepatitis C Screening (04/01/2016) [facility] Hepatitis C Screening Abstracted Result [facility] Provider HEALTH MAINTENANCE Final Result from Last 3 Months or Most Recently Relevant to Health Maintenance Insurance AETNA MEDICARE ADVANTAGE MEDICARE [facility] MEDICAID - [place] Care Teams Industrial Photographer Relationship Specialty Start Date End Date Hector Epps MD [address] [place] [address] [place] [address] [place] PCP - General Internal Medicine 09/03/24
== END 2025-05-24 14:54 | disposition home or self-care (01) ==
LOC: HO.HMCH 13:28
PROVIDERS: PCP Internal Medicine; Visit Provider Internal Medicine
DX: E11.40 Type 2 diabetes mellitus with diabetic neuropathy, unspecified (principal); Z79.4 Long term (current) use of insulin

== ENCOUNTER → 2025-05-24 13:28 | Outpatient (BNVA) | payer MEDICARE, OTHER, MEDICAID, SELFPAY | PROVIDERS: PCP Internal Medicine; Visit Provider Internal Medicine | DX: R42 Dizziness and giddiness (principal); R41.3 Other amnesia; F10.10 Alcohol abuse, uncomplicated; E11.40 Type 2 diabetes mellitus with diabetic neuropathy, unspecified; I10 Essential (primary) hypertension; G47.33 Obstructive sleep apnea (adult) (pediatric); I71.21 Aneurysm of the ascending aorta, without rupture; E55.9 Vitamin D deficiency, unspecified; M51.369 Other intervertebral disc degeneration, lumbar region without mention of lumbar back pain or lower extremity pain; N40.1 Benign prostatic hyperplasia with lower urinary tract symptoms; N52.9 Male erectile dysfunction, unspecified; E66.3 Overweight; Z79.4 Long term (current) use of insulin; Z79.899 Other long term (current) drug therapy; Z68.25 Body mass index [BMI] 25.0-25.9, adult | CPT/HCPCS: 83036; 96127; 99212 ==

== ENCOUNTER 2025-05-30 08:56 | Outpatient (AMB) | payer MEDICARE, SELFPAY ==
--- NOTE | 2025-05-30 09:15 | MHC.AMDMED ---
Intake Intake Visit Reasons: 60 min Escort Patients Required: No Accompanied by: Spouse Allergies lisinopril Allergy (Severe, Verified 05/24/25 14:30) Angioedema canagliflozin (Invokana) Allergy (Unknown, Verified 05/24/25 14:30) polyuria quetiapine Adverse Reaction (Intermediate, Verified 05/24/25 14:30) sedation, fatigue liraglutide (Victoza) Adverse Reaction (Unknown, Verified 05/24/25 14:30) nausea, constipation HPI Comprehensive Diabetes Asmnt Most Recent Diabetes Results: Hemoglobin A1c 6.9 % 03/14/20 Microalb/Creat Ratio, (<30) 10.3 ug/mg cr 01/24/25 Cholesterol, (<200) 151 mg/dL 01/24/25 HDL Cholesterol, (>40) 59 mg/dL 01/24/25 Triglycerides, (<150) 141 mg/dL 01/24/25 Creatinine, (0.5-1.4) 0.92 mg/dL 10/26/24 BUN, (9-16) 14 mg/dL 10/26/24 Sodium, (135-145) 140 mmol/L 10/26/24 Potassium, (3.3-5.1) 4.4 mmol/L 10/26/24 Chloride, (96-108) 107 mmol/L 10/26/24 Carbon Dioxide, (22-29) 28 mmol/L 10/26/24 Calcium, (8.4-10.2) 9.6 mg/dL 10/26/24 AST, (5-37) 26 U/L 10/26/24 ALT, (0-40) 12 U/L 10/26/24 Total Protein, (6.5-8.0) 7.0 g/dL 10/26/24 Albumin, (3.5-5.0) 4.3 g/dL 10/26/24 [facility] Medical History Peripheral neuropathy Periodic limb movement Diabetic neuropathy Alcoholic dementia Rash and nonspecific skin eruption Cervicalgia Injury of right thumb Lumbar degenerative disc disease Vitamin D deficiency Hypersomnia Snoring Cognitive disorder Tubular adenoma of colon (~2019) BPH loc w urin obs/LUTS Frequency of urination Erectile dysfunction NAFLD (nonalcoholic fatty liver disease) Hepatitis C Hepatitis B Arthritis Alcohol abuse Depression Carpal tunnel syndrome Type 2 diabetes mellitus with diabetic neuropathy, unspecified (~2003) Essential hypertension Overweight (BMI 25.0-29.9) Surgical History History of rhinoplasty History of colonoscopy History of lumbar surgery History of cataract surgery History of excision of mass Family History Father Myocardial infarct Colon cancer Mother Diabetes Social History Household Members: Spouse Household Members Other:: Housing: House Alcohol intake: current Alcohol intake frequency: a few times a month Alcohol type: beer and hard liquor Patient Tobacco Use Status: Never used Tobacco e-Cigarette/Vaping Use: Never Used Second Hand Smoke Exposure: No Substance Use Type: Crack/Cocaine Advance Directives Date on File: 07/20/24 service: Yes Current occupational status: disabled Current occupational exposures/hazards: No Cognitive needs: No Hearing needs: No Vision needs: No Assessment & Plan Assessment & Plan (1) Type 2 diabetes mellitus with diabetic neuropathy, unspecified: Onset Date: ~2003 Code(s): E11.40 - Type 2 diabetes mellitus with diabetic neuropathy, unspecified Qualifiers: Diabetes mellitus intermediate manager insulin use: with intermediate manager use Qualified Code(s): E11.40 - Type 2 diabetes mellitus with diabetic neuropathy, unspecified; Z79.4 - intermediate (current) use of insulin Plan: Personal Continuous Glucose Monitor: Patients CGM information reviewed, Pt uses Dexcom G7 with reader Patient only has 5 days worth of data on today's sensor, reports that less sensor fell off and he had to wait for next shipment. At today's visit patient reports he is still not changing Vgo insulin delivery patch daily Explained to patient if he does not change patch daily he is not getting his 20 units basal insulin on the days after the 1st 24 hours of wearing the patch. Recommended to patient to completely fill, an up to 5 cartridges aspart 200 units, and put up reminder signs to change V-Go daily. In addition were reviewed how to treat hypoglycemia: Hypoglycemia or blood glucose under 70 use the rule of 15's: If you have your blood glucose meter test your blood glucose, if you do not have your meter still follow below instruction: Keep quick-sugar foods with you at all times.? Take 15 grams of fast acting carbohydrates. Examples are 4 ounces of fruit juice or regular soda pop, 8 ounces fat-free milk, 1 tablespoon of table sugar, honey or corn syrup, jam, one miniature box of raisins, 7-8 gumdrops or Life Savers candy, 4 glucose tablets, and glucose gel.? Retest blood glucose in 15 minutes, if blood glucose is still under 80, repeat rule of 15's. If blood glucose is under 50, take 30 grams of fast acting carbohydrates If you are having hypoglycemia, or insulin reaction, more that a few times a week, call MD or special education paraeducator F/U BG check At last visit with endocrine PA patient was switched from Mounjaro to Ozempic, at today's visit patient stated that he would prefer Mounjaro. explained to patient he may need to switch due to insurance issues, message sent to endocrine PA regarding patient's request to stay on Mounjaro Patient has upcoming appointment with endocrine PA on 06/10/2025 Patient able to insert sensor independently at home without issue.? Portions of this note were created using voice recognition software, please excuse any words or phrases that may have been misinterpreted. Medications: Discontinued semaglutide (Ozempic) Discontinued Reason: Doctor's Order 0.25 mg (0.368 mL) subcut QWEEK 3 mL 4RF Coding Level of Care Code Est Pt Level 1 (29938) Diagnoses Type 2 diabetes mellitus with diabetic neuropathy, with long-term current use of insulin E11.40; Z79.4 Diabetes mellitus fpc insulin use: with intermediate manager use
--- OUTSIDE RECORDS SUMMARY | 2025-05-30 09:34 | XMS_ITS | Encounter Summary ---
Author Organization [employer] Address [address] [place] [address] Care Team Providers Care Advanced Manufacturing Engineer Name Role Phone Unavailable Primary Care Provider Unavailabl e Reason for Visit * Reason Onset Date Comments insurance appt 12/25/2023 Encounter Details Date Type Department Care Team (Late st Contact Info) Description 12/25/2023 Telephone C [facility] [address] [facility] [place] [address] David Grayson insurance appt Social History Tobacco [...] Rawls - 12/25/2023 2:56 PM EDT Patient [employer] is not active. He says he has [employer] inurance. Patient was asked who is the insurance company that carries the insurance and he said [employer]. Asked again which is the insurance company that carries the insurance and patient hung up. Unsure of insurance coverage DR Bill medical front desk coordinator aware documented in this encounter Plan of Treatment Not on file documented as of this encounter Visit Diagnoses Not on filedocumented in this encounter
--- OUTSIDE RECORDS SUMMARY | 2025-05-30 09:34 | XMS_ITS | Clinical Summary ---
Author Organization [address] [place] [address] Address [address] [place] [address] Phone Care Team Providers Care Special Assets Officer Name Role Phone Hcetor Epps MD Primary Care Provider Allergies Active [...] see if this helps. Ascending aortic aneurysm ([facility] V24) 05/06/20 Overview (04/15/2024): 4.5cm Last Assessment [...] this is required. Diabetic retinopathy (CMS/HCC V24, [facility]/HCC V28) 06/06/2021 Diabetes mellitus with kidne y complication (CMS/HCC V24, [facility]/HCC V28) 12/21/2020 Microalbuminuria 12/21/2020 Erectile dysfunction [...] work-up and evaluation. History of substance abuse ([facility] V24, [place] [id number]) 09/28/2015 Overview (04/15/2024): Cocaine, marijuana, some heroin Type 2 diabetes mellitus wit h cataract ([facility] [place]24, [facility] V28) 09/28/2015 Immunizations Immunization Administration Dates Next [...] Date Comments History of substance abuse ( [facility] V24, [facility] V28) 09/28/2015 DX:History of substance abus e ([facility]); COMMENT: Cocaine, marijuana, some heroin Chronic hepatitis C ([facility] V24, [facility] V28) 11/05/2015 DX:Chronic hepatitis C (HCC) ; COMMENT: Genotype 1a Depression 11/05/2015 DX:Depression Cervical radiculopathy 11/05/2015 DX:Cervic al radiculopathy; COMMENT: recurrent CTS (carpal tunnel syndrome) 11/05/2015 DX: CTS (carpal tunnel syndrome); COMMENT: Right, NCV 06/03 Diabetes mellitus type 2 wit h neurological manifestations ([facility] V24, [facility] V28) 11/05/2015 DX:Diabetes mellitus type 2 with neurological manifestations (HCC) GERD (gastroesophageal reflu x disease) 11/05/2015 DX:GERD (gastroesophageal re flux disease) DJD (degenerative joint dise ase) of knee 11/05/2015 DX:DJD (degenerative joint d isease) of knee Type 2 diabetes mellitus wit h cataract ([facility] V24, [facility] V28) 09/28/2015 DX:Type 2 diabetes mellitus with [...] Albumin Creatinine Ratio (02/17/2024) Pathologist [facility] Urine Albumin Creatinine Ratio Abstracted Historical Provider MD HEALTH MAINTENANCE Final Result * Annual BMP Blood Test (02/17/2024) Pathologist [facility] Annual BMP Blood Test Abstracted Historical Provider HEALTH MAINTENANCE Final Result * Falls Risk Assessment (02/17/2024) Pathologist [facility] Falls Risk Assessment Abstracted Historical Provider HEALTH MAINTENANCE Final Result * Depression Screening (02/17/2024) [facility] Depression Screening Abstracted Result [facility] Provider HEALTH MAINTENANCE Final Result * (ABNORMAL) Hemoglobin A1c (02/17/2024) [facility] Hemoglobin A1C 7.4(A) <=6.5 % Blood Venous blood specimen / Unknown Result [facility] Provider LAB BLOOD ORDERABLES Zunilda l Result * Lipid panel (02/17/2024) [facility] LDL/HDL Ratio 3 0 - 4 Triglycerides 93 0 - 150 mg/dL Cholesterol 125 0 - 200 mg/dL HDL 48 >=40 mg/dL LDL Cholesterol 59 0 - 100 mg/dL Blood Venous blood specimen / Unknown Result [facility] Provider LAB BLOOD ORDERABLES Zunilda l Result * Diabetes Eye Exam (10/30/2023) [facility] Diabetes: Annual Retina Eye Exam Abstracted Result [facility] Provider HEALTH MAINTENANCE Final Result * Colonoscopy (01/28/2020) [facility] Colonoscopy No interpretation , Abstracted Anatomical Region Laterality Modality Other Result [facility] Provider HEALTH MAINTENANCE Final Result * Hepatitis C Screening (04/01/2016) [facility] Hepatitis C Screening Abstracted Result [facility] Provider HEALTH MAINTENANCE Final Result from Last 3 Months or Most Recently Relevant to Health Maintenance Insurance AETNA MEDICARE ADVANTAGE MEDICARE [facility] HEALTH PLAN MEDICAID - [place] Care Teams Special Assets Officer Relationship Specialty Start Date End Date Hector Epps MD [address] [place] [address] [place] [address] [place] PCP - General Internal Medicine 09/03/24
--- OUTSIDE RECORDS SUMMARY | 2025-05-30 09:34 | XMS_ITS | Encounter Summary ---
Author Organization [employer] Address [address] [facility] 7t [place] [address] Care Team Providers Care Anvil Worker Name Role Phone Unavailable Primary Care Provider Unavailabl e Encounter Details Date Type Department Care Team (Late st Contact Info) Description 07/30/2024 Telephone C ADULT DENTAL [address] [place], [place] [phone] Spencer Rao DDS [address] [place], [place] [phone] Social History Tobacco Use Types Packs/Day Years [...]
--- OUTSIDE RECORDS SUMMARY | 2025-05-30 09:34 | XMS_ITS | Encounter Summary ---
Author Organization [employer] Address [address] [facility] 7t [place] [address] Care Team Providers Care Coil Wrapper Name Role Phone Unavailable Primary Care Provider Unavailabl e Reason for Visit * Reason Onset Date Comments Appointment 03/13/2023 Encounter Details Date Type Department Care Team (Late st Contact Info) Description 03/13/2023 Telephone C ADULT DENTAL [address] [place], [place] [phone] Dinah Mckinley DDS [address] [place], [place] [phone] Appointment Social History Tobacco Use Types Packs/Day [...] did offer the patient an appt in [place] with the understanding that he would become a [place] patient but he is unwilling to go to [facility]. He wants to know why hes being told that he needs to come in and then listed. Tried my best to explain. Would like his appt or phone call. documented in this encounter Plan of Treatment Not on file documented as of this encounter Visit Diagnoses Not on filedocumented in this encounter
--- OUTSIDE RECORDS SUMMARY | 2025-05-30 09:34 | XMS_ITS | Clinical Summary ---
Author Organization [employer] Address [address] [facility] 7t [place] [address] Care Team Providers Care Child Health Associate Name Role Phone Unavailable Primary Care Provider [...] 03/08/2025 9:00 AM EDT Office Visit [facility] ADULT DENTAL [address] [place] [address] Spencer Rao DDS from Last 3 Months [...] to Health Maintenance Insurance AETNA MEDICARE REPLACEMENT DENTAL-[facility] MEDICAID STAND ADULT DENTAL - AETNA DENTAL PPO
== END 2025-05-30 09:33 | disposition home or self-care (01) ==
LOC: HO.ENCR 08:57
PROVIDERS: PCP Physician Assistant Medical; Visit Provider Registered Nurse Diabetes Educator
DX: E11.40 Type 2 diabetes mellitus with diabetic neuropathy, unspecified (principal); Z79.4 Long term (current) use of insulin

== ENCOUNTER → 2025-05-30 08:56 | Outpatient (BNVA) | payer MEDICARE, SELFPAY | PROVIDERS: PCP Physician Assistant Medical; Visit Provider Registered Nurse Diabetes Educator | DX: E11.40 Type 2 diabetes mellitus with diabetic neuropathy, unspecified (principal); Z79.4 Long term (current) use of insulin | CPT/HCPCS: 99211 ==

== ENCOUNTER 2025-06-02 09:20 | Outpatient (REF) | payer MEDICARE, SELFPAY ==
[2025-06-02 09:44] LABS: MANUAL DIFF FLAG NO
[2025-06-02 10:05] LABS: Hematocrit 37.4 % (42.0-52.0); Hemoglobin 12.8 g/dl (14.0-18.0); Imm Gran Abs Auto 0.01 X10*3/uL (0.00-0.03); Imm Gran Pct Auto 0.2 % (0.0-0.4); Lymphocytes Absolute Auto 1.1 X10*3/uL (1.2-4.9); Mean Corpuscular HGB Conc 34.2 g/dl (31.0-36.0); Mean Corpuscular Hemoglobin 30.9 pg (27.0-33.0); Mean Corpuscular Volume 90.3 fL (80.0-98.0); NRBC Abs Auto 0.000 X10*3/uL (0.0-0.012); NRBC Pct Auto 0.0 /100WBC (0.0-0.2); Platelet Count 168 X10*3/uL (160-400); Red Blood Count 4.14 X10*6/uL (4.60-5.80); White Blood Count 5.6 X10*3/uL (4.8-10.8)
--- OUTSIDE RECORDS SUMMARY | 2025-06-02 10:38 | XMS_ITS | Encounter Summary ---
Author Organization [employer] Address [address] [facility] 7t [place] [address] Care Team Providers Care Specialty Person Name Role Phone Unavailable Primary Care Provider Unavailabl e Reason for Visit * Reason Onset Date Comments Appointment 03/13/2023 Encounter Details Date Type Department Care Team (Late st Contact Info) Description 03/13/2023 Telephone C ADULT DENTAL [address] [place], [place] [phone] Dinah Mckinley DDS [address] [place], [place] [phone] Appointment Social History Tobacco Use Types Packs/Day [...] did offer the patient an appt in [place] with the understanding that he would become a [place] patient but he is unwilling to go to [facility]. He wants to know why hes being told that he needs to come in and then listed. Tried my best to explain. Would like his appt or phone call. documented in this encounter Plan of Treatment Not on file documented as of this encounter Visit Diagnoses Not on filedocumented in this encounter
--- OUTSIDE RECORDS SUMMARY | 2025-06-02 10:38 | XMS_ITS | Clinical Summary ---
Author Organization [address] [place] [address] Address [address] [place] [address] Phone Care Team Providers Care Rack Washer Name Role Phone Hector Epps MD Primary [...] see if this helps. Ascending aortic aneurysm ([facility] V24) 05/06/20 Overview (04/15/2024): 4.5cm [...] this is required. Diabetic retinopathy (CMS/HCC V24, [facility]/HCC V28) 06/06/2021 Diabetes mellitus with kidne y complication (CMS/HCC V24, [facility]/HCC V28) 12/21/2020 Microalbuminuria 12/21/2020 Erectile dysfunction 10/12/2018 [...] work-up and evaluation. History of substance abuse ([facility] V24, [place] [id number]) 09/28/2015 Overview (04/15/2024): Cocaine, marijuana, some heroin Type 2 diabetes mellitus wit h cataract ([facility] V24, [facility] V28) 09/28/2015 Immunizations Immunization Administration Dates Next [...] Date Comments History of substance abuse ( [facility] V24, [facility] V28) 09/28/2015 DX:History of substance abus e ([facility]); COMMENT: Cocaine, marijuana, some heroin Chronic hepatitis C ([facility] V24, [facility] V28) 11/05/2015 DX:Chronic hepatitis C (HCC) ; COMMENT: Genotype 1a Depression 11/05/2015 DX:Depression Cervical radiculopathy 11/05/2015 DX:Cervic al radiculopathy; COMMENT: recurrent CTS (carpal tunnel syndrome) 11/05/2015 DX: CTS (carpal tunnel syndrome); COMMENT: Right, NCV 06/03 Diabetes mellitus type 2 wit h neurological manifestations ([facility] V24, [facility] V28) 11/05/2015 DX:Diabetes mellitus type 2 with neurological manifestations (HCC) GERD (gastroesophageal reflu x disease) 11/05/2015 DX:GERD (gastroesophageal re flux disease) DJD (degenerative joint dise ase) of knee 11/05/2015 DX:DJD (degenerative joint d isease) of knee Type 2 diabetes mellitus wit h cataract ([facility] V24, [facility] V28) 09/28/2015 DX:Type 2 diabetes [...] * Urine Albumin Creatinine Ratio (02/17/2024) Pathologist [facility] Urine Albumin Creatinine Ratio Abstracted Historical Provider MD HEALTH MAINTENANCE Final Result * Annual BMP Blood Test (02/17/2024) Pathologist [facility] Annual BMP Blood Test Abstracted Historical Provider HEALTH MAINTENANCE Final Result * Falls Risk Assessment (02/17/2024) Pathologist [facility] Falls Risk Assessment Abstracted Historical Provider HEALTH MAINTENANCE Final Result * Depression Screening (02/17/2024) [facility] Depression Screening Abstracted Result [facility] Provider HEALTH MAINTENANCE Final Result * (ABNORMAL) Hemoglobin A1c (02/17/2024) [facility] Hemoglobin A1C 7.4(A) <=6.5 % Blood Venous blood specimen / Unknown Result [facility] Provider LAB BLOOD ORDERABLES Zunilda l Result * Lipid panel (02/17/2024) [facility] LDL/HDL Ratio 3 0 - 4 Triglycerides 93 0 - 150 mg/dL Cholesterol 125 0 - 200 mg/dL HDL 48 >=40 mg/dL LDL Cholesterol 59 0 - 100 mg/dL Blood Venous blood specimen / Unknown Result [facility] Provider LAB BLOOD ORDERABLES Zunilda l Result * Diabetes Eye Exam (10/30/2023) [facility] Diabetes: Annual Retina Eye Exam Abstracted Result [facility] Provider HEALTH MAINTENANCE Final Result * Colonoscopy (01/28/2020) [facility] Colonoscopy No interpretation , Abstracted Anatomical Region Laterality Modality Other Result [facility] Provider HEALTH MAINTENANCE Final Result * Hepatitis C Screening (04/01/2016) [facility] Hepatitis C Screening Abstracted Result [facility] Provider HEALTH MAINTENANCE Final Result from Last 3 Months or Most Recently Relevant to Health Maintenance Insurance AETNA MEDICARE ADVANTAGE MEDICARE [facility] HEALTH PLAN MEDICAID - [place] Care Teams Rack Washer Relationship Specialty Start Date End Date Hector Epps MD [address] [place] [address] [place] [address] [place] PCP - General Internal Medicine 09/03/24
--- OUTSIDE RECORDS SUMMARY | 2025-06-02 10:38 | XMS_ITS | Encounter Summary ---
Author Organization [employer] Address [address] [facility] [address] 7[address] [place] [address] Care Team Providers Care Neonatal Specialist Name Role Phone Unavailable Primary Care Provider Unavailabl e Reason for Visit * Reason Onset Date Comments insurance appt 12/25/2023 Encounter Details Date Type Department Care Team (Late st Contact Info) Description 12/25/2023 Telephone C [facility] ADULT DENTAL [address] [facility] [place] [address] David Grayson insurance appt Social History Tobacco [...] Rawls - 12/25/2023 2:56 PM EDT Patient [employer] is not active. He says he has [employer] inurance. Patient was asked who is the insurance company that carries the insurance and he said [employer]. Asked again which is the insurance company that carries the insurance and patient hung up. Unsure of insurance coverage DR Bill frontend engineer aware documented in this encounter Plan of Treatment Not on file documented as of this encounter Visit Diagnoses Not on filedocumented in this encounter
--- OUTSIDE RECORDS SUMMARY | 2025-06-02 10:38 | XMS_ITS | Clinical Summary ---
Author Organization [employer] Address [address] [facility] 7t [place] [address] Care Team Providers Care Information Technology Project Manager Name Role Phone Unavailable Primary Care [...] Description 03/08/2025 9:00 AM EDT Office Visit [facility] ADULT DENTAL [address] [place] [address] Spencer Rao DDS from Last 3 Months [...] 2 - Risk 2-dose series) 1977 RSV Patients and Patients Aged 60 years or older (1 - Risk 50-74 years 1-dose series) 2008 Zoster Vaccines (1 of 2) 2008 Hepatitis B Vaccines (1 of 3 - Risk 3-dose series) 2018 Diabetes: Hemoglobin A1C 05/19/2024 02/17/2024 [...] to Health Maintenance Insurance AETNA MEDICARE REPLACEMENT D[facility]AL[facility] MEDICAID STAND ADULT DENTAL - AETNA DENTAL PPO
--- OUTSIDE RECORDS SUMMARY | 2025-06-02 10:38 | XMS_ITS | Encounter Summary ---
Author Organization [employer] Address [address] [facility] 7t [place] [address] Care Team Providers Care Toll Transmission Worker Name Role Phone Unavailable Primary Care Provider Unavailabl e Encounter Details Date Type Department Care Team (Late st Contact Info) Description 07/30/2024 Telephone C ADULT DENTAL [address] [place], [place] [phone] Spencer Rao DDS [address] [place], [place] [phone] Social History Tobacco Use Types Packs/Day Years [...]
[2025-06-02 10:49] LABS: Appearance Urine Clear; Glucose Urine UA Negative (Negative); PH 6.5 (5.0-9.0); Specific Gravity - Urine 1.025 (1.005-1.025); UMIC TRIGGER UACC YES
[2025-06-02 10:52] LABS: Alanine Aminotransferase 19 U/L (0-40); Albumin Level 4.4 g/dL (3.5-5.0); Alkaline Phosphatase 80 U/L (39-117); Anion Gap 12 (12-20); Aspartate Amino Transferase 25 U/L (5-37); Blood Urea Nitrogen 13 mg/dL (9-16); Calcium 9.6 mg/dL (8.4-10.2); Carbon Dioxide 28 mmol/L (22-29); Chloride 107 mmol/L (96-108); Cholesterol 156 mg/dL (<200); Estimated Glomerular Filt Rate > 60; HDL Cholesterol 45 mg/dL (>40); Potassium 4.7 mmol/L (3.3-5.1); Sodium 142 mmol/L (135-145); Total Protein 7.0 g/dL (6.5-8.0); Triglycerides 92 mg/dL (<150)
[2025-06-02 10:57] LABS: Hemoglobin A1C 116.1282 umol/L
[2025-06-02 11:11] LABS: Folate 10.3 ng/mL (> or = 4.0); Vitamin B12 261 pg/mL (200-900)
[2025-06-02 11:27] LABS: Microalbum/Creatinine Ratio Ur 12.6 ug/mg cr (<30)
== END 2025-06-02 09:21 | disposition home or self-care (01) ==
LOC: HO.LAB 09:20
PROVIDERS: PCP Internal Medicine; Visit Provider Internal Medicine
DX: E11.9 Type 2 diabetes mellitus without complications (principal); E53.8 Deficiency of other specified B group vitamins; D64.9 Anemia, unspecified; E78.00 Pure hypercholesterolemia, unspecified; E55.9 Vitamin D deficiency, unspecified
CPT/HCPCS: 36415; 80053; 80061; 81001; 82043; 82306; 82570; 82607; 82746; 83036; 84443; 85025

== ENCOUNTER 2025-06-20 09:25 | Outpatient (AMB) | payer MEDICARE, SELFPAY ==
[2025-06-20 09:27] VITALS: BP 130/88; PULSE 68; O2SAT 98; BMI 24.7
--- NOTE | 2025-06-20 09:27 | MHC.OFFVIS ---
Vital Signs 06/20/25 09:27 Height 5 ft 10 in Weight 172 lb 6.424 oz BMI 24.7 BP 130/88 Blood Pressure Location Lt brachial Position Sitting Pulse 68 Pulse Source Pulse Oximeter Pulse Oximetry (%) 98 Oxygen Delivery Method Room Air Intake Visit Reasons: Type 2 Diabetes Intake Note: Patient present today for Type 2 Diabetes Mellitus Last Diabetic eye exam: Last exam was in 05/2025 Last Podiatry Visit: Doesn't have one Random Glucose: 91 mg/dl HgA1C: 6.8% 06/02/25 [employer] Utility Worker Required: No Accompanied by: Spouse Allergies lisinopril Allergy (Severe, Verified 06/20/25 09:34) Angioedema canagliflozin (Invokana) Allergy (Unknown, Verified 06/20/25 09:34) polyuria quetiapine Adverse Reaction (Intermediate, Verified 06/20/25 09:34) sedation, fatigue liraglutide (Victoza) Adverse Reaction (Unknown, Verified 06/20/25 09:34) nausea, constipation Medication List - Last Reconciled 06/20/25 by Kate Dyer PA-C amlodipine 5 mg PO DAILY 30 days bisacodyl (Dulcolax (bisacodyl)) 20 mg (4 x 5 mg) PO ONCE 1 day blood sugar diagnostic (Accu-Chek Guide test strips) As directed tests 4 X/day blood sugar diagnostic (Accu-Chek Letty Plus test strips) Use once daily as directed to monitor blood sugars blood-glucose meter (Accu-Chek Guide Glucose Meter) As directed tests 4 X/day blood-glucose sensor (Dexcom G7 Sensor device) As directed change every 10 days blood-glucose,lithographic platemaker,cont (Dexcom G7 Software Lead) As directed bupropion HCl XL 150 mg PO QAM cholecalciferol (vitamin D3) (Vitamin D3) 50 mcg PO DAILY 90 days cyclobenzaprine 10 mg PO BEDTIME PRN diclofenac sodium 50 mg PO Q12H PRN fluoxetine 60 mg PO QAM folic acid 1 mg PO DAILY insulin aspart (niacinamide) 100 unit/mL 2 clicks subcutaneous with meals. Up to 76 units via V Go subcut daily; 30 days lancets 4x daily lancets (Accu-Chek Fastclix Lancet Drum) TEST FOUR TIMES A DAY DIRECTED metoprolol succinate ER 25 mg PO DAILY mirtazapine 7.5 mg PO BEDTIME polyethylene glycol 3350 (Miralax) 17 grams PO DAILY 1 day quetiapine 25 mg PO BEDTIME sub-q insulin device, 20 unit (V-GO 20 device) ONE DAILY tadalafil 5 mg PO DAILY@0730 90 days tadalafil 20 mg PO ONCE PRN 90 days tamsulosin 0.4 mg orally periodically; thiamine mononitrate (vit B1) 100 mg PO DAILY tirzepatide (Mounjaro) 2.5 mg (0.5 mL) subcut QWEEK HPI HPI Type 2 Diabetes: Details: Patient is a 64 year old male with DM type 2 diagnosed in 2003 , who presents for management of diabetes. He last followed with Dr. Cabrera. Past medical history: DM2, HTN, GERD, NAFLD, hepatitis C, lower back pain due to herniated disc L5 Micro and macrovascular complications: + proliferative retinopathy, +, neuropathy Most recent a1c is 6.8. Diabetes medications: Fiasp via V-GO 20 with 2 clicks with small meals, 3 clicks with larger meals. Only 1 click for correction blood glucose over 300. Taking mounjaro 2.5 units weekly decreased from 5 due to weight loss. stopped metformin-intolerant, in the past did not tolerate trulicity -he did not want to switch to ozempic from mounjaro. CGM-dexcom- Very hyperglycemic 12%, hyperglycemic 21%, in range 67%, 0% hypoglycemia Hypoglycemia: none Exercise: walking over 30 minutes Animal Scientist - CDE education: Yes Bd Special Education Teacher: denies Ophthalmology evaluation: UTD CV: bp today in office is 130/88. He is currently managed on amlodipine 10 mg daily, metoprolol 25 mg daily. Cholesterol has been managed with diet. Last LDL was 86. [facility] Medical History Peripheral neuropathy Periodic limb movement Diabetic neuropathy Alcoholic dementia Rash and nonspecific skin eruption Cervicalgia Injury of right thumb Lumbar degenerative disc disease Vitamin D deficiency Hypersomnia Snoring Cognitive disorder Tubular adenoma of colon (~2019) BPH loc w urin obs/LUTS Frequency of urination Erectile dysfunction NAFLD (nonalcoholic fatty liver disease) Hepatitis C Hepatitis B Arthritis Alcohol abuse Depression Carpal tunnel syndrome Type 2 diabetes mellitus with diabetic neuropathy, unspecified (~2003) Essential hypertension Overweight (BMI 25.0-29.9) Surgical History History of rhinoplasty History of colonoscopy History of lumbar surgery History of cataract surgery History of excision of mass Family History Father Myocardial infarct Colon cancer Mother Diabetes Social History Household Members: Spouse Household Members Other:: Housing: House Alcohol intake: current Alcohol intake frequency: a few times a month Alcohol type: beer and hard liquor Patient Tobacco Use Status: Never used Tobacco e-Cigarette/Vaping Use: Never Used Second Hand Smoke Exposure: No Substance Use Type: Crack/Cocaine Advance Directives Date on File: 07/20/24 service: Yes Current occupational status: disabled Current occupational exposures/hazards: No Cognitive needs: No Hearing needs: No Vision needs: No Physical Exam Const Orientation/consciousness: patient oriented x3 HEENT Ears: hearing grossly normal bilaterally Neck Thyroid: Thyroid normal Lymphatic: no lymphadenopathy noted Resp Auscultation: clear to auscultation bilaterally Cardio Rate: regular rate Rhythm: regular rhythm Heart sounds: S1 normal heart sound present and S2 normal heart sound present Skin General skin exam: no rashes or lesions noted Neuro General: patient oriented x3, gait normal and no focal motor deficits Results Reviewed Results Reviewed: Laboratory Tests 10/06/18 06/02/25 08:20 09:42 Sodium 142 Potassium 4.7 Chloride 107 Carbon Dioxide 28 Anion Gap 12 BUN 13 Creatinine 1.13 Estimated GFR > 60 Fasting Glucose 121 H Estimat Average Glucose 148 Hemoglobin A1c % 6.8 H ANGEL LUIS Antibody <5 Assessment & Plan Assessment & Plan (1) Type 2 diabetes mellitus with diabetic neuropathy, unspecified: Onset Date: ~2003 Code(s): E11.40 - Type 2 diabetes mellitus with diabetic neuropathy, unspecified Category: Medical Qualifiers: Diabetes mellitus correction insulin use: with receiving distribution station operator use Qualified Code(s): E11.40 - Type 2 diabetes mellitus with diabetic neuropathy, unspecified; Z79.4 - prison (current) use of insulin Plan: We reviewed the complications associated with uncontrolled diabetes including but not limited to risk of stroke, heart attack, kidney disease, blindness, amputations, worsened neuropathy etc.. continue mounjaro 2.5 mg weekly He will be compliant with the Fiasp (2) Essential hypertension: Code(s): I10 - Essential (primary) hypertension Category: Medical Plan: BP WNL. Continue current regimen Medications: New glucagon 3 mg/actuation 3 mg intranasal ONCE PRN 2 ea 1RF hypoglycemia glucose (Dex4 Glucose) until symptoms of low blood sugar are controlled 16 grams (4 x 4 gram) PO Q15M PRN 100 tabs 0RF hypoglycemia Coding Level of Care Code Est Pt Level 4 (06504) Complex visit Add On G2211 Diagnoses Type 2 diabetes mellitus with diabetic neuropathy, with long-term current use of insulin E11.40; Z79.4 Diabetes mellitus receiving distribution station operator insulin use: with correction use Essential hypertension I10
[2025-06-20 09:41] LABS: Glucose, Whole Blood 91 mg/dL (60-115)
--- OUTSIDE RECORDS SUMMARY | 2025-06-20 11:08 | XMS_ITS | Clinical Summary ---
Author Organization [address] [place] [address] Address [address] [place] [address] Phone Care Team Providers Care Model Technician Name Role Phone Hector Epps MD [...] see if this helps. Ascending aortic aneurysm ([facility] V24) 05/06/20 Overview (04/15/2024): [...] this is required. Diabetic retinopathy (CMS/HCC V24, [facility]/HCC V28) 06/06/2021 Diabetes mellitus with kidne y complication (CMS/HCC V24, [facility]/HCC V28) 12/21/2020 Microalbuminuria 12/21/2020 Erectile dysfunction [...] work-up and evaluation. History of substance abuse ([facility] [place], [place] [id number]) 09/28/2015 Overview (04/15/2024): Cocaine, marijuana, some heroin Type 2 diabetes mellitus wit h cataract ([facility] [place], [facility] V28) 09/28/2015 Immunizations Immunization Administration Dates Next [...] HISTORICAL CATARACT REMOVAL NASAL SEPTUM SURGERY PROCEDURE: MA REPAIR NASAL SEPTAL PERFORATIONS COLONOSCOPY 01/2020 PROCEDURE: HISTORICAL COLONOSCOPY; COMMENT: repeat 5 years polyp OTHER SURGICAL HISTORY 09/16/2022 PROCEDURE: UPPER GI ENDOSCOPY, REMOVE LESION; COMMENT: bowman -biopsies taken OTHER SURGICAL HISTORY PROCEDURE: PULMONOLOGY BRONCHOSCOPY; COMMENT: dr. kilgore -bronchoscopy and mediastinoscopy with mediastinal lymph node biopsies Medical History Medical History Date Comments History of substance abuse ( [facility] [place], [facility] V28) 09/28/2015 DX:History of substance abus e ([facility]); COMMENT: Cocaine, marijuana, some heroin Chronic hepatitis C ([facility] V24, [facility] V28) 11/05/2015 DX:Chronic hepatitis C (HCC) ; COMMENT: Genotype 1a Depression 11/05/2015 DX:Depression Cervical radiculopathy 11/05/2015 DX:Cervic al radiculopathy; COMMENT: recurrent CTS (carpal tunnel syndrome) 11/05/2015 DX: CTS (carpal tunnel syndrome); COMMENT: Right, NCV 06/03 Diabetes mellitus type 2 wit h neurological manifestations ([facility] V24, [facility] V28) 11/05/2015 DX:Diabetes mellitus type 2 with neurological manifestations (HCC) GERD (gastroesophageal reflu x disease) 11/05/2015 DX:GERD (gastroesophageal re flux disease) DJD (degenerative joint dise ase) of knee 11/05/2015 DX:DJD (degenerative joint d isease) of knee Type 2 diabetes mellitus wit h cataract ([facility] V24, [facility] V28) 09/28/2015 DX:Type 2 [...] * Urine Albumin Creatinine Ratio (02/17/2024) Pathologist [facility] Urine Albumin Creatinine Ratio Abstracted Historical Provider MD HEALTH MAINTENANCE Final Result * Annual BMP Blood Test (02/17/2024) Pathologist [facility] Annual BMP Blood Test Abstracted Historical Provider HEALTH MAINTENANCE Final Result * Falls Risk Assessment (02/17/2024) Pathologist [facility] Falls Risk Assessment Abstracted Historical Provider HEALTH MAINTENANCE Final Result * Depression Screening (02/17/2024) [facility] Depression Screening Abstracted Result [facility] Provider HEALTH MAINTENANCE Final Result * (ABNORMAL) Hemoglobin A1c (02/17/2024) [facility] Hemoglobin A1C 7.4(A) <=6.5 % Blood Venous blood specimen / Unknown Result [facility] Provider LAB BLOOD ORDERABLES Zunilda l Result * Lipid panel (02/17/2024) [facility] LDL/HDL Ratio 3 0 - 4 Triglycerides 93 0 - 150 mg/dL Cholesterol 125 0 - 200 mg/dL HDL 48 >=40 mg/dL LDL Cholesterol 59 0 - 100 mg/dL Blood Venous blood specimen / Unknown Result [facility] Provider LAB BLOOD ORDERABLES Zunilda l Result * Diabetes Eye Exam (10/30/2023) [facility] Diabetes: Annual Retina Eye Exam Abstracted Result [facility] Provider HEALTH MAINTENANCE Final Result * Colonoscopy (01/28/2020) [facility] Colonoscopy No interpretation , Abstracted Anatomical Region Laterality Modality Other Result [facility] Provider HEALTH MAINTENANCE Final Result * Hepatitis C Screening (04/01/2016) [facility] Hepatitis C Screening Abstracted Result [facility] Provider HEALTH MAINTENANCE Final Result from Last 3 Months or Most Recently Relevant to Health Maintenance Insurance AETNA MEDICARE ADVANTAGE MEDICARE [facility] HEALTH PLAN MEDICAID - [place] Care Teams Model Technician Relationship Specialty Start Date End Date Hector Epps MD [address] [place] [address] [place] [address] [place] [address] [place] PCP - General Internal Medicine 09/03/24
--- OUTSIDE RECORDS SUMMARY | 2025-06-20 11:09 | XMS_ITS | Encounter Summary ---
Author Organization [employer] Address [address] [facility] [address] [place] [address] Care Team Providers Care Consulting Services Manager Name Role Phone Unavailable Primary Care Provider Unavailabl e Reason for Visit * Reason Onset Date Comments insurance appt 12/25/2023 Encounter Details Date Type Department Care Team (Late st Contact Info) Description 12/25/2023 Telephone [facility] [address] [facility] [place] [address] David Grayson insurance appt Social History Tobacco [...] Rawls - 12/25/2023 2:56 PM EDT Patient [employer] is not active. He says he has [employer] inurance. Patient was asked who is the insurance company that carries the insurance and he said [employer]. Asked again which is the insurance company that carries the insurance and patient hung up. Unsure of insurance coverage DR Bill front line leader aware documented in this encounter Plan of Treatment Not on file documented as of this encounter Visit Diagnoses Not on filedocumented in this encounter
--- OUTSIDE RECORDS SUMMARY | 2025-06-20 11:09 | XMS_ITS | Encounter Summary ---
Author Organization [employer] Address [address] [facility] 7[address] [place] [address] Care Team Providers Care Probation Manager Name Role Phone Unavailable Primary Care Provider Unavailabl e Encounter Details Date Type Department Care Team (Late st Contact Info) Description 07/30/2024 Telephone [facility] ADULT DENTAL [address] [place], [place] [phone] Spencer Rao DDS [address], [place] [phone] Social History Tobacco Use Types Packs/Day Years [...]
--- OUTSIDE RECORDS SUMMARY | 2025-06-20 11:09 | XMS_ITS | Encounter Summary ---
Author Organization [employer] Address [address] [facility] 7t [place] [address] Care Team Providers Care Interventional Radiology Technologist Name Role Phone Unavailable Primary Care Provider Unavailabl e Reason for Visit * Reason Onset Date Comments Appointment 03/13/2023 Encounter Details Date Type Department Care Team (Late st Contact Info) Description 03/13/2023 Telephone C ADULT DENTAL [address] [place], [place] [phone] Dinah Mckinley DDS [address] [place], [place] [phone] Appointment Social History Tobacco Use Types Packs/Day [...] did offer the patient an appt in [place] with the understanding that he would become a [place] patient but he is unwilling to go to [facility]. He wants to know why hes being told that he needs to come in and then listed. Tried my best to explain. Would like his appt or phone call. documented in this encounter Plan of Treatment Not on file documented as of this encounter Visit Diagnoses Not on filedocumented in this encounter
--- OUTSIDE RECORDS SUMMARY | 2025-06-20 11:09 | XMS_ITS | Clinical Summary ---
Author Organization [employer] Address [address] [facility] 7[address] [place] [address] Care Team Providers Care Ballet Soloist Name Role Phone Unavailable Primary Care Provider [...] 09/14/2013 Diabetes mellitus 09/14/2013 Hepatitis C 09/14/2013 Social History Tobacco Use Types Packs/Day Years [...] 03/14/2020, 09/03/2019, Additional history exists COVID-19 Vaccine (1 - 2024- season) 2025 Influenza Vaccine (#1) 2025 3, [...] Procedure Name Priority Date/Time Associated Diagnosis Comments PROPHYLAXIS - ADULT Routine 01/01/2024 1 0:00 AM EDT INTRAORAL - COMPLETE SERIES OF RADIOGRAPHIC IMAGES Routine 01/01/2024 10:00 AM EDT PERIODIC ORAL EVALUATION - ESTABLISHED PATIENT Routine 01/01/2024 10:00 AM EDT from Last 3 Months or Most Recently Relevant to Health Maintenance Insurance AETNA MEDICARE [facility] ADULT DENTAL - AETNA DENTAL PPO
== END 2025-06-20 10:08 | disposition home or self-care (01) ==
LOC: HO.ENCR 09:26
PROVIDERS: PCP Internal Medicine; Visit Provider Physician Assistant
DX: E11.40 Type 2 diabetes mellitus with diabetic neuropathy, unspecified (principal); Z79.4 Long term (current) use of insulin; I10 Essential (primary) hypertension

== ENCOUNTER → 2025-06-20 09:25 | Outpatient (BNVA) | payer MEDICARE, SELFPAY | PROVIDERS: PCP Internal Medicine; Visit Provider Physician Assistant | DX: I10 Essential (primary) hypertension (principal); E11.40 Type 2 diabetes mellitus with diabetic neuropathy, unspecified; Z79.4 Long term (current) use of insulin | CPT/HCPCS: 82947; 99212 ==

== ENCOUNTER 2025-06-27 16:27 | Outpatient (AMB) | payer MEDICARE, OTHER, MEDICAID, SELFPAY ==
[2025-06-27 16:31] VITALS: BP 144/80; PULSE 87; O2SAT 98; BMI 24.8
--- NOTE | 2025-06-27 16:31 | A.OFFPC_ITS ---
Vital Signs 06/27/25 16:31 06/27/25 16:47 Height 5 ft 10 in Weight 173 lb BMI 24.8 BP 144/80 H 142/84 H Blood Pressure Location Lt brachial Lt brachial Position Sitting Sitting Pulse 87 Pulse Source Pulse Oximeter Pulse Oximetry (%) 98 Oxygen Delivery Method Room Air Intake Visit Reasons: hypotension - medication adjustment, depression, d Allergies lisinopril Allergy (Severe, Verified 06/27/25 16:43) Angioedema canagliflozin (Invokana) Allergy (Unknown, Verified 06/27/25 16:43) polyuria quetiapine Adverse Reaction (Intermediate, Verified 06/27/25 16:43) sedation, fatigue liraglutide (Victoza) Adverse Reaction (Unknown, Verified 06/27/25 16:43) nausea, constipation Medication List - Last Reconciled 06/27/25 by FRANCOIS Ellis amlodipine 5 mg PO DAILY 30 days bisacodyl (Dulcolax (bisacodyl)) 20 mg (4 x 5 mg) PO ONCE 1 day blood sugar diagnostic (Accu-Chek Guide test strips) As directed tests 4 X/day blood sugar diagnostic (Accu-Chek Letty Plus test strips) Use once daily as directed to monitor blood sugars blood-glucose meter (Accu-Chek Guide Glucose Meter) As directed tests 4 X/day blood-glucose sensor (Dexcom G7 Sensor device) As directed change every 10 days blood-glucose,rotary cutter,cont (Dexcom G7 Patient Transition Specialist) As directed bupropion HCl XL 150 mg PO QAM cholecalciferol (vitamin D3) (Vitamin D3) 50 mcg PO DAILY 90 days cyclobenzaprine 10 mg PO BEDTIME PRN diclofenac sodium 50 mg PO Q12H PRN fluoxetine 60 mg PO QAM folic acid 1 mg PO DAILY glucagon 3 mg/actuation 3 mg intranasal ONCE PRN glucose (Dex4 Glucose) 16 grams (4 x 4 gram) PO Q15M PRN insulin aspart (niacinamide) 100 unit/mL 2 clicks subcutaneous with meals. Up to 76 units via V Go subcut daily; 30 days lancets 4x daily lancets (Accu-Chek Fastclix Lancet Drum) TEST FOUR TIMES A DAY DIRECTED metoprolol succinate ER 25 mg PO DAILY mirtazapine 7.5 mg PO BEDTIME polyethylene glycol 3350 (Miralax) 17 grams PO DAILY 1 day quetiapine 25 mg PO BEDTIME sub-q insulin device, 20 unit (V-GO 20 device) ONE DAILY tadalafil 5 mg PO DAILY@0730 90 days tadalafil 20 mg PO ONCE PRN 90 days tamsulosin 0.4 mg orally periodically; thiamine mononitrate (vit B1) 100 mg PO DAILY tirzepatide (Mounjaro) 2.5 mg (0.5 mL) subcut QWEEK Tobacco use date assessed: 05/24/25 Fall risk assessment: No Falls in past year Last assessed Fall Risk: 06/27/25 Dental Screening Dental Screen Date: 05/24/25 HPI HPI Comments History of Present Illness Details The patient is a 64 year old male presenting for medication management for hypertension and depression. He reports taking 10 pills and wishes to reduce the number. Regarding his hypertension, his amlodipine was recently decreased from 10 mg to 5 mg due to complaints of dizziness. He reports continued dizziness and also experiences eye pain, which he associates with high blood pressure. The patient does not monitor his blood pressure at home, although he owns a machine. For depression, he is prescribed two different medications and sees a psychiatrist, although he states his primary doctor prescribes them. The patient is aware one of his medications for depression may also be used for sleep or appetite. He also takes medication for an enlarged prostate. His diet consists of a lot of soda and he admits he does not drink enough water. He also mentions his activity is limited, stating, all I do is watch TV and eat. Health Maintenance - Counseled on dietary changes, includin g decreasing salt intake to help manage blood pressure. - Advised to increase water intake and s top drinking soda to improve hydration and reduce dizziness. - Medication adherence was reviewed, inc luding instructions on which medications to take at night versus in the morning. - A follow-up appointment in one month w as scheduled to recheck blood pressure before making any further medication adjustments. Social History - Substance Use: Denies alcohol use. Dri nks a lot of soda. - Nutritional Intake: Patient reports a diet high in soda and acknowledges inadequate water intake. - Level of Activity: Reports a sedentary lifestyle, stating he primarily watches TV and eats. Results [facility] Medical History Peripheral neuropathy Periodic limb movement Diabetic neuropathy Alcoholic dementia Rash and nonspecific skin eruption Cervicalgia Injury of right thumb Lumbar degenerative disc disease Vitamin D deficiency Hypersomnia Snoring Cognitive disorder Tubular adenoma of colon (~2019) BPH loc w urin obs/LUTS Frequency of urination Erectile dysfunction NAFLD (nonalcoholic fatty liver disease) Hepatitis C Hepatitis B Arthritis Alcohol abuse Depression Carpal tunnel syndrome Type 2 diabetes mellitus with diabetic neuropathy, unspecified (~2003) Essential hypertension Overweight (BMI 25.0-29.9) Surgical History History of rhinoplasty History of colonoscopy History of lumbar surgery History of cataract surgery History of excision of mass Family History Father Myocardial infarct Colon cancer Mother Diabetes Social History Household Members: Spouse Household Members Other:: Housing: House Alcohol intake: current Alcohol intake frequency: a few times a month Alcohol type: beer and hard liquor Patient Tobacco Use Status: Never used Tobacco Tobacco use type: Cigarette e-Cigarette/Vaping Use: Never Used Second Hand Smoke Exposure: No Substance Use Type: Crack/Cocaine Advance Directives Date on File: 07/20/24 service: Yes Current occupational status: disabled Current occupational exposures/hazards: No Cognitive needs: No Hearing needs: No Vision needs: No Questionnaire Thrive Questionnaire Date Thrive assessed: 02/09/25 I am a: Patient What is your living situation today?: I have a steady place to live Within the past 12 months, did the food you bought not last and you didn't have the money to get more?: Never true Within the past 12 months, did you worry whether your food would run out before you got money to buy more?: Never true Do you have trouble paying for medicines?: No Do you have trouble getting transportation to medical appointments?: No Do you have trouble paying your heating and electricity bill?: No Do you have trouble taking care of your child, family member or friend?: No Do you have trouble with day-to-day activities such as bathing, preparing meals, shopping, managing finances, etc.?: No Are you currently unemployed and looking for a job?: No Are you interested in more education?: No Please select the resources that you would like help with: None Currently or been in a relationship where the following occur: No concerns reported THRIVE Score: 0 ANGEL LUIS-7 AMB Questionnaire ANGEL LUIS-7 Date ANGEL LUIS - 7 assessed: 05/24/25 Source: Developed by Drs. Lee Gould, Shaina Amato, Darryn Landaverde and colleagues, with an educational lashawn from [employer]. Review of Systems Narrative Review of Systems - General: Reports feeling cold. - Eyes: Reports eye pain. - Neurological: Reports dizziness and memory problems. - Psychiatric: Reports feeling depressed. Const Denies body aches, Denies chills, Denies fever(s), Denies headache(s) and Denies poor appetite Eyes Reports no additional complaints ENT Denies dysphagia, Denies dizziness, Denies headache(s) and Denies odynophagia Card Denies chest pain, Denies syncope, Denies edema, Denies irregular heart rhythm, Denies lightheadedness and Denies dyspnea Resp Denies cough and Denies dyspnea GI Denies abdominal pain, Denies constipation, Denies dysphagia, Denies diarrhea, Denies nausea, Denies odynophagia and Denies vomiting Reports no additional complaints Musc Reports no additional complaints and Denies abnormal gait Skin/Breast Reports system reviewed and no additional complaints, except as documented Neuro Denies abnormal gait, Denies dizziness, Denies syncope and Denies headache(s) Psych Reports no additional complaints Physical exam (Primary Care) Vital Signs: Last Vital Signs Pulse 87 06/27/25 16:31 BP 142/84 H 06/27/25 16:47 Pulse Ox 98 06/27/25 16:31 Oxygen Delivery Method Room Air 06/27/25 16:31 BMI result Body Mass Index 24.8 Tobacco/Smoking Status: Tobacco use Status Tobacco use date assessed 05/24/25 06/27/25 16:35 Patient Tobacco Use Status Never used Tobacco 06/27/25 16:35 Tobacco use type Cigarette 06/27/25 16:35 e-Cigarette/Vaping Use Never Used 06/27/25 16:35 Thrive Assessment: Date of Thrive Assessment Date Thrive assessed 02/09/25 06/27/25 16:35 Currently or been in a relationship where the following occur: No concerns reported Narrative Physical Exam - Vitals: Blood pressure is 140/84 mmHg. - Respiratory: Lungs are clear to auscultation. Const General: cooperative, healthy appearing, comfortable and no acute distress Orientation/consciousness: patient oriented x3 HENMT Head: Yes normocephalic Ears: hearing grossly normal bilaterally General nose exam: Normal external nose present Eyes General: appearance normal, both eyes and all related structures Conjunctivae: conjunctivae normal Neck Neck: Yes full ROM and Yes no lymphadenopathy Resp Effort & Inspection: normal respiratory effort Auscultation: clear to auscultation bilaterally, no crackles, no rales, no rhonchi and no wheezes Cardio Rate: regular rate Rhythm: regular rhythm Skin General skin exam: no rashes or lesions noted Neuro General: patient oriented x3 Gait exam (Neuro): Normal gait present Extrem General: Yes normal to inspection, Yes full ROM and No edema Psych Affect: normal affect Attitude: cooperative Insight: Good insight present (Psych) Judgement: Good judgement present (Psych) Coding Level of Care Code Est Pt Level 3 (35940) Diagnoses Essential hypertension I10 Episode of recurrent major depressive disorder, unspecified depression episode severity F33.9 Depression Type: major depressive disorder Major depression recurrence: recurrent Active/Remission status: currently active Major depression episode severity: unspecified Time Spent (min) 27 Assessment & Plan Assessment & Plan (1) Essential hypertension: Code(s): I10 - Essential (primary) hypertension Category: Medical (2) Depression: Comment: No suicidal homicidal ideation= declined intervention No psychotherapy Encouraged to discuss further with PCP- Code(s): F32.9 - Major depressive disorder, single episode, unspecified Category: Medical Qualifiers: Depression Type: major depressive disorder Major depression recurrence: recurrent Active/Remission status: currently active Major depression episode severity: unspecified Qualified Code(s): F33.9 - Major depressive disorder, recurrent, unspecified Plan Plan Patient was informed and verbally consented to the use of an ambient scribe for clinic note documentation during this visit. 1. Hypertension The patient's blood pressure was measured at 140/84 mmHg, which is elevated. This follows a recent dose reduction of amlodipine from 10 mg to 5 mg due to patient-reported dizziness. It is suspected that the patient's dizziness may be due to dehydration from high soda intake rather than the blood pressure medication. The plan is to defer medication changes at this time. The patient was counseled to reduce salt intake, stop drinking soda, and increase water consumption. A follow-up appointment is scheduled in one month to recheck his blood pressure and reassess the treatment plan. 2. Depression The patient expressed a desire to reduce the number of medications he is taking, including his two depression medications. It was explained that starting with one medication is typical, and a second is added if the first is not sufficiently effective. The patient was advised that stopping his medications could lead to a worsening of his depression. The plan is to continue the current regimen, and the patient agreed to continue taking all prescribed pills. 3. Medication Reconciliation The patient's current medications were reviewed, as he expressed concern about taking too many pills. The rationale for each medication was discussed, including two for depression, one for benign prostatic hyperplasia (tamsulosin), and vitamins (thiamine, vitamin D). He was instructed on the timing of his medications, with some designated for nighttime administration. Discussion Notes I reviewed the patient's concerns regarding his blood pressure, dizziness, and medication regimen. I explained that his current blood pressure of 140/84 mmHg is slightly elevated, likely due to the recent reduction of his amlodipine dose. I discussed the possibility that his dizziness may be related to dehydration from his high soda intake, rather than his blood pressure medication. We decided not to adjust his amlodipine at this time and will re-evaluate in one month. Regarding his desire to stop his depression medications, I explained that these were likely prescribed because they are necessary and that stopping them could worsen his depression. I recommended he continue all his medications as prescribed. I encouraged him to reduce salt intake, stop drinking soda, and increase his water intake, assuring him he will feel much better. I informed him that he will have a follow-up appointment in one month to recheck his blood pressure. Patient Instructions - Continue taking all of your current medications as prescribed. - Make sure to take the correct pills at night as we discussed. - Stop drinking soda and drink a lot more water to stay hydrated. This should help with your dizziness. - Reduce the amount of salt in your diet to help lower your blood pressure. - Return to the clinic in one month for a follow-up appointment to recheck your blood pressure.
[2025-06-27 16:47] VITALS: BP 142/84
--- OUTSIDE RECORDS SUMMARY | 2025-06-28 01:56 | XMS_ITS | Clinical Summary ---
Author Organization [employer] Address [address] [facility] 7t [place] [address] Care Team Providers Care Certified Flex Endoscope Reprocessor Name Role Phone Unavailable Primary Care Provider [...] Maintenance Insurance AETNA MEDICARE [facility] - AETNA DENTAL PPO
--- OUTSIDE RECORDS SUMMARY | 2025-06-28 01:56 | XMS_ITS | Encounter Summary ---
Author Organization [employer] Address [address] [facility] [address] [place] [address] Care Team Providers Care Drop Tester Name Role Phone Unavailable Primary Care Provider Unavailabl e Reason for Visit * Reason Onset Date Comments insurance appt 12/25/2023 Encounter Details Date Type Department Care Team (Late st Contact Info) Description 12/25/2023 Telephone [facility] [address] [facility] [place] [address] David Grayson insurance appt Social History Tobacco [...] Rawls - 12/25/2023 2:56 PM EDT Patient [id number] is not active. He says he has [employer] inurance. Patient was asked who is the insurance company that carries the insurance and he said [employer]. Asked again which is the insurance company that carries the insurance and patient hung up. Unsure of insurance coverage DR Bill front end assistant aware documented in this encounter Plan of Treatment Not on file documented as of this encounter Visit Diagnoses Not on filedocumented in this encounter
--- OUTSIDE RECORDS SUMMARY | 2025-06-28 01:56 | XMS_ITS | Encounter Summary ---
Author Organization [employer] Address [address] [facility] [address] [place] [address] Care Team Providers Care Boilermaker Welder Name Role Phone Unavailable Primary Care Provider Unavailabl e Reason for Visit * Reason Onset Date Comments Appointment 03/13/2023 Encounter Details Date Type Department Care Team (Late st Contact Info) Description 03/13/2023 Telephone C ADULT DENTAL [address] [place], [place] [id number] Dinah Mckinley DDS [address] [place], [place] [phone] Appointment Social History Tobacco Use Types Packs/Day [...] did offer the patient an appt in [place] with the understanding that he would become a [place] patient but he is unwilling to go to [facility]. He wants to know why hes being told that he needs to come in and then listed. Tried my best to explain. Would like his appt or phone call. documented in this encounter Plan of Treatment Not on file documented as of this encounter Visit Diagnoses Not on filedocumented in this encounter
--- OUTSIDE RECORDS SUMMARY | 2025-06-28 01:56 | XMS_ITS | Encounter Summary ---
Author Organization [employer] Address [address] [facility] [address] [place] [address] Care Team Providers Care Sawdust Drier Name Role Phone Unavailable Primary Care Provider Unavailabl e Encounter Details Date Type Department Care Team (Late st Contact Info) Description 07/30/2024 Telephone C ADULT DENTAL [address] [place], [place] [phone] Spencer Rao DDS [address] [place], [place] [phone] Social History Tobacco Use Types Packs/Day Years [...]
--- OUTSIDE RECORDS SUMMARY | 2025-06-28 01:56 | XMS_ITS | Clinical Summary ---
Author Organization [address] [place] [address] Address [address] [place] [address] Phone Care Team Providers Care Flight Line Service Attendant Name Role Phone Hector Epps MD [...] Type 2 diabetes mellitus with cataract 6 Immunizations Immunization Administration Dates Next Due Influenza [...] HISTORICAL CATARACT REMOVAL NASAL SEPTUM SURGERY PROCEDURE: LA REPAIR NASAL SEPTAL PERFORATIONS COLONOSCOPY 01/2020 PROCEDURE: HISTORICAL COLONOSCOPY; COMMENT: repeat 5 years polyp OTHER SURGICAL HISTORY 09/16/2022 PROCEDURE: UPPER GI ENDOSCOPY, REMOVE LESION; COMMENT: bowman -biopsies taken OTHER SURGICAL HISTORY PROCEDURE: PULMONOLOGY BRONCHOSCOPY; COMMENT: dr. kilgore -bronchoscopy and mediastinoscopy with mediastinal lymph node biopsies Medical History Medical History Date Comments History of substance abuse ( CMS/HCC V24, CMS/HCC V28) 09/28/2015 DX:History of substance abus e (HCC); COMMENT: Cocaine, marijuana, some heroin Chronic hepatitis C (CMS/HCC V24, CMS/HCC V28) 11/05/2015 DX:Chronic hepatitis C (HCC) ; COMMENT: Genotype 1a Depression 11/05/2015 DX:Depression Cervical radiculopathy 11/05/2015 DX:Cervic al radiculopathy; COMMENT: recurrent CTS (carpal tunnel syndrome) 11/05/2015 DX: CTS (carpal tunnel syndrome); COMMENT: Right, NCV 11/14 Diabetes mellitus type 2 wit h neurological manifestations (CMS/HCC V24, CMS/[facility] V28) 11/05/2015 DX:Diabetes mellitus type 2 with neurological manifestations (HCC) GERD (gastroesophageal reflu x disease) 11/05/2015 DX:GERD (gastroesophageal re flux disease) DJD (degenerative joint dise ase) of knee 11/05/2015 DX:DJD (degenerative joint d isease) of knee Type 2 diabetes mellitus wit h cataract ([facility] V24, [facility] V28) 09/28/2015 DX:Type 2 diabetes mellitus with [...] on file Sexual Orientation Not on file Last Filed Vital Signs [...] Test 02/16/2025 02/17/2024, 02/17/2024 COVID-19 Vaccine ( - season) 2025 Influenza Vaccine (#1) 2025 , [...] * Urine Albumin Creatinine Ratio (02/17/2024) Pathologist [facility] Urine Albumin Creatinine Ratio Abstracted Result [facility] Provider HEALTH MAINTENANCE Final Result * Annual BMP Blood Test (02/17/2024) Pathologist [facility] Annual BMP Blood Test Abstracted [facility] Provider HEALTH MAINTENANCE Final Result * Falls Risk Assessment (02/17/2024) [facility] Falls Risk Assessment Abstracted [facility] Provider HEALTH MAINTENANCE Final Result * Depression Screening (02/17/2024) Pathologist [facility] Depression Screening Abstracted Result [facility] Provider HEALTH MAINTENANCE Final Result * (ABNORMAL) Hemoglobin A1c (02/17/2024) [facility] Hemoglobin A1C 7.4(A) <=6.5 % Blood Venous blood specimen / Unknown [facility] Provider LAB BLOOD ORDERABLES Zunilda l Result * Lipid panel (02/17/2024) [facility] LDL/HDL Ratio 3 0 - 4 Triglycerides 93 0 - 150 mg/dL Cholesterol 125 0 - 200 mg/dL HDL 48 >=40 mg/dL LDL Cholesterol 59 0 - 100 mg/dL Blood Venous blood specimen / Unknown [facility] Provider LAB BLOOD ORDERABLES Zunilda l Result * Diabetes Eye Exam (10/30/2023) [facility] Diabetes: Annual Retina Eye Exam Abstracted [facility] Provider HEALTH MAINTENANCE Final Result * Colonoscopy (01/28/2020) [facility] Colonoscopy No interpretation , Abstracted Anatomical Region Laterality Modality Other [facility] Provider HEALTH MAINTENANCE Final Result * Hepatitis C Screening (04/01/2016) [facility] Hepatitis C Screening Abstracted [facility] Provider HEALTH MAINTENANCE Final Result from Last 3 Months or Most Recently Relevant to Health Maintenance Insurance [employer] MEDICARE ADVANTAGE MEDICARE FAMILY HEALTH PLAN MEDICAID - [place] Care Teams Flight Line Service Attendant Relationship Specialty Start Date End Date Hector Epps MD [address] [place] [address] [place] [address] [place] PCP - General Internal Medicine 09/03/24
== END 2025-06-27 17:13 | disposition home or self-care (01) ==
LOC: HO.HMCH 16:28
PROVIDERS: PCP Internal Medicine
DX: I10 Essential (primary) hypertension (principal); F33.9 Major depressive disorder, recurrent, unspecified

== ENCOUNTER → 2025-06-27 16:27 | Outpatient (BNVA) | payer MEDICARE, OTHER, MEDICAID, SELFPAY | PROVIDERS: PCP Internal Medicine | DX: I10 Essential (primary) hypertension (principal); E11.9 Type 2 diabetes mellitus without complications; F33.9 Major depressive disorder, recurrent, unspecified; Z79.899 Other long term (current) drug therapy | CPT/HCPCS: 99212 ==